=== PATIENT | female | born 1935 | race Caucasian/White ===

== ENCOUNTER → 2017-07-22 | Outpatient (CLI) | payer MEDICARE, OTHER ==
[~2017-07-22] MED LIST: AMLO5TAB96 PO; DIOV160T60 PO; LAMO25 PO; SIMV5TAB32 PO; TOPR100T15 PO
[2017-07-22 09:39] LABS: ALBUMIN 3.2 GM/DL (3.4-5.0); ALT (GPT) 15 U/L (10-53); AST (GOT) 16 U/L (15-37); BICARBONATE 23.6 MEQ/L (21.0-32.0); BLOOD UREA NITROGEN 25 MG/DL (7-18); CALCIUM 8.8 MG/DL (8.5-10.1); CHLORIDE 108 MEQ/L (98-107); CHOLESTEROL 126 MG/DL (120-200); CREATININE 1.09 MG/DL (0.50-1.00); GLOMERULAR FILTRATION RATE 48 ML/MIN (>89); SODIUM (NA) 140 MEQ/L (136-145); TRIGLYCERIDES 109 MG/DL (42-150)
[2017-07-22 09:41] LABS: GLUCOSE,FASTING 92 MG/DL (74-99); TOTAL BILIRUBIN ADULT 0.3 MG/DL (0.2-1.0); TOTAL PROTEIN 6.6 GM/DL (6.4-8.2)
[2017-07-22 09:48] LABS: ALKALINE PHOSPHATASE 112 U/L (45-117); CHOLESTEROL/ HDL RATIO 2.51 RATIO; HDL CHOLESTEROL 50.1 MG/DL (40.0-60.0); LDL CHOLESTEROL 54 MG/DL (0-99)
== END ==
LOC: PLAB 07:44
PROVIDERS: ATTEND Nurse Practitioner Family
DX: E78.2 Mixed hyperlipidemia (principal); I10 Essential (primary) hypertension; E03.9 Hypothyroidism, unspecified
CPT/HCPCS: 36415; 80053; 80061; 84443

== ENCOUNTER → 2017-09-20 | Outpatient (CLI) | payer MEDICARE, OTHER ==
[~2017-09-20] MED LIST changes: +AMLO5TAB2 PO; -AMLO5TAB96 PO; +ASPI81TA23 PO; -DIOV160T60 PO; -LAMO25 PO; +LAMO25TA PO; +LEVO.05 PO; +QUET300XR PO; -SIMV5TAB32 PO; +TOPR100T PO; -TOPR100T15 PO; +VALS1TAB65 PO; +ZOCO5TAB PO
== END ==
LOC: PLAB 07:39
PROVIDERS: ATTEND Family Medicine
DX: E03.9 Hypothyroidism, unspecified (principal)
CPT/HCPCS: 36415; 84443

== ENCOUNTER → 2017-11-09 | Outpatient (CLI) | payer MEDICARE, OTHER ==
[2017-11-09 13:25] LABS: AUTOMATED NEUTROPHIL # 5.5 TH/MM3 (1.8-7.7); BASOPHIL # 0.1 TH/MM3 (0-0.2); BASOPHIL % 0.9 % (0.0-2.0); EOSINOPHIL # 0.2 TH/MM3 (0-0.4); HEMATOCRIT 33.3 % (35.0-46.0); HEMOGLOBIN 11.3 GM/DL (11.6-15.3); LYMPH % 21.4 % (9.0-44.0); LYMPHOCYTE # 1.8 TH/MM3 (1.0-4.8); MEAN CELL VOLUME 84.7 FL (80.0-100.0); MEAN CORPUSCULAR HEMOGLOBIN 28.6 PG (27.0-34.0); MEAN CORPUSCULAR HGB CONC 33.8 % (32.0-36.0); MEAN PLATELET VOLUME 8.7 FL (7.0-11.0); MONO % 8.1 % (0.0-8.0); MONOCYTE # 0.7 TH/MM3 (0-0.9); NEUT % 66.6 % (16.0-70.0); PLATELET COUNT 230 TH/MM3 (150-450); RED BLOOD COUNT 3.93 MIL/MM3 (4.00-5.30); RED CELL DISTRIBUTION WIDTH 15.9 % (11.6-17.2); WHITE BLOOD COUNT 8.3 TH/MM3 (4.0-11.0)
[2017-11-09 13:26] LABS: BICARBONATE 23.4 MEQ/L (21.0-32.0); CREATININE 1.14 MG/DL (0.50-1.00)
== END ==
LOC: PLAB 11:07
PROVIDERS: ATTEND Family Medicine
DX: N18.3 Chronic kidney disease, stage 3 (moderate) (principal)
CPT/HCPCS: 36415; 80048; 85025

== ENCOUNTER 2018-07-15 22:29 | Inpatient (IN) ==
[2018-07-15] MEDS ORDERED: Sod Chloride 0.9% Inj 1,000 ML IV.SIG ONE (23:27)
[2018-07-15] MEDS ORDERED: Pantoprazole Inj 40 MG Vial IV.PUSH ONE (23:27)
[2018-07-15] MEDS ORDERED: Morphine Inj 4 MG/ML Vial IV.PUSH ONE (23:27)
--- NOTE | 2018-07-15 23:45 | ED ---
HPI General Chief complaint: Nausea/Vomiting/Diarrhea Stated complaint: abd pain Xtoday n/v/d/ Time Seen by Provider: 07/15/18 23:27 Source: patient and family (daughter --[facility] RN) Mode of arrival: ambulatory Limitations: no limitations History of Present Illness HPI Narrative: 82-year-old female presents to the emergency department by private transportation the care of her daughter for evaluation of generalized weakness transient confusion. According to the daughter who presents with the patient she is otherwise in fairly good health has had previous issues with opiate dependence and more recently has been placed on Seroquel to take as needed for insomnia. Patient did take a dose of Seroquel this evening. No reported abuse of of Seroquel. According to daughter they went to dinner last night she ate out everyone ate the same food she felt well seemed her normal self and then today the daughter reports that the patient called her around 11 AM stating that she did not feel well having nausea vomiting and daughter assessed that she did not seem like her typical self and appeared ill and possibly dehydrated. Daughter again assessed the patient this evening she did not seem to be improving she seemed to be more agitated disoriented and weak. Poor urine output today. No diarrhea. No prior history of diverticulitis or diverticulitis colitis bloody stools mucoid stools no hematemesis coffee-ground emesis or bilious emesis no report of chest pain or palpitations. No recent fever. Patient was given Phenergan suppository which she states did not provide her any relief that she used earlier today. No injury or fall. MD complaint: Reports nausea, vomiting and abdominal pain Onset (ago): hour(s) (onset 11 am) Description of Vomiting: food contents Description of Diarrhea: none Associated Abdominal Pain: Yes Location of pain: Reports LLQ Radiation: does not radiate Severity: moderate Quality: Reports cramping and aching Pain Consistency: colicky Relieving factors: none Exacerbating factors: none Context: Denies foreign travel, possible food poisoning, sick contacts, recent antibiotic use, recent surgery/procedure, history of abdominal surgery, alcohol abuse, trauma, anticoagulant use, aspirin use, caffeine, self induced, smoking, CO exposure, new medication and marijuana use Associated symptoms: Reports nausea/vomiting, weakness, decreased urine output and altered mental status (per daughter); Denies myalgias, chest pain, cough, diaphoresis, fever/chills, headaches, loss of appetite, malaise, rash, dysuria, shortness of breath, syncope, fecal incontinence, tenesmus, anxiety, fatigue, bloating, numbness, tinnitus and palpitation Related Data Home Medications Medication Instructions Recorded Confirmed amlodipine 5 mg PO DAILY 07/16/18 07/16/18 aspirin [Aspir-81] 81 mg PO DAILY 07/16/18 07/16/18 atorvastatin 10 mg PO DAILY 07/16/18 07/16/18 candesartan 16 mg PO DAILY 07/16/18 07/16/18 cholecalciferol (vitamin D3) 2,000 unit PO DAILY 07/16/18 07/16/18 [Vitamin D3] cyanocobalamin (vitamin B-12) 1,000 mcg PO DAILY 07/16/18 07/16/18 [Vitamin B-12] levothyroxine [Synthroid] 50 mcg PO DAILY 07/16/18 07/16/18 metoprolol succinate [Toprol XL] 100 mg PO HS 07/16/18 07/16/18 quetiapine [Seroquel] 200 mg PO HS 07/16/18 07/16/18 Allergies Allergy/AdvReac Type Severity Reaction Status Date / Time diphenhydramine Allergy Severe THROAT Verified 07/16/18 00:47 CLOSES valproic acid Allergy Intermediate VERY Verified 07/16/18 00:47 DISORIENTED Review of Systems ROS: all other systems reviewed are negative PMFSH History History Provided By: Patient (Chronic pain syndrome) Social History Social History Substance History: Past History Second Hand Smoke Exposure: No Smoking Status: Never smoker How Often Do You Have a Drink Containing Alcohol: Monthly or less Exam Narrative Exam Narrative: GENERAL: Well-nourished, well-developed patient. GCS 15 SKIN: Focused skin assessment warm/dry. HEAD: Normocephalic. EYES: No scleral icterus. No injection or drainage. NECK: Supple, trachea midline. No JVD or lymphadenopathy. CARDIOVASCULAR: Regular rate and rhythm without murmurs, gallops, or rubs. RESPIRATORY: Breath sounds equal bilaterally. No accessory muscle use. GASTROINTESTINAL: Abdomen soft, left lower quadrant tenderness to palpation without guarding or rebound, nondistended. Rectal exam: Normal sphincter tone formed hard light brown stool that is Hemoccult negative MUSCULOSKELETAL: No cyanosis, or edema. Radial dorsalis pedis pulses 2+ to palpation bilaterally BACK: Nontender without obvious deformity. No CVA tenderness. Course Initial Documented Vital Signs Temperature 99.9 F H 07/15/18 22:47 Pulse Rate 100 H 07/15/18 22:47 Respiratory Rate 20 07/15/18 22:47 Blood Pressure 148/71 H 07/15/18 22:47 Pulse Oximetry 96 07/15/18 22:47 Last Documented Vital Signs Temperature 97.6 F 07/17/18 16:15 Pulse Rate 55 L 07/17/18 18:00 Respiratory Rate 32 H 07/17/18 18:00 Blood Pressure 133/78 07/17/18 16:46 Pulse Oximetry 94 L 07/17/18 18:00 Medical Decision Making MDM Narrative Medical decision making narrative: 82-year-old female with generalized weakness nausea vomiting abdominal pain decreased urine output possible dehydration with left lower quadrant abdominal pain. IV access obtained specimens collected and sent for resulting patient placed on residential monitor with continuous pulse oximetry given fluid bolus 500 cc x1 and then maintenance at 100 cc/h Zofran administered for complaint of nausea. EKG ordered Patient given additional IV fluids hydration resting comfortably waiting on lab results Patient with leukocytosis and decreased bicarbonate additional IV fluids added as well as IV antibiotics CT abdomen pelvis shows extrahepatic ductal dilatation and dilation of the bladder patient does have tenderness to the right upper quadrant no evidence for diverticulitis colitis or bowel obstruction; patient also out abnormal urinalysis Patient with drop in blood pressure additional fluids added patient with 3 peripheral IV access x2 18-gauge and x1 20-gauge also addition of pressors Patient's case discussed with local area network administrator who has graciously accepted patient for transfer of care for management of sepsis/severe sepsis with lactic acidosis. Decision made patient transfer patient emergently from [facility] to [facility] directly to [facility] under care of local area network administrator Dr. Farfan; blood pressure improved after I additional IV fluids and pressors of Levophed; GCS remains 15 Medical Screen Exam Complete: Yes Emergency Medical Condition: Yes Differential Diagnosis Differential Diagnosis: Abdominal pain, gastroenteritis, enteritis, colitis, ischemic colitis, UTI, dehydration, arrhythmia, electrolyte disturbance, ACS, TIA, sepsis Medical Records Medical records reviewed: Yes I reviewed the patient's medical records. Lab Data Lab results reviewed: Yes I reviewed the patient's lab results. Result diagrams: 07/17/18 05:32 07/17/18 15:15 Lab Results 07/15/18 07/15/18 07/15/18 Range/Units 23:36 23:36 23:36 CBC w Diff Auto diff final WBC 9.5 (4.0-11.0) th/mm3 RBC 4.48 (4.00-5.30) mil/mm3 Hgb 13.1 (11.6-15.3) gm/dL Hct 40.9 (35.0-46.0) % MCV 91.3 (80.0-100.0) fL MCH 29.2 (27.0-34.0) pg MCHC 31.9 L (32.0-36.0) % RDW 13.1 (11.6-17.2) % Plt Count 264 (150-450) th/mm3 MPV 9.3 (7.0-11.0) fL Neut % (Auto) 93.8 H (16.0-70.0) % Lymph % (Auto) 2.9 L (9.0-44.0) % Pope % (Auto) 3.1 (0.0-8.0) % Eos % (Auto) 0.1 (0.0-4.0) % Baso % (Auto) 0.1 (0.0-2.0) % Neut # (Auto) 8.9 H (1.8-7.7) th/mm3 Lymph # (Auto) 0.3 L (1.0-4.8) th/mm3 Pope # (Auto) 0.3 (0.0-0.9) th/mm3 Eos # (Auto) 0.0 (0.0-0.4) th/mm3 Baso # (Auto) 0.0 (0.0-0.2) th/mm3 WBC Differential . Differential Comment . PT 11.4 (9.8-11.6) sec INR 1.1 Ratio APTT 27.8 (23.4-31.7) sec Puncture Site Patient Temperature O2 Saturation (90-100) % ABG pH (7.380-7.420) ABG pCO2 (38-42) mmHg ABG pO2 (61-120) mmHg ABG HCO3 (22-26) mmol/L ABG O2 Content (12.0-20.0) Vol % ABG Base Excess (-2-2) mmol/L ABG Methemoglobin (0-2) % Miles Test Hemoglobin (12.0-16.0) G/DL Carboxyhemoglobin (0-4) % O2 Delivery Device Liter Flow L/M Inspired O2 % Critical Value Sodium 143 (136-145) meq/L Potassium 3.9 (3.5-5.1) meq/L Chloride 113 H (98-107) meq/L Carbon Dioxide 14.8 L (21.0-32.0) meq/L Anion Gap 15 (5-15) meq/L BUN 34 H (7-18) mg/dL Creatinine 1.50 H (0.50-1.00) mg/dL Estimated GFR 33 L (>89) mL/min POC Glucose (68-110) mg/dl Random Glucose 145 H (74-106) mg/dL Lactic Acid (0.4-2.0) mmol/L Calcium 7.2 L* (8.5-10.1) mg/dL Calcium Adj for Albumin 7.7 L (8.5-10.1) mg/dL Phosphorus (2.5-4.9) mg/dL Magnesium 2.1 (1.5-2.5) mg/dL Total Bilirubin 0.6 (0.2-1.0) mg/dL AST 42 H (15-37) U/L ALT 27 (10-53) U/L Alkaline Phosphatase 92 (45-117) U/L Total Creatine Kinase 112 (26-192) U/L CK-MB (CK-2) 1.6 (0.5-3.6) ng/mL CK-MB (CK-2) % (0.0-4.0) % Troponin I Less than 0.02 L (0.02-0.05) ng/mL Total Protein 6.8 (6.4-8.2) g/dL Albumin 3.4 (3.4-5.0) g/dL Lipase 105 (73-393) U/L TSH (0.358-3.740) uIU/mL Urine Color (Yellw/Straw) Urine Clarity (Clear) Urine pH (5.0-8.5) Ur Specific [place] (1.002-1.035) Urine Protein (Neg-Trace) mg/dL Urine Glucose (UA) (Negative) mg/dL Urine Ketones (Negative) mg/dL Urine Occult Blood (Negative) Urine Nitrate (Negative) Urine Bilirubin (Negative) Urine Ictotest (Negative) Urine Urobilinogen (Less than 2) mg/dL Ur Leukocyte Esterase (Negative) Urine RBC (0-3) /hpf Urine WBC (0-5) /hpf Urine WBC Clumps (None) Ur Squamous Epith Cells (0-5) /hpf Calcium Oxalate Crystal (None) /hpf Amorphous Sediment (None) /hpf Urine Bacteria (None) /hpf Urine Mucus (Occasional) /lpf Micro UA Comment Ur Microscopic Review Urine Culture Comments Nasal Screen MRSA (PCR) (Negative) Stl C.difficile DNA Amp (Negative) St C. diff Tox Epid 027 (Negative) Blood Type Antibody Screen 07/15/18 07/15/18 07/16/18 Range/Units 23:36 23:36 00:28 CBC w Diff WBC (4.0-11.0) th/mm3 RBC (4.00-5.30) mil/mm3 Hgb (11.6-15.3) gm/dL Hct (35.0-46.0) % MCV (80.0-100.0) fL MCH (27.0-34.0) pg MCHC (32.0-36.0) % RDW (11.6-17.2) % Plt Count (150-450) th/mm3 MPV (7.0-11.0) fL Neut % (Auto) (16.0-70.0) % Lymph % (Auto) (9.0-44.0) % Pope % (Auto) (0.0-8.0) % Eos % (Auto) (0.0-4.0) % Baso % (Auto) (0.0-2.0) % Neut # (Auto) (1.8-7.7) th/mm3 Lymph # (Auto) (1.0-4.8) th/mm3 Pope # (Auto) (0.0-0.9) th/mm3 Eos # (Auto) (0.0-0.4) th/mm3 Baso # (Auto) (0.0-0.2) th/mm3 WBC Differential Differential Comment PT (9.8-11.6) sec INR Ratio APTT (23.4-31.7) sec Puncture Site Patient Temperature O2 Saturation (90-100) % ABG pH (7.380-7.420) ABG pCO2 (38-42) mmHg ABG pO2 (61-120) mmHg ABG HCO3 (22-26) mmol/L ABG O2 Content (12.0-20.0) Vol % ABG Base Excess (-2-2) mmol/L ABG Methemoglobin (0-2) % Miles Test Hemoglobin (12.0-16.0) G/DL Carboxyhemoglobin (0-4) % O2 Delivery Device Liter Flow L/M Inspired O2 % Critical Value Sodium (136-145) meq/L Potassium (3.5-5.1) meq/L Chloride (98-107) meq/L Carbon Dioxide (21.0-32.0) meq/L Anion Gap (5-15) meq/L BUN (7-18) mg/dL Creatinine (0.50-1.00) mg/dL Estimated GFR (>89) mL/min POC Glucose 106 (68-110) mg/dl Random Glucose (74-106) mg/dL Lactic Acid 3.5 H (0.4-2.0) mmol/L Calcium (8.5-10.1) mg/dL Calcium Adj for Albumin (8.5-10.1) mg/dL Phosphorus (2.5-4.9) mg/dL Magnesium (1.5-2.5) mg/dL Total Bilirubin (0.2-1.0) mg/dL AST (15-37) U/L ALT (10-53) U/L Alkaline Phosphatase (45-117) U/L Total Creatine Kinase (26-192) U/L CK-MB (CK-2) (0.5-3.6) ng/mL CK-MB (CK-2) % (0.0-4.0) % Troponin I (0.02-0.05) ng/mL Total Protein (6.4-8.2) g/dL Albumin (3.4-5.0) g/dL Lipase (73-393) U/L TSH (0.358-3.740) uIU/mL Urine Color (Yellw/Straw) Urine Clarity (Clear) Urine pH (5.0-8.5) Ur Specific [place] (1.002-1.035) Urine Protein (Neg-Trace) mg/dL Urine Glucose (UA) (Negative) mg/dL Urine Ketones (Negative) mg/dL Urine Occult Blood (Negative) Urine Nitrate (Negative) Urine Bilirubin (Negative) Urine Ictotest (Negative) Urine Urobilinogen (Less than 2) mg/dL Ur Leukocyte Esterase (Negative) Urine RBC (0-3) /hpf Urine WBC (0-5) /hpf Urine WBC Clumps (None) Ur Squamous Epith Cells (0-5) /hpf Calcium Oxalate Crystal (None) /hpf Amorphous Sediment (None) /hpf Urine Bacteria (None) /hpf Urine Mucus (Occasional) /lpf Micro UA Comment Ur Microscopic Review Urine Culture Comments Nasal Screen MRSA (PCR) (Negative) Stl C.difficile DNA Amp (Negative) St C. diff Tox Epid 027 (Negative) Blood Type B Positive Antibody Screen Negative 07/16/18 07/16/18 07/16/18 Range/Units 00:50 01:00 02:55 CBC w Diff WBC (4.0-11.0) th/mm3 RBC (4.00-5.30) mil/mm3 Hgb (11.6-15.3) gm/dL Hct (35.0-46.0) % MCV (80.0-100.0) fL MCH (27.0-34.0) pg MCHC (32.0-36.0) % RDW (11.6-17.2) % Plt Count (150-450) th/mm3 MPV (7.0-11.0) fL Neut % (Auto) (16.0-70.0) % Lymph % (Auto) (9.0-44.0) % Pope % (Auto) (0.0-8.0) % Eos % (Auto) (0.0-4.0) % Baso % (Auto) (0.0-2.0) % Neut # (Auto) (1.8-7.7) th/mm3 Lymph # (Auto) (1.0-4.8) th/mm3 Pope # (Auto) (0.0-0.9) th/mm3 Eos # (Auto) (0.0-0.4) th/mm3 Baso # (Auto) (0.0-0.2) th/mm3 WBC Differential Differential Comment PT (9.8-11.6) sec INR Ratio APTT (23.4-31.7) sec Puncture Site Right radial Patient Temperature 98.6 O2 Saturation 91 (90-100) % ABG pH 7.35 L (7.380-7.420) ABG pCO2 23 L* (38-42) mmHg ABG pO2 66 (61-120) mmHg ABG HCO3 12 L* (22-26) mmol/L ABG O2 Content 13.5 (12.0-20.0) Vol % ABG Base Excess -12.4 L (-2-2) mmol/L ABG Methemoglobin 1.5 (0-2) % Miles Test Present Hemoglobin 10.6 L (12.0-16.0) G/DL Carboxyhemoglobin 1.0 (0-4) % O2 Delivery Device Room air Liter Flow L/M Inspired O2 21 % Critical Value Yes Sodium (136-145) meq/L Potassium (3.5-5.1) meq/L Chloride (98-107) meq/L Carbon Dioxide (21.0-32.0) meq/L Anion Gap (5-15) meq/L BUN (7-18) mg/dL Creatinine (0.50-1.00) mg/dL Estimated GFR (>89) mL/min POC Glucose (68-110) mg/dl Random Glucose (74-106) mg/dL Lactic Acid 2.6 H (0.4-2.0) mmol/L Calcium (8.5-10.1) mg/dL Calcium Adj for Albumin (8.5-10.1) mg/dL Phosphorus (2.5-4.9) mg/dL Magnesium (1.5-2.5) mg/dL Total Bilirubin (0.2-1.0) mg/dL AST (15-37) U/L ALT (10-53) U/L Alkaline Phosphatase (45-117) U/L Total Creatine Kinase (26-192) U/L CK-MB (CK-2) (0.5-3.6) ng/mL CK-MB (CK-2) % (0.0-4.0) % Troponin I (0.02-0.05) ng/mL Total Protein (6.4-8.2) g/dL Albumin (3.4-5.0) g/dL Lipase (73-393) U/L TSH (0.358-3.740) uIU/mL Urine Color Yellow (Yellw/Straw) Urine Clarity Clear (Clear) Urine pH 6.5 (5.0-8.5) Ur Specific [place] 1.025 (1.002-1.035) Urine Protein 100 H (Neg-Trace) mg/dL Urine Glucose (UA) 100 H (Negative) mg/dL Urine Ketones Trace H (Negative) mg/dL Urine Occult Blood Trace (Negative) Urine Nitrate Positive H (Negative) Urine Bilirubin Moderate H (Negative) Urine Ictotest Positive H (Negative) Urine Urobilinogen 4.0 H (Less than 2) mg/dL Ur Leukocyte Esterase Negative (Negative) Urine RBC 0-3 (0-3) /hpf Urine WBC 0-5 (0-5) /hpf Urine WBC Clumps Occasional H (None) Ur Squamous Epith Cells 0-5 (0-5) /hpf Calcium Oxalate Crystal Occasional H (None) /hpf Amorphous Sediment Occ H (None) /hpf Urine Bacteria Occasional H (None) /hpf Urine Mucus (Occasional) /lpf Micro UA Comment Culture indicated Ur Microscopic Review Microscopic reviewed Urine Culture Comments Culture indicated Nasal Screen MRSA (PCR) (Negative) Stl C.difficile DNA Amp (Negative) St C. diff Tox Epid 027 (Negative) Blood Type Antibody Screen 07/16/18 07/16/18 07/16/18 Range/Units 03:40 05:55 06:28 CBC w Diff WBC (4.0-11.0) th/mm3 RBC (4.00-5.30) mil/mm3 Hgb (11.6-15.3) gm/dL Hct (35.0-46.0) % MCV (80.0-100.0) fL MCH (27.0-34.0) pg MCHC (32.0-36.0) % RDW (11.6-17.2) % Plt Count (150-450) th/mm3 MPV (7.0-11.0) fL Neut % (Auto) (16.0-70.0) % Lymph % (Auto) (9.0-44.0) % Pope % (Auto) (0.0-8.0) % Eos % (Auto) (0.0-4.0) % Baso % (Auto) (0.0-2.0) % Neut # (Auto) (1.8-7.7) th/mm3 Lymph # (Auto) (1.0-4.8) th/mm3 Pope # (Auto) (0.0-0.9) th/mm3 Eos # (Auto) (0.0-0.4) th/mm3 Baso # (Auto) (0.0-0.2) th/mm3 WBC Differential Differential Comment PT (9.8-11.6) sec INR Ratio APTT (23.4-31.7) sec Puncture Site Right radial Patient Temperature 98.6 O2 Saturation 94 (90-100) % ABG pH 7.37 L (7.380-7.420) ABG pCO2 24 L* (38-42) mmHg ABG pO2 88 (61-120) mmHg ABG HCO3 14 L* (22-26) mmol/L ABG O2 Content 13.3 (12.0-20.0) Vol % ABG Base Excess -10.7 L (-2-2) mmol/L ABG Methemoglobin 1.8 (0-2) % Miles Test Present Hemoglobin 10.0 L (12.0-16.0) G/DL Carboxyhemoglobin 0.5 (0-4) % O2 Delivery Device Nasal cannula Liter Flow 2.00 L/M Inspired O2 % Critical Value Yes Sodium (136-145) meq/L Potassium (3.5-5.1) meq/L Chloride (98-107) meq/L Carbon Dioxide (21.0-32.0) meq/L Anion Gap (5-15) meq/L BUN (7-18) mg/dL Creatinine (0.50-1.00) mg/dL Estimated GFR (>89) mL/min POC Glucose 129 H (68-110) mg/dl Random Glucose (74-106) mg/dL Lactic Acid (0.4-2.0) mmol/L Calcium (8.5-10.1) mg/dL Calcium Adj for Albumin (8.5-10.1) mg/dL Phosphorus (2.5-4.9) mg/dL Magnesium (1.5-2.5) mg/dL Total Bilirubin (0.2-1.0) mg/dL AST (15-37) U/L ALT (10-53) U/L Alkaline Phosphatase (45-117) U/L Total Creatine Kinase 112 (26-192) U/L CK-MB (CK-2) 1.7 (0.5-3.6) ng/mL CK-MB (CK-2) % (0.0-4.0) % Troponin I (0.02-0.05) ng/mL Total Protein (6.4-8.2) g/dL Albumin (3.4-5.0) g/dL Lipase (73-393) U/L TSH (0.358-3.740) uIU/mL Urine Color (Yellw/Straw) Urine Clarity (Clear) Urine pH (5.0-8.5) Ur Specific [place] (1.002-1.035) Urine Protein (Neg-Trace) mg/dL Urine Glucose (UA) (Negative) mg/dL Urine Ketones (Negative) mg/dL Urine Occult Blood (Negative) Urine Nitrate (Negative) Urine Bilirubin (Negative) Urine Ictotest (Negative) Urine Urobilinogen (Less than 2) mg/dL Ur Leukocyte Esterase (Negative) Urine RBC (0-3) /hpf Urine WBC (0-5) /hpf Urine WBC Clumps (None) Ur Squamous Epith Cells (0-5) /hpf Calcium Oxalate Crystal (None) /hpf Amorphous Sediment (None) /hpf Urine Bacteria (None) /hpf Urine Mucus (Occasional) /lpf Micro UA Comment Ur Microscopic Review Urine Culture Comments Nasal Screen MRSA (PCR) (Negative) Stl C.difficile DNA Amp (Negative) St C. diff Tox Epid 027 (Negative) Blood Type Antibody Screen 07/16/18 07/16/18 07/16/18 Range/Units 06:35 07:45 08:26 CBC w Diff WBC (4.0-11.0) th/mm3 RBC (4.00-5.30) mil/mm3 Hgb (11.6-15.3) gm/dL Hct (35.0-46.0) % MCV (80.0-100.0) fL MCH (27.0-34.0) pg MCHC (32.0-36.0) % RDW (11.6-17.2) % Plt Count (150-450) th/mm3 MPV (7.0-11.0) fL Neut % (Auto) (16.0-70.0) % Lymph % (Auto) (9.0-44.0) % Pope % (Auto) (0.0-8.0) % Eos % (Auto) (0.0-4.0) % Baso % (Auto) (0.0-2.0) % Neut # (Auto) (1.8-7.7) th/mm3 Lymph # (Auto) (1.0-4.8) th/mm3 Pope # (Auto) (0.0-0.9) th/mm3 Eos # (Auto) (0.0-0.4) th/mm3 Baso # (Auto) (0.0-0.2) th/mm3 WBC Differential Differential Comment PT (9.8-11.6) sec INR Ratio APTT (23.4-31.7) sec Puncture Site Patient Temperature O2 Saturation (90-100) % ABG pH (7.380-7.420) ABG pCO2 (38-42) mmHg ABG pO2 (61-120) mmHg ABG HCO3 (22-26) mmol/L ABG O2 Content (12.0-20.0) Vol % ABG Base Excess (-2-2) mmol/L ABG Methemoglobin (0-2) % Miles Test Hemoglobin (12.0-16.0) G/DL Carboxyhemoglobin (0-4) % O2 Delivery Device Liter Flow L/M Inspired O2 % Critical Value Sodium (136-145) meq/L Potassium (3.5-5.1) meq/L Chloride (98-107) meq/L Carbon Dioxide (21.0-32.0) meq/L Anion Gap (5-15) meq/L BUN (7-18) mg/dL Creatinine (0.50-1.00) mg/dL Estimated GFR (>89) mL/min POC Glucose (68-110) mg/dl Random Glucose (74-106) mg/dL Lactic Acid 1.9 (0.4-2.0) mmol/L Calcium (8.5-10.1) mg/dL Calcium Adj for Albumin (8.5-10.1) mg/dL Phosphorus (2.5-4.9) mg/dL Magnesium (1.5-2.5) mg/dL Total Bilirubin (0.2-1.0) mg/dL AST (15-37) U/L ALT (10-53) U/L Alkaline Phosphatase (45-117) U/L Total Creatine Kinase (26-192) U/L CK-MB (CK-2) (0.5-3.6) ng/mL CK-MB (CK-2) % (0.0-4.0) % Troponin I (0.02-0.05) ng/mL Total Protein (6.4-8.2) g/dL Albumin (3.4-5.0) g/dL Lipase (73-393) U/L TSH (0.358-3.740) uIU/mL Urine Color Claudia (Yellw/Straw) Urine Clarity Clear (Clear) Urine pH 5.0 (5.0-8.5) Ur Specific [place] 1.028 (1.002-1.035) Urine Protein 30 H (Neg-Trace) mg/dL Urine Glucose (UA) Negative (Negative) mg/dL Urine Ketones Negative (Negative) mg/dL Urine Occult Blood Moderate H (Negative) Urine Nitrate Negative (Negative) Urine Bilirubin Negative (Negative) Urine Ictotest (Negative) Urine Urobilinogen 0.2 (Less than 2) mg/dL Ur Leukocyte Esterase Negative (Negative) Urine RBC 22 H (0-3) /hpf Urine WBC 6 H (0-5) /hpf Urine WBC Clumps (None) Ur Squamous Epith Cells <1 (0-5) /hpf Calcium Oxalate Crystal (None) /hpf Amorphous Sediment (None) /hpf Urine Bacteria Occasional H (None) /hpf Urine Mucus Few H (Occasional) /lpf Micro UA Comment Ur Microscopic Review Not Reportable Urine Culture Comments Nasal Screen MRSA (PCR) Not detected (Negative) Stl C.difficile DNA Amp (Negative) St C. diff Tox Epid 027 (Negative) Blood Type Antibody Screen 07/16/18 07/16/18 07/16/18 Range/Units 12:45 13:05 18:22 CBC w Diff WBC (4.0-11.0) th/mm3 RBC (4.00-5.30) mil/mm3 Hgb (11.6-15.3) gm/dL Hct (35.0-46.0) % MCV (80.0-100.0) fL MCH (27.0-34.0) pg MCHC (32.0-36.0) % RDW (11.6-17.2) % Plt Count (150-450) th/mm3 MPV (7.0-11.0) fL Neut % (Auto) (16.0-70.0) % Lymph % (Auto) (9.0-44.0) % Pope % (Auto) (0.0-8.0) % Eos % (Auto) (0.0-4.0) % Baso % (Auto) (0.0-2.0) % Neut # (Auto) (1.8-7.7) th/mm3 Lymph # (Auto) (1.0-4.8) th/mm3 Pope # (Auto) (0.0-0.9) th/mm3 Eos # (Auto) (0.0-0.4) th/mm3 Baso # (Auto) (0.0-0.2) th/mm3 WBC Differential Differential Comment PT (9.8-11.6) sec INR Ratio APTT (23.4-31.7) sec Puncture Site Patient Temperature O2 Saturation (90-100) % ABG pH (7.380-7.420) ABG pCO2 (38-42) mmHg ABG pO2 (61-120) mmHg ABG HCO3 (22-26) mmol/L ABG O2 Content (12.0-20.0) Vol % ABG Base Excess (-2-2) mmol/L ABG Methemoglobin (0-2) % Miles Test Hemoglobin (12.0-16.0) G/DL Carboxyhemoglobin (0-4) % O2 Delivery Device Liter Flow L/M Inspired O2 % Critical Value Sodium (136-145) meq/L Potassium (3.5-5.1) meq/L Chloride (98-107) meq/L Carbon Dioxide (21.0-32.0) meq/L Anion Gap (5-15) meq/L BUN (7-18) mg/dL Creatinine (0.50-1.00) mg/dL Estimated GFR (>89) mL/min POC Glucose 117 H 107 (68-110) mg/dl Random Glucose (74-106) mg/dL Lactic Acid (0.4-2.0) mmol/L Calcium (8.5-10.1) mg/dL Calcium Adj for Albumin (8.5-10.1) mg/dL Phosphorus (2.5-4.9) mg/dL Magnesium (1.5-2.5) mg/dL Total Bilirubin (0.2-1.0) mg/dL AST (15-37) U/L ALT (10-53) U/L Alkaline Phosphatase (45-117) U/L Total Creatine Kinase (26-192) U/L CK-MB (CK-2) (0.5-3.6) ng/mL CK-MB (CK-2) % (0.0-4.0) % Troponin I (0.02-0.05) ng/mL Total Protein (6.4-8.2) g/dL Albumin (3.4-5.0) g/dL Lipase (73-393) U/L TSH (0.358-3.740) uIU/mL Urine Color (Yellw/Straw) Urine Clarity (Clear) Urine pH (5.0-8.5) Ur Specific [place] (1.002-1.035) Urine Protein (Neg-Trace) mg/dL Urine Glucose (UA) (Negative) mg/dL Urine Ketones (Negative) mg/dL Urine Occult Blood (Negative) Urine Nitrate (Negative) Urine Bilirubin (Negative) Urine Ictotest (Negative) Urine Urobilinogen (Less than 2) mg/dL Ur Leukocyte Esterase (Negative) Urine RBC (0-3) /hpf Urine WBC (0-5) /hpf Urine WBC Clumps (None) Ur Squamous Epith Cells (0-5) /hpf Calcium Oxalate Crystal (None) /hpf Amorphous Sediment (None) /hpf Urine Bacteria (None) /hpf Urine Mucus (Occasional) /lpf Micro UA Comment Ur Microscopic Review Urine Culture Comments Nasal Screen MRSA (PCR) (Negative) Stl C.difficile DNA Amp Negative (Negative) St C. diff Tox Epid 027 Negative (Negative) Blood Type Antibody Screen 07/16/18 07/17/18 07/17/18 Range/Units 23:33 05:32 05:32 CBC w Diff WBC 7.5 (4.0-11.0) th/mm3 RBC 3.19 L (4.00-5.30) mil/mm3 Hgb 9.9 L D (11.6-15.3) gm/dL Hct 29.0 L (35.0-46.0) % MCV 90.7 (80.0-100.0) fL MCH 30.9 (27.0-34.0) pg MCHC 34.1 (32.0-36.0) % RDW 13.4 (11.6-17.2) % Plt Count 155 D (150-450) th/mm3 MPV 9.0 (7.0-11.0) fL Neut % (Auto) 74.5 H (16.0-70.0) % Lymph % (Auto) 19.2 (9.0-44.0) % Pope % (Auto) 5.9 (0.0-8.0) % Eos % (Auto) 0.1 (0.0-4.0) % Baso % (Auto) 0.3 (0.0-2.0) % Neut # (Auto) 5.6 (1.8-7.7) th/mm3 Lymph # (Auto) 1.4 (1.0-4.8) th/mm3 Pope # (Auto) 0.4 (0.0-0.9) th/mm3 Eos # (Auto) 0.0 (0.0-0.4) th/mm3 Baso # (Auto) 0.0 (0.0-0.2) th/mm3 WBC Differential . Differential Comment Auto diff final PT (9.8-11.6) sec INR Ratio APTT (23.4-31.7) sec Puncture Site Patient Temperature O2 Saturation (90-100) % ABG pH (7.380-7.420) ABG pCO2 (38-42) mmHg ABG pO2 (61-120) mmHg ABG HCO3 (22-26) mmol/L ABG O2 Content (12.0-20.0) Vol % ABG Base Excess (-2-2) mmol/L ABG Methemoglobin (0-2) % Miles Test Hemoglobin (12.0-16.0) G/DL Carboxyhemoglobin (0-4) % O2 Delivery Device Liter Flow L/M Inspired O2 % Critical Value Sodium 147 H (136-145) meq/L Potassium 3.3 L (3.5-5.1) meq/L Chloride 120 H (98-107) meq/L Carbon Dioxide 16.1 L (21.0-32.0) meq/L Anion Gap 11 (5-15) meq/L BUN 26 H (7-18) mg/dL Creatinine 1.11 H (0.50-1.00) mg/dL Estimated GFR 47 L (>89) mL/min POC Glucose 127 H (68-110) mg/dl Random Glucose 107 H (74-106) mg/dL Lactic Acid (0.4-2.0) mmol/L Calcium 6.8 L* (8.5-10.1) mg/dL Calcium Adj for Albumin 8.1 L (8.5-10.1) mg/dL Phosphorus 2.1 L (2.5-4.9) mg/dL Magnesium 1.8 (1.5-2.5) mg/dL Total Bilirubin 0.3 (0.2-1.0) mg/dL AST 43 H (15-37) U/L ALT 21 (10-53) U/L Alkaline Phosphatase 68 (45-117) U/L Total Creatine Kinase (26-192) U/L CK-MB (CK-2) (0.5-3.6) ng/mL CK-MB (CK-2) % (0.0-4.0) % Troponin I (0.02-0.05) ng/mL Total Protein 4.6 L D (6.4-8.2) g/dL Albumin 2.4 L D (3.4-5.0) g/dL Lipase (73-393) U/L TSH (0.358-3.740) uIU/mL Urine Color (Yellw/Straw) Urine Clarity (Clear) Urine pH (5.0-8.5) Ur Specific [place] (1.002-1.035) Urine Protein (Neg-Trace) mg/dL Urine Glucose (UA) (Negative) mg/dL Urine Ketones (Negative) mg/dL Urine Occult Blood (Negative) Urine Nitrate (Negative) Urine Bilirubin (Negative) Urine Ictotest (Negative) Urine Urobilinogen (Less than 2) mg/dL Ur Leukocyte Esterase (Negative) Urine RBC (0-3) /hpf Urine WBC (0-5) /hpf Urine WBC Clumps (None) Ur Squamous Epith Cells (0-5) /hpf Calcium Oxalate Crystal (None) /hpf Amorphous Sediment (None) /hpf Urine Bacteria (None) /hpf Urine Mucus (Occasional) /lpf Micro UA Comment Ur Microscopic Review Urine Culture Comments Nasal Screen MRSA (PCR) (Negative) Stl C.difficile DNA Amp (Negative) St C. diff Tox Epid 027 (Negative) Blood Type Antibody Screen 07/17/18 07/17/18 07/17/18 Range/Units 05:32 11:34 15:15 CBC w Diff WBC (4.0-11.0) th/mm3 RBC (4.00-5.30) mil/mm3 Hgb (11.6-15.3) gm/dL Hct (35.0-46.0) % MCV (80.0-100.0) fL MCH (27.0-34.0) pg MCHC (32.0-36.0) % RDW (11.6-17.2) % Plt Count (150-450) th/mm3 MPV (7.0-11.0) fL Neut % (Auto) (16.0-70.0) % Lymph % (Auto) (9.0-44.0) % Pope % (Auto) (0.0-8.0) % Eos % (Auto) (0.0-4.0) % Baso % (Auto) (0.0-2.0) % Neut # (Auto) (1.8-7.7) th/mm3 Lymph # (Auto) (1.0-4.8) th/mm3 Pope # (Auto) (0.0-0.9) th/mm3 Eos # (Auto) (0.0-0.4) th/mm3 Baso # (Auto) (0.0-0.2) th/mm3 WBC Differential Differential Comment PT (9.8-11.6) sec INR Ratio APTT (23.4-31.7) sec Puncture Site Patient Temperature O2 Saturation (90-100) % ABG pH (7.380-7.420) ABG pCO2 (38-42) mmHg ABG pO2 (61-120) mmHg ABG HCO3 (22-26) mmol/L ABG O2 Content (12.0-20.0) Vol % ABG Base Excess (-2-2) mmol/L ABG Methemoglobin (0-2) % Miles Test Hemoglobin (12.0-16.0) G/DL Carboxyhemoglobin (0-4) % O2 Delivery Device Liter Flow L/M Inspired O2 % Critical Value Sodium (136-145) meq/L Potassium 3.7 (3.5-5.1) meq/L Chloride (98-107) meq/L Carbon Dioxide (21.0-32.0) meq/L Anion Gap (5-15) meq/L BUN (7-18) mg/dL Creatinine (0.50-1.00) mg/dL Estimated GFR (>89) mL/min POC Glucose 131 H (68-110) mg/dl Random Glucose (74-106) mg/dL Lactic Acid (0.4-2.0) mmol/L Calcium (8.5-10.1) mg/dL Calcium Adj for Albumin (8.5-10.1) mg/dL Phosphorus (2.5-4.9) mg/dL Magnesium 1.6 (1.5-2.5) mg/dL Total Bilirubin (0.2-1.0) mg/dL AST (15-37) U/L ALT (10-53) U/L Alkaline Phosphatase (45-117) U/L Total Creatine Kinase 353 H (26-192) U/L CK-MB (CK-2) 5.6 H (0.5-3.6) ng/mL CK-MB (CK-2) % 1.6 (0.0-4.0) % Troponin I (0.02-0.05) ng/mL Total Protein (6.4-8.2) g/dL Albumin (3.4-5.0) g/dL Lipase (73-393) U/L TSH (0.358-3.740) uIU/mL Urine Color (Yellw/Straw) Urine Clarity (Clear) Urine pH (5.0-8.5) Ur Specific [place] (1.002-1.035) Urine Protein (Neg-Trace) mg/dL Urine Glucose (UA) (Negative) mg/dL Urine Ketones (Negative) mg/dL Urine Occult Blood (Negative) Urine Nitrate (Negative) Urine Bilirubin (Negative) Urine Ictotest (Negative) Urine Urobilinogen (Less than 2) mg/dL Ur Leukocyte Esterase (Negative) Urine RBC (0-3) /hpf Urine WBC (0-5) /hpf Urine WBC Clumps (None) Ur Squamous Epith Cells (0-5) /hpf Calcium Oxalate Crystal (None) /hpf Amorphous Sediment (None) /hpf Urine Bacteria (None) /hpf Urine Mucus (Occasional) /lpf Micro UA Comment Ur Microscopic Review Urine Culture Comments Nasal Screen MRSA (PCR) (Negative) Stl C.difficile DNA Amp (Negative) St C. diff Tox Epid 027 (Negative) Blood Type Antibody Screen 07/17/18 07/17/18 Range/Units 15:15 17:12 CBC w Diff WBC (4.0-11.0) th/mm3 RBC (4.00-5.30) mil/mm3 Hgb (11.6-15.3) gm/dL Hct (35.0-46.0) % MCV (80.0-100.0) fL MCH (27.0-34.0) pg MCHC (32.0-36.0) % RDW (11.6-17.2) % Plt Count (150-450) th/mm3 MPV (7.0-11.0) fL Neut % (Auto) (16.0-70.0) % Lymph % (Auto) (9.0-44.0) % Pope % (Auto) (0.0-8.0) % Eos % (Auto) (0.0-4.0) % Baso % (Auto) (0.0-2.0) % Neut # (Auto) (1.8-7.7) th/mm3 Lymph # (Auto) (1.0-4.8) th/mm3 Pope # (Auto) (0.0-0.9) th/mm3 Eos # (Auto) (0.0-0.4) th/mm3 Baso # (Auto) (0.0-0.2) th/mm3 WBC Differential Differential Comment PT (9.8-11.6) sec INR Ratio APTT (23.4-31.7) sec Puncture Site Patient Temperature O2 Saturation (90-100) % ABG pH (7.380-7.420) ABG pCO2 (38-42) mmHg ABG pO2 (61-120) mmHg ABG HCO3 (22-26) mmol/L ABG O2 Content (12.0-20.0) Vol % ABG Base Excess (-2-2) mmol/L ABG Methemoglobin (0-2) % Miles Test Hemoglobin (12.0-16.0) G/DL Carboxyhemoglobin (0-4) % O2 Delivery Device Liter Flow L/M Inspired O2 % Critical Value Sodium (136-145) meq/L Potassium (3.5-5.1) meq/L Chloride (98-107) meq/L Carbon Dioxide (21.0-32.0) meq/L Anion Gap (5-15) meq/L BUN (7-18) mg/dL Creatinine (0.50-1.00) mg/dL Estimated GFR (>89) mL/min POC Glucose 122 H (68-110) mg/dl Random Glucose (74-106) mg/dL Lactic Acid (0.4-2.0) mmol/L Calcium (8.5-10.1) mg/dL Calcium Adj for Albumin (8.5-10.1) mg/dL Phosphorus (2.5-4.9) mg/dL Magnesium (1.5-2.5) mg/dL Total Bilirubin (0.2-1.0) mg/dL AST (15-37) U/L ALT (10-53) U/L Alkaline Phosphatase (45-117) U/L Total Creatine Kinase (26-192) U/L CK-MB (CK-2) (0.5-3.6) ng/mL CK-MB (CK-2) % (0.0-4.0) % Troponin I (0.02-0.05) ng/mL Total Protein (6.4-8.2) g/dL Albumin (3.4-5.0) g/dL Lipase (73-393) U/L TSH 1.150 (0.358-3.740) uIU/mL Urine Color (Yellw/Straw) Urine Clarity (Clear) Urine pH (5.0-8.5) Ur Specific [place] (1.002-1.035) Urine Protein (Neg-Trace) mg/dL Urine Glucose (UA) (Negative) mg/dL Urine Ketones (Negative) mg/dL Urine Occult Blood (Negative) Urine Nitrate (Negative) Urine Bilirubin (Negative) Urine Ictotest (Negative) Urine Urobilinogen (Less than 2) mg/dL Ur Leukocyte Esterase (Negative) Urine RBC (0-3) /hpf Urine WBC (0-5) /hpf Urine WBC Clumps (None) Ur Squamous Epith Cells (0-5) /hpf Calcium Oxalate Crystal (None) /hpf Amorphous Sediment (None) /hpf Urine Bacteria (None) /hpf Urine Mucus (Occasional) /lpf Micro UA Comment Ur Microscopic Review Urine Culture Comments Nasal Screen MRSA (PCR) (Negative) Stl C.difficile DNA Amp (Negative) St C. diff Tox Epid 027 (Negative) Blood Type Antibody Screen Imaging Data Radiologist's impression: Abdomen/Bladder Ultrasound 07/16/18 00:00 CONCLUSION: 1. Increased echogenicity to the kidneys bilaterally consistent with medical renal disease. No hydronephrosis is seen. 2. 1.3 cm cyst at the mid left kidney. Chest X-Ray 07/16/18 00:00 CONCLUSION: Elevated right hemidiaphragm. Lungs are clear. Cholangiopancreatography MRI 07/16/18 00:00 CONCLUSION: 1. Moderately distended gallbladder with diffusely distended extrahepatic bile ducts and pancreatic duct extending to the ampulla. No definitive focal intraductal abnormality is demonstrated. Differential considerations include an occult pancreatic head lesion versus ampullary dysfunction/mass. Consider ERCP with endoscopic ultrasound for further evaluation as clinically warranted. Abdomen/Pelvis CT 07/16/18 00:18 CONCLUSION: 1. Biliary tree dilatation otherwise unremarkable CT scan of the abdomen and pelvis. Right hemidiaphragm is markedly elevated. Moderately distended colon without evidence of wall thickening or obstruction. 2. Some increased density to the left renal collecting system and right posterior bladder that could be evidence of transitional cell carcinoma. Correlate for hematuria. And outpt. Urology workup recommended Head CT 07/16/18 00:18 CONCLUSION: 1. Unremarkable study. No evidence of hemorrhage or edema. Some motion in the central portion of the exam without obvious mass or mass effect . Chest X-Ray 07/17/18 00:00 CONCLUSION: Elevation of the right hemidiaphragm with some accompanying atelectasis or consolidation at the right base. There also is some prominence of the right hilar region. ECG Data EKG Prior to Arrival: No Attestation: I personally reviewed and interpreted this ECG as follows: (EKG: Normal sinus rhythm rate [address] elevation or injury pattern nonspecific ST segment flattening anterolaterally) Discharge Plan Discharge Disposition Patient Disposition: ED Admit(ED Internal Use Only) Discharge Order Discharge Orders: ED Use Only Admit Order (Routine); Ordered 07/16/18 Ordered By: Cristal Barlow Physicians Team ED Provider: Cristal Barlow Primary Care Provider: Teresa Álvarez Attending Provider: Mikel Perez Other Providers: Akbar Tamayo Samuel M Status ED Status: Left Department Discharge Information Discharge Date/Time: 07/16/18 05:00
[2018-07-16 00:31] LABS: Chloride 113 meq/L (98-107); Potassium 3.9 meq/L (3.5-5.1); Sodium 143 meq/L (136-145)
[2018-07-16 00:35] LABS: Activated Partial Thrombo Time 27.8 sec (23.4-31.7); INR 1.1 Ratio; Prothrombin Time 11.4 sec (9.8-11.6)
[2018-07-16 00:37] LABS: Baso % (Auto) 0.1 % (0.0-2.0); Eos % (Auto) 0.1 % (0.0-4.0); Hematocrit 40.9 % (35.0-46.0); Hemoglobin 13.1 gm/dL (11.6-15.3); Lymph # (Auto) 0.3 th/mm3 (1.0-4.8); Lymph % (Auto) 2.9 % (9.0-44.0); Mean Corpuscular HGB Conc 31.9 % (32.0-36.0); Mean Corpuscular Hemoglobin 29.2 pg (27.0-34.0); Mean Corpuscular Volume 91.3 fL (80.0-100.0); Mean Platelet Volume 9.3 fL (7.0-11.0); Mono # (Auto) 0.3 th/mm3 (0.0-0.9); Mono % (Auto) 3.1 % (0.0-8.0); Neut # (Auto) 8.9 th/mm3 (1.8-7.7); Neut % (Auto) 93.8 % (16.0-70.0); Platelet Count 264 th/mm3 (150-450); Red Blood Count 4.48 mil/mm3 (4.00-5.30); Red Cell Distribution Width 13.1 % (11.6-17.2); White Blood Count 9.5 th/mm3 (4.0-11.0)
[2018-07-16] MEDS ORDERED: Piperacil/Tazo 4.5 GM Premix 4.5 GM/100 ML BAG IV.SIG SCH ×2 (01:00→09:00)
[2018-07-16] MEDS ORDERED: Sod Chloride 0.9% Inj 1,000 ML IV.SIG SCH ×3 (01:00→07:15)
[2018-07-16 01:05] LABS: Bilirubin,Urine Moderate (Negative); Clarity,Urine Clear (Clear); Color,Urine Yellow (Yellw/Straw); Glucose,Urine (UA) 100 mg/dL (Negative); Leukocyte Esterase,Urine Negative (Negative); Nitrite,Urine Positive (Negative); PH,Urine 6.5 (5.0-8.5); Specific Gravity,Urine 1.025 (1.002-1.035)
--- NOTE | 2018-07-16 01:08 | XR ---
EXAM DATE: 07/16/2018 1:02 AM EST AGE/SEX: 82 years / Female INDICATIONS: Lower chest pain. CLINICAL DATA: This is the patient's initial encounter. Patient reports that signs and symptoms have been present for 2 days and indicates a pain score of 5/10. MEDICAL/SURGICAL HISTORY: None. None. COMPARISON: No prior exams available for comparison. FINDINGS: A single AP view of the chest demonstrates the lungs to be symmetrically aerated without evidence of mass, infiltrate or effusion. The cardiomediastinal contours are unremarkable. Osseous structures a re intact. The right hemidiaphragm is markedly elevated CONCLUSION: Elevated right hemidiaphragm. Lungs are clear. Electronically signed by: Varun Prescott MD Board Certified Radiologist 07/16/2018 1:06 AM EST
[2018-07-16 01:10] LABS: Ictotest,Urine Positive (Negative)
[2018-07-16 01:17] LABS: Amorphous Sediment,Urine Occ /hpf; Bacteria,Urine Occasional /hpf; Calcium Oxalate Crystals,Urine Occasional /hpf; RBC,Urine 0-3 /hpf (0-3); Squamous Epithelial Cell,Urine 0-5 /hpf (0-5); WBC,Urine 0-5 /hpf (0-5)
[2018-07-16 01:47] LABS: Alanine Aminotransferase 27 U/L (10-53); Albumin 3.4 g/dL (3.4-5.0); Alkaline Phosphatase 92 U/L (45-117); Anion Gap 15 meq/L (5-15); Aspartate Aminotransferase 42 U/L (15-37); Blood Urea Nitrogen 34 mg/dL (7-18); Calcium 7.2 mg/dL (8.5-10.1); Carbon Dioxide 14.8 meq/L (21.0-32.0); Creatine Kinase 112 U/L (26-192); Glomerular Filtration Rate 33 mL/min (>89); Glucose,Random 145 mg/dL (74-106); Lipase 105 U/L (73-393); Magnesium 2.1 mg/dL (1.5-2.5); Total Protein 6.8 g/dL (6.4-8.2)
[2018-07-16 02:25] LABS: Creatine Kinase MB 1.6 ng/mL (0.5-3.6)
--- NOTE | 2018-07-16 02:49 | CT ---
EXAM DATE: 07/16/2018 2:33 AM EST AGE/SEX: 82 years / Female INDICATIONS: Abdominal pain. Nausea, vomiting, diarrhea. CLINICAL DATA: This is the patient's initial encounter. Patient reports that signs and symptoms have been present for 1 day and indicates a pain score of 7/10. MEDICAL/SURGICAL HISTORY: . High cholesterol. Hypertension. Hypothyroidism. Renal impairment. Hysterectomy. Tonsillectomy. Appendectomy. ORAL CONTRAST: No oral contrast ingested. RADIATION DOSE: 16.23 CTDI (mGy) COMPARISON: No prior exams available for comparison. TECHNIQUE: Multiple contiguous axial images were obtained through the abdomen and pelvis following b olus infusion of 47 ml Visipaque 320 (iodixanol) nonionic water-soluble contrast as a single exam d ose. No oral contrast ingested. Using automated exposure control and adjustment of the mA and/or kV according to patient size, radiation dose was kept as low as reasonably achievable to obtain optimal diagnostic quality images. DICOM format image data is available electronically for review and compar alison. FINDINGS: Lower Lungs: The visualized lower lungs are clear. Liver: There are some intrahepatic and extra hepatic biliary tree dilatation. The gallbladder is well -distended. There is no definite gallstones or gallbladder wall thickening. No etiology for the bilia ry tree dilatation is identified Spleen: Homogeneous density without enlargement. Pancreas: Unremarkable without mass or calcification. Kidneys: Normal in size and shape. No evidence of mass or hydronephrosis. There is some higher densi ty on the left kidney superiorly within the collecting system. Correlate for hematuria. There is also some questionable increased density to the right side of the bladder posteriorly Adrenal Glands: Unremarkable. Aorta: The aorta and proximal iliac vessels are grossly unremarkable without aneurysmal dilation. Bowel/Mesentery: The bowel loops are grossly unremarkable. The cecum and sigmoid colon have a normal configuration. Abdominal Wall: Intact. Retroperitoneum: No evidence of adenopathy in the retrocrural, para-aortic, or deep pelvic regions. Bladder: Contours are smooth. Reproductive Organs: No abnormal masses or calcifications seen. Inguinal: The inguinal region is unremarkable without evidence of adenopathy. Bony Structures: Unremarkable. CONCLUSION: 1. Biliary tree dilatation otherwise unremarkable CT scan of the abdomen and pelvis. Right hemidiaph ragm is markedly elevated. Moderately distended colon without evidence of wall thickening or obstruct ion. 2. Some increased density to the left renal collecting system and right posterior bladder that could be evidence of transitional cell carcinoma. Correlate for hematuria. And outpt. Urology workup recom mended Electronically signed by: Varun Prescott MD Board Certified Radiologist 07/16/2018 2:48 AM EST
--- NOTE | 2018-07-16 02:50 | CT ---
EXAM DATE: 07/16/2018 2:33 AM EST AGE/SEX: 82 years / Female INDICATIONS: Abdominal pain. Nausea, vomiting, diarrhea. CLINICAL DATA: This is the patient's initial encounter. Patient reports that signs and symptoms have been present for 1 day and indicates a pain score of 7/10. MEDICAL/SURGICAL HISTORY: . High cholesterol. Hypertension. Hypothyroidism. Renal impairment. Hyst erectomy. Appendectomy. Tonsillectomy. RADIATION DOSE: 59.49 CTDI (mGy) COMPARISON: No prior exams available for comparison. TECHNIQUE: CT of the head without contrast. Using automated exposure control and adjustment of the mA and/or kV according to patient size, radiation dose was kept as low as reasonably achievable to ob tain optimal diagnostic quality images. DICOM format image data is available electronically for revi ew and comparison. FINDINGS: There is some motion the mid part of the exam. Cerebrum: The ventricles are normal for age. No evidence of midline shift, mass lesion, hemorrhage or acute infarction. No extraaxial fluid collections are seen. Posterior Fossa: The cerebellum and brainstem are intact. The 4th ventricle is midline. The cerebe llopontine angle is unremarkable. Extracranial: The visualized portion of the orbits is intact. Skull: The calvaria is intact. No evidence of skull fracture. CONCLUSION: 1. Unremarkable study. No evidence of hemorrhage or edema. Some motion in the central portion of the exam without obvious mass or mass effect . Electronically signed by: Varun Prescott MD Board Certified Radiologist 07/16/2018 2:48 AM EST
[2018-07-16 03:07] LABS: ABG Base Excess -12.4 mmol/L (-2-2); ABG PCO2 23 mmHg (38-42); ABG PO2 66 mmHg (61-120)
[2018-07-16] MEDS ORDERED: Vancomycin Inj 1,000 MG in Sodium Chlor 0.9% Inj 250 ML IV.SIG ONE (03:11)
[2018-07-16] MEDS ORDERED: Sodium Bicarbonate 8.4% Inj 50 MEQ/50 ML Syringe IV.PUSH ONE (03:13)
[2018-07-16] MEDS: Sod Chloride 0.9% Inj 1,000 ML IV.CONT SCH ×4 (03:16→23:36)
[2018-07-16] MEDS ORDERED: Vancomycin Consult Pharmacy OTHER PRN (03:27)
[2018-07-16] MEDS ORDERED: Potassium Phosphate 500 MG Soluble Tablet PO PRN ×2 (03:28)
[2018-07-16] MEDS ORDERED: Dextrose 50% in Water 50 ML Vial IV.PUSH PRN (03:28)
[2018-07-16] MEDS ORDERED: Magnesium Sulfate Inj 2 GM in Sodium Chlor 0.9% Inj 96 ML IV.SIG PRN (03:28)
[2018-07-16] MEDS ORDERED: Magnesium Sulfate Inj 4 GM in Sodium Chlor 0.9% Inj 92 ML IV.SIG PRN (03:28)
[2018-07-16] MEDS ORDERED: Potassium Chlor 40 mEq Premix 40 MEQ/100 ML PIGGYBACK IV.SIG PRN ×2 (03:28)
[2018-07-16] MEDS ORDERED: Sodium Phosphate Inj 30 MMOL in Sodium Chlor 0.9% Inj 250 ML IV.SIG PRN (03:28)
[2018-07-16] MEDS ORDERED: Magnesium Oxide 400 MG Tablet PO PRN (03:28)
[2018-07-16] MEDS ORDERED: Bisacodyl 10 MG Supp RECTAL PRN (03:28)
[2018-07-16] MEDS ORDERED: Potassium Chloride 25 MEQ Effervescent Tablet PO PRN (03:28)
[2018-07-16] MEDS ORDERED: Potassium Phosphate Inj 30 MMOL in Sodium Chlor 0.9% Inj 250 ML IV.SIG PRN (03:28)
[2018-07-16] MEDS ORDERED: Morphine Inj 4 MG/ML Vial IV.PUSH ONE (03:30)
[2018-07-16] MEDS ORDERED: Calcium Gluconate Inj 3 GM in Sodium Chlor 0.9% Inj 100 ML IV.SIG STA (03:34)
[2018-07-16] MEDS ORDERED: Chlorhexidine Gluconate 2% 1 Pack (2 Cloths) TOPICAL PRN (04:00)
[2018-07-16 04:30] LABS: Creatine Kinase 112 U/L (26-192)
[2018-07-16 05:02] LABS: Creatine Kinase MB 1.7 ng/mL (0.5-3.6)
[2018-07-16 06:08] LABS: ABG Base Excess -10.7 mmol/L (-2-2); ABG PCO2 24 mmHg (38-42); ABG PO2 88 mmHG (61-120)
--- NOTE | 2018-07-16 06:15 | P.HPCC ---
History of Present Illness Service: Critical care medicine Primary Care Physician: Teresa Álvarez MD Chief Complaint: abd pain History of Present Illness: 82yF with 1 day history of new-onset abdominal pain and altered mentation. also found to be febrile in the ER. elevated wbc. + u/a. CT abd/pelvis with dilated biliary tree, but no overt evidence of obstruction, no gallbladder thickening. no pericolecystic fluid. elevated Cr. developed hypotension and tachycardia in the [place] emergency department requiring 3L ivf and then norepinephrine to keep map > 65 mmHg. transferred emergently to [facility] from for further management. I evaluated her immediately upon arrival to the ICU. she complains of suprapubic pain which is "crampy" in nature. denies n/v/c/d. abdominal pain is mostly suprapubic, nonradiating. denies flank pain. denies fevers and chills. denies cp, sob. never had anything similar to this. remainder ROS negative. FHx: noncontributory to her acute illness. Inpatient Certification: I certify that the inpatient services were ordered in accordance with Medicare regulations governing the order. This includes certification that hospital inpatient services are reasonable and necessary and in the case of services not specified as inpatient-only under 42 CFR 419.22(n), that they are appropriately provided as inpatient services in accordance to with the 2-midnight benchmark under 43 CFR 412.3(e) Estimated Total Length of Stay (Days): 5 Plans for Post Hospital Care: Not yet determined Review of Systems All other systems reviewed negative except as stated in HPI [facility] - History History Provided By: Patient, Family Member - Medical History Medical History: Medical History (Last Reviewed 07/16/18 @ 06:09 by Mikel Perez MD) High cholesterol History of hysterectomy Hypertension Hypothyroidism Renal impairment - Surgical History Surgical History: Surgical History (Last Reviewed 07/16/18 @ 06:09 by Mikel Perez MD) History of appendectomy History of tonsillectomy - Social History I have reviewed the patient's Social History: Yes - Tobacco History Second Hand Smoke Exposure: No Smoking Status: Never smoker - Alcohol History How Often Do You Have a Drink Containing Alcohol: Monthly or less - Substance Use History 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 - Immunization History Tetanus Immunization: <5 Years Hx Influenza Vaccine This Season: Yes Medications and Allergies Active Medications: Active Medications Acetaminophen (Tylenol) 650 mg PO Q6H PRN PRN Reason: TEMPERATURE > 101 F Albuterol (Duoneb Neb (Prn)) 1 ampul NEB Q2HR NEB PRN PRN Reason: WHEEZING Bisacodyl (Dulcolax Supp) 10 mg RECTAL DAILY PRN PRN Reason: if no BM in last 24h Chlorhexidine Gluconate (Chlorhexidine 2% Cloth) 3 pack TOPICAL DAILY@0400 NANCY Stop: 07/21/18 03:59 Chlorhexidine Gluconate (Chlorhexidine 2% Cloth) 3 pack TOPICAL DAILY@0400 PRN PRN Reason: Extra cloth needed Stop: 07/21/18 03:59 Dextrose (D50w Vial) 50 ml IV.PUSH UNSCH PRN PRN Reason: PER HYPOGLYCEMIA PROTOCOL Famotidine (Pepcid) 20 mg PO BID NANCY Glucagon (Glucagon Inj) 1 mg OTHER PRN PRN PRN Reason: for Hypoglycemia Protocol Heparin Sodium (Porcine) (Heparin Inj) 5,000 units SQ Q8HR NANCY Piperacillin/Tazobactam/Dextrose (Zosyn 4.5 Gm Premix) 4.5 gm in 100 mls @ 200 mls/hr IV.SIG ONCE NANCY Last Infusion: 07/16/18 03:13 Dose: Infused Sodium Chloride (Ns Inj) 1,000 mls @ 150 mls/hr IV.CONT .Q6H40M NANCY Last Admin: 07/16/18 03:16 Dose: 125 mls/hr Piperacillin/Tazobactam/Dextrose (Zosyn 4.5 Gm Premix) 4.5 gm in 100 mls @ 200 mls/hr IV.SIG Q6H NANCY Magnesium Sulfate 4 gm/ Sodium (Chloride) 100 mls @ 50 mls/hr IV.SIG UNSCH PRN PRN Reason: For Magnesium 0.9 - 1.1 mg/dL Magnesium Sulfate 2 gm/ Sodium (Chloride) 100 mls @ 50 mls/hr IV.SIG UNSCH PRN PRN Reason: For Magnesium 1.2 - 1.6 mg/dL Potassium Chloride (Kcl 40 Meq Premix Inj) 40 meq in 100 mls @ 25 mls/hr IV.SIG Q2H PRN PRN Reason: For Potassium 2.8 - 3.2 mEq/L Potassium Chloride (Kcl 20 Meq Premix Inj) 20 meq in 100 mls @ 50 mls/hr IV.SIG Q2H PRN PRN Reason: For Potassium 3.3 - 3.5 mEq/L Potassium Chloride (Kcl 40 Meq Premix Inj) 40 meq in 100 mls @ 25 mls/hr IV.SIG UNSCH PRN PRN Reason: For Potassium 3.3 - 3.5 mEq/L Potassium Phosphate 30 mmol/ (Sodium Chloride) 260 mls @ 42 mls/hr IV.SIG UNSCH PRN PRN Reason: SEE LABEL COMMENTS Sodium Phosphate 30 mmol/ (Sodium Chloride) 260 mls @ 42 mls/hr IV.SIG UNSCH PRN PRN Reason: For Phosphorus < 2.5 mg/dL Potassium Chloride (Kcl 20 Meq Premix Inj) 20 meq in 100 mls @ 50 mls/hr IV.SIG Q2H PRN PRN Reason: For Potassium 2.8 - 3.2 mEq/L Norepinephrine Bitartrate (Levophed-Dextrose 4 Mg/250 Ml Drip) 4 mg in 250 mls @ 7.5 mls/hr IV.SIG TITRATE PRN; Protocol PRN Reason: Per Protocol Insulin Human Regular (Novolin R Correctional Sugar Inj) 0 units SQ Q6HR NANCY; Protocol Lactulose (Lactulose Liq) 30 ml PO BID NANCY Magnesium Oxide (Mag-Ox) 800 mg PO UNSCH PRN PRN Reason: For Magnesium 1.2 - 1.6 mg/dL Ondansetron HCl (Zofran Inj) 4 mg IV.PUSH Q6H PRN PRN Reason: NAUSEA OR VOMITING Pharmacy Profile Note (Vancomycin Consult Pharmacy) 1 each OTHER UNSCH PRN PRN Reason: Pharmacy to dose Polyethylene Glycol (Miralax) 17 gm PO BID NANCY Potassium Bicarb/Potassium Chloride (K-Lyte Cl Eff) 50 meq PO UNSCH PRN PRN Reason: For Potassium 3.3 - 3.5 mEq/L Potassium Phosphate (K-Phos Original) 2,000 mg PO Q4H PRN PRN Reason: Phosphorus Less Than 2.5 mg/dL Potassium Phosphate (K-Phos Original) 2,000 mg PO UNSCH PRN PRN Reason: SEE LABEL COMMENTS Senna/Docusate Sodium (Linda-Colace) 1 tab PO BID NANCY Sodium Chloride (Ns Flush) 2 ml IV.FLUSH PRN PRN PRN Reason: FLUSH AFTER USING IV ACCESS Sodium Chloride (Ns Flush) 2 ml IV.FLUSH UNSCH PRN PRN Reason: FLUSH AFTER USING IV ACCESS Terbutaline Sulfate (Brethine Inj) 1 mg SQ UNSCH PRN PRN Reason: For Extravasation Allergies Allergy/AdvReac Type Severity Reaction Status Date / Time diphenhydramine Allergy Severe THROAT Verified 07/16/18 00:47 CLOSES valproic acid Allergy Intermediate VERY Verified 07/16/18 00:47 DISORIENTED Home Medications Medication Instructions Recorded Confirmed Type amlodipine 5 mg PO DAILY 07/16/18 07/16/18 History aspirin [Aspir-81] 81 mg PO DAILY 07/16/18 07/16/18 History atorvastatin 10 mg PO DAILY 07/16/18 07/16/18 History candesartan 16 mg PO DAILY 07/16/18 07/16/18 History cholecalciferol (vitamin D3) 2,000 unit PO DAILY 07/16/18 07/16/18 History [Vitamin D3] cyanocobalamin (vitamin B-12) 1,000 mcg PO DAILY 07/16/18 07/16/18 History [Vitamin B-12] levothyroxine [Synthroid] 50 mcg PO DAILY 07/16/18 07/16/18 History metoprolol succinate [Toprol XL] 100 mg PO HS 07/16/18 07/16/18 History quetiapine [Seroquel] 200 mg PO HS 07/16/18 07/16/18 History Results - Labs CBC & Chem 7: 07/15/18 23:36 07/15/18 23:36 Labs: Short CBC 07/15/18 Range/Units 23:36 WBC 9.5 (4.0-11.0) th/mm3 Hgb 13.1 (11.6-15.3) gm/dL Hct 40.9 (35.0-46.0) % Plt Count 264 (150-450) th/mm3 BMP 07/15/18 23:36 Sodium 143 Potassium 3.9 Chloride 113 H Carbon Dioxide 14.8 L BUN 34 H Creatinine 1.50 H Calcium 7.2 L* Cardiac Enzymes 07/15/18 07/16/18 Range/Units 23:36 03:40 Total Creatine Kinase 112 112 (26-192) U/L CK-MB (CK-2) 1.6 1.7 (0.5-3.6) ng/mL Troponin I Less than 0.02 L (0.02-0.05) ng/mL Liver Function 07/15/18 Range/Units 23:36 Total Bilirubin 0.6 (0.2-1.0) mg/dL AST 42 H (15-37) U/L ALT 27 (10-53) U/L Alkaline Phosphatase 92 (45-117) U/L Albumin 3.4 (3.4-5.0) g/dL Urine 07/16/18 Range/Units 00:50 Urine Color Yellow (Yellw/Straw) Urine Clarity Clear (Clear) Urine pH 6.5 (5.0-8.5) Ur Specific [place] 1.025 (1.002-1.035) Urine Protein 100 H (Neg-Trace) mg/dL Urine Glucose (UA) 100 H (Negative) mg/dL - Imaging Impressions Chest X-Ray 07/16/18 00:00 CONCLUSION: Elevated right hemidiaphragm. Lungs are clear. Abdomen/Pelvis CT 07/16/18 00:18 CONCLUSION: 1. Biliary tree dilatation otherwise unremarkable CT scan of the abdomen and pelvis. Right hemidiaphragm is markedly elevated. Moderately distended colon without evidence of wall thickening or obstruction. 2. Some increased density to the left renal collecting system and right posterior bladder that could be evidence of transitional cell carcinoma. Correlate for hematuria. And outpt. Urology workup recommended Head CT 07/16/18 00:18 CONCLUSION: 1. Unremarkable study. No evidence of hemorrhage or edema. Some motion in the central portion of the exam without obvious mass or mass effect . Exam Vital signs: Vital Signs 07/15/18 22:47 07/15/18 23:00 07/16/18 03:10 Temperature 37.7 C H Pulse Rate 100 H 78 Respiratory Rate 20 Blood Pressure 148/71 H Pulse Oximetry 96 95 92 L 07/16/18 04:00 07/16/18 04:30 07/16/18 04:54 Temperature 37.1 C Pulse Rate 75 78 76 Respiratory Rate 18 18 18 Blood Pressure 86/45 L 95/48 L 90/45 L Pulse Oximetry 96 96 Intake & Output 07/15/18 07/15/18 07/16/18 06:59 18:59 06:59 Intake Total 2099 Balance 2099 Weight 76.8 kg Intake: IV 2099 Zosyn 4.5 GM Premix 4.5 gm In 100 / 100 100 ml @ 200 mls/hr IV.SIG ONCE NANCY Rx#:[id number] NS Inj 1,000 ML @ 1000 mls/hr 1999 IV.SIG BOLUS NANCY Rx#:[id number] Other: Date of Last Bowel Movement 07/15/18 Weight On Admission 76.8 kg Narrative: GENERAL: Elderly female, lying in bed, in distress due to her abdominal pain HEENT: Normocephalic. Atraumatic. Pupils equal, round, reactive, conjugate. Mucous membranes are moist NECK: Trachea is midline. There is no JVD. CHEST: Equal chest rise. Nasal cannula. CARDIOVASCULAR: Tachycardic rate, regular rhythm. Sinus. Norepinephrine 2 mcg/ min ABDOMEN: Soft, mildly tender of the suprapubic area. nondistended. No guarding. No rebound. MUSCULOSKELETAL: Pulses 2+. No peripheral edema. NEUROLOGICAL: RASS 0. CAM -. Follows commands in all 4 extremities. Alert and oriented x3. No focal deficits. Septic Shock Reassessment Septic shock perfusion: reassessment completed Caprini VTE Risk Assessment Caprini VTE Risk Assessment: Moderate/High Risk (score >= 2) Caprini Risk Assessment Model: Point Value = 1 Point Value = 2 Point Value = 3 Point Value = 5 Age 41-60 Minor surgery BMI > 25 kg/m2 Swollen legs Varicose veins or History of unexplained or recurrent spontaneous Oral contraceptives or hormone replacement Sepsis (< 1 month) Serious lung disease, including pneumonia (< 1 month) Abnormal pulmonary function Acute myocardial infarction Congestive heart failure (< 1 month) History of inflammatory bowel disease Medical patient at bed rest Age 61-74 Arthroscopic surgery Major open surgery (> 45 min) Laparoscopic surgery (> 45 min) Malignancy Confined to bed (> 72 hours) Immobilizing plaster cast Central venous access Age >= 75 History of VTE Family history of VTE Factor V Leiden Prothrombin [id number] Lupus anticoagulant Anticardiolipin antibodies Elevated serum homocysteine Heparin-induced thrombocytopenia Other congenital or acquired thrombophilia Stroke (< 1 month) Elective arthroplasty Hip, pelvis, or leg fracture Acute spinal cord injury (< 1 month) Prophylaxis Regimen: Total Risk Factor Score Risk Level Prophylaxis Regimen 0-1 Low Early ambulation 2 Moderate Order ONE of the following: *Sequential Compression Device (SCD) *Heparin 5000 units SQ BID 3-4 Higher Order ONE of the following medications: *Heparin 5000 units SQ TID *Enoxaparin/Lovenox 40 mg SQ daily (WT < 150 kg, CrCl > 30 mL/min) *Enoxaparin/Lovenox 30 mg SQ daily (WT < 150 kg, CrCl > 10-29 mL/min) *Enoxaparin/Lovenox 30 mg SQ BID (WT < 150 kg, CrCl > 30 mL/min) AND/OR *Sequential Compression Device (SCD) 5 or more Highest Order ONE of the following medications: *Heparin 5000 units SQ TID (Preferred with Epidurals) *Enoxaparin/Lovenox 40 mg SQ daily (WT < 150 kg, CrCl > 30 mL/min) *Enoxaparin/Lovenox 30 mg SQ daily (WT < 150 kg, CrCl > 10-29 mL/min) *Enoxaparin/Lovenox 30 mg SQ BID (WT < 150 kg, CrCl > 30 mL/min) AND *Sequential Compression Device (SCD) Assessment and Plan - Assessment and Plan Plan: Assessment: 82-year-old female with septic shock likely secondary to urinary origin. Cannot rule out biliary origin at this time, however there is no serum evidence of elevated bilirubin or elevated alk phos. CT evidence suggests there is no active acute cholecystitis. In contrast, urine from urinalysis suggests active cystitis. Will treat with broad-spectrum antibiotics, IV fluids , vasopressors. I discussed this extensively with the patient and her daughter at bedside. Will hold off on central venous access for a few more hours as her vasopressor requirements are decreasing. Patient her daughter understand the risks associated with central line placement as well as risk of peripheral infiltration of vasopressors. Current risk/benefit ratio is in favor of holding off on central venous access for a few more hours to observe clinical course. Patient remains critically ill with septic shock which is life- threatening. Active problems: Septic shock Urinary tract infection Lactic acidosis Acute kidney injury Questionable transitional cell appearing mass near the renal pelvis Plan: Continue IV fluids Continue Zosyn Follow blood cultures Follow-up urine culture Would hold off on additional imaging of the biliary tree at this time Wean norepinephrine for goal map greater than 65 Frequent urine outputs Daily CMP Daily CBC Trend lactates Admit to ICU SCDs Subcu heparin Pepcid Per radiologist recommendation, I agree with the fact that the questionable appearance of the renal pelvis needs to be worked up on an outpatient basis by urologist consultation once her acute issues have been resolved. I do not think her shock is secondary to this. This patient remains critically ill with one or more organ systems which are or may become a threat to life. I have spent in excess of 39 minutes discontinuously in the care and management of this patient. This time is exclusive of procedures, and includes, but is not limited to, evaluation of the patient, review of the medical record, discussions with family, consultants, nursing staff, or respiratory therapy, and documentation in the medical record. H&P: Quality - VTE Deep Vein Thrombosis/Pulmonary Embolism Present on Admission: No
[2018-07-16] MEDS: Chlorhexidine Gluconate 2% 1 Pack (2 Cloths) TOPICAL SCH (06:20)
[2018-07-16] MEDS: Heparin - SQ 10,000 UNITS/ML Vial SQ SCH ×3 (06:21→21:05)
[2018-07-16] MEDS: Insulin NovoLIN Regular Correctional Sugar Inj SQ SCH ×3 (06:31→18:22)
[2018-07-16 08:53] LABS: Bacteria,Urine Occasional /hpf; Bilirubin,Urine Negative (Negative); Clarity,Urine Clear (Clear); Color,Urine Amber (Yellw/Straw); Glucose,Urine (UA) Negative (Negative); Leukocyte Esterase,Urine Negative (Negative); Mucus,Urine Few /lpf (Occasional); Nitrite,Urine Negative (Negative); Specific Gravity,Urine 1.028 (1.002-1.035); Squamous Epithelial Cell,Urine <1 /hpf (0-5)
[2018-07-16 08:55] LABS: Urobilinogen,Urine 0.2 mg/dL (Less than 2)
--- NOTE | 2018-07-16 08:55 | US ---
EXAM DATE: 07/16/2018 8:25 AM EST AGE/SEX: 82 years / Female INDICATIONS: Increased BUN/Creatnine. CLINICAL DATA: This is the patient's initial encounter. Patient reports that signs and symptoms have been present for 1 day and indicates a pain score of 5/10. MEDICAL/SURGICAL HISTORY: Hypercholesterolemia. Hypertension. Hypothyroidism. Renal impairme nt. Hysterectomy. Appendectomy. Tonsillectomy. COMPARISON: [facility], CT ABDOMEN & PELVIS W CONTRAST, 07/16/2018. . MEASUREMENTS: Right Kidney:__9.5 x 3.9 x 5.1 cm Left Kidney:__10.0 x 4.2 x 5.0 cm FINDINGS: Right Kidney: Increased echogenicity. No mass or hydronephrosis. Left Kidney: Increased echogenicity. There is a 1.3 cm cyst seen at the mid left kidney. No hydroneph rosis is seen. Bladder: Patterson catheter is present. Bladder decompressed. Other: None. CONCLUSION: 1. Increased echogenicity to the kidneys bilaterally consistent with medical renal disease. No hydro nephrosis is seen. 2. 1.3 cm cyst at the mid left kidney. Electronically signed by: Marco A Abdi MD Board Certified Radiologist 07/16/2018 8:53 AM EST
[2018-07-16] MEDS: Senna/Docusate Sodium 8.6/50 MG Tablet PO SCH ×2 (08:58→20:54)
[2018-07-16] MEDS: Piperacil/Tazo 3.375 GM Premix 3.375 GM/50 ML PIGGYBACK IV.SIG SCH ×3 (08:58→20:53)
[2018-07-16] MEDS: Polyethylene Glycol 3350 17 GM Packet PO SCH ×2 (08:58→20:54)
[2018-07-16] MEDS ORDERED: Famotidine 20 MG Tablet PO SCH (09:00)
[2018-07-16] MEDS: Morphine Inj 4 MG/ML Vial IV.PUSH PRN ×6 (09:47→23:37)
--- NOTE | 2018-07-16 13:06 | P.CONGI ---
History of Present Illness Chief complaint: severe sepsis, lactic acidosis, abdominal pain r/o History of Present Illness: This is 82y/o female who was in her usual state of health until yesterday when she woke up not feeling right, sudden onset of abdominal pain, nausea, vomiting , shivering and altered mentation. Work up revealed fever, elevated Neut. . + u /a. CT abd/pelvis with dilated biliary tree, Right hemidiaphragm is markedly elevated. Moderately distended colon without evidence of wall thickening or obstruction but no gallbladder thickening. no pericholecystic fluid. Abdomen/ Bladder Ultrasound 07/16/18 Increased echogenicity to the kidneys bilaterally consistent with medical renal disease. No hydronephrosis is seen. 1.3 cm cyst at the mid left kidney. LFTs aside from slight elevation in AST wnl, lipase wnl. Pt initially presented to [place] [facility] department but developed hypotension and tachycardia and was transferred emergently to [facility] from for further management. Pt currently is feeling much better , but boom tender to touch with diffused abd pain. Was found impacted and has received multiple laxatives and has been having loose stools. She normally has constipation at home for which she takes Senokot as needed. Denies hematemesis, melena or hematochezia. Reports hx of CBD "sand" that was cleared endoscopically few yrs back. Last colonoscopy was 10 yrs ago. <Carlin Castillo - Last Filed: 07/16/18 14:39> Review of Systems All other systems reviewed negative except as stated in HPI <Carlin Castillo - Last Filed: 07/16/18 14:39> [facility] - History History Provided By: Patient, Family Member - Medical History Medical History: Medical History (Last Reviewed 07/16/18 @ 06:09 by Mikel Perez MD) High cholesterol History of hysterectomy Hypertension Hypothyroidism Renal impairment - Surgical History Surgical History: Surgical History (Last Reviewed 07/16/18 @ 06:09 by Mikel Perez MD) History of appendectomy History of tonsillectomy - Family History Family History: Family History (Last Updated 07/16/18 @ 14:40 by AAMIR Brown) Father Colon cancer - Tobacco History Second Hand Smoke Exposure: No Smoking Status: Never smoker - Alcohol History How Often Do You Have a Drink Containing Alcohol: Monthly or less - Substance Use History 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 - Immunization History Tetanus Immunization: <5 Years Hx Influenza Vaccine This Season: Yes <Carlin Castillo - Last Filed: 07/16/18 14:39> - Medical History Medical History: Medical History (Last Reviewed 07/16/18 @ 06:09 by Mikel Perez MD) High cholesterol History of hysterectomy Hypertension Hypothyroidism Renal impairment - Surgical History Surgical History: Surgical History (Last Reviewed 07/16/18 @ 06:09 by Mikel Perez MD) History of appendectomy History of tonsillectomy - Family History Family History: Family History (Last Updated 07/16/18 @ 14:40 by AAMIR Brown) Father Colon cancer <Akbar Tamayo - Last Filed: 07/16/18 19:01> Medications and Allergies Active Medications: Active Medications Acetaminophen (Tylenol) 650 mg PO Q6H PRN PRN Reason: TEMPERATURE > 101 F Albuterol (Duoneb Neb (Prn)) 1 ampul NEB Q2HR NEB PRN PRN Reason: WHEEZING Bisacodyl (Dulcolax Supp) 10 mg RECTAL DAILY PRN PRN Reason: if no BM in last 24h Chlorhexidine Gluconate (Chlorhexidine 2% Cloth) 3 pack TOPICAL DAILY@0400 [facility] Stop: 07/21/18 03:59 Last Admin: 07/16/18 06:20 Dose: 3 pack Chlorhexidine Gluconate (Chlorhexidine 2% Cloth) 3 pack TOPICAL DAILY@0400 PRN PRN Reason: Extra cloth needed Stop: 07/21/18 03:59 Dextrose (D50w Vial) 50 ml IV.PUSH UNSCH PRN PRN Reason: PER HYPOGLYCEMIA PROTOCOL Famotidine (Pepcid) 20 mg PO BID [facility] Last Admin: 07/16/18 08:58 Dose: 20 mg Glucagon (Glucagon Inj) 1 mg OTHER PRN PRN PRN Reason: for Hypoglycemia Protocol Heparin Sodium (Porcine) (Heparin Inj) 5,000 units SQ Q8HR [facility] Last Admin: 07/16/18 06:21 Dose: 5,000 units Sodium Chloride (Ns Inj) 1,000 mls @ 150 mls/hr IV.CONT .Q6H40M [facility] Last Admin: 07/16/18 11:30 Dose: 150 mls/hr Magnesium Sulfate 4 gm/ Sodium (Chloride) 100 mls @ 50 mls/hr IV.SIG UNSCH PRN PRN Reason: For Magnesium 0.9 - 1.1 mg/dL Magnesium Sulfate 2 gm/ Sodium (Chloride) 100 mls @ 50 mls/hr IV.SIG UNSCH PRN PRN Reason: For Magnesium 1.2 - 1.6 mg/dL Potassium Chloride (Kcl 40 Meq Premix Inj) 40 meq in 100 mls @ 25 mls/hr IV.SIG Q2H PRN PRN Reason: For Potassium 2.8 - 3.2 mEq/L Potassium Chloride (Kcl 20 Meq Premix Inj) 20 meq in 100 mls @ 50 mls/hr IV.SIG Q2H PRN PRN Reason: For Potassium 3.3 - 3.5 mEq/L Potassium Chloride (Kcl 40 Meq Premix Inj) 40 meq in 100 mls @ 25 mls/hr IV.SIG UNSCH PRN PRN Reason: For Potassium 3.3 - 3.5 mEq/L Potassium Phosphate 30 mmol/ (Sodium Chloride) 260 mls @ 42 mls/hr IV.SIG UNSCH PRN PRN Reason: SEE LABEL COMMENTS Sodium Phosphate 30 mmol/ (Sodium Chloride) 260 mls @ 42 mls/hr IV.SIG UNSCH PRN PRN Reason: For Phosphorus < 2.5 mg/dL Potassium Chloride (Kcl 20 Meq Premix Inj) 20 meq in 100 mls @ 50 mls/hr IV.SIG Q2H PRN PRN Reason: For Potassium 2.8 - 3.2 mEq/L Norepinephrine Bitartrate (Levophed-Dextrose 4 Mg/250 Ml Drip) 4 mg in 250 mls @ 7.5 mls/hr IV.SIG TITRATE PRN; Protocol PRN Reason: Per Protocol Piperacillin/Tazobactam/Dextrose (Zosyn 3.375 Gm Premix) 3.375 gm in 50 mls @ 100 mls/hr IV.SIG Q6H NANCY Last Infusion: 07/16/18 11:09 Dose: Infused Insulin Human Regular (Novolin R Correctional Sugar Inj) 0 units SQ Q6HR NANCY; Protocol Last Admin: 07/16/18 06:31 Dose: Not Given Lactulose (Lactulose Liq) 30 ml PO BID [facility] Last Admin: 07/16/18 08:58 Dose: 30 ml Magnesium Oxide (Mag-Ox) 800 mg PO UNSCH PRN PRN Reason: For Magnesium 1.2 - 1.6 mg/dL Morphine Sulfate (Morphine Inj) 1 mg IV.PUSH Q2H PRN PRN Reason: PAIN 1-5 Last Admin: 07/16/18 09:47 Dose: 1 mg Ondansetron HCl (Zofran Inj) 4 mg IV.PUSH Q6H PRN PRN Reason: NAUSEA OR VOMITING Last Admin: 07/16/18 06:19 Dose: 4 mg Pharmacy Profile Note (Vancomycin Consult Pharmacy) 1 each OTHER UNSCH PRN PRN Reason: Pharmacy to dose Phenazopyridine HCl (Pyridium) 200 mg PO DAILY [facility] Last Admin: 07/16/18 11:30 Dose: 200 mg Polyethylene Glycol (Miralax) 17 gm PO BID [facility] Last Admin: 07/16/18 08:58 Dose: 17 gm Potassium Bicarb/Potassium Chloride (K-Lyte Cl Eff) 50 meq PO UNSCH PRN PRN Reason: For Potassium 3.3 - 3.5 mEq/L Potassium Phosphate (K-Phos Original) 2,000 mg PO Q4H PRN PRN Reason: Phosphorus Less Than 2.5 mg/dL Potassium Phosphate (K-Phos Original) 2,000 mg PO UNSCH PRN PRN Reason: SEE LABEL COMMENTS Senna/Docusate Sodium (Linda-Colace) 1 tab PO BID [facility] Last Admin: 07/16/18 08:58 Dose: 1 tab Sodium Chloride (Ns Flush) 2 ml IV.FLUSH PRN PRN PRN Reason: FLUSH AFTER USING IV ACCESS Sodium Chloride (Ns Flush) 2 ml IV.FLUSH UNSCH PRN PRN Reason: FLUSH AFTER USING IV ACCESS Terbutaline Sulfate (Brethine Inj) 1 mg SQ UNSCH PRN PRN Reason: For Extravasation <Carlin Castillo - Last Filed: 07/16/18 14:39> Active Medications: Active Medications Acetaminophen (Tylenol) 650 mg PO Q6H PRN PRN Reason: TEMPERATURE > 101 F Albuterol (Duoneb Neb (Prn)) 1 ampul NEB Q2HR NEB PRN PRN Reason: WHEEZING Bisacodyl (Dulcolax Supp) 10 mg RECTAL DAILY PRN PRN Reason: if no BM in last 24h Chlorhexidine Gluconate (Chlorhexidine 2% Cloth) 3 pack TOPICAL DAILY@0400 [facility] Stop: 07/21/18 03:59 Last Admin: 07/16/18 06:20 Dose: 3 pack Chlorhexidine Gluconate (Chlorhexidine 2% Cloth) 3 pack TOPICAL DAILY@0400 PRN PRN Reason: Extra cloth needed Stop: 07/21/18 03:59 Dextrose (D50w Vial) 50 ml IV.PUSH UNSCH PRN PRN Reason: PER HYPOGLYCEMIA PROTOCOL Famotidine (Pepcid) 10 mg PO BID [facility] Glucagon (Glucagon Inj) 1 mg OTHER PRN PRN PRN Reason: for Hypoglycemia Protocol Heparin Sodium (Porcine) (Heparin Inj) 5,000 units SQ Q8HR [facility] Last Admin: 07/16/18 13:00 Dose: 5,000 units Sodium Chloride (Ns Inj) 1,000 mls @ 150 mls/hr IV.CONT .Q6H40M [facility] Last Admin: 07/16/18 18:17 Dose: 150 mls/hr Magnesium Sulfate 4 gm/ Sodium (Chloride) 100 mls @ 50 mls/hr IV.SIG UNSCH PRN PRN Reason: For Magnesium 0.9 - 1.1 mg/dL Magnesium Sulfate 2 gm/ Sodium (Chloride) 100 mls @ 50 mls/hr IV.SIG UNSCH PRN PRN Reason: For Magnesium 1.2 - 1.6 mg/dL Potassium Chloride (Kcl 40 Meq Premix Inj) 40 meq in 100 mls @ 25 mls/hr IV.SIG Q2H PRN PRN Reason: For Potassium 2.8 - 3.2 mEq/L Potassium Chloride (Kcl 20 Meq Premix Inj) 20 meq in 100 mls @ 50 mls/hr IV.SIG Q2H PRN PRN Reason: For Potassium 3.3 - 3.5 mEq/L Potassium Chloride (Kcl 40 Meq Premix Inj) 40 meq in 100 mls @ 25 mls/hr IV.SIG UNSCH PRN PRN Reason: For Potassium 3.3 - 3.5 mEq/L Potassium Phosphate 30 mmol/ (Sodium Chloride) 260 mls @ 42 mls/hr IV.SIG UNSCH PRN PRN Reason: SEE LABEL COMMENTS Sodium Phosphate 30 mmol/ (Sodium Chloride) 260 mls @ 42 mls/hr IV.SIG UNSCH PRN PRN Reason: For Phosphorus < 2.5 mg/dL Potassium Chloride (Kcl 20 Meq Premix Inj) 20 meq in 100 mls @ 50 mls/hr IV.SIG Q2H PRN PRN Reason: For Potassium 2.8 - 3.2 mEq/L Norepinephrine Bitartrate (Levophed-Dextrose 4 Mg/250 Ml Drip) 4 mg in 250 mls @ 7.5 mls/hr IV.SIG TITRATE PRN; Protocol PRN Reason: Per Protocol Piperacillin/Tazobactam/Dextrose (Zosyn 3.375 Gm Premix) 3.375 gm in 50 mls @ 100 mls/hr IV.SIG Q6H [facility]ANCY Last Infusion: 07/16/18 18:48 Dose: Infused Vancomycin HCl 750 mg/ Sodium (Chloride) 257.5 mls @ 250 mls/hr IV.SIG Q24H NANCY Insulin Human Regular (Novolin R Correctional Sugar Inj) 0 units SQ Q6HR [facility]ANC[facility]; Protocol Last Admin: 07/16/18 18:22 Dose: Not Given Lactulose (Lactulose Liq) 30 ml PO BID [facility] Last Admin: 07/16/18 08:58 Dose: 30 ml Magnesium Oxide (Mag-Ox) 800 mg PO UNSCH PRN PRN Reason: For Magnesium 1.2 - 1.6 mg/dL Miscellaneous (Pill Splitter) 1 each OTHER UNSCH PRN PRN Reason: SEE LABEL COMMENTS Miscellaneous Information ([facility] Ordered Lab Info) 1 each OTHER ONCE ONE Stop: 07/18/18 22:46 Morphine Sulfate (Morphine Inj) 1 mg IV.PUSH Q2H PRN PRN Reason: PAIN 1-5 Last Admin: 07/16/18 18:16 Dose: 1 mg Ondansetron HCl (Zofran Inj) 4 mg IV.PUSH Q6H PRN PRN Reason: NAUSEA OR VOMITING Last Admin: 07/16/18 06:19 Dose: 4 mg Pharmacy Profile Note (Vancomycin Consult Pharmacy) 1 each OTHER UNSCH PRN PRN Reason: Pharmacy to dose Phenazopyridine HCl (Pyridium) 200 mg PO DAILY [facility] Last Admin: 07/16/18 11:30 Dose: 200 mg Polyethylene Glycol (Miralax) 17 gm PO BID [facility] Last Admin: 07/16/18 08:58 Dose: 17 gm Potassium Bicarb/Potassium Chloride (K-Lyte Cl Eff) 50 meq PO UNSCH PRN PRN Reason: For Potassium 3.3 - 3.5 mEq/L Potassium Phosphate (K-Phos Original) 2,000 mg PO Q4H PRN PRN Reason: Phosphorus Less Than 2.5 mg/dL Potassium Phosphate (K-Phos Original) 2,000 mg PO UNSCH PRN PRN Reason: SEE LABEL COMMENTS Senna/Docusate Sodium (Linda-Colace) 1 tab PO BID [facility] Last Admin: 07/16/18 08:58 Dose: 1 tab Sodium Chloride (Ns Flush) 2 ml IV.FLUSH PRN PRN PRN Reason: FLUSH AFTER USING IV ACCESS Sodium Chloride (Ns Flush) 2 ml IV.FLUSH UNSCH PRN PRN Reason: FLUSH AFTER USING IV ACCESS Terbutaline Sulfate (Brethine Inj) 1 mg SQ UNSCH PRN PRN Reason: For Extravasation <Akbar Tamayo - Last Filed: 07/16/18 19:01> Allergies Allergy/AdvReac Type Severity Reaction Status Date / Time diphenhydramine Allergy Severe THROAT Verified 07/16/18 00:47 CLOSES valproic acid Allergy Intermediate VERY Verified 07/16/18 00:47 DISORIENTED Home Medications Medication Instructions Recorded Confirmed Type amlodipine 5 mg PO DAILY 07/16/18 07/16/18 History aspirin [Aspir-81] 81 mg PO DAILY 07/16/18 07/16/18 History atorvastatin 10 mg PO DAILY 07/16/18 07/16/18 History candesartan 16 mg PO DAILY 07/16/18 07/16/18 History cholecalciferol (vitamin D3) 2,000 unit PO DAILY 07/16/18 07/16/18 History [Vitamin D3] cyanocobalamin (vitamin B-12) 1,000 mcg PO DAILY 07/16/18 07/16/18 History [Vitamin B-12] levothyroxine [Synthroid] 50 mcg PO DAILY 07/16/18 07/16/18 History metoprolol succinate [Toprol XL] 100 mg PO HS 07/16/18 07/16/18 History quetiapine [Seroquel] 200 mg PO HS 07/16/18 07/16/18 History Exam Vital signs: Vital Signs 07/15/18 22:47 07/15/18 23:00 07/16/18 03:10 Temperature 99.9 F H Pulse Rate 100 H 78 Respiratory Rate 20 Blood Pressure 148/71 H Pulse Oximetry 96 95 92 L 07/16/18 03:50 07/16/18 03:55 07/16/18 04:00 Temperature Pulse Rate 80 79 75 Respiratory Rate 18 18 18 Blood Pressure 87/43 L 92/40 L 86/45 L Pulse Oximetry 96 07/16/18 04:30 07/16/18 04:54 07/16/18 05:00 Temperature 98.7 F Pulse Rate 74 76 74 Respiratory Rate 18 18 18 Blood Pressure 95/48 L 90/45 L 89/44 L Pulse Oximetry 96 07/16/18 05:49 07/16/18 05:57 07/16/18 06:00 Temperature 99.5 F Pulse Rate 75 71 Respiratory Rate 27 H 32 H Blood Pressure 102/58 L 121/59 L Pulse Oximetry 94 L 94 L 96 07/16/18 06:01 07/16/18 06:15 07/16/18 06:30 Temperature Pulse Rate 72 70 70 Respiratory Rate 41 H 23 27 H Blood Pressure 121/59 L 107/54 L 93/47 L Pulse Oximetry 96 94 L 94 L 07/16/18 06:45 07/16/18 07:00 07/16/18 07:15 Temperature 99.5 F Pulse Rate 71 72 71 Respiratory Rate 31 H 29 H 30 H Blood Pressure 94/53 L 94/51 L 97/57 L Pulse Oximetry 94 L 94 L 94 L 07/16/18 07:30 07/16/18 07:45 07/16/18 08:00 Temperature 98.9 F Pulse Rate 74 72 73 Respiratory Rate 29 H 33 H 30 H Blood Pressure 98/56 L 99/52 L 105/52 L Pulse Oximetry 93 L 94 L 94 L 07/16/18 08:15 07/16/18 08:30 07/16/18 08:45 Temperature Pulse Rate 74 77 78 Respiratory Rate 42 H 28 H 34 H Blood Pressure 125/58 L 117/60 120/56 L Pulse Oximetry 98 94 L 93 L 07/16/18 09:00 07/16/18 09:15 07/16/18 09:30 Temperature Pulse Rate 77 77 80 Respiratory Rate 33 H 32 H 38 H Blood Pressure 111/57 L 105/55 L 95/60 L Pulse Oximetry 90 L 93 L 92 L 07/16/18 09:46 12/22/18 10:00 07/16/18 10:30 Temperature Pulse Rate 78 76 78 Respiratory Rate 32 H 29 H 30 H Blood Pressure 113/58 L 111/53 L 120/58 L Pulse Oximetry 92 L 90 L 94 L 07/16/18 11:00 07/16/18 11:30 Temperature Pulse Rate 80 79 Respiratory Rate 31 H 31 H Blood Pressure 141/66 H 132/63 Pulse Oximetry 95 94 L Intake & Output 07/15/18 07/16/18 07/16/18 18:59 06:59 18:59 Intake Total 2100 / 2099 2180 / 2180 Output Total 300 / 300 Balance 1800 / 1800 2180 / 2180 Weight 78.9 kg Intake: IV 2099 / 2099 2180 / 2180 NS Inj 1,000 ML @ 150 mls/hr IV 1000 / 1000 .CONT .Q6H40M [facility] Rx#: [id number] Calcium Gluconate Inj 3 GM In 130 / 130 NS Inj 100 ML @ 120 mls/hr IV. SIG STAT STA Rx#:[id number] Zosyn 3.375 GM Premix 3.375 gm 50 / 50 In 50 ml @ 100 mls/hr IV.SIG Q6H NANCY Rx#:[id number] Zosyn 4.5 GM Premix 4.5 gm In 100 / 100 100 ml @ 200 mls/hr IV.SIG ONCE [facility]Y Rx#:[id number] NS Inj 1,000 ML @ 1000 mls/hr 2000 / 2000 1000 / 1000 IV.SIG BOLUS NANCY Rx#:[id number] Oral 0 / 0 Output: Urine Amount (Catheter) 300 / 300 Indwelling Urethral Catheter 300 / 300 Other: Date of Last Bowel Movement 07/15/18 07/15/18 Weight On Admission 76.8 kg - Constitutional no acute distress - Routine HEENT Exam Head: Present: normocephalic - Routine Respiratory Exam Present: CTA bilaterally - Routine Cardiovascular Exam Present: RRR - Routine Abdominal Exam Present: normoactive bowel sounds, tenderness, distended - Routine Skin Exam Present: intact, dry. Absent: jaundice - Routine Neurological Exam Present: alert, oriented X3 <Amawi,Eduardoawla - Last Filed: 07/16/18 14:39> Vital signs: Vital Signs 07/15/18 22:47 07/15/18 23:00 07/16/18 03:10 Temperature 99.9 F H Pulse Rate 100 H 78 Respiratory Rate 20 Blood Pressure 148/71 H Pulse Oximetry 96 95 92 L 07/16/18 03:50 07/16/18 03:55 07/16/18 04:00 Temperature Pulse Rate 80 79 75 Respiratory Rate 18 18 18 Blood Pressure 87/43 L 92/40 L 86/45 L Pulse Oximetry 96 07/16/18 04:30 07/16/18 04:54 07/16/18 05:00 Temperature 98.7 F Pulse Rate 74 76 74 Respiratory Rate 18 18 18 Blood Pressure 95/48 L 90/45 L 89/44 L Pulse Oximetry 96 07/16/18 05:49 07/16/18 05:57 07/16/18 06:00 Temperature 99.5 F Pulse Rate 75 71 Respiratory Rate 27 H 32 H Blood Pressure 102/58 L 121/59 L Pulse Oximetry 94 L 94 L 96 07/16/18 06:01 07/16/18 06:15 07/16/18 06:30 Temperature Pulse Rate 72 70 70 Respiratory Rate 41 H 23 27 H Blood Pressure 121/59 L 107/54 L 93/47 L Pulse Oximetry 96 94 L 94 L 07/16/18 06:45 07/16/18 07:00 07/16/18 07:15 Temperature 99.5 F Pulse Rate 71 72 71 Respiratory Rate 31 H 29 H 30 H Blood Pressure 94/53 L 94/51 L 97/57 L Pulse Oximetry 94 L 94 L 94 L 07/16/18 07:30 07/16/18 07:45 07/16/18 08:00 Temperature 98.9 F Pulse Rate 74 72 73 Respiratory Rate 29 H 33 H 30 H Blood Pressure 98/56 L 99/52 L 105/52 L Pulse Oximetry 93 L 94 L 94 L 07/16/18 08:15 07/16/18 08:30 07/16/18 08:45 Temperature Pulse Rate 74 77 78 Respiratory Rate 42 H 28 H 34 H Blood Pressure 125/58 L 117/60 120/56 L Pulse Oximetry 98 94 L 93 L 07/16/18 09:00 07/16/18 09:15 07/16/18 09:30 Temperature Pulse Rate 77 77 80 Respiratory Rate 33 H 32 H 38 H Blood Pressure 111/57 L 105/55 L 95/60 L Pulse Oximetry 90 L 93 L 92 L 07/16/18 09:46 07/16/18 10:00 07/16/18 10:30 Temperature Pulse Rate 78 76 78 Respiratory Rate 32 H 29 H 30 H Blood Pressure 113/58 L 111/53 L 120/58 L Pulse Oximetry 92 L 90 L 94 L 07/16/18 11:00 07/16/18 11:30 07/16/18 12:00 Temperature Pulse Rate 80 79 80 Respiratory Rate 31 H 31 H 40 H Blood Pressure 141/66 H 132/63 130/59 L Pulse Oximetry 95 94 L 07/16/18 12:30 07/16/18 13:00 07/16/18 13:30 Temperature Pulse Rate 77 77 77 Respiratory Rate 30 H 33 H 32 H Blood Pressure 116/59 L 126/61 123/58 L Pulse Oximetry 96 95 94 L 07/16/18 14:00 07/16/18 14:30 07/16/18 15:00 Temperature Pulse Rate 77 77 78 Respiratory Rate 31 H 36 H 30 H Blood Pressure 119/60 134/59 L 129/60 Pulse Oximetry 96 95 93 L 07/16/18 15:31 07/16/18 16:00 07/16/18 17:02 Temperature Pulse Rate 75 76 74 Respiratory Rate 44 H 24 Blood Pressure 116/56 L 128/60 Pulse Oximetry 94 L 95 88 L 07/16/18 17:13 07/16/18 17:30 07/16/18 18:00 Temperature 98.7 F Pulse Rate 76 78 Respiratory Rate 30 H 32 H Blood Pressure 131/60 135/62 144/65 H Pulse Oximetry 95 96 95 07/16/18 18:30 07/16/18 18:37 Temperature Pulse Rate 78 78 Respiratory Rate 27 H Blood Pressure 138/64 Pulse Oximetry 95 Intake & Output 07/16/18 07/16/18 07/17/18 06:59 18:59 06:59 Intake Total 2099 3720 / 3720 Output Total 300 / 300 1100 / 1100 Balance 1800 / 1800 2620 / 2620 Weight 78.9 [place]: [place] 2099 3480 / 3480 NS Inj 1,000 ML @ 150 mls/hr IV 1999 .CONT .Q6H40M [facility] Rx#: [id number] Calcium Gluconate Inj 3 GM In 130 / 130 NS Inj 100 ML @ 120 mls/hr IV. SIG STAT STA Rx#:[id number] Zosyn 3.375 GM Premix 3.375 gm 100 / 100 In 50 ml @ 100 mls/hr IV.SIG Q6H [facility] Rx#:[id number] Zosyn 4.5 GM Premix 4.5 gm In 100 / 100 100 ml @ 200 mls/hr IV.SIG ONCE [facility] Rx#:[id number] NS Inj 1,000 ML @ 1000 mls/hr 2000 / 2000 1000 / 1000 IV.SIG BOLUS NANCY Rx#:[id number] Oral 0 / 0 240 / 240 Output: Urine Amount (Catheter) 300 / 300 1100 / 1100 Indwelling Urethral Catheter 300 / 300 1100 / 1100 Other: Date of Last Bowel Movement 07/15/18 07/16/18 # Incontinent Bowel Movements 11 Weight On Admission 76.8 kg <Akbar Tamayo - Last Filed: 07/16/18 19:01> Results - Labs CBC & Chem 7: 07/15/18 23:36 07/15/18 23:36 Labs: Laboratory Results - last 24 hr 07/15/18 07/15/18 07/15/18 23:36 23:36 23:36 CBC w Diff Auto diff final WBC 9.5 RBC 4.48 Hgb 13.1 Hct 40.9 MCV 91.3 MCH 29.2 MCHC 31.9 L RDW 13.1 Plt Count 264 MPV 9.3 Neut % (Auto) 93.8 H Lymph % (Auto) 2.9 L [place] % (Auto) 3.1 Eos % (Auto) 0.1 Baso % (Auto) 0.1 Neut # (Auto) 8.9 H Lymph # (Auto) 0.3 L [place] # (Auto) 0.3 Eos # (Auto) 0.0 Baso # (Auto) 0.0 WBC Differential . Differential Comment . PT 11.4 INR 1.1 APTT 27.8 Puncture Site Patient Temperature O2 Saturation ABG pH ABG pCO2 ABG pO2 ABG HCO3 ABG O2 Content ABG Base Excess ABG Methemoglobin Miles Test Hemoglobin Carboxyhemoglobin O2 Delivery Device Liter Flow Inspired O2 Critical Value Sodium 143 Potassium 3.9 Chloride 113 H Carbon Dioxide 14.8 L Anion Gap 15 BUN 34 H Creatinine 1.50 H Estimated GFR 33 L POC Glucose Random Glucose 145 H Lactic Acid Calcium 7.2 L* Calcium Adj for Albumin 7.7 L Magnesium 2.1 Total Bilirubin 0.6 AST 42 H ALT 27 Alkaline Phosphatase 92 Total Creatine Kinase 112 CK-MB (CK-2) 1.6 Troponin I Less than 0.02 L Total Protein 6.8 Albumin 3.4 Lipase 105 Urine Color Urine Clarity Urine pH Ur Specific [place] Urine Protein Urine Glucose (UA) Urine Ketones Urine Occult Blood Urine Nitrate Urine Bilirubin Urine Ictotest Urine Urobilinogen Ur Leukocyte Esterase Urine RBC Urine WBC Urine WBC Clumps Ur Squamous Epith Cells Calcium Oxalate Crystal Amorphous Sediment Urine Bacteria Urine Mucus Micro UA Comment Ur Microscopic Review Urine Culture Comments Nasal Screen MRSA (PCR) Blood Type Antibody Screen 07/15/18 07/15/18 07/16/18 23:36 23:36 00:28 CBC w Diff WBC RBC Hgb Hct MCV MCH MCHC RDW Plt Count MPV Neut % (Auto) Lymph % (Auto) [place] % (Auto) Eos % (Auto) Baso % (Auto) Neut # (Auto) Lymph # (Auto) [place] # (Auto) Eos # (Auto) Baso # (Auto) WBC Differential Differential Comment PT INR APTT Puncture Site Patient Temperature O2 Saturation ABG pH ABG pCO2 ABG pO2 ABG HCO3 ABG O2 Content ABG Base Excess ABG Methemoglobin Miles Test Hemoglobin Carboxyhemoglobin O2 Delivery Device Liter Flow Inspired O2 Critical Value Sodium Potassium Chloride Carbon Dioxide Anion Gap BUN Creatinine Estimated GFR POC Glucose 106 Random Glucose Lactic Acid 3.5 H Calcium Calcium Adj for Albumin Magnesium Total Bilirubin AST ALT Alkaline Phosphatase Total Creatine Kinase CK-MB (CK-2) Troponin I Total Protein Albumin Lipase Urine Color Urine Clarity Urine pH Ur Specific [place] Urine Protein Urine Glucose (UA) Urine Ketones Urine Occult Blood Urine Nitrate Urine Bilirubin Urine Ictotest Urine Urobilinogen Ur Leukocyte Esterase Urine RBC Urine WBC Urine WBC Clumps Ur Squamous Epith Cells Calcium Oxalate Crystal Amorphous Sediment Urine Bacteria Urine Mucus Micro UA Comment Ur Microscopic Review Urine Culture Comments Nasal Screen MRSA (PCR) Blood Type B Positive Antibody Screen Negative 07/16/18 07/16/18 07/16/18 00:50 01:00 02:55 CBC w Diff WBC RBC Hgb Hct MCV MCH MCHC RDW Plt Count MPV Neut % (Auto) Lymph % (Auto) [place] % (Auto) Eos % (Auto) Baso % (Auto) Neut # (Auto) Lymph # (Auto) [place] # (Auto) Eos # (Auto) Baso # (Auto) WBC Differential Differential Comment PT INR APTT Puncture Site Right radial Patient Temperature 98.6 O2 Saturation 91 ABG pH 7.35 L ABG pCO2 23 L* ABG pO2 66 ABG HCO3 12 L* ABG O2 Content 13.5 ABG Base Excess -12.4 L ABG Methemoglobin 1.5 Miles Test Present Hemoglobin 10.6 L Carboxyhemoglobin 1.0 O2 Delivery Device Room air Liter Flow Inspired O2 21 Critical Value Yes Sodium Potassium Chloride Carbon Dioxide Anion Gap BUN Creatinine Estimated GFR POC Glucose Random Glucose Lactic Acid 2.6 H Calcium Calcium Adj for Albumin Magnesium Total Bilirubin AST ALT Alkaline Phosphatase Total Creatine Kinase CK-MB (CK-2) Troponin I Total Protein Albumin Lipase Urine Color Yellow Urine Clarity Clear Urine pH 6.5 Ur Specific [place] 1.025 Urine Protein 100 H Urine Glucose (UA) 100 H Urine Ketones Trace H Urine Occult Blood Trace Urine Nitrate Positive H Urine Bilirubin Moderate H Urine Ictotest Positive H Urine Urobilinogen 4.0 H Ur Leukocyte Esterase Negative Urine RBC 0-3 Urine WBC 0-5 Urine WBC Clumps Occasional H Ur Squamous Epith Cells 0-5 Calcium Oxalate Crystal Occasional H Amorphous Sediment Occ H Urine Bacteria Occasional H Urine Mucus Micro UA Comment Culture indicated Ur Microscopic Review Microscopic reviewed Urine Culture Comments Culture indicated Nasal Screen MRSA (PCR) Blood Type Antibody Screen 07/16/18 07/16/18 07/16/18 03:40 05:55 06:28 CBC w Diff WBC RBC Hgb Hct MCV MCH MCHC RDW Plt Count MPV Neut % (Auto) Lymph % (Auto) [place] % (Auto) Eos % (Auto) Baso % (Auto) Neut # (Auto) Lymph # (Auto) [place] # (Auto) Eos # (Auto) Baso # (Auto) WBC Differential Differential Comment PT INR APTT Puncture Site Right radial Patient Temperature 98.6 O2 Saturation 94 ABG pH 7.37 L ABG pCO2 24 L* ABG pO2 88 ABG HCO3 14 L* ABG O2 Content 13.3 ABG Base Excess -10.7 L ABG Methemoglobin 1.8 Miles Test Present Hemoglobin 10.0 L Carboxyhemoglobin 0.5 O2 Delivery Device Nasal cannula Liter Flow 2.00 Inspired O2 Critical Value Yes Sodium Potassium Chloride Carbon Dioxide Anion Gap BUN Creatinine Estimated GFR POC Glucose 129 H Random Glucose Lactic Acid Calcium Calcium Adj for Albumin Magnesium Total Bilirubin AST ALT Alkaline Phosphatase Total Creatine Kinase 112 CK-MB (CK-2) 1.7 Troponin I Total Protein Albumin Lipase Urine Color Urine Clarity Urine pH Ur Specific [place] Urine Protein Urine Glucose (UA) Urine Ketones Urine Occult Blood Urine Nitrate Urine Bilirubin Urine Ictotest Urine Urobilinogen Ur Leukocyte Esterase Urine RBC Urine WBC Urine WBC Clumps Ur Squamous Epith Cells Calcium Oxalate Crystal Amorphous Sediment Urine Bacteria Urine Mucus Micro UA Comment Ur Microscopic Review Urine Culture Comments Nasal Screen MRSA (PCR) Blood Type Antibody Screen 07/16/18 07/16/18 07/16/18 06:35 07:45 08:26 CBC w Diff WBC RBC Hgb Hct MCV MCH MCHC RDW Plt Count MPV Neut % (Auto) Lymph % (Auto) [place] % (Auto) Eos % (Auto) Baso % (Auto) Neut # (Auto) Lymph # (Auto) [place] # (Auto) Eos # (Auto) Baso # (Auto) WBC Differential Differential Comment PT INR APTT Puncture Site Patient Temperature O2 Saturation ABG pH ABG pCO2 ABG pO2 ABG HCO3 ABG O2 Content ABG Base Excess ABG Methemoglobin Miles Test Hemoglobin Carboxyhemoglobin O2 Delivery Device Liter Flow Inspired O2 Critical Value Sodium Potassium Chloride Carbon Dioxide Anion Gap BUN Creatinine Estimated GFR POC Glucose Random Glucose Lactic Acid 1.9 Calcium Calcium Adj for Albumin Magnesium Total Bilirubin AST ALT Alkaline Phosphatase Total Creatine Kinase CK-MB (CK-2) Troponin I Total Protein Albumin Lipase Urine Color Claudia Urine Clarity Clear Urine pH 5.0 Ur Specific [place] 1.028 Urine Protein 30 H Urine Glucose (UA) Negative Urine Ketones Negative Urine Occult Blood Moderate H Urine Nitrate Negative Urine Bilirubin Negative Urine Ictotest Urine Urobilinogen 0.2 Ur Leukocyte Esterase Negative Urine RBC 22 H Urine WBC 6 H Urine WBC Clumps Ur Squamous Epith Cells <1 Calcium Oxalate Crystal Amorphous Sediment Urine Bacteria Occasional H Urine Mucus Few H Micro UA Comment Ur Microscopic Review Not Reportable Urine Culture Comments Nasal Screen MRSA (PCR) Not detected Blood Type Antibody Screen - Imaging Impressions Abdomen/Bladder Ultrasound 07/16/18 00:00 CONCLUSION: 1. Increased echogenicity to the kidneys bilaterally consistent with medical renal disease. No hydronephrosis is seen. 2. 1.3 cm cyst at the mid left kidney. Chest X-Ray 07/16/18 00:00 CONCLUSION: Elevated right hemidiaphragm. Lungs are clear. Abdomen/Pelvis CT 07/16/18 00:18 CONCLUSION: 1. Biliary tree dilatation otherwise unremarkable CT scan of the abdomen and pelvis. Right hemidiaphragm is markedly elevated. Moderately distended colon without evidence of wall thickening or obstruction. 2. Some increased density to the left renal collecting system and right posterior bladder that could be evidence of transitional cell carcinoma. Correlate for hematuria. And outpt. Urology workup recommended Head CT 07/16/18 00:18 CONCLUSION: 1. Unremarkable study. No evidence of hemorrhage or edema. Some motion in the central portion of the exam without obvious mass or mass effect . <Carlin Castillo - Last Filed: 07/16/18 14:39> - Labs CBC & Chem 7: 07/15/18 23:36 07/15/18 23:36 Labs: Laboratory Results - last 24 hr 07/15/18 07/15/18 07/15/18 23:36 23:36 23:36 CBC w Diff Auto diff final WBC 9.5 RBC 4.48 Hgb 13.1 Hct 40.9 MCV 91.3 MCH 29.2 MCHC 31.9 L RDW 13.1 Plt Count 264 MPV 9.3 Neut % (Auto) 93.8 H Lymph % (Auto) 2.9 L [place] % (Auto) 3.1 Eos % (Auto) 0.1 Baso % (Auto) 0.1 Neut # (Auto) 8.9 H Lymph # (Auto) 0.3 L [place] # (Auto) 0.3 Eos # (Auto) 0.0 Baso # (Auto) 0.0 WBC Differential . Differential Comment . PT 11.4 INR 1.1 APTT 27.8 Puncture Site Patient Temperature O2 Saturation ABG pH ABG pCO2 ABG pO2 ABG HCO3 ABG O2 Content ABG Base Excess ABG Methemoglobin Miles Test Hemoglobin Carboxyhemoglobin O2 Delivery Device Liter Flow Inspired O2 Critical Value Sodium 143 Potassium 3.9 Chloride 113 H Carbon Dioxide 14.8 L Anion Gap 15 BUN 34 H Creatinine 1.50 H Estimated GFR 33 L POC Glucose Random Glucose 145 H Lactic Acid Calcium 7.2 L* Calcium Adj for Albumin 7.7 L Magnesium 2.1 Total Bilirubin 0.6 AST 42 H ALT 27 Alkaline Phosphatase 92 Total Creatine Kinase 112 CK-MB (CK-2) 1.6 Troponin I Less than 0.02 L Total Protein 6.8 Albumin 3.4 Lipase 105 Urine Color Urine Clarity Urine pH Ur Specific [place] Urine Protein Urine Glucose (UA) Urine Ketones Urine Occult Blood Urine Nitrate Urine Bilirubin Urine Ictotest Urine Urobilinogen Ur Leukocyte Esterase Urine RBC Urine WBC Urine WBC Clumps Ur Squamous Epith Cells Calcium Oxalate Crystal Amorphous Sediment Urine Bacteria Urine Mucus Micro UA Comment Ur Microscopic Review Urine Culture Comments Nasal Screen MRSA (PCR) Stl C.difficile DNA Amp St C. diff Tox Epid 027 Blood Type Antibody Screen 07/15/18 07/15/18 07/16/18 23:36 23:36 00:28 CBC w Diff WBC RBC Hgb Hct MCV MCH MCHC RDW Plt Count MPV Neut % (Auto) Lymph % (Auto) [place] % (Auto) Eos % (Auto) Baso % (Auto) Neut # (Auto) Lymph # (Auto) [place] # (Auto) Eos # (Auto) Baso # (Auto) WBC Differential Differential Comment PT INR APTT Puncture Site Patient Temperature O2 Saturation ABG pH ABG pCO2 ABG pO2 ABG HCO3 ABG O2 Content ABG Base Excess ABG Methemoglobin Miles Test Hemoglobin Carboxyhemoglobin O2 Delivery Device Liter Flow Inspired O2 Critical Value Sodium Potassium Chloride Carbon Dioxide Anion Gap BUN Creatinine Estimated GFR POC Glucose 106 Random Glucose Lactic Acid 3.5 H Calcium Calcium Adj for Albumin Magnesium Total Bilirubin AST ALT Alkaline Phosphatase Total Creatine Kinase CK-MB (CK-2) Troponin I Total Protein Albumin Lipase Urine Color Urine Clarity Urine pH Ur Specific [place] Urine Protein Urine Glucose (UA) Urine Ketones Urine Occult Blood Urine Nitrate Urine Bilirubin Urine Ictotest Urine Urobilinogen Ur Leukocyte Esterase Urine RBC Urine WBC Urine WBC Clumps Ur Squamous Epith Cells Calcium Oxalate Crystal Amorphous Sediment Urine Bacteria Urine Mucus Micro UA Comment Ur Microscopic Review Urine Culture Comments Nasal Screen MRSA (PCR) Stl C.difficile DNA Amp St C. diff Tox Epid 027 Blood Type B Positive Antibody Screen Negative 07/16/18 07/16/18 07/16/18 00:50 01:00 02:55 CBC w Diff WBC RBC Hgb Hct MCV MCH MCHC RDW Plt Count MPV Neut % (Auto) Lymph % (Auto) [place] % (Auto) Eos % (Auto) Baso % (Auto) Neut # (Auto) Lymph # (Auto) [place] # (Auto) Eos # (Auto) Baso # (Auto) WBC Differential Differential Comment PT INR APTT Puncture Site Right radial Patient Temperature 98.6 O2 Saturation 91 ABG pH 7.35 L ABG pCO2 23 L* ABG pO2 66 ABG HCO3 12 L* ABG O2 Content 13.5 ABG Base Excess -12.4 L ABG Methemoglobin 1.5 Miles Test Present Hemoglobin 10.6 L Carboxyhemoglobin 1.0 O2 Delivery Device Room air Liter Flow Inspired O2 21 Critical Value Yes Sodium Potassium Chloride Carbon Dioxide Anion Gap BUN Creatinine Estimated GFR POC Glucose Random Glucose Lactic Acid 2.6 H Calcium Calcium Adj for Albumin Magnesium Total Bilirubin AST ALT Alkaline Phosphatase Total Creatine Kinase CK-MB (CK-2) Troponin I Total Protein Albumin Lipase Urine Color Yellow Urine Clarity Clear Urine pH 6.5 Ur Specific [place] 1.025 Urine Protein 100 H Urine Glucose (UA) 100 H Urine Ketones Trace H Urine Occult Blood Trace Urine Nitrate Positive H Urine Bilirubin Moderate H Urine Ictotest Positive H Urine Urobilinogen 4.0 H Ur Leukocyte Esterase Negative Urine RBC 0-3 Urine WBC 0-5 Urine WBC Clumps Occasional H Ur Squamous Epith Cells 0-5 Calcium Oxalate Crystal Occasional H Amorphous Sediment Occ H Urine Bacteria Occasional H Urine Mucus Micro UA Comment Culture indicated Ur Microscopic Review Microscopic reviewed Urine Culture Comments Culture indicated Nasal Screen MRSA (PCR) Stl C.difficile DNA Amp St C. diff Tox Epid 027 Blood Type Antibody Screen 07/16/18 07/16/18 07/16/18 03:40 05:55 06:28 CBC w Diff WBC RBC Hgb Hct MCV MCH MCHC RDW Plt Count MPV Neut % (Auto) Lymph % (Auto) [place] % (Auto) Eos % (Auto) Baso % (Auto) Neut # (Auto) Lymph # (Auto) [place] # (Auto) Eos # (Auto) Baso # (Auto) WBC Differential Differential Comment PT INR APTT Puncture Site Right radial Patient Temperature 98.6 O2 Saturation 94 ABG pH 7.37 L ABG pCO2 24 L* ABG pO2 88 ABG HCO3 14 L* ABG O2 Content 13.3 ABG Base Excess -10.7 L ABG Methemoglobin 1.8 Miles Test Present Hemoglobin 10.0 L Carboxyhemoglobin 0.5 O2 Delivery Device Nasal cannula Liter Flow 2.00 Inspired O2 Critical Value Yes Sodium Potassium Chloride Carbon Dioxide Anion Gap BUN Creatinine Estimated GFR POC Glucose 129 H Random Glucose Lactic Acid Calcium Calcium Adj for Albumin Magnesium Total Bilirubin AST ALT Alkaline Phosphatase Total Creatine Kinase 112 CK-MB (CK-2) 1.7 Troponin I Total Protein Albumin Lipase Urine Color Urine Clarity Urine pH Ur Specific [place] Urine Protein Urine Glucose (UA) Urine Ketones Urine Occult Blood Urine Nitrate Urine Bilirubin Urine Ictotest Urine Urobilinogen Ur Leukocyte Esterase Urine RBC Urine WBC Urine WBC Clumps Ur Squamous Epith Cells Calcium Oxalate Crystal Amorphous Sediment Urine Bacteria Urine Mucus Micro UA Comment Ur Microscopic Review Urine Culture Comments Nasal Screen MRSA (PCR) Stl C.difficile DNA Amp St C. diff Tox Epid 027 Blood Type Antibody Screen 07/16/18 07/16/18 07/16/18 06:35 07:45 08:26 CBC w Diff WBC RBC Hgb Hct MCV MCH MCHC RDW Plt Count MPV Neut % (Auto) Lymph % (Auto) [place] % (Auto) Eos % (Auto) Baso % (Auto) Neut # (Auto) Lymph # (Auto) [place] # (Auto) Eos # (Auto) Baso # (Auto) WBC Differential Differential Comment PT INR APTT Puncture Site Patient Temperature O2 Saturation ABG pH ABG pCO2 ABG pO2 ABG HCO3 ABG O2 Content ABG Base Excess ABG Methemoglobin Miles Test Hemoglobin Carboxyhemoglobin O2 Delivery Device Liter Flow Inspired O2 Critical Value Sodium Potassium Chloride Carbon Dioxide Anion Gap BUN Creatinine Estimated GFR POC Glucose Random Glucose Lactic Acid 1.9 Calcium Calcium Adj for Albumin Magnesium Total Bilirubin AST ALT Alkaline Phosphatase Total Creatine Kinase CK-MB (CK-2) Troponin I Total Protein Albumin Lipase Urine Color Claudia Urine Clarity Clear Urine pH 5.0 Ur Specific [place] 1.028 Urine Protein 30 H Urine Glucose (UA) Negative Urine Ketones Negative Urine Occult Blood Moderate H Urine Nitrate Negative Urine Bilirubin Negative Urine Ictotest Urine Urobilinogen 0.2 Ur Leukocyte Esterase Negative Urine RBC 22 H Urine WBC 6 H Urine WBC Clumps Ur Squamous Epith Cells <1 Calcium Oxalate Crystal Amorphous Sediment Urine Bacteria Occasional H Urine Mucus Few H Micro UA Comment Ur Microscopic Review Not Reportable Urine Culture Comments Nasal Screen MRSA (PCR) Not detected Stl C.difficile DNA Amp St C. diff Tox Epid 027 Blood Type Antibody Screen 07/16/18 07/16/18 07/16/18 12:45 13:05 18:22 CBC w Diff WBC RBC Hgb Hct MCV MCH MCHC RDW Plt Count MPV Neut % (Auto) Lymph % (Auto) [place] % (Auto) Eos % (Auto) Baso % (Auto) Neut # (Auto) Lymph # (Auto) [place] # (Auto) Eos # (Auto) Baso # (Auto) WBC Differential Differential Comment PT INR APTT Puncture Site Patient Temperature O2 Saturation ABG pH ABG pCO2 ABG pO2 ABG HCO3 ABG O2 Content ABG Base Excess ABG Methemoglobin Miles Test Hemoglobin Carboxyhemoglobin O2 Delivery Device Liter Flow Inspired O2 Critical Value Sodium Potassium Chloride Carbon Dioxide Anion Gap BUN Creatinine Estimated GFR POC Glucose 117 H 107 Random Glucose Lactic Acid Calcium Calcium Adj for Albumin Magnesium Total Bilirubin AST ALT Alkaline Phosphatase Total Creatine Kinase CK-MB (CK-2) Troponin I Total Protein Albumin Lipase Urine Color Urine Clarity Urine pH Ur Specific [place] Urine Protein Urine Glucose (UA) Urine Ketones Urine Occult Blood Urine Nitrate Urine Bilirubin Urine Ictotest Urine Urobilinogen Ur Leukocyte Esterase Urine RBC Urine WBC Urine WBC Clumps Ur Squamous Epith Cells Calcium Oxalate Crystal Amorphous Sediment Urine Bacteria Urine Mucus Micro UA Comment Ur Microscopic Review Urine Culture Comments Nasal Screen MRSA (PCR) Stl C.difficile DNA Amp Negative St C. diff Tox Epid 027 Negative Blood Type Antibody Screen - Imaging Impressions Abdomen/Bladder Ultrasound 07/16/18 00:00 CONCLUSION: 1. Increased echogenicity to the kidneys bilaterally consistent with medical renal disease. No hydronephrosis is seen. 2. 1.3 cm cyst at the mid left kidney. Chest X-Ray 07/16/18 00:00 CONCLUSION: Elevated right hemidiaphragm. Lungs are clear. Cholangiopancreatography MRI 07/16/18 00:00 CONCLUSION: 1. Moderately distended gallbladder with diffusely distended extrahepatic bile ducts and pancreatic duct extending to the ampulla. No definitive focal intraductal abnormality is demonstrated. Differential considerations include an occult pancreatic head lesion versus ampullary dysfunction/mass. Consider ERCP with endoscopic ultrasound for further evaluation as clinically warranted. Abdomen/Pelvis CT 07/16/18 00:18 CONCLUSION: 1. Biliary tree dilatation otherwise unremarkable CT scan of the abdomen and pelvis. Right hemidiaphragm is markedly elevated. Moderately distended colon without evidence of wall thickening or obstruction. 2. Some increased density to the left renal collecting system and right posterior bladder that could be evidence of transitional cell carcinoma. Correlate for hematuria. And outpt. Urology workup recommended Head CT 07/16/18 00:18 CONCLUSION: 1. Unremarkable study. No evidence of hemorrhage or edema. Some motion in the central portion of the exam without obvious mass or mass effect . <Akbar Tamayo - Last Filed: 07/16/18 19:01> Assessment and Plan - Plan - Abdominal pain, N/V- CT abd/pelvis with dilated biliary tree, Right hemidiaphragm is markedly elevated. Moderately distended colon without evidence of wall thickening or obstruction but no gallbladder thickening. no pericholecystic fluid. Abdomen/Bladder Ultrasound 07/16/18 Increased echogenicity to the kidneys bilaterally consistent with medical renal disease. No hydronephrosis is seen. 1.3 cm cyst at the mid left kidney. LFTs aside from slight elevation in AST wnl, lipase wnl. Pt feels much better at this time - AMS- Resolved, Possibly multifactorial, sepsis, uti, will need to r/o cholangitis or colon related issues, on abx Blood cx , urine cx pending, CT of head negative - Sepsis/ uti- on abx - Fecal impaction- s/p multiple laxatives, having several loose BMs Plan: - Keep NPO pending results of MRCP - cont. bowel regimen - stool studies - Iv fluids - Supportive care - Further recommendations to follow - Pt seen and examined by Dr. Tamayo and myself and this note is written on his behalf. <Carlin Castillo - Last Filed: 07/16/18 14:39> - Attending Attestation I seen and examined the patient. I agree with the assessment and recommendations. I await the results of the MRCP to make further recommendations <Akbar Tamayo - Last Filed: 07/16/18 19:01>
--- NOTE | 2018-07-16 17:34 | MR ---
EXAM DATE: 07/16/2018 5:09 PM EST AGE/SEX: 82 years / Female INDICATIONS: Obstruction. CLINICAL DATA: This is the patient's initial encounter. Patient reports that signs and symptoms have been present for 1 day and indicates a pain score of 5/10. MEDICAL/SURGICAL HISTORY: Hypertension. Hypercholesterolemia. Renal insufficiency, chronic. H ysterectomy. Appendectomy. Tonsillectomy. COMPARISON: [facility], CT ABDOMEN & PELVIS W CONTRAST, 07/16/2018. . TECHNIQUE: Multiplanar, multisequence images of the abdomen were obtained without contrast including dedicated cholangiographic images. FINDINGS: LIVER: The liver is homogeneous and normal in signal intensity with no focal defects. INTRAHEPATIC BILE DUCTS: There is no intrahepatic biliary ductal dilatation. COMMON BILE DUCT: The common bile duct is mildly dilated measuring up to 9 mm. There is no intralumin al filling defect or focal lesion. This extends to the ampulla. GALLBLADDER: Gallbladder is moderately distended. No significant gallbladder wall thickening or peric holecystic fluid. Cystic duct also appears mildly distended. PANCREAS: Pancreas is largely fatty replaced without focal signal abnormality. The pancreatic duct is however enlarged measuring up to 3 mm with no filling defects, or obstructing lesions identified. CONCLUSION: 1. Moderately distended gallbladder with diffusely distended extrahepatic bile ducts and pancreatic duct extending to the ampulla. No definitive focal intraductal abnormality is demonstrated. Different ial considerations include an occult pancreatic head lesion versus ampullary dysfunction/mass. Consid er ERCP with endoscopic ultrasound for further evaluation as clinically warranted. Electronically signed by: Jacob Ontiveros MD Board Certified Radiologist 07/16/2018 5:32 PM KARTHIK Carson
[2018-07-16] MEDS: Famotidine 20 MG Tablet PO SCH (20:53)
[2018-07-16] MEDS ORDERED: Vancomycin Inj 750 MG in Sodium Chlor 0.9% Inj 250 ML IV.SIG SCH (23:00)
[2018-07-17] MEDS: Insulin NovoLIN Regular Correctional Sugar Inj SQ SCH ×4 (00:30→17:57)
[2018-07-17] MEDS: Piperacil/Tazo 3.375 GM Premix 3.375 GM/50 ML PIGGYBACK IV.SIG SCH ×4 (02:02→20:37)
[2018-07-17] MEDS: Morphine Inj 4 MG/ML Vial IV.PUSH PRN ×5 (02:03→14:06)
[2018-07-17 06:05] LABS: Baso % (Auto) 0.3 % (0.0-2.0); Eos % (Auto) 0.1 % (0.0-4.0); Hemoglobin 9.9 gm/dL (11.6-15.3); Lymph # (Auto) 1.4 th/mm3 (1.0-4.8); Lymph % (Auto) 19.2 % (9.0-44.0); Mean Corpuscular HGB Conc 34.1 % (32.0-36.0); Mean Corpuscular Hemoglobin 30.9 pg (27.0-34.0); Mean Corpuscular Volume 90.7 fL (80.0-100.0); Mono # (Auto) 0.4 th/mm3 (0.0-0.9); Mono % (Auto) 5.9 % (0.0-8.0); Neut # (Auto) 5.6 th/mm3 (1.8-7.7); Neut % (Auto) 74.5 % (16.0-70.0); Platelet Count 155 th/mm3 (150-450); Red Blood Count 3.19 mil/mm3 (4.00-5.30); Red Cell Distribution Width 13.4 % (11.6-17.2); White Blood Count 7.5 th/mm3 (4.0-11.0)
[2018-07-17 06:31] LABS: Albumin 2.4 g/dL (3.4-5.0); Calcium 6.8 mg/dL (8.5-10.1); Carbon Dioxide 16.1 meq/L (21.0-32.0); Magnesium 1.8 mg/dL (1.5-2.5); Phosphorus 2.1 mg/dL (2.5-4.9); Potassium 3.3 meq/L (3.5-5.1); Total Protein 4.6 g/dL (6.4-8.2)
[2018-07-17] MEDS: Heparin - SQ 10,000 UNITS/ML Vial SQ SCH ×3 (06:34→21:36)
[2018-07-17] MEDS: Sod Chloride 0.9% Inj 1,000 ML IV.CONT SCH (06:34)
[2018-07-17] MEDS: Chlorhexidine Gluconate 2% 1 Pack (2 Cloths) TOPICAL SCH (06:35)
[2018-07-17] MEDS: Polyethylene Glycol 3350 17 GM Packet PO SCH ×2 (08:24→20:38)
[2018-07-17] MEDS: Senna/Docusate Sodium 8.6/50 MG Tablet PO SCH ×2 (08:24→21:36)
[2018-07-17] MEDS: Famotidine 20 MG Tablet PO SCH (08:24)
--- NOTE | 2018-07-17 09:25 | XR ---
EXAM DATE: 07/17/2018 9:21 AM EST AGE/SEX: 82 years / Female INDICATIONS: Cough with deep breathing. CLINICAL DATA: This is the patient's initial encounter. Patient reports that signs and symptoms have been present for 1 day and indicates a pain score of Nonresponsive. MEDICAL/SURGICAL HISTORY: . Hypercholesterolemia. Hypertension. Hypothyroidism. Renal impairmen t. Hysterectomy. Appendectomy. Tonsillectomy. . COMPARISON: [facility], CHEST 1V SINGLE AP, 07/16/2018. . FINDINGS: The heart size is normal. There is elevation of the right hemidiaphragm is increased density at the r ight base. The left lung is grossly clear. There is some prominence of the right hilar region. CONCLUSION: Elevation of the right hemidiaphragm with some accompanying atelectasis or consolidation at the right base. There also is some prominence of the right hilar region. Electronically signed by: Marco A Abdi MD Board Certified Radiologist 07/17/2018 9:23 AM EST
[2018-07-17] MEDS: Potassium Chlor 20 mEq Premix 20 MEQ/100 ML PIGGYBACK IV.SIG PRN ×2 (09:26→11:23)
[2018-07-17] MEDS: Levothyroxine 50 MCG Tablet PO SCH (10:03)
--- NOTE | 2018-07-17 10:09 | P.PNCC ---
Subjective Subjective Remarks/Hospital Course: 82yF with 1 day history of new-onset abdominal pain and altered mentation. also found to be febrile in the ER. elevated wbc. + u/a. CT abd/pelvis with dilated biliary tree, but no overt evidence of obstruction, no gallbladder thickening. no pericolecystic fluid. elevated Cr. developed hypotension and tachycardia in the [place] emergency department requiring 3L ivf and then norepinephrine to keep map > 65 mmHg. transferred emergently to [facility] from for further management. I evaluated her immediately upon arrival to the ICU. she complains of suprapubic pain which is "crampy" in nature. denies n/v/c/d. abdominal pain is mostly suprapubic, nonradiating. denies flank pain. denies fevers and chills. denies cp, sob. never had anything similar to this. remainder ROS negative. 07/17: Lying in bed no acute distress. Intermittent suprapubic pain described as a cramp. GI recommending endoscopy. Urine culture is pending at this time. Continue broad-spectrum antibiotics. Due to persistent suprapubic pain hematuria and question of bladder mass I will get a urology consult Objective Vital Signs / I&O: Vital Signs 07/16/18 10:30 07/16/18 11:00 07/16/18 11:30 Temperature Pulse Rate 78 80 79 Respiratory Rate 30 H 31 H 31 H Blood Pressure 120/58 L 141/66 H 132/63 Pulse Oximetry 94 L 95 94 L 07/16/18 12:00 07/16/18 12:30 07/16/18 13:00 Temperature Pulse Rate 80 77 77 Respiratory Rate 40 H 30 H 33 H Blood Pressure 130/59 L 116/59 L 126/61 Pulse Oximetry 96 95 07/16/18 13:30 07/16/18 14:00 07/16/18 14:30 Temperature Pulse Rate 77 77 77 Respiratory Rate 32 H 31 H 36 H Blood Pressure 123/58 L 119/60 134/59 L Pulse Oximetry 94 L 96 95 07/16/18 15:00 07/16/18 15:31 07/16/18 16:00 Temperature Pulse Rate 78 75 76 Respiratory Rate 30 H 44 H 24 Blood Pressure 129/60 116/56 L 128/60 Pulse Oximetry 93 L 94 L 95 07/16/18 17:02 07/16/18 17:13 07/16/18 17:30 Temperature Pulse Rate 74 76 Respiratory Rate 30 H Blood Pressure 131/60 135/62 Pulse Oximetry 88 L 95 96 07/16/18 18:00 07/16/18 18:30 07/16/18 18:37 Temperature 98.7 F Pulse Rate 78 78 78 Respiratory Rate 32 H 27 H Blood Pressure 144/65 H 138/64 Pulse Oximetry 95 95 07/16/18 19:00 07/16/18 19:04 07/16/18 19:30 Temperature Pulse Rate 77 79 78 Respiratory Rate 25 H 31 H 26 H Blood Pressure 143/63 H 137/61 Pulse Oximetry 93 L 93 L 94 L 07/16/18 20:00 07/16/18 20:30 07/16/18 20:37 Temperature 99.2 F Pulse Rate 78 79 78 Respiratory Rate 22 22 24 Blood Pressure 142/64 H 128/100 H 119/90 Pulse Oximetry 92 L 93 L 93 L 07/16/18 21:00 07/16/18 21:30 07/16/18 22:00 Temperature Pulse Rate 77 75 75 Respiratory Rate 26 H 32 H 30 H Blood Pressure 137/65 134/73 142/61 H Pulse Oximetry 94 L 92 L 91 L 07/16/18 22:31 07/16/18 23:00 07/16/18 23:31 Temperature Pulse Rate 76 73 75 Respiratory Rate 31 H 20 22 Blood Pressure 121/91 H 133/64 126/58 L Pulse Oximetry 92 L 91 L 91 L 07/17/18 00:00 07/17/18 00:31 07/17/18 01:00 Temperature Pulse Rate 73 72 74 Respiratory Rate 24 22 21 Blood Pressure 148/67 H 136/63 138/66 Pulse Oximetry 94 L 95 92 L 07/17/18 01:30 07/17/18 02:00 07/17/18 02:01 Temperature Pulse Rate 73 76 75 Respiratory Rate 23 20 22 Blood Pressure 143/64 H 116/95 H Pulse Oximetry 92 L 84 L 88 L 07/17/18 02:30 07/17/18 03:00 07/17/18 03:01 Temperature Pulse Rate 71 69 69 Respiratory Rate 24 24 24 Blood Pressure 129/59 L 116/53 L Pulse Oximetry 85 L 92 L 95 07/17/18 03:31 07/17/18 04:00 07/17/18 04:01 Temperature Pulse Rate 71 69 69 Respiratory Rate 20 25 H 28 H Blood Pressure 122/56 L 146/60 H Pulse Oximetry 93 L 93 L 94 L 07/17/18 04:53 07/17/18 05:00 07/17/18 05:01 Temperature Pulse Rate 71 69 69 Respiratory Rate 25 H 25 H 25 H Blood Pressure 119/56 L 148/63 H Pulse Oximetry 92 L 94 L 95 07/17/18 05:31 07/17/18 06:00 07/17/18 06:01 Temperature Pulse Rate 71 71 71 Respiratory Rate 27 H 27 H 22 Blood Pressure 132/63 125/98 H Pulse Oximetry 95 95 95 07/17/18 06:31 07/17/18 07:00 07/17/18 07:01 Temperature Pulse Rate 72 73 75 Respiratory Rate 24 38 H 31 H Blood Pressure 132/60 129/61 Pulse Oximetry 95 92 L 93 L 07/17/18 09:00 Temperature Pulse Rate Respiratory Rate Blood Pressure Pulse Oximetry 93 L Intake & Output 07/16/18 07/17/18 07/17/18 18:59 06:59 18:59 Intake Total 3720 / 3720 2340 / 2340 Output Total 1100 / 1100 1300 / 1300 Balance 2620 / 2620 1040 / 1040 Weight 80.6 kg Intake: IV 3480 / 3480 2100 / 2100 NS Inj 1,000 ML @ 150 mls/hr IV 1999 / 1999 .CONT .Q6H40M NANCY Rx#: [id number] Calcium Gluconate Inj 3 GM In 130 / 130 NS Inj 100 ML @ 120 mls/hr IV. SIG STAT STA Rx#:[id number] Zosyn 3.375 GM Premix 3.375 gm 100 / 100 100 / 100 In 50 ml @ 100 mls/hr IV.SIG Q6H NANCY Rx#:[id number] NS Inj 1,000 ML @ 1000 mls/hr 1000 / 1000 IV.SIG BOLUS NANCY Rx#:[id number] Oral 240 / 240 240 / 240 Output: Urine Amount (Catheter) 1100 / 1100 1300 / 1300 Indwelling Urethral Catheter 1100 / 1100 1300 / 1300 Other: Date of Last Bowel Movement 07/16/18 07/16/18 # Incontinent Bowel Movements 11 Result Diagrams: 07/17/18 05:32 07/17/18 05:32 Objective Remarks: GENERAL: Elderly female, lying in bed, in mild distress due to her abdominal pain HEENT: Normocephalic. Atraumatic. Pupils equal, round, reactive, conjugate. Mucous membranes are moist NECK: Trachea is midline. There is no JVD. CHEST: Equal chest rise. Nasal cannula. Bilateral wheezing mild CARDIOVASCULAR: S1-S2 normal no murmurs. Normotensive now ABDOMEN: Soft, mildly tender of the suprapubic area. nondistended. No guarding. No rebound. MUSCULOSKELETAL: Pulses 2+. No peripheral edema. NEUROLOGICAL: RASS 0. CAM -. Follows commands in all 4 extremities. Alert and oriented x3. No focal deficits. Assessment and Plan - Assessment and Plan Plan: Assessment: 82-year-old female with sepsis and early shock likely secondary to urinary origin. Cannot rule out biliary origin at this time, however there is no serum evidence of elevated bilirubin or elevated alk phos. CT evidence suggests there is no active acute cholecystitis. In contrast, urine from urinalysis suggests active cystitis. Will treat with broad-spectrum antibiotics , IV fluids, vasopressors. Active problems: Abdominal pain Urinary tract infection Septic shock- resolved Lactic acidosis-resolved Acute kidney injury Questionable transitional cell appearing mass near the renal pelvis, with hematuria Plan: Discontinue IV fluids. 1 dose of Lasix 20 mg x1 Continue Zosyn. DC vancomycin Follow blood cultures Follow-up urine culture Follow-up on stool studies per GI, C. difficile negative MRCP shows moderately distended gallbladder with diffusely distended extrahepatic bile ducts and pancreatic duct extending to the ampulla. Differential considerations include an occult pancreatic head lesion versus ampullary dysfunction/mass. Consider ERCP with endoscopic ultrasound recommended Currently weaned off norepinephrine. Patient is hypotensive restart beta- blockers hold all other antihypertensives at this time Frequent urine outputs Daily CMP Daily CBC SCDs Subcu heparin Protonix Due to persistent suprapubic pain hematuria and questionable bladder mass I will get urology consult Level 2 Hospitalist consulted to assume care in a.m. 07/18/2018 Code Status: Full
--- NOTE | 2018-07-17 10:59 | P.PNGI ---
Subjective Interval history: The patient is seen and examined. The patient is describing lower abdominal cramping pain. She is scheduled to be seen by urology consultation for possible bladder mass. She reports having had approximately 23 large bowel movements yesterday. The cramping pain may be associated with the bowel movements that she has been having. She is on the schedule for EUS and ERCP tomorrow. I will consider colonoscopy after EUS and ERCP is completed. Physical Exam Vital signs: Vital Signs 07/16/18 11:00 07/16/18 11:30 07/16/18 12:00 Temperature Pulse Rate 80 79 80 Respiratory Rate 31 H 31 H 40 H Blood Pressure 141/66 H 132/63 130/59 L Pulse Oximetry 95 94 L 07/16/18 12:30 07/16/18 13:00 07/16/18 13:30 Temperature Pulse Rate 77 77 77 Respiratory Rate 30 H 33 H 32 H Blood Pressure 116/59 L 126/61 123/58 L Pulse Oximetry 96 95 94 L 07/16/18 14:00 07/16/18 14:30 07/16/18 15:00 Temperature Pulse Rate 77 77 78 Respiratory Rate 31 H 36 H 30 H Blood Pressure 119/60 134/59 L 129/60 Pulse Oximetry 96 95 93 L 07/16/18 15:31 07/16/18 16:00 07/16/18 17:02 Temperature Pulse Rate 75 76 74 Respiratory Rate 44 H 24 Blood Pressure 116/56 L 128/60 Pulse Oximetry 94 L 95 88 L 07/16/18 17:13 07/16/18 17:30 07/16/18 18:00 Temperature 98.7 F Pulse Rate 76 78 Respiratory Rate 30 H 32 H Blood Pressure 131/60 135/62 144/65 H Pulse Oximetry 95 96 95 07/16/18 18:30 07/16/18 18:37 07/16/18 19:00 Temperature Pulse Rate 78 78 77 Respiratory Rate 27 H 25 H Blood Pressure 138/64 Pulse Oximetry 95 93 L 07/16/18 19:04 07/16/18 19:30 07/16/18 20:00 Temperature 99.2 F Pulse Rate 79 78 78 Respiratory Rate 31 H 26 H 22 Blood Pressure 143/63 H 137/61 142/64 H Pulse Oximetry 93 L 94 L 92 L 07/16/18 20:30 07/16/18 20:37 07/16/18 21:00 Temperature Pulse Rate 79 78 77 Respiratory Rate 22 24 26 H Blood Pressure 128/100 H 119/90 137/65 Pulse Oximetry 93 L 93 L 94 L 07/16/18 21:30 07/16/18 22:00 07/16/18 22:31 Temperature Pulse Rate 75 75 76 Respiratory Rate 32 H 30 H 31 H Blood Pressure 134/73 142/61 H 121/91 H Pulse Oximetry 92 L 91 L 92 L 07/16/18 23:00 07/16/18 23:31 07/17/18 00:00 Temperature Pulse Rate 73 75 73 Respiratory Rate 20 22 24 Blood Pressure 133/64 126/58 L 148/67 H Pulse Oximetry 91 L 91 L 94 L 07/17/18 00:31 07/17/18 01:00 07/17/18 01:30 Temperature Pulse Rate 72 74 73 Respiratory Rate 22 21 23 Blood Pressure 136/63 138/66 143/64 H Pulse Oximetry 95 92 L 92 L 07/17/18 02:00 07/17/18 02:01 07/17/18 02:30 Temperature Pulse Rate 76 75 71 Respiratory Rate 20 22 24 Blood Pressure 116/95 H 129/59 L Pulse Oximetry 84 L 88 L 85 L 07/17/18 03:00 07/17/18 03:01 07/17/18 03:31 Temperature Pulse Rate 69 69 71 Respiratory Rate 24 24 20 Blood Pressure 116/53 L 122/56 L Pulse Oximetry 92 L 95 93 L 07/17/18 04:00 07/17/18 04:01 07/17/18 04:53 Temperature Pulse Rate 69 69 71 Respiratory Rate 25 H 28 H 25 H Blood Pressure 146/60 H 119/56 L Pulse Oximetry 93 L 94 L 92 L 07/17/18 05:00 07/17/18 05:01 07/17/18 05:31 Temperature Pulse Rate 69 69 71 Respiratory Rate 25 H 25 H 27 H Blood Pressure 148/63 H 132/63 Pulse Oximetry 94 L 95 95 07/17/18 06:00 07/17/18 06:01 07/17/18 06:31 Temperature Pulse Rate 71 71 72 Respiratory Rate 27 H 22 24 Blood Pressure 125/98 H 132/60 Pulse Oximetry 95 95 95 07/17/18 07:00 07/17/18 07:01 07/17/18 07:30 Temperature Pulse Rate 73 75 72 Respiratory Rate 38 H 31 H 30 H Blood Pressure 129/61 136/63 Pulse Oximetry 92 L 93 L 94 L 07/17/18 08:00 07/17/18 08:31 07/17/18 09:00 Temperature 98.6 F Pulse Rate 73 75 71 Respiratory Rate 22 36 H 29 H Blood Pressure 123/60 145/66 H 126/82 Pulse Oximetry 94 L 92 L 91 L 07/17/18 09:30 07/17/18 10:00 07/17/18 10:01 Temperature Pulse Rate 76 78 79 Respiratory Rate 28 H 46 H 41 H Blood Pressure 122/74 130/98 H Pulse Oximetry 91 L 91 L 91 L Intake & Output 07/16/18 07/17/18 07/17/18 18:59 06:59 18:59 Intake Total 3720 / 3720 2340 / 2340 Output Total 1100 / 1100 1300 / 1300 Balance 2620 / 2620 1040 / 1040 Weight 80.6 kg Intake: IV 3480 / 3480 2100 / 2100 NS Inj 1,000 ML @ 150 mls/hr IV 1999 .CONT .Q6H40M NANCY Rx#: [id number] Calcium Gluconate Inj 3 GM In 130 / 130 NS Inj 100 ML @ 120 mls/hr IV. SIG STAT STA Rx#:[id number] Zosyn 3.375 GM Premix 3.375 gm 100 / 100 100 / 100 In 50 ml @ 100 mls/hr IV.SIG Q6H NANCY Rx#:[id number] NS Inj 1,000 ML @ 1000 mls/hr 1000 / 1000 IV.SIG BOLUS NANCY Rx#:[id number] Oral 240 / 240 240 / 240 Output: Urine Amount (Catheter) 1100 / 1100 1300 / 1300 Indwelling Urethral Catheter 1100 / 1100 1300 / 1300 Other: Date of Last Bowel Movement 07/16/18 07/16/18 07/16/18 # Incontinent Bowel Movements 11 Narrative: GENERAL: Elderly female, lying in bed, in distress due to her abdominal pain HEENT: Normocephalic. Atraumatic. Pupils equal, round, reactive, conjugate. Mucous membranes are moist NECK: Trachea is midline. There is no JVD. CHEST: Equal chest rise. Nasal cannula. CARDIOVASCULAR: Tachycardic rate, regular rhythm. Sinus. Norepinephrine 2 mcg/ min ABDOMEN: Soft, mildly tender of the suprapubic area. nondistended. No guarding. No rebound. MUSCULOSKELETAL: Pulses 2+. No peripheral edema. NEUROLOGICAL: RASS 0. CAM -. Follows commands in all 4 extremities. Alert and oriented x3. No focal deficits. - Urinary Catheter Management Indwelling Urethral Catheter Cath placed during this visit: yes Reason for continuing: Acute urinary retention Insertion date: 07/16/18 Insertion time: 04:00 Results - Labs CBC & Chem 7: 07/17/18 05:32 07/17/18 05:32 Laboratory Results - last 24 hr 07/16/18 07/16/18 07/16/18 12:45 13:05 18:22 WBC RBC Hgb Hct MCV MCH MCHC RDW Plt Count MPV Neut % (Auto) Lymph % (Auto) [place] % (Auto) Eos % (Auto) Baso % (Auto) Neut # (Auto) Lymph # (Auto) [place] # (Auto) Eos # (Auto) Baso # (Auto) WBC Differential Differential Comment Sodium Potassium Chloride Carbon Dioxide Anion Gap BUN Creatinine Estimated GFR POC Glucose 117 H 107 Random Glucose Calcium Calcium Adj for Albumin Phosphorus Magnesium Total Bilirubin AST ALT Alkaline Phosphatase Total Protein Albumin Stl C.difficile DNA Amp Negative St C. diff Tox Epid 027 Negative 07/16/18 07/17/18 07/17/18 23:33 05:32 05:32 WBC 7.5 RBC 3.19 L Hgb 9.9 L D Hct 29.0 L MCV 90.7 MCH 30.9 MCHC 34.1 RDW 13.4 Plt Count 155 D MPV 9.0 Neut % (Auto) 74.5 H Lymph % (Auto) 19.2 [place] % (Auto) 5.9 Eos % (Auto) 0.1 Baso % (Auto) 0.3 Neut # (Auto) 5.6 Lymph # (Auto) 1.4 [place] # (Auto) 0.4 Eos # (Auto) 0.0 Baso # (Auto) 0.0 WBC Differential . Differential Comment Auto diff final Sodium 147 H Potassium 3.3 L Chloride 120 H Carbon Dioxide 16.1 L Anion Gap 11 BUN 26 H Creatinine 1.11 H Estimated GFR 47 L POC Glucose 127 H Random Glucose 107 H Calcium 6.8 L* Calcium Adj for Albumin 8.1 L Phosphorus 2.1 L Magnesium 1.8 Total Bilirubin 0.3 AST 43 H ALT 21 Alkaline Phosphatase 68 Total Protein 4.6 L D Albumin 2.4 L D Stl C.difficile DNA Amp St C. diff Tox Epid 027 Microbiology 07/16/18 12:45 Stool Enteric Pathogens (PCR) - Final - Imaging Impressions Cholangiopancreatography MRI 07/16/18 00:00 CONCLUSION: 1. Moderately distended gallbladder with diffusely distended extrahepatic bile ducts and pancreatic duct extending to the ampulla. No definitive focal intraductal abnormality is demonstrated. Differential considerations include an occult pancreatic head lesion versus ampullary dysfunction/mass. Consider ERCP with endoscopic ultrasound for further evaluation as clinically warranted. Chest X-Ray 07/17/18 00:00 CONCLUSION: Elevation of the right hemidiaphragm with some accompanying atelectasis or consolidation at the right base. There also is some prominence of the right hilar region. Assessment and Plan - Plan July 17, 2018: Abdominal pain may be related to the bowel movement that she has been having or the dilated biliary tree identified on CT scan abdomen pelvis. She has an elevated right hemidiaphragm. Her bowel is likely now decompressed from the multiple bowel movement that she has had. Plan: Patient to remain on a clear diet and n.p.o. after midnight I will schedule EUS and ERCP tomorrow. IV fluids Supportive care Further recommendations after EUS and ERCP are completed. Consider colonoscopy after EUS and ERCP - Abdominal pain, N/V- CT abd/pelvis with dilated biliary tree, Right hemidiaphragm is markedly elevated. Moderately distended colon without evidence of wall thickening or obstruction but no gallbladder thickening. no pericholecystic fluid. Abdomen/Bladder Ultrasound 07/16/18 Increased echogenicity to the kidneys bilaterally consistent with medical renal disease. No hydronephrosis is seen. 1.3 cm cyst at the mid left kidney. LFTs aside from slight elevation in AST wnl, lipase wnl. Pt feels much better at this time - AMS- Resolved, Possibly multifactorial, sepsis, uti, will need to r/o cholangitis or colon related issues, on abx Blood cx , urine cx pending, CT of head negative - Sepsis/ uti- on abx - Fecal impaction- s/p multiple laxatives, having several loose BMs Plan: - Keep NPO pending results of MRCP - cont. bowel regimen - stool studies - Iv fluids - Supportive care - Further recommendations to follow - Pt seen and examined by Dr. Tamayo and myself and this note is written on his behalf. - Attending Attestation Dr. Tamayo Exam - Physical Examination Vital Signs / I&O: Vital Signs 07/16/18 11:00 07/16/18 11:30 07/16/18 12:00 Temperature Pulse Rate 80 79 80 Respiratory Rate 31 H 31 H 40 H Blood Pressure 141/66 H 132/63 130/59 L Pulse Oximetry 95 94 L 07/16/18 12:30 07/16/18 13:00 07/16/18 13:30 Temperature Pulse Rate 77 77 77 Respiratory Rate 30 H 33 H 32 H Blood Pressure 116/59 L 126/61 123/58 L Pulse Oximetry 96 95 94 L 07/16/18 14:00 07/16/18 14:30 07/16/18 15:00 Temperature Pulse Rate 77 77 78 Respiratory Rate 31 H 36 H 30 H Blood Pressure 119/60 134/59 L 129/60 Pulse Oximetry 96 95 93 L 07/16/18 15:31 07/16/18 16:00 07/16/18 17:02 Temperature Pulse Rate 75 76 74 Respiratory Rate 44 H 24 Blood Pressure 116/56 L 128/60 Pulse Oximetry 94 L 95 88 L 07/16/18 17:13 07/16/18 17:30 07/16/18 18:00 Temperature 98.7 F Pulse Rate 76 78 Respiratory Rate 30 H 32 H Blood Pressure 131/60 135/62 144/65 H Pulse Oximetry 95 96 95 07/16/18 18:30 07/16/18 18:37 07/16/18 19:00 Temperature Pulse Rate 78 78 77 Respiratory Rate 27 H 25 H Blood Pressure 138/64 Pulse Oximetry 95 93 L 07/16/18 19:04 07/16/18 19:30 07/16/18 20:00 Temperature 99.2 F Pulse Rate 79 78 78 Respiratory Rate 31 H 26 H 22 Blood Pressure 143/63 H 137/61 142/64 H Pulse Oximetry 93 L 94 L 92 L 07/16/18 20:30 07/16/18 20:37 07/16/18 21:00 Temperature Pulse Rate 79 78 77 Respiratory Rate 22 24 26 H Blood Pressure 128/100 H 119/90 137/65 Pulse Oximetry 93 L 93 L 94 L 07/16/18 21:30 07/16/18 22:00 07/16/18 22:31 Temperature Pulse Rate 75 75 76 Respiratory Rate 32 H 30 H 31 H Blood Pressure 134/73 142/61 H 121/91 H Pulse Oximetry 92 L 91 L 92 L 07/16/18 23:00 07/16/18 23:31 07/17/18 00:00 Temperature Pulse Rate 73 75 73 Respiratory Rate 20 22 24 Blood Pressure 133/64 126/58 L 148/67 H Pulse Oximetry 91 L 91 L 94 L 07/17/18 00:31 07/17/18 01:00 07/17/18 01:30 Temperature Pulse Rate 72 74 73 Respiratory Rate 22 21 23 Blood Pressure 136/63 138/66 143/64 H Pulse Oximetry 95 92 L 92 L 07/17/18 02:00 07/17/18 02:01 07/17/18 02:30 Temperature Pulse Rate 76 75 71 Respiratory Rate 20 22 24 Blood Pressure 116/95 H 129/59 L Pulse Oximetry 84 L 88 L 85 L 07/17/18 03:00 07/17/18 03:01 07/17/18 03:31 Temperature Pulse Rate 69 69 71 Respiratory Rate 24 24 20 Blood Pressure 116/53 L 122/56 L Pulse Oximetry 92 L 95 93 L 07/17/18 04:00 07/17/18 04:01 07/17/18 04:53 Temperature Pulse Rate 69 69 71 Respiratory Rate 25 H 28 H 25 H Blood Pressure 146/60 H 119/56 L Pulse Oximetry 93 L 94 L 92 L 07/17/18 05:00 07/17/18 05:01 07/17/18 05:31 Temperature Pulse Rate 69 69 71 Respiratory Rate 25 H 25 H 27 H Blood Pressure 148/63 H 132/63 Pulse Oximetry 94 L 95 95 07/17/18 06:00 07/17/18 06:01 07/17/18 06:31 Temperature Pulse Rate 71 71 72 Respiratory Rate 27 H 22 24 Blood Pressure 125/98 H 132/60 Pulse Oximetry 95 95 95 07/17/18 07:00 07/17/18 07:01 07/17/18 07:30 Temperature Pulse Rate 73 75 72 Respiratory Rate 38 H 31 H 30 H Blood Pressure 129/61 136/63 Pulse Oximetry 92 L 93 L 94 L 07/17/18 08:00 07/17/18 08:31 07/17/18 09:00 Temperature 98.6 F Pulse Rate 73 75 71 Respiratory Rate 22 36 H 29 H Blood Pressure 123/60 145/66 H 126/82 Pulse Oximetry 94 L 92 L 91 L 07/17/18 09:30 07/17/18 10:00 07/17/18 10:01 Temperature Pulse Rate 76 78 79 Respiratory Rate 28 H 46 H 41 H Blood Pressure 122/74 130/98 H Pulse Oximetry 91 L 91 L 91 L Intake & Output 07/16/18 07/17/18 07/17/18 18:59 06:59 18:59 Intake Total 3720 / 3720 2340 / 2340 Output Total 1100 / 1100 1300 / 1300 Balance 2620 / 2620 1040 / 1040 Weight 80.6 kg Intake: IV 3480 / 3480 2099 / 2100 NS Inj 1,000 ML @ 150 mls/hr IV 1999 .CONT .Q6H40M NANCY Rx#: [id number] Calcium Gluconate Inj 3 GM In 130 / 130 NS Inj 100 ML @ 120 mls/hr IV. SIG STAT STA Rx#:[id number] Zosyn 3.375 GM Premix 3.375 gm 100 / 100 100 / 100 In 50 ml @ 100 mls/hr IV.SIG Q6H NANCY Rx#:[id number] NS Inj 1,000 ML @ 1000 mls/hr 1000 / 1000 IV.SIG BOLUS NANCY Rx#:[id number] Oral 240 / 240 240 / 240 Output: Urine Amount (Catheter) 1100 / 1100 1300 / 1300 Indwelling Urethral Catheter 1100 / 1100 1300 / 1300 Other: Date of Last Bowel Movement 07/16/18 07/16/18 07/16/18 # Incontinent Bowel Movements 11 Intake & Output 07/15/18 07/16/18 07/17/18 07/18/18 06:59 06:59 06:59 06:59 Intake Total 2099 / 2100 6060 / 6060 Output Total 300 / 300 2400 / 2400 Balance 1800 / 1800 3660 / 3660 Weight 78.9 kg 80.6 kg General: No acute distress Respiratory: Lungs CTA Gastrointestinal: Positive bowel sounds, Tender Cardiovascular: Normal rate Skin: No rash Musculoskeletal: ROM Psychiatric: Cooperative - Pressure Injury Staging Pressure Injury Present on Admission: No Number of Pressure Injuries: 0
--- NOTE | 2018-07-17 11:48 | P.PNGI ---
Subjective Interval history: Pt is resting in bed, still with diffused with abd cramps, described as child labor. Reports having approximately 23 BMs <Carlin Castillo - Last Filed: 07/17/18 11:39> Physical Exam Vital signs: Vital Signs 07/16/18 12:00 07/16/18 12:30 07/16/18 13:00 Temperature Pulse Rate 80 77 77 Respiratory Rate 40 H 30 H 33 H Blood Pressure 130/59 L 116/59 L 126/61 Pulse Oximetry 96 95 07/16/18 13:30 07/16/18 14:00 07/16/18 14:30 Temperature Pulse Rate 77 77 77 Respiratory Rate 32 H 31 H 36 H Blood Pressure 123/58 L 119/60 134/59 L Pulse Oximetry 94 L 96 95 07/16/18 15:00 07/16/18 15:31 07/16/18 16:00 Temperature Pulse Rate 78 75 76 Respiratory Rate 30 H 44 H 24 Blood Pressure 129/60 116/56 L 128/60 Pulse Oximetry 93 L 94 L 95 07/16/18 17:02 07/16/18 17:13 07/16/18 17:30 Temperature Pulse Rate 74 76 Respiratory Rate 30 H Blood Pressure 131/60 135/62 Pulse Oximetry 88 L 95 96 07/16/18 18:00 07/16/18 18:30 07/16/18 18:37 Temperature 98.7 F Pulse Rate 78 78 78 Respiratory Rate 32 H 27 H Blood Pressure 144/65 H 138/64 Pulse Oximetry 95 95 07/16/18 19:00 07/16/18 19:04 07/16/18 19:30 Temperature Pulse Rate 77 79 78 Respiratory Rate 25 H 31 H 26 H Blood Pressure 143/63 H 137/61 Pulse Oximetry 93 L 93 L 94 L 07/16/18 20:00 07/16/18 20:30 07/16/18 20:37 Temperature 99.2 F Pulse Rate 78 79 78 Respiratory Rate 22 22 24 Blood Pressure 142/64 H 128/100 H 119/90 Pulse Oximetry 92 L 93 L 93 L 07/16/18 21:00 07/16/18 21:30 07/16/18 22:00 Temperature Pulse Rate 77 75 75 Respiratory Rate 26 H 32 H 30 H Blood Pressure 137/65 134/73 142/61 H Pulse Oximetry 94 L 92 L 91 L 07/16/18 22:31 07/16/18 23:00 07/16/18 23:31 Temperature Pulse Rate 76 73 75 Respiratory Rate 31 H 20 22 Blood Pressure 121/91 H 133/64 126/58 L Pulse Oximetry 92 L 91 L 91 L 07/17/18 00:00 07/17/18 00:31 07/17/18 01:00 Temperature Pulse Rate 73 72 74 Respiratory Rate 24 22 21 Blood Pressure 148/67 H 136/63 138/66 Pulse Oximetry 94 L 95 92 L 07/17/18 01:30 07/17/18 02:00 07/17/18 02:01 Temperature Pulse Rate 73 76 75 Respiratory Rate 23 20 22 Blood Pressure 143/64 H 116/95 H Pulse Oximetry 92 L 84 L 88 L 07/17/18 02:30 07/17/18 03:00 07/17/18 03:01 Temperature Pulse Rate 71 69 69 Respiratory Rate 24 24 24 Blood Pressure 129/59 L 116/53 L Pulse Oximetry 85 L 92 L 95 07/17/18 03:31 07/17/18 04:00 07/17/18 04:01 Temperature Pulse Rate 71 69 69 Respiratory Rate 20 25 H 28 H Blood Pressure 122/56 L 146/60 H Pulse Oximetry 93 L 93 L 94 L 07/17/18 04:53 07/17/18 05:00 07/17/18 05:01 Temperature Pulse Rate 71 69 69 Respiratory Rate 25 H 25 H 25 H Blood Pressure 119/56 L 148/63 H Pulse Oximetry 92 L 94 L 95 07/17/18 05:31 07/17/18 06:00 07/17/18 06:01 Temperature Pulse Rate 71 71 71 Respiratory Rate 27 H 27 H 22 Blood Pressure 132/63 125/98 H Pulse Oximetry 95 95 95 07/17/18 06:31 07/17/18 07:00 07/17/18 07:01 Temperature Pulse Rate 72 73 75 Respiratory Rate 24 38 H 31 H Blood Pressure 132/60 129/61 Pulse Oximetry 95 92 L 93 L 07/17/18 07:30 07/17/18 08:00 07/17/18 08:31 Temperature 98.6 F Pulse Rate 72 73 75 Respiratory Rate 30 H 22 36 H Blood Pressure 136/63 123/60 145/66 H Pulse Oximetry 94 L 94 L 92 L 07/17/18 09:00 07/17/18 09:30 07/17/18 10:00 Temperature Pulse Rate 71 76 78 Respiratory Rate 29 H 28 H 46 H Blood Pressure 126/82 122/74 Pulse Oximetry 91 L 91 L 91 L 07/17/18 10:01 Temperature Pulse Rate 79 Respiratory Rate 41 H Blood Pressure 130/98 H Pulse Oximetry 91 L Intake & Output 07/16/18 07/17/18 07/17/18 18:59 06:59 18:59 Intake Total 3720 / 3720 2340 / 2340 100 / 100 Output Total 1100 / 1100 1300 / 1300 Balance 2620 / 2620 1040 / 1040 100 / 100 Weight 80.6 kg Intake: IV 3480 / 3480 2100 / 2100 100 / 100 NS Inj 1,000 ML @ 150 mls/hr IV 1999 / 1999 .CONT .Q6H40M NANCY Rx#: [id number] Calcium Gluconate Inj 3 GM In 130 / 130 NS Inj 100 ML @ 120 mls/hr IV. SIG STAT STA Rx#:[id number] Zosyn 3.375 GM Premix 3.375 gm 100 / 100 100 / 100 In 50 ml @ 100 mls/hr IV.SIG Q6H NANCY Rx#:[id number] KCl 20 mEq Premix Inj 20 meq In 100 / 100 100 ml @ 50 mls/hr IV.SIG Q2H PRN Rx#:[id number] NS Inj 1,000 ML @ 1000 mls/hr 1000 / 1000 IV.SIG BOLUS NANCY Rx#:[id number] Oral 240 / 240 240 / 240 Output: Urine Amount (Catheter) 1100 / 1100 1300 / 1300 Indwelling Urethral Catheter 1100 / 1100 1300 / 1300 Other: Date of Last Bowel Movement 07/16/18 07/16/18 07/16/18 # Incontinent Bowel Movements 11 - Constitutional no acute distress - Routine HEENT Exam Head: Present: normocephalic - Routine Respiratory Exam Present: CTA bilaterally - Routine Cardiovascular Exam Present: RRR - Routine Abdominal Exam Present: soft, normoactive bowel sounds, tenderness. Absent: distended, rebound - Routine Skin Exam Present: intact, dry - Routine Neurological Exam Present: alert, oriented X3 - Routine Psychiatric Exam Present: normal affect, normal thought process - Urinary Catheter Management Indwelling Urethral Catheter Cath placed during this visit: yes Reason for continuing: Acute urinary retention Insertion date: 07/16/18 Insertion time: 04:00 <Carlin Castillo - Last Filed: 07/17/18 11:39> Vital signs: Vital Signs 07/16/18 14:00 07/16/18 14:30 07/16/18 15:00 Temperature Pulse Rate 77 77 78 Respiratory Rate 31 H 36 H 30 H Blood Pressure 119/60 134/59 L 129/60 Pulse Oximetry 96 95 93 L 07/16/18 15:31 07/16/18 16:00 07/16/18 17:02 Temperature Pulse Rate 75 76 74 Respiratory Rate 44 H 24 Blood Pressure 116/56 L 128/60 Pulse Oximetry 94 L 95 88 L 07/16/18 17:13 07/16/18 17:30 07/16/18 18:00 Temperature 98.7 F Pulse Rate 76 78 Respiratory Rate 30 H 32 H Blood Pressure 131/60 135/62 144/65 H Pulse Oximetry 95 96 95 07/16/18 18:30 07/16/18 18:37 07/16/18 19:00 Temperature Pulse Rate 78 78 77 Respiratory Rate 27 H 25 H Blood Pressure 138/64 Pulse Oximetry 95 93 L 07/16/18 19:04 07/16/18 19:30 07/16/18 20:00 Temperature 99.2 F Pulse Rate 79 78 78 Respiratory Rate 31 H 26 H 22 Blood Pressure 143/63 H 137/61 142/64 H Pulse Oximetry 93 L 94 L 92 L 07/16/18 20:30 07/16/18 20:37 07/16/18 21:00 Temperature Pulse Rate 79 78 77 Respiratory Rate 22 24 26 H Blood Pressure 128/100 H 119/90 137/65 Pulse Oximetry 93 L 93 L 94 L 07/16/18 21:30 07/16/18 22:00 07/16/18 22:31 Temperature Pulse Rate 75 75 76 Respiratory Rate 32 H 30 H 31 H Blood Pressure 134/73 142/61 H 121/91 H Pulse Oximetry 92 L 91 L 92 L 07/16/18 23:00 07/16/18 23:31 07/17/18 00:00 Temperature Pulse Rate 73 75 73 Respiratory Rate 20 22 24 Blood Pressure 133/64 126/58 L 148/67 H Pulse Oximetry 91 L 91 L 94 L 07/17/18 00:31 07/17/18 01:00 07/17/18 01:30 Temperature Pulse Rate 72 74 73 Respiratory Rate 22 21 23 Blood Pressure 136/63 138/66 143/64 H Pulse Oximetry 95 92 L 92 L 07/17/18 02:00 07/17/18 02:01 07/17/18 02:30 Temperature Pulse Rate 76 75 71 Respiratory Rate 20 22 24 Blood Pressure 116/95 H 129/59 L Pulse Oximetry 84 L 88 L 85 L 07/17/18 03:00 07/17/18 03:01 07/17/18 03:31 Temperature Pulse Rate 69 69 71 Respiratory Rate 24 24 20 Blood Pressure 116/53 L 122/56 L Pulse Oximetry 92 L 95 93 L 07/17/18 04:00 07/17/18 04:01 07/17/18 04:53 Temperature Pulse Rate 69 69 71 Respiratory Rate 25 H 28 H 25 H Blood Pressure 146/60 H 119/56 L Pulse Oximetry 93 L 94 L 92 L 07/17/18 05:00 07/17/18 05:01 07/17/18 05:31 Temperature Pulse Rate 69 69 71 Respiratory Rate 25 H 25 H 27 H Blood Pressure 148/63 H 132/63 Pulse Oximetry 94 L 95 95 07/17/18 06:00 07/17/18 06:01 07/17/18 06:31 Temperature Pulse Rate 71 71 72 Respiratory Rate 27 H 22 24 Blood Pressure 125/98 H 132/60 Pulse Oximetry 95 95 95 07/17/18 07:00 07/17/18 07:01 07/17/18 07:30 Temperature Pulse Rate 73 75 72 Respiratory Rate 38 H 31 H 30 H Blood Pressure 129/61 136/63 Pulse Oximetry 92 L 93 L 94 L 07/17/18 08:00 07/17/18 08:31 07/17/18 09:00 Temperature 98.6 F Pulse Rate 73 75 71 Respiratory Rate 22 36 H 29 H Blood Pressure 123/60 145/66 H 126/82 Pulse Oximetry 94 L 92 L 91 L 07/17/18 09:30 07/17/18 10:00 07/17/18 10:01 Temperature Pulse Rate 76 78 79 Respiratory Rate 28 H 46 H 41 H Blood Pressure 122/74 130/98 H Pulse Oximetry 91 L 91 L 91 L Intake & Output 07/16/18 07/17/18 07/17/18 18:59 06:59 18:59 Intake Total 3720 / 3720 2340 / 2340 707.5 / 707.5 Output Total 1100 / 1100 1300 / 1300 Balance 2620 / 2620 1040 / 1040 707.5 / 707.5 Weight 80.6 kg Intake: IV 3480 / 3480 2100 / 2100 707.5 / 707.5 NS Inj 1,000 ML @ 150 mls/hr IV 2000 / 1999 2000 / 2000 300 / 300 .CONT .Q6H40M NANCY Rx#: [id number] Calcium Gluconate Inj 3 GM In 130 / 130 NS Inj 100 ML @ 120 mls/hr IV. SIG STAT STA Rx#:[id number] Zosyn 3.375 GM Premix 3.375 gm 100 / 100 100 / 100 50 / 50 In 50 ml @ 100 mls/hr IV.SIG Q6H NANCY Rx#:[id number] KCl 20 mEq Premix Inj 20 meq In 100 / 100 100 ml @ 50 mls/hr IV.SIG Q2H PRN Rx#:[id number] NS Inj 1,000 ML @ 1000 mls/hr 1000 / 1000 IV.SIG BOLUS NANCY Rx#:[id number] Vancomycin Inj 750 MG In NS Inj 257.5 / 257.5 250 ML @ 250 mls/hr IV.SIG Q24H NANCY Rx#:[id number] Oral 240 / 240 240 / 240 Output: Urine Amount (Catheter) 1100 / 1100 1300 / 1300 Indwelling Urethral Catheter 1100 / 1100 1300 / 1300 Other: Date of Last Bowel Movement 07/16/18 07/16/18 07/16/18 # Incontinent Bowel Movements 11 - Urinary Catheter Management Indwelling Urethral Catheter Cath placed during this visit: no <Akbar Tamayo - Last Filed: 07/17/18 13:39> Results - Labs CBC & Chem 7: 07/17/18 05:32 07/17/18 05:32 Laboratory Results - last 24 hr 07/16/18 07/16/18 07/16/18 12:45 13:05 18:22 WBC RBC Hgb Hct MCV MCH MCHC RDW Plt Count MPV Neut % (Auto) Lymph % (Auto) [place] % (Auto) Eos % (Auto) Baso % (Auto) Neut # (Auto) Lymph # (Auto) [place] # (Auto) Eos # (Auto) Baso # (Auto) WBC Differential Differential Comment Sodium Potassium Chloride Carbon Dioxide Anion Gap BUN Creatinine Estimated GFR POC Glucose 117 H 107 Random Glucose Calcium Calcium Adj for Albumin Phosphorus Magnesium Total Bilirubin AST ALT Alkaline Phosphatase Total Protein Albumin Stl C.difficile DNA Amp Negative St C. diff Tox Epid 027 Negative 07/16/18 07/17/18 07/17/18 23:33 05:32 05:32 WBC 7.5 RBC 3.19 L Hgb 9.9 L D Hct 29.0 L MCV 90.7 MCH 30.9 MCHC 34.1 RDW 13.4 Plt Count 155 D MPV 9.0 Neut % (Auto) 74.5 H Lymph % (Auto) 19.2 Waller % (Auto) 5.9 Eos % (Auto) 0.1 Baso % (Auto) 0.3 Neut # (Auto) 5.6 Lymph # (Auto) 1.4 Waller # (Auto) 0.4 Eos # (Auto) 0.0 Baso # (Auto) 0.0 WBC Differential . Differential Comment Auto diff final Sodium 147 H Potassium 3.3 L Chloride 120 H Carbon Dioxide 16.1 L Anion Gap 11 BUN 26 H Creatinine 1.11 H Estimated GFR 47 L POC Glucose 127 H Random Glucose 107 H Calcium 6.8 L* Calcium Adj for Albumin 8.1 L Phosphorus 2.1 L Magnesium 1.8 Total Bilirubin 0.3 AST 43 H ALT 21 Alkaline Phosphatase 68 Total Protein 4.6 L D Albumin 2.4 L D Stl C.difficile DNA Amp St C. diff Tox Epid 027 Microbiology 07/15/18 23:36 Blood - Peripheral Aerobic Blood Culture - Preliminary No growth in 1 day 07/15/18 23:36 Blood - Peripheral Anaerobic Blood Culture - Preliminary No growth in 1 day 07/15/18 23:30 Blood - Peripheral Aerobic Blood Culture - Preliminary No growth in 1 day 07/15/18 23:30 Blood - Peripheral Anaerobic Blood Culture - Preliminary No growth in 1 day 07/16/18 12:45 Stool Enteric Pathogens (PCR) - Final - Imaging Impressions Cholangiopancreatography MRI 07/16/18 00:00 CONCLUSION: 1. Moderately distended gallbladder with diffusely distended extrahepatic bile ducts and pancreatic duct extending to the ampulla. No definitive focal intraductal abnormality is demonstrated. Differential considerations include an occult pancreatic head lesion versus ampullary dysfunction/mass. Consider ERCP with endoscopic ultrasound for further evaluation as clinically warranted. Chest X-Ray 07/17/18 00:00 CONCLUSION: Elevation of the right hemidiaphragm with some accompanying atelectasis or consolidation at the right base. There also is some prominence of the right hilar region. <Carlin Castillo - Last Filed: 07/17/18 11:39> - Labs CBC & Chem 7: 07/17/18 05:32 07/17/18 05:32 Laboratory Results - last 24 hr 07/16/18 07/16/18 07/16/18 12:45 18:22 23:33 WBC RBC Hgb Hct MCV MCH MCHC RDW Plt Count MPV Neut % (Auto) Lymph % (Auto) Waller % (Auto) Eos % (Auto) Baso % (Auto) Neut # (Auto) Lymph # (Auto) [place]er # (Auto) Eos # (Auto) Baso # (Auto) WBC Differential Differential Comment Sodium Potassium Chloride Carbon Dioxide Anion Gap BUN Creatinine Estimated GFR POC Glucose 107 127 H Random Glucose Calcium Calcium Adj for Albumin Phosphorus Magnesium Total Bilirubin AST ALT Alkaline Phosphatase Total Protein Albumin Stl C.difficile DNA Amp Negative St C. diff Tox Epid 027 Negative 07/17/18 07/17/18 07/17/18 05:32 05:32 11:34 WBC 7.5 RBC 3.19 L Hgb 9.9 L D Hct 29.0 L MCV 90.7 MCH 30.9 MCHC 34.1 RDW 13.4 Plt Count 155 D MPV 9.0 Neut % (Auto) 74.5 H Lymph % (Auto) 19.2 Waller % (Auto) 5.9 Eos % (Auto) 0.1 Baso % (Auto) 0.3 Neut # (Auto) 5.6 Lymph # (Auto) 1.4 Waller # (Auto) 0.4 Eos # (Auto) 0.0 Baso # (Auto) 0.0 WBC Differential . Differential Comment Auto diff final Sodium 147 H Potassium 3.3 L Chloride 120 H Carbon Dioxide 16.1 L Anion Gap 11 BUN 26 H Creatinine 1.11 H Estimated GFR 47 L POC Glucose 131 H Random Glucose 107 H Calcium 6.8 L* Calcium Adj for Albumin 8.1 L Phosphorus 2.1 L Magnesium 1.8 Total Bilirubin 0.3 AST 43 H ALT 21 Alkaline Phosphatase 68 Total Protein 4.6 L D Albumin 2.4 L D Stl C.difficile DNA Amp St C. diff Tox Epid 027 Microbiology 07/15/18 23:36 Blood - Peripheral Aerobic Blood Culture - Preliminary No growth in 1 day 07/15/18 23:36 Blood - Peripheral Anaerobic Blood Culture - Preliminary No growth in 1 day 07/15/18 23:30 Blood - Peripheral Aerobic Blood Culture - Preliminary No growth in 1 day 07/15/18 23:30 Blood - Peripheral Anaerobic Blood Culture - Preliminary No growth in 1 day 07/16/18 12:45 Stool Enteric Pathogens (PCR) - Final - Imaging Impressions Cholangiopancreatography MRI 07/16/18 00:00 CONCLUSION: 1. Moderately distended gallbladder with diffusely distended extrahepatic bile ducts and pancreatic duct extending to the ampulla. No definitive focal intraductal abnormality is demonstrated. Differential considerations include an occult pancreatic head lesion versus ampullary dysfunction/mass. Consider ERCP with endoscopic ultrasound for further evaluation as clinically warranted. Chest X-Ray 07/17/18 00:00 CONCLUSION: Elevation of the right hemidiaphragm with some accompanying atelectasis or consolidation at the right base. There also is some prominence of the right hilar region. <Akbar Tamayo - Last Filed: 07/17/18 13:39> Assessment and Plan - Plan - Abdominal pain, N/V- MRCP on 07/16/18 Moderately distended gallbladder with diffusely distended extrahepatic bile ducts and pancreatic duct extending to the ampulla. No definitive focal intraductal abnormality is demonstrated. Differential considerations include an occult pancreatic head lesion versus ampullary dysfunction/mass. CT abd/pelvis with dilated biliary tree, Right hemidiaphragm is markedly elevated. Moderately distended colon without evidence of wall thickening or obstruction but no gallbladder thickening. no pericholecystic fluid. Abdomen/Bladder Ultrasound 07/16/18 Increased echogenicity to the kidneys bilaterally consistent with medical renal disease. No hydronephrosis is seen. 1.3 cm cyst at the mid left kidney. LFTs aside from slight elevation in AST wnl, lipase wnl. - AMS- Resolved, Possibly multifactorial, sepsis, uti, will need to r/o cholangitis or colon related issues, on abx Blood cx , urine cx pending, CT of head negative - Constipation- had multiple Bms, abd pain could be related to this. Stools negative for C-diff - Anemia- no bleeding reported, could be dilutional - Sepsis/ uti- on abx - Fecal impaction- s/p multiple laxatives, having several loose BMs Plan: - clears - EUS/ERCP tomorrow - NPO mn - consider colonoscopy at some point - cont. bowel regimen - Urology consulted for ? bladder mass - Iv fluids - Supportive care - Further recommendations to follow - Pt seen and examined by Dr. Tamayo and myself and this note is written on his behalf. <Carlin Castillo - Last Filed: 07/17/18 11:39> - Attending Attestation I have seen and examined the patient and reviewed the patients care with the [employer]. I agree with the above assessment and recommendations as documented above. <Akbar Tamayo - Last Filed: 07/17/18 13:39>
[2018-07-17 14:43] LABS: CKMB Percent 1.6 % (0.0-4.0); Creatine Kinase MB 5.6 ng/mL (0.5-3.6)
[2018-07-17] MEDS ORDERED: Metoprolol Inj 5 MG/5 ML Vial ONE ×2 (15:00→15:24)
[2018-07-17] MEDS: Potassium Chlor 20 mEq Premix 20 MEQ/100 ML PIGGYBACK IV.SIG SCH ×2 (15:15→17:20)
[2018-07-17] MEDS ORDERED: Metoprolol Inj 5 MG/5 ML Vial IV.PUSH ONE (15:17)
[2018-07-17] MEDS ORDERED: Metoprolol Tartrate 25 MG Tablet PO ONE (15:27)
[2018-07-17] MEDS ORDERED: Digoxin Inj 500 MCG/2 ML Ampul IV.PUSH ONE (15:30)
[2018-07-17 15:57] LABS: Magnesium 1.6 mg/dL (1.5-2.5); Potassium 3.7 meq/L (3.5-5.1)
[2018-07-17] MEDS ORDERED: Mag Sulf 1 gm/100 ml Premix 100 ML IV.SIG ONE (16:00)
[2018-07-17] MEDS: dilTIAZem Inj 125 MG in Sodium Chlor 0.9% Inj 100 ML IV.CONT PRN (16:18)
--- NOTE | 2018-07-17 19:26 | P.CONURO ---
History of Present Illness Service: URology Consult date: 07/17/18 Reason for Consult: Questionable bladder lesion Primary Care Provider: Teresa Álvarez MD Chief Complaint: abd pain History of Present Illness: 82yo female with history of abdominal pain, N/V seen ion consultation for questionable bladder mass. CT scan identified an area of mild bladder wall thickening of the left with very mild left sided hydronephrosis. No history of hematuria prior to catheterization. No urological history. Patient with recent Afib and hypotension since admit. Review of Systems All other systems reviewed negative except as stated in HPI PMFSH - History History Provided By: Patient, Family Member - Medical History Medical History: Medical History (Last Reviewed 07/16/18 @ 15:48 by Chica Jacome PT) High cholesterol History of hysterectomy Hypertension Hypothyroidism Renal impairment - Surgical History Surgical History: Surgical History (Last Reviewed 07/16/18 @ 15:48 by Chica Jacome, PT) History of appendectomy History of tonsillectomy - Family History Family History: Family History (Last Reviewed 07/16/18 @ 15:48 by Chica Jacome PT) Father Colon cancer - Tobacco History Second Hand Smoke Exposure: No Smoking Status: Never smoker - Alcohol History How Often Do You Have a Drink Containing Alcohol: Monthly or less - Substance Use History 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 - Immunization History Tetanus Immunization: <5 Years Hx Influenza Vaccine This Season: Yes Medications and Allergies Active Medications: Active Medications Acetaminophen (Tylenol) 650 mg PO Q6H PRN PRN Reason: TEMPERATURE > 101 F Albuterol (Duoneb Neb (Prn)) 1 ampul NEB Q2HR NEB PRN PRN Reason: WHEEZING Aspirin (Ecotrin) 81 mg PO DAILY [facility] Last Admin: 07/17/18 10:03 Dose: 81 mg Atorvastatin Calcium (Lipitor) 10 mg PO DAILY [facility] Last Admin: 07/17/18 10:03 Dose: 10 mg Bisacodyl (Dulcolax Supp) 10 mg RECTAL DAILY PRN PRN Reason: if no BM in last 24h Chlorhexidine Gluconate (Chlorhexidine 2% Cloth) 3 pack TOPICAL DAILY@0400 [facility] Stop: 07/21/18 03:59 Last Admin: 07/17/18 06:35 Dose: 3 pack Chlorhexidine Gluconate (Chlorhexidine 2% Cloth) 3 pack TOPICAL DAILY@0400 PRN PRN Reason: Extra cloth needed Stop: 07/21/18 03:59 Dextrose (D50w Vial) 50 ml IV.PUSH UNSCH PRN PRN Reason: PER HYPOGLYCEMIA PROTOCOL Glucagon (Glucagon Inj) 1 mg OTHER PRN PRN PRN Reason: for Hypoglycemia Protocol Heparin Sodium (Porcine) (Heparin Inj) 5,000 units SQ Q8HR [facility] Last Admin: 07/17/18 13:17 Dose: 5,000 units Magnesium Sulfate 4 gm/ Sodium (Chloride) 100 mls @ 50 mls/hr IV.SIG UNSCH PRN PRN Reason: For Magnesium 0.9 - 1.1 mg/dL Magnesium Sulfate 2 gm/ Sodium (Chloride) 100 mls @ 50 mls/hr IV.SIG UNSCH PRN PRN Reason: For Magnesium 1.2 - 1.6 mg/dL Potassium Chloride (Kcl 40 Meq Premix Inj) 40 meq in 100 mls @ 25 mls/hr IV.SIG Q2H PRN PRN Reason: For Potassium 2.8 - 3.2 mEq/L Potassium Chloride (Kcl 20 Meq Premix Inj) 20 meq in 100 mls @ 50 mls/hr IV.SIG Q2H PRN PRN Reason: For Potassium 3.3 - 3.5 mEq/L Last Infusion: 07/17/18 13:51 Dose: Infused Potassium Chloride (Kcl 40 Meq Premix Inj) 40 meq in 100 mls @ 25 mls/hr IV.SIG UNSCH PRN PRN Reason: For Potassium 3.3 - 3.5 mEq/L Potassium Phosphate 30 mmol/ (Sodium Chloride) 260 mls @ 42 mls/hr IV.SIG UNSCH PRN PRN Reason: SEE LABEL COMMENTS Sodium Phosphate 30 mmol/ (Sodium Chloride) 260 mls @ 42 mls/hr IV.SIG UNSCH PRN PRN Reason: For Phosphorus < 2.5 mg/dL Potassium Chloride (Kcl 20 Meq Premix Inj) 20 meq in 100 mls @ 50 mls/hr IV.SIG Q2H PRN PRN Reason: For Potassium 2.8 - 3.2 mEq/L Piperacillin/Tazobactam/Dextrose (Zosyn 3.375 Gm Premix) 3.375 gm in 50 mls @ 100 mls/hr IV.SIG Q6H [facility] Last Infusion: 07/17/18 17:57 Dose: Infused Potassium Chloride (Kcl 20 Meq Premix Inj) 20 meq in 100 mls @ 50 mls/hr IV.SIG Q2H [facility] Stop: 07/17/18 19:59 Last Admin: 07/17/18 17:20 Dose: 50 mls/hr Diltiazem HCl 125 mg/ Sodium (Chloride) 125 mls @ 5 mls/hr IV.CONT TITRATE PRN ; Protocol PRN Reason: Per Protocol Last Titration: 07/17/18 17:45 Dose: 5 mg/hr, 5 mls/hr Insulin Human Regular (Novolin R Correctional Sugar Inj) 0 units SQ Q6HR [facility]ANCY; Protocol Last Admin: 07/17/18 17:57 Dose: Not Given Lactulose (Lactulose Liq) 30 ml PO BID [facility] Last Admin: 07/17/18 08:24 Dose: Not Given Levothyroxine Sodium (Synthroid) 50 mcg PO DAILY@0600 [facility] Last Admin: 07/17/18 10:03 Dose: 50 mcg Lorazepam (Ativan Inj) 0.25 mg IV.PUSH Q4H PRN PRN Reason: ANXIETY Magnesium Oxide (Mag-Ox) 800 mg PO UNSCH PRN PRN Reason: For Magnesium 1.2 - 1.6 mg/dL Metoprolol Succinate (Toprol Xl) 100 mg PO HS [facility] Miscellaneous (Pill Splitter) 1 each OTHER UNSCH PRN PRN Reason: SEE LABEL COMMENTS Miscellaneous Information ([facility] Ordered Lab Info) 1 each OTHER ONCE ONE Stop: 07/18/18 22:46 Morphine Sulfate (Morphine Inj) 1 mg IV.PUSH Q2H PRN PRN Reason: PAIN 1-5 Last Admin: 07/17/18 14:06 Dose: 1 mg Ondansetron HCl (Zofran Inj) 4 mg IV.PUSH Q6H PRN PRN Reason: NAUSEA OR VOMITING Last Admin: 07/16/18 06:19 Dose: 4 mg Pantoprazole Sodium (Protonix) 40 mg PO DAILY [facility] Last Admin: 07/17/18 08:25 Dose: 40 mg Phenazopyridine HCl (Pyridium) 200 mg PO DAILY [facility] Last Admin: 07/17/18 08:25 Dose: 200 mg Polyethylene Glycol (Miralax) 17 gm PO BID [facility] Last Admin: 07/17/18 08:24 Dose: Not Given Potassium Bicarb/Potassium Chloride (K-Lyte Cl Eff) 50 meq PO UNSCH PRN PRN Reason: For Potassium 3.3 - 3.5 mEq/L Potassium Phosphate (K-Phos Original) 2,000 mg PO Q4H PRN PRN Reason: Phosphorus Less Than 2.5 mg/dL Potassium Phosphate (K-Phos Original) 2,000 mg PO UNSCH PRN PRN Reason: SEE LABEL COMMENTS Last Admin: 07/17/18 09:10 Dose: 2,000 mg Quetiapine Fumarate (Seroquel) 200 mg PO HS [facility] Senna/Docusate Sodium (Linda-Colace) 1 tab PO BID [facility] Last Admin: 07/17/18 08:24 Dose: Not Given Sodium Chloride (Ns Flush) 2 ml IV.FLUSH PRN PRN PRN Reason: FLUSH AFTER USING IV ACCESS Sodium Chloride (Ns Flush) 2 ml IV.FLUSH UNSCH PRN PRN Reason: FLUSH AFTER USING IV ACCESS Allergies Allergy/AdvReac Type Severity Reaction Status Date / Time diphenhydramine Allergy Severe THROAT Verified 07/16/18 00:47 CLOSES valproic acid Allergy Intermediate VERY Verified 07/16/18 00:47 DISORIENTED Home Medications Medication Instructions Recorded Confirmed Type amlodipine 5 mg PO DAILY 07/16/18 07/16/18 History aspirin [Aspir-81] 81 mg PO DAILY 07/16/18 07/16/18 History atorvastatin 10 mg PO DAILY 07/16/18 07/16/18 History candesartan 16 mg PO DAILY 07/16/18 07/16/18 History cholecalciferol (vitamin D3) 2,000 unit PO DAILY 07/16/18 07/16/18 History [Vitamin D3] cyanocobalamin (vitamin B-12) 1,000 mcg PO DAILY 07/16/18 07/16/18 History [Vitamin B-12] levothyroxine [Synthroid] 50 mcg PO DAILY 07/16/18 07/16/18 History metoprolol succinate [Toprol XL] 100 mg PO HS 07/16/18 07/16/18 History quetiapine [Seroquel] 200 mg PO HS 07/16/18 07/16/18 History Physical Exam Vital Signs - 24 hr 07/16/18 19:30 07/16/18 20:00 07/16/18 20:30 Temperature 99.2 F Pulse Rate 78 78 79 Respiratory Rate 26 H 22 22 Blood Pressure 137/61 142/64 H 128/100 H Pulse Oximetry 94 L 92 L 93 L 07/16/18 20:37 07/16/18 21:00 07/16/18 21:30 Temperature Pulse Rate 78 77 75 Respiratory Rate 24 26 H 32 H Blood Pressure 119/90 137/65 134/73 Pulse Oximetry 93 L 94 L 92 L 07/16/18 22:00 07/16/18 22:31 07/16/18 23:00 Temperature Pulse Rate 75 76 73 Respiratory Rate 30 H 31 H 20 Blood Pressure 142/61 H 121/91 H 133/64 Pulse Oximetry 91 L 92 L 91 L 07/16/18 23:31 07/17/18 00:00 07/17/18 00:31 Temperature Pulse Rate 75 73 72 Respiratory Rate 22 24 22 Blood Pressure 126/58 L 148/67 H 136/63 Pulse Oximetry 91 L 94 L 95 07/17/18 01:00 07/17/18 01:30 07/17/18 02:00 Temperature Pulse Rate 74 73 76 Respiratory Rate 21 23 20 Blood Pressure 138/66 143/64 H Pulse Oximetry 92 L 92 L 84 L 07/17/18 02:01 07/17/18 02:30 07/17/18 03:00 Temperature Pulse Rate 75 71 69 Respiratory Rate 22 24 24 Blood Pressure 116/95 H 129/59 L Pulse Oximetry 88 L 85 L 92 L 07/17/18 03:01 07/17/18 03:31 07/17/18 04:00 Temperature Pulse Rate 69 71 69 Respiratory Rate 24 20 25 H Blood Pressure 116/53 L 122/56 L Pulse Oximetry 95 93 L 93 L 07/17/18 04:01 07/17/18 04:53 07/17/18 05:00 Temperature Pulse Rate 69 71 69 Respiratory Rate 28 H 25 H 25 H Blood Pressure 146/60 H 119/56 L Pulse Oximetry 94 L 92 L 94 L 07/17/18 05:01 07/17/18 05:31 07/17/18 06:00 Temperature Pulse Rate 69 71 71 Respiratory Rate 25 H 27 H 27 H Blood Pressure 148/63 H 132/63 Pulse Oximetry 95 95 95 07/17/18 06:01 07/17/18 06:31 07/17/18 07:00 Temperature Pulse Rate 71 72 73 Respiratory Rate 22 24 38 H Blood Pressure 125/98 H 132/60 Pulse Oximetry 95 95 92 L 07/17/18 07:01 07/17/18 07:30 07/17/18 08:00 Temperature 98.6 F Pulse Rate 75 72 73 Respiratory Rate 31 H 30 H 22 Blood Pressure 129/61 136/63 123/60 Pulse Oximetry 93 L 94 L 94 L 07/17/18 08:31 07/17/18 09:00 07/17/18 09:30 Temperature Pulse Rate 75 71 76 Respiratory Rate 36 H 29 H 28 H Blood Pressure 145/66 H 126/82 122/74 Pulse Oximetry 92 L 91 L 91 L 07/17/18 10:00 07/17/18 10:01 07/17/18 11:00 Temperature Pulse Rate 78 79 71 Respiratory Rate 46 H 41 H 27 H Blood Pressure 130/98 H Pulse Oximetry 91 L 91 L 92 L 07/17/18 11:01 07/17/18 11:31 07/17/18 12:00 Temperature 98.3 F Pulse Rate 73 70 74 Respiratory Rate 31 H 28 H 25 H Blood Pressure 126/72 149/64 H Pulse Oximetry 92 L 91 L 92 L 07/17/18 12:01 07/17/18 12:31 07/17/18 13:00 Temperature Pulse Rate 73 79 75 Respiratory Rate 31 H 36 H 34 H Blood Pressure 124/58 L 172/70 H 138/80 Pulse Oximetry 93 L 93 L 07/17/18 13:30 07/17/18 14:00 07/17/18 14:31 Temperature Pulse Rate 75 76 75 Respiratory Rate 28 H 30 H 33 H Blood Pressure 152/63 H 146/66 H 136/82 Pulse Oximetry 07/17/18 15:00 07/17/18 15:03 07/17/18 15:07 Temperature Pulse Rate 161 H 156 H 139 H Respiratory Rate 36 H 31 H 36 H Blood Pressure 189/91 H 165/104 H Pulse Oximetry 92 L 92 L 95 07/17/18 15:10 07/17/18 15:15 07/17/18 15:20 Temperature Pulse Rate 140 H 148 H 149 H Respiratory Rate 31 H 29 H 30 H Blood Pressure 139/61 162/71 H 142/78 H Pulse Oximetry 95 97 97 07/17/18 15:25 07/17/18 15:30 07/17/18 15:35 Temperature Pulse Rate 155 H 148 H 146 H Respiratory Rate 31 H 27 H 29 H Blood Pressure 126/61 149/84 H 155/69 H Pulse Oximetry 94 L 97 96 07/17/18 15:40 07/17/18 15:45 07/17/18 15:50 Temperature Pulse Rate 147 H 151 H 153 H Respiratory Rate 33 H 37 H 34 H Blood Pressure 140/82 167/91 H 139/65 Pulse Oximetry 97 92 L 96 07/17/18 16:00 07/17/18 16:01 07/17/18 16:15 Temperature 97.6 F Pulse Rate 150 H 146 H 149 H Respiratory Rate 30 H 29 H 37 H Blood Pressure 138/77 160/81 H Pulse Oximetry 96 96 95 07/17/18 16:30 07/17/18 16:46 07/17/18 17:00 Temperature Pulse Rate 125 H 127 H 118 H Respiratory Rate 35 H 46 H 33 H Blood Pressure 123/58 L 133/78 Pulse Oximetry 94 L 93 L 93 L 07/17/18 17:05 07/17/18 17:59 07/17/18 18:00 Temperature Pulse Rate 167 H 54 L 55 L Respiratory Rate 32 H Blood Pressure Pulse Oximetry 94 L Physical Exam: GENERAL: This is a well-nourished, well-developed patient, in no apparent distress. SKIN: No rashes, ecchymoses or lesions. Cool and dry. HEAD: Atraumatic. Normocephalic. EYES: Extraocular motions intact. No scleral icterus. No injection or drainage. ENT: Nose without bleeding, purulent drainage. Airway patent. NECK: Trachea midline. No JVD or lymphadenopathy. Supple, nontender, no meningeal signs. CARDIOVASCULAR: Normal pulse RESPIRATORY: nonlabored GASTROINTESTINAL: Abdomen soft, non-tender, nondistended. MUSCULOSKELETAL: Extremities without clubbing, cyanosis, or edema. NEUROLOGICAL: Awake and alert. Motor and sensory grossly within normal limits. Normal speech. Lab results reviewed: Yes Laboratory Results - last 24 hr 07/16/18 07/16/18 07/17/18 00:50 23:33 05:32 WBC 7.5 RBC 3.19 L Hgb 9.9 L D Hct 29.0 L MCV 90.7 MCH 30.9 MCHC 34.1 RDW 13.4 Plt Count 155 D MPV 9.0 Neut % (Auto) 74.5 H Lymph % (Auto) 19.2 [place] % (Auto) 5.9 Eos % (Auto) 0.1 Baso % (Auto) 0.3 Neut # (Auto) 5.6 Lymph # (Auto) 1.4 [place] # (Auto) 0.4 Eos # (Auto) 0.0 Baso # (Auto) 0.0 WBC Differential . Differential Comment Auto diff final Sodium Potassium Chloride Carbon Dioxide Anion Gap BUN Creatinine Estimated GFR POC Glucose 127 H Random Glucose Calcium Calcium Adj for Albumin Phosphorus Magnesium Total Bilirubin AST ALT Alkaline Phosphatase Total Creatine Kinase CK-MB (CK-2) CK-MB (CK-2) % Total Protein Albumin TSH Urine Color Yellow Urine Clarity Clear Urine pH 6.5 Ur Specific [place] 1.025 Urine Protein 100 H Urine Glucose (UA) 100 H Urine Ketones Trace H Urine Occult Blood Trace Urine Nitrate Positive H Urine Bilirubin Moderate H Urine Ictotest Positive H Urine Urobilinogen 4.0 H Ur Leukocyte Esterase Negative Urine RBC 0-3 Urine WBC 0-5 Urine WBC Clumps Occasional H Ur Squamous Epith Cells 0-5 Calcium Oxalate Crystal Occasional H Amorphous Sediment Occ H Urine Bacteria Occasional H Micro UA Comment Culture indicated Ur Microscopic Review Microscopic reviewed Urine Culture Comments Culture indicated 07/17/18 07/17/18 07/17/18 05:32 05:32 11:34 WBC RBC Hgb Hct MCV MCH MCHC RDW Plt Count MPV Neut % (Auto) Lymph % (Auto) [place] % (Auto) Eos % (Auto) Baso % (Auto) Neut # (Auto) Lymph # (Auto) [place] # (Auto) Eos # (Auto) Baso # (Auto) WBC Differential Differential Comment Sodium 147 H Potassium 3.3 L Chloride 120 H Carbon Dioxide 16.1 L Anion Gap 11 BUN 26 H Creatinine 1.11 H Estimated GFR 47 L POC Glucose 131 H Random Glucose 107 H Calcium 6.8 L* Calcium Adj for Albumin 8.1 L Phosphorus 2.1 L Magnesium 1.8 Total Bilirubin 0.3 AST 43 H ALT 21 Alkaline Phosphatase 68 Total Creatine Kinase 353 H CK-MB (CK-2) 5.6 H CK-MB (CK-2) % 1.6 Total Protein 4.6 L D Albumin 2.4 L D TSH Urine Color Urine Clarity Urine pH Ur Specific [place] Urine Protein Urine Glucose (UA) Urine Ketones Urine Occult Blood Urine Nitrate Urine Bilirubin Urine Ictotest Urine Urobilinogen Ur Leukocyte Esterase Urine RBC Urine WBC Urine WBC Clumps Ur Squamous Epith Cells Calcium Oxalate Crystal Amorphous Sediment Urine Bacteria Micro UA Comment Ur Microscopic Review Urine Culture Comments 07/17/18 07/17/18 07/17/18 15:15 15:15 17:12 WBC RBC Hgb Hct MCV MCH MCHC RDW Plt Count MPV Neut % (Auto) Lymph % (Auto) [place] % (Auto) Eos % (Auto) Baso % (Auto) Neut # (Auto) Lymph # (Auto) [place] # (Auto) Eos # (Auto) Baso # (Auto) WBC Differential Differential Comment Sodium Potassium 3.7 Chloride Carbon Dioxide Anion Gap BUN Creatinine Estimated GFR POC Glucose 122 H Random Glucose Calcium Calcium Adj for Albumin Phosphorus Magnesium 1.6 Total Bilirubin AST ALT Alkaline Phosphatase Total Creatine Kinase CK-MB (CK-2) CK-MB (CK-2) % Total Protein Albumin TSH 1.150 Urine Color Urine Clarity Urine pH Ur Specific [place] Urine Protein Urine Glucose (UA) Urine Ketones Urine Occult Blood Urine Nitrate Urine Bilirubin Urine Ictotest Urine Urobilinogen Ur Leukocyte Esterase Urine RBC Urine WBC Urine WBC Clumps Ur Squamous Epith Cells Calcium Oxalate Crystal Amorphous Sediment Urine Bacteria Micro UA Comment Ur Microscopic Review Urine Culture Comments Microbiology 07/16/18 00:50 Urine Culture - Preliminary Catheterized Urine gram negative rods gamma hemolytic streptococci 07/15/18 23:36 Aerobic Blood Culture - Preliminary Blood - Peripheral No growth in 1 day Anaerobic Blood Culture - Preliminary No growth in 1 day 07/15/18 23:30 Aerobic Blood Culture - Preliminary Blood - Peripheral No growth in 1 day Anaerobic Blood Culture - Preliminary No growth in 1 day 07/16/18 12:45 Enteric Pathogens (PCR) - Final Stool Result Diagrams: 07/17/18 05:32 07/17/18 15:15 Personally reviewed images: Yes Imaging: ITS Impressions Abdomen/Bladder Ultrasound 07/16/18 00:00 CONCLUSION: 1. Increased echogenicity to the kidneys bilaterally consistent with medical renal disease. No hydronephrosis is seen. 2. 1.3 cm cyst at the mid left kidney. Cholangiopancreatography MRI 07/16/18 00:00 CONCLUSION: 1. Moderately distended gallbladder with diffusely distended extrahepatic bile ducts and pancreatic duct extending to the ampulla. No definitive focal intraductal abnormality is demonstrated. Differential considerations include an occult pancreatic head lesion versus ampullary dysfunction/mass. Consider ERCP with endoscopic ultrasound for further evaluation as clinically warranted. Abdomen/Pelvis CT 07/16/18 00:18 CONCLUSION: 1. Biliary tree dilatation otherwise unremarkable CT scan of the abdomen and pelvis. Right hemidiaphragm is markedly elevated. Moderately distended colon without evidence of wall thickening or obstruction. 2. Some increased density to the left renal collecting system and right posterior bladder that could be evidence of transitional cell carcinoma. Correlate for hematuria. And outpt. Urology workup recommended Head CT 07/16/18 00:18 CONCLUSION: 1. Unremarkable study. No evidence of hemorrhage or edema. Some motion in the central portion of the exam without obvious mass or mass effect . Chest X-Ray 07/17/18 00:00 CONCLUSION: Elevation of the right hemidiaphragm with some accompanying atelectasis or consolidation at the right base. There also is some prominence of the right hilar region. Assessment and Plan - Plan At this time, no immediate intervention indicated Review of the images does not reveal any obvious bladder mass Discussed with patient and family. Recommend outpatient Urology followup with plans for in-office cystoscopy and further evaluation after discharge and resolution of current acute issues. Please call with questions
[2018-07-17] MEDS ORDERED: Potassium Chlor 20 mEq Premix 20 MEQ/100 ML PIGGYBACK IV.SIG ONE (20:20)
[2018-07-17] MEDS ORDERED: Magnesium Sulfate Inj 2 GM in Sodium Chlor 0.9% Inj 96 ML IV.SIG ONE (20:20)
[2018-07-17] MEDS: Melatonin 5 MG Tablet PO SCH (20:37)
--- NOTE | 2018-07-18 00:55 | ECG ---
Date Performed: 07/16/2018 Time Performed: 00:26:30 PTAGE: 82 years EKG: Sinus rhythm MINIMAL ST DEPRESSION BORDERLINE ECG NO PREVIOUS TRACING DOCTOR: Yves Jade Interpretating Date/Time 07/18/2018 00:53:24
[2018-07-18] MEDS: Insulin NovoLIN Regular Correctional Sugar Inj SQ SCH ×5 (02:17→23:38)
[2018-07-18] MEDS: dilTIAZem Inj 125 MG in Sodium Chlor 0.9% Inj 100 ML IV.CONT PRN ×2 (02:29→12:14)
[2018-07-18] MEDS: Piperacil/Tazo 3.375 GM Premix 3.375 GM/50 ML PIGGYBACK IV.SIG SCH ×4 (03:05→20:54)
[2018-07-18] MEDS: Chlorhexidine Gluconate 2% 1 Pack (2 Cloths) TOPICAL SCH (04:04)
[2018-07-18 05:15] LABS: Baso % (Auto) 0.5 % (0.0-2.0); Eos # (Auto) 0.1 th/mm3 (0.0-0.4); Hematocrit 32.5 % (35.0-46.0); Hemoglobin 11.2 gm/dL (11.6-15.3); Lymph # (Auto) 1.4 th/mm3 (1.0-4.8); Lymph % (Auto) 18.9 % (9.0-44.0); Mean Corpuscular HGB Conc 34.4 % (32.0-36.0); Mean Corpuscular Hemoglobin 30.4 pg (27.0-34.0); Mean Corpuscular Volume 88.3 fL (80.0-100.0); Mono # (Auto) 0.7 th/mm3 (0.0-0.9); Mono % (Auto) 9.1 % (0.0-8.0); Neut # (Auto) 5.3 th/mm3 (1.8-7.7); Neut % (Auto) 70.5 % (16.0-70.0); Platelet Count 180 th/mm3 (150-450); Red Blood Count 3.68 mil/mm3 (4.00-5.30); Red Cell Distribution Width 13.6 % (11.6-17.2); White Blood Count 7.5 th/mm3 (4.0-11.0)
[2018-07-18 05:40] LABS: Albumin 2.6 g/dL (3.4-5.0); Calcium 7.4 mg/dL (8.5-10.1); Carbon Dioxide 17.3 meq/L (21.0-32.0); Magnesium 2.4 mg/dL (1.5-2.5); Phosphorus 1.8 mg/dL (2.5-4.9); Potassium 3.6 meq/L (3.5-5.1); Total Protein 5.4 g/dL (6.4-8.2)
[2018-07-18] MEDS: Levothyroxine 50 MCG Tablet PO SCH (05:52)
[2018-07-18] MEDS: Heparin - SQ 10,000 UNITS/ML Vial SQ SCH (05:52)
[2018-07-18 06:49] LABS: ABG Base Excess -6.5 mmol/L (-2-2); ABG PCO2 30 mmHg (38-42); ABG PO2 109 mmHG (61-120)
[2018-07-18] MEDS ORDERED: Sodium Bicarbonate 8.4% Inj 50 MEQ/50 ML Syringe IV.PUSH ONE (06:57)
--- NOTE | 2018-07-18 07:00 | P.PNCC ---
Subjective Subjective Remarks/Hospital Course: 82yF with 1 day history of new-onset abdominal pain and altered mentation. also found to be febrile in the ER. elevated wbc. + u/a. CT abd/pelvis with dilated biliary tree, but no overt evidence of obstruction, no gallbladder thickening. no pericolecystic fluid. elevated Cr. developed hypotension and tachycardia in the [facility] emergency department requiring 3L ivf and then norepinephrine to keep map > 65 mmHg. transferred emergently to [facility] from for further management. I evaluated her immediately upon arrival to the ICU. she complains of suprapubic pain which is "crampy" in nature. denies n/v/c/d. abdominal pain is mostly suprapubic, nonradiating. denies flank pain. denies fevers and chills. denies cp, sob. never had anything similar to this. remainder ROS negative. 07/17: Lying in bed no acute distress. Intermittent suprapubic pain described as a cramp. GI recommending endoscopy. Urine culture is pending at this time. Continue broad-spectrum antibiotics. Due to persistent suprapubic pain hematuria and question of bladder mass I will get a urology consult 07/18: Patient developed Afib with RVR yesterday 07/17. No response to IV metoprolol and digoxin, with Cardizem push and Cardizem infusion eventually converted to sinus rhythm however went back to A. fib with RVR at 2 PM and Cardizem was restarted. Aggressive potassium and magnesium replacement. Lasix given additional dose for diuresis. Start IV heparin. 2D echo ordered pending , TSH normal, initial troponin is normal. Cardiology consult-family request Dr. Medina Objective Vital Signs / I&O: Vital Signs 07/17/18 07:00 07/17/18 07:01 07/17/18 07:30 Temperature Pulse Rate 73 75 72 Respiratory Rate 38 H 31 H 30 H Blood Pressure 129/61 136/63 Pulse Oximetry 92 L 93 L 94 L 07/17/18 08:00 07/17/18 08:31 07/17/18 09:00 Temperature 98.6 F Pulse Rate 73 75 71 Respiratory Rate 22 36 H 29 H Blood Pressure 123/60 145/66 H 126/82 Pulse Oximetry 94 L 92 L 91 L 07/17/18 09:30 07/17/18 10:00 07/17/18 10:01 Temperature Pulse Rate 76 78 79 Respiratory Rate 28 H 46 H 41 H Blood Pressure 122/74 130/98 H Pulse Oximetry 91 L 91 L 91 L 07/17/18 11:00 07/17/18 11:01 07/17/18 11:31 Temperature Pulse Rate 71 73 70 Respiratory Rate 27 H 31 H 28 H Blood Pressure 126/72 149/64 H Pulse Oximetry 92 L 92 L 91 L 07/17/18 12:00 07/17/18 12:01 07/17/18 12:31 Temperature 98.3 F Pulse Rate 74 73 79 Respiratory Rate 25 H 31 H 36 H Blood Pressure 124/58 L 172/70 H Pulse Oximetry 92 L 93 L 93 L 07/17/18 13:00 07/17/18 13:30 07/17/18 14:00 Temperature Pulse Rate 75 75 76 Respiratory Rate 34 H 28 H 30 H Blood Pressure 138/80 152/63 H 146/66 H Pulse Oximetry 07/17/18 14:31 07/17/18 15:00 07/17/18 15:03 Temperature Pulse Rate 75 161 H 156 H Respiratory Rate 33 H 36 H 31 H Blood Pressure 136/82 189/91 H Pulse Oximetry 92 L 92 L 07/17/18 15:07 07/17/18 15:10 07/17/18 15:15 Temperature Pulse Rate 139 H 140 H 148 H Respiratory Rate 36 H 31 H 29 H Blood Pressure 165/104 H 139/61 162/71 H Pulse Oximetry 95 95 97 07/17/18 15:20 07/17/18 15:25 07/17/18 15:30 Temperature Pulse Rate 149 H 155 H 148 H Respiratory Rate 30 H 31 H 27 H Blood Pressure 142/78 H 126/61 149/84 H Pulse Oximetry 97 94 L 97 07/17/18 15:35 07/17/18 15:40 07/17/18 15:45 Temperature Pulse Rate 146 H 147 H 151 H Respiratory Rate 29 H 33 H 37 H Blood Pressure 155/69 H 140/82 167/91 H Pulse Oximetry 96 97 92 L 07/17/18 15:50 07/17/18 16:00 07/17/18 16:01 Temperature Pulse Rate 153 H 150 H 146 H Respiratory Rate 34 H 30 H 29 H Blood Pressure 139/65 138/77 Pulse Oximetry 96 96 96 07/17/18 16:15 07/17/18 16:30 07/17/18 16:46 Temperature 97.6 F Pulse Rate 149 H 125 H 127 H Respiratory Rate 37 H 35 H 46 H Blood Pressure 160/81 H 123/58 L 133/78 Pulse Oximetry 95 94 L 93 L 07/17/18 17:00 07/17/18 17:05 07/17/18 17:59 Temperature Pulse Rate 118 H 167 H 54 L Respiratory Rate 33 H Blood Pressure Pulse Oximetry 93 L 07/17/18 18:00 07/17/18 19:00 07/17/18 20:00 Temperature 99.0 F Pulse Rate 55 L 63 71 Respiratory Rate 32 H 33 H 35 H Blood Pressure Pulse Oximetry 94 L 96 100 07/17/18 20:54 07/17/18 21:00 07/17/18 22:00 Temperature Pulse Rate 75 80 70 Respiratory Rate 35 H 34 H 24 Blood Pressure 137/58 L Pulse Oximetry 97 96 98 07/17/18 22:19 07/17/18 23:00 07/18/18 00:00 Temperature 98.9 F Pulse Rate 69 69 Respiratory Rate 28 H 28 H Blood Pressure Pulse Oximetry 98 97 98 07/18/18 01:00 07/18/18 01:48 07/18/18 02:00 Temperature Pulse Rate 71 66 69 Respiratory Rate 26 H 26 H 24 Blood Pressure 106/52 L Pulse Oximetry 99 99 98 07/18/18 02:24 07/18/18 02:31 07/18/18 02:45 Temperature Pulse Rate 145 H 143 H 143 H Respiratory Rate 29 H 28 H 25 H Blood Pressure 130/65 136/56 L 136/57 L Pulse Oximetry 94 L 97 96 07/18/18 03:00 07/18/18 03:01 07/18/18 03:15 Temperature Pulse Rate 144 H 150 H 144 H Respiratory Rate 24 28 H 28 H Blood Pressure 132/68 131/74 Pulse Oximetry 95 96 96 07/18/18 03:30 07/18/18 03:45 07/18/18 04:00 Temperature 99 F Pulse Rate 138 H 140 H 140 H Respiratory Rate 27 H 27 H 28 H Blood Pressure 108/54 L 116/66 104/66 Pulse Oximetry 94 L 96 96 07/18/18 04:15 07/18/18 04:30 07/18/18 04:45 Temperature Pulse Rate 121 H 159 H 133 H Respiratory Rate 27 H 29 H 31 H Blood Pressure 117/58 L 109/65 121/70 Pulse Oximetry 96 96 93 L 07/18/18 05:00 07/18/18 05:15 07/18/18 05:30 Temperature Pulse Rate 159 H 107 H 104 H Respiratory Rate 30 H 28 H 25 H Blood Pressure 115/64 112/59 L 122/59 L Pulse Oximetry 96 97 97 07/18/18 05:45 07/18/18 06:00 Temperature Pulse Rate 104 H 102 H Respiratory Rate 27 H 29 H Blood Pressure 113/69 119/59 L Pulse Oximetry 97 86 L Intake & Output 07/17/18 07/17/18 07/18/18 06:59 18:59 06:59 Intake Total 2340 / 2340 1777.5 / 1777.5 880 / 880 Output Total 1300 / 1300 2850 / 2850 Balance 1040 / 1040 -1072.5 / -1072.5 880 / 880 Weight 80.6 kg 80.7 kg Intake: IV 2100 / 2100 1057.5 / 1057.5 400 / 400 NS Inj 1,000 ML @ 150 mls/hr IV 2000 / 1999 300 / 300 .CONT .Q6H40M [facility] Rx#: [id number] Magnesium Sulfate 1 gm/D5W 100 100 / 100 ml Premix 100 ML @ 100 mls/hr IV.SIG ONCE ONE Rx#:[id number] Magnesium Sulfate Inj 2 GM In 100 / 100 NS Inj 96 ML @ 50 mls/hr IV.SIG ONCE ONE Rx#:[id number] Zosyn 3.375 GM Premix 3.375 gm 100 / 100 100 / 100 100 / 100 In 50 ml @ 100 mls/hr IV.SIG Q6H [facility] Rx#:[id number] KCl 20 mEq Premix Inj 20 meq In 300 / 300 200 / 200 100 ml @ 50 mls/hr IV.SIG ONCE ONE Rx#:[id number] Vancomycin Inj 750 MG In NS Inj 257.5 / 257.5 250 ML @ 250 mls/hr IV.SIG Q24H [facility] Rx#:[id number] Oral 240 / 240 720 / 720 480 / 480 Output: Urine Amount (Catheter) 1300 / 1300 2850 / 2850 Indwelling Urethral Catheter 1300 / 1300 2850 / 2850 Other: # Incontinent Voids 6 Date of Last Bowel Movement 07/16/18 07/16/18 07/16/18 # Bowel Movements 0 Result Diagrams: 07/18/18 04:45 07/18/18 04:45 Objective Remarks: GENERAL: Elderly female, lying in bed, in mild distress due to her abdominal pain, breathing comfortably HEENT: Normocephalic. Atraumatic. Pupils equal, round, reactive, conjugate. NECK: Trachea is midline. There is no JVD. CHEST: Equal chest rise. Nasal cannula. Mild wheezing improved CARDIOVASCULAR: Atrial fibrillation with RVR. Heart rate varying from 105 215. Remains on Cardizem drip. No murmurs ABDOMEN: Soft, mildly tender of the suprapubic area. nondistended. No guarding. No rebound. MUSCULOSKELETAL: Pulses 2+. No peripheral edema. NEUROLOGICAL: RASS 0. CAM -. Follows commands in all 4 extremities. Alert and oriented x3. No focal deficits. Assessment and Plan - Assessment and Plan Plan: Assessment: 82-year-old female with sepsis and early shock likely secondary to UTI. Cannot rule out biliary origin at this time, however there is no serum evidence of elevated bilirubin or elevated alk phos. CT evidence suggests there is no active acute cholecystitis. In contrast, urine from urinalysis suggests active cystitis. Continue broad-spectrum antibiotics as below. No complicated with new onset atrial fibrillation with RVR Active problems: Urinary tract infection Severe sepsis Atrial fibrillation with RVR Abdominal pain Septic shock- resolved Lactic acidosis-resolved Acute kidney injury Questionable transitional cell appearing mass near the renal pelvis, with hematuria Long-standing history of opioid abuse Plan: Patient restarted on Cardizem infusion at about 2 AM or A. fib with RVR Check EKG, 2D echo pending, TSH normal Continue metoprolol XL 100 mg daily Cardiology consult with Dr. Medina per Start IV heparin All IV fluids discontinued. IV Lasix repeat dose given in a.m. Aggressive potassium and magnesium replacement Continue Zosyn. DCd vancomycin Follow blood cultures-negative today Follow-up urine culture-GNR and gamma hemolytic streptococci Follow-up on stool studies per GI, C. difficile negative MRCP shows moderately distended gallbladder with diffusely distended extrahepatic bile ducts and pancreatic duct extending to the ampulla. Differential considerations include an occult pancreatic head lesion versus ampullary dysfunction/mass. ERCP and EUS planned for today however family wants to hold off due to A. fib with RVR Frequent urine outputs, Daily CMP, Daily CBC SCDs IV heparin Protonix Due to persistent suprapubic pain hematuria and questionable bladder mass I have requested urology consult CCT 35 MIN Patient is again critically ill today. Her oxygen requirement has increased currently on partial nonrebreather. Remains in difficult to control A. fib with RVR. She has received IV metoprolol multiple doses IV digoxin and then was started on Cardizem push and infusion. Initially converted to sinus but A. fib with RVR again at 2 AM today. Cardiology consulted continue Cardizem, give additional dose of digoxin which level in a.m. 2D echo pending. Start IV heparin Code Status: Full Discussed Condition With: Daughter at bedside
[2018-07-18] MEDS ORDERED: Digoxin Inj 500 MCG/2 ML Ampul IV.PUSH ONE (07:30)
[2018-07-18] MEDS: Morphine Inj 4 MG/ML Vial IV.PUSH PRN ×5 (08:19→23:39)
[2018-07-18] MEDS: Senna/Docusate Sodium 8.6/50 MG Tablet PO SCH ×2 (08:22→20:54)
[2018-07-18] MEDS: Polyethylene Glycol 3350 17 GM Packet PO SCH ×2 (08:22→20:54)
[2018-07-18] MEDS: Heparin Drip 25,000 UNIT/250 ML BAG IV.CONT PRN (08:25)
[2018-07-18 08:42] LABS: Activated Partial Thrombo Time 43.4 sec (23.4-31.7); Prothrombin Time 10.6 sec (9.8-11.6)
--- NOTE | 2018-07-18 09:21 | P.PNGI ---
Subjective Interval history: Pt is resting in bed, has mild nausea but no vomiting, moving her bowels. Still with mild LLQ pain. States she never had any issues with her heart before. <Carlin Castillo - Last Filed: 07/18/18 09:11> Physical Exam Vital signs: Vital Signs 07/17/18 09:30 07/17/18 10:00 07/17/18 10:01 Temperature Pulse Rate 76 78 79 Respiratory Rate 28 H 46 H 41 H Blood Pressure 122/74 130/98 H Pulse Oximetry 91 L 91 L 91 L 07/17/18 11:00 07/17/18 11:01 07/17/18 11:31 Temperature Pulse Rate 71 73 70 Respiratory Rate 27 H 31 H 28 H Blood Pressure 126/72 149/64 H Pulse Oximetry 92 L 92 L 91 L 07/17/18 12:00 07/17/18 12:01 07/17/18 12:31 Temperature 98.3 F Pulse Rate 74 73 79 Respiratory Rate 25 H 31 H 36 H Blood Pressure 124/58 L 172/70 H Pulse Oximetry 92 L 93 L 93 L 07/17/18 13:00 07/17/18 13:30 07/17/18 14:00 Temperature Pulse Rate 75 75 76 Respiratory Rate 34 H 28 H 30 H Blood Pressure 138/80 152/63 H 146/66 H Pulse Oximetry 07/17/18 14:31 07/17/18 15:00 07/17/18 15:03 Temperature Pulse Rate 75 161 H 156 H Respiratory Rate 33 H 36 H 31 H Blood Pressure 136/82 189/91 H Pulse Oximetry 92 L 92 L 07/17/18 15:07 07/17/18 15:10 07/17/18 15:15 Temperature Pulse Rate 139 H 140 H 148 H Respiratory Rate 36 H 31 H 29 H Blood Pressure 165/104 H 139/61 162/71 H Pulse Oximetry 95 95 97 07/17/18 15:20 07/17/18 15:25 07/17/18 15:30 Temperature Pulse Rate 149 H 155 H 148 H Respiratory Rate 30 H 31 H 27 H Blood Pressure 142/78 H 126/61 149/84 H Pulse Oximetry 97 94 L 97 07/17/18 15:35 07/17/18 15:40 07/17/18 15:45 Temperature Pulse Rate 146 H 147 H 151 H Respiratory Rate 29 H 33 H 37 H Blood Pressure 155/69 H 140/82 167/91 H Pulse Oximetry 96 97 92 L 07/17/18 15:50 07/17/18 16:00 07/17/18 16:01 Temperature Pulse Rate 153 H 150 H 146 H Respiratory Rate 34 H 30 H 29 H Blood Pressure 139/65 138/77 Pulse Oximetry 96 96 96 07/17/18 16:15 07/17/18 16:30 07/17/18 16:46 Temperature 97.6 F Pulse Rate 149 H 125 H 127 H Respiratory Rate 37 H 35 H 46 H Blood Pressure 160/81 H 123/58 L 133/78 Pulse Oximetry 95 94 L 93 L 07/17/18 17:00 07/17/18 17:05 07/17/18 17:59 Temperature Pulse Rate 118 H 167 H 54 L Respiratory Rate 33 H Blood Pressure Pulse Oximetry 93 L 07/17/18 18:00 07/17/18 19:00 07/17/18 20:00 Temperature 99.0 F Pulse Rate 55 L 63 71 Respiratory Rate 32 H 33 H 35 H Blood Pressure Pulse Oximetry 94 L 96 100 07/17/18 20:54 07/17/18 21:00 07/17/18 22:00 Temperature Pulse Rate 75 80 70 Respiratory Rate 35 H 34 H 24 Blood Pressure 137/58 L Pulse Oximetry 97 96 98 07/17/18 22:19 07/17/18 23:00 07/18/18 00:00 Temperature 98.9 F Pulse Rate 69 69 Respiratory Rate 28 H 28 H Blood Pressure Pulse Oximetry 98 97 98 07/18/18 01:00 07/18/18 01:48 07/18/18 02:00 Temperature Pulse Rate 71 66 69 Respiratory Rate 26 H 26 H 24 Blood Pressure 106/52 L Pulse Oximetry 99 99 98 07/18/18 02:24 07/18/18 02:31 07/18/18 02:45 Temperature Pulse Rate 145 H 143 H 143 H Respiratory Rate 29 H 28 H 25 H Blood Pressure 130/65 136/56 L 136/57 L Pulse Oximetry 94 L 97 96 07/18/18 03:00 07/18/18 03:01 07/18/18 03:15 Temperature Pulse Rate 144 H 150 H 144 H Respiratory Rate 24 28 H 28 H Blood Pressure 132/68 131/74 Pulse Oximetry 95 96 96 07/18/18 03:30 07/18/18 03:45 07/18/18 04:00 Temperature 99 F Pulse Rate 138 H 140 H 140 H Respiratory Rate 27 H 27 H 28 H Blood Pressure 108/54 L 116/66 104/66 Pulse Oximetry 94 L 96 96 07/18/18 04:15 07/18/18 04:30 07/18/18 04:45 Temperature Pulse Rate 121 H 159 H 133 H Respiratory Rate 27 H 29 H 31 H Blood Pressure 117/58 L 109/65 121/70 Pulse Oximetry 96 96 93 L 07/18/18 05:00 07/18/18 05:15 07/18/18 05:30 Temperature Pulse Rate 159 H 107 H 104 H Respiratory Rate 30 H 28 H 25 H Blood Pressure 115/64 112/59 L 122/59 L Pulse Oximetry 96 97 97 07/18/18 05:45 07/18/18 06:00 Temperature Pulse Rate 104 H 102 H Respiratory Rate 27 H 29 H Blood Pressure 113/69 119/59 L Pulse Oximetry 97 86 L Intake & Output 07/17/18 07/18/18 07/18/18 18:59 06:59 18:59 Intake Total 1777.5 / 1777.5 880 / 880 Output Total 2850 / 2850 Balance -1072.5 / -1072.5 880 / 880 Weight 80.7 kg Intake: IV 1057.5 / 1057.5 400 / 400 NS Inj 1,000 ML @ 150 mls/hr IV 300 / 300 .CONT .[facility]6H40M [facility] Rx#: [id number] Magnesium Sulfate 1 gm/D5W 100 100 / 100 ml Premix 100 ML @ 100 mls/hr IV.SIG ONCE ONE Rx#:[id number] Magnesium Sulfate Inj 2 GM In 100 / 100 NS Inj 96 ML @ 50 mls/hr IV.SIG ONCE ONE Rx#:[id number] Zosyn 3.375 GM Premix 3.375 gm 100 / 100 100 / 100 In 50 ml @ 100 mls/hr IV.SIG Q6H [facility] Rx#:[id number] KCl 20 mEq Premix Inj 20 meq In 300 / 300 200 / 200 100 ml @ 50 mls/hr IV.SIG ONCE ONE Rx#:[id number] Vancomycin Inj 750 MG In NS Inj 257.5 / 257.5 250 ML @ 250 mls/hr IV.SIG Q24H [facility] Rx#:[id number] Oral 720 / 720 480 / 480 Output: Urine Amount (Catheter) 2850 / 2850 Indwelling Urethral Catheter 2850 / 2850 Other: # Incontinent Voids 6 Date of Last Bowel Movement 07/16/18 07/16/18 # Bowel Movements 0 - Constitutional no acute distress - Routine HEENT Exam Head: Present: normocephalic - Routine Respiratory Exam Present: CTA bilaterally - Routine Cardiovascular Exam Present: tachycardia - Routine Abdominal Exam Present: soft, normoactive bowel sounds, tenderness - Routine Skin Exam Present: intact, dry. Absent: jaundice - Routine Neurological Exam Present: alert, oriented X3 - Urinary Catheter Management Indwelling Urethral Catheter Cath placed during this visit: yes, but has since been removed by the nurse Reason for continuing: Decision to DC catheter Insertion date: 07/16/18 Insertion time: 04:00 Removal date: 07/17/18 Removal time: 12:00 <Carlin Castillo - Last Filed: 07/18/18 09:11> Vital signs: Vital Signs 07/17/18 12:31 07/17/18 13:00 07/17/18 13:30 Temperature Pulse Rate 79 75 75 Respiratory Rate 36 H 34 H 28 H Blood Pressure 172/70 H 138/80 152/63 H Pulse Oximetry 93 L 07/17/18 14:00 07/17/18 14:31 07/17/18 15:00 Temperature Pulse Rate 76 75 161 H Respiratory Rate 30 H 33 H 36 H Blood Pressure 146/66 H 136/82 Pulse Oximetry 92 L 07/17/18 15:03 07/17/18 15:07 07/17/18 15:10 Temperature Pulse Rate 156 H 139 H 140 H Respiratory Rate 31 H 36 H 31 H Blood Pressure 189/91 H 165/104 H 139/61 Pulse Oximetry 92 L 95 95 07/17/18 15:15 07/17/18 15:20 07/17/18 15:25 Temperature Pulse Rate 148 H 149 H 155 H Respiratory Rate 29 H 30 H 31 H Blood Pressure 162/71 H 142/78 H 126/61 Pulse Oximetry 97 97 94 L 07/17/18 15:30 07/17/18 15:35 07/17/18 15:40 Temperature Pulse Rate 148 H 146 H 147 H Respiratory Rate 27 H 29 H 33 H Blood Pressure 149/84 H 155/69 H 140/82 Pulse Oximetry 97 96 97 07/17/18 15:45 07/17/18 15:50 07/17/18 16:00 Temperature Pulse Rate 151 H 153 H 150 H Respiratory Rate 37 H 34 H 30 H Blood Pressure 167/91 H 139/65 Pulse Oximetry 92 L 96 96 07/17/18 16:01 07/17/18 16:15 07/17/18 16:30 Temperature 97.6 F Pulse Rate 146 H 149 H 125 H Respiratory Rate 29 H 37 H 35 H Blood Pressure 138/77 160/81 H 123/58 L Pulse Oximetry 96 95 94 L 07/17/18 16:46 07/17/18 17:00 07/17/18 17:05 Temperature Pulse Rate 127 H 118 H 167 H Respiratory Rate 46 H 33 H Blood Pressure 133/78 Pulse Oximetry 93 L 93 L 07/17/18 17:59 07/17/18 18:00 07/17/18 19:00 Temperature Pulse Rate 54 L 55 L 63 Respiratory Rate 32 H 33 H Blood Pressure Pulse Oximetry 94 L 96 07/17/18 20:00 07/17/18 20:54 07/17/18 21:00 Temperature 99.0 F Pulse Rate 71 75 80 Respiratory Rate 35 H 35 H 34 H Blood Pressure 137/58 L Pulse Oximetry 100 97 96 07/17/18 22:00 07/17/18 22:19 07/17/18 23:00 Temperature Pulse Rate 70 69 Respiratory Rate 24 28 H Blood Pressure Pulse Oximetry 98 98 97 07/18/18 00:00 07/18/18 01:00 07/18/18 01:48 Temperature 98.9 F Pulse Rate 69 71 66 Respiratory Rate 28 H 26 H 26 H Blood Pressure 106/52 L Pulse Oximetry 98 99 99 07/18/18 02:00 07/18/18 02:24 07/18/18 02:31 Temperature Pulse Rate 69 145 H 143 H Respiratory Rate 24 29 H 28 H Blood Pressure 130/65 136/56 L Pulse Oximetry 98 94 L 97 07/18/18 02:45 07/18/18 03:00 07/18/18 03:01 Temperature Pulse Rate 143 H 144 H 150 H Respiratory Rate 25 H 24 28 H Blood Pressure 136/57 L 132/68 Pulse Oximetry 96 95 96 07/18/18 03:15 07/18/18 03:30 07/18/18 03:45 Temperature Pulse Rate 144 H 138 H 140 H Respiratory Rate 28 H 27 H 27 H Blood Pressure 131/74 108/54 L 116/66 Pulse Oximetry 96 94 L 96 07/18/18 04:00 07/18/18 04:15 07/18/18 04:30 Temperature 99 F Pulse Rate 140 H 121 H 159 H Respiratory Rate 28 H 27 H 29 H Blood Pressure 104/66 117/58 L 109/65 Pulse Oximetry 96 96 96 07/18/18 04:45 07/18/18 05:00 07/18/18 05:15 Temperature Pulse Rate 133 H 159 H 107 H Respiratory Rate 31 H 30 H 28 H Blood Pressure 121/70 115/64 112/59 L Pulse Oximetry 93 L 96 97 07/18/18 05:30 07/18/18 05:45 07/18/18 06:00 Temperature Pulse Rate 104 H 104 H 102 H Respiratory Rate 25 H 27 H 29 H Blood Pressure 122/59 L 113/69 119/59 L Pulse Oximetry 97 97 86 L 07/18/18 06:15 07/18/18 06:30 07/18/18 06:45 Temperature Pulse Rate 102 H 95 H 100 H Respiratory Rate 26 H 25 H 26 H Blood Pressure 117/53 L 108/53 L 107/66 Pulse Oximetry 97 97 94 L 07/18/18 07:00 07/18/18 07:15 07/18/18 07:30 Temperature Pulse Rate 101 H 90 98 H Respiratory Rate 26 H 28 H 28 H Blood Pressure 113/58 L 116/58 L 116/56 L Pulse Oximetry 97 93 L 93 L 07/18/18 08:00 07/18/18 09:00 07/18/18 09:14 Temperature 98 F Pulse Rate 99 H 100 H 94 H Respiratory Rate 31 H 25 H 30 H Blood Pressure 115/55 L Pulse Oximetry 92 L 94 L 92 L 07/18/18 10:00 Temperature Pulse Rate 56 L Respiratory Rate 28 H Blood Pressure 111/58 L Pulse Oximetry 93 L Intake & Output 07/17/18 07/18/18 07/18/18 18:59 06:59 18:59 Intake Total 1777.5 / 1777.5 880 / 880 175 / 175 Output Total 2850 / 2850 Balance -1072.5 / -1072.5 880 / 880 175 / 175 Weight 80.7 kg Intake: IV 1057.5 / 1057.5 400 / 400 175 / 175 NS Inj 1,000 ML @ 150 mls/hr IV 300 / 300 .CONT .Q6H40M [facility] Rx#: [id number] Cardizem Inj 125 MG In NS Inj 125 / 125 100 ML @ 5 MG/HR 5 mls/hr IV. CONT TITRATE PRN Rx#:[id number] Magnesium Sulfate 1 gm/D5W 100 100 / 100 ml Premix 100 ML @ 100 mls/hr IV.SIG ONCE ONE Rx#:[id number] Magnesium Sulfate Inj 2 GM In 100 / 100 NS Inj 96 ML @ 50 mls/hr IV.SIG ONCE ONE Rx#:[id number] Zosyn 3.375 GM Premix 3.375 gm 100 / 100 100 / 100 50 / 50 In 50 ml @ 100 mls/hr IV.SIG Q6H [facility] Rx#:[id number] KCl 20 mEq Premix Inj 20 meq In 300 / 300 200 / 200 100 ml @ 50 mls/hr IV.SIG ONCE ONE Rx#:[id number] Vancomycin Inj 750 MG In NS Inj 257.5 / 257.5 250 ML @ 250 mls/hr IV.SIG Q24H [facility] Rx#:[id number] Oral 720 / 720 480 / 480 Output: Urine Amount (Catheter) 2850 / 2850 Indwelling Urethral Catheter 2850 / 2850 Other: # Incontinent Voids 6 Date of Last Bowel Movement 07/16/18 07/16/18 07/16/18 # Bowel Movements 0 - Urinary Catheter Management Indwelling Urethral Catheter Cath placed during this visit: no <Akbar Tamayo - Last Filed: 07/18/18 12:28> Results - Labs CBC & Chem 7: 07/18/18 04:45 07/18/18 04:45 Laboratory Results - last 24 hr 07/16/18 07/17/18 07/17/18 00:50 05:32 11:34 WBC RBC Hgb Hct MCV MCH MCHC RDW Plt Count MPV Neut % (Auto) Lymph % (Auto) [place] % (Auto) Eos % (Auto) Baso % (Auto) Neut # (Auto) Lymph # (Auto) [place] # (Auto) Eos # (Auto) Baso # (Auto) WBC Differential Differential Comment PT INR APTT Puncture Site Patient Temperature O2 Saturation ABG pH ABG pCO2 ABG pO2 ABG HCO3 ABG O2 Content ABG Base Excess ABG Methemoglobin Miles Test Hemoglobin Carboxyhemoglobin O2 Delivery Device Liter Flow Critical Value Sodium Potassium Chloride Carbon Dioxide Anion Gap BUN Creatinine Estimated GFR POC Glucose 131 H Random Glucose Calcium Calcium Adj for Albumin Phosphorus Magnesium Total Bilirubin AST ALT Alkaline Phosphatase Total Creatine Kinase 353 H CK-MB (CK-2) 5.6 H CK-MB (CK-2) % 1.6 Total Protein Albumin TSH Urine Color Yellow Urine Clarity Clear Urine pH 6.5 Ur Specific [place] 1.025 Urine Protein 100 H Urine Glucose (UA) 100 H Urine Ketones Trace H Urine Occult Blood Trace Urine Nitrate Positive H Urine Bilirubin Moderate H Urine Ictotest Positive H Urine Urobilinogen 4.0 H Ur Leukocyte Esterase Negative Urine RBC 0-3 Urine WBC 0-5 Urine WBC Clumps Occasional H Ur Squamous Epith Cells 0-5 Calcium Oxalate Crystal Occasional H Amorphous Sediment Occ H Urine Bacteria Occasional H Micro UA Comment Culture indicated Ur Microscopic Review Microscopic reviewed Urine Culture Comments Culture indicated 07/17/18 07/17/18 07/17/18 15:15 15:15 17:12 WBC RBC Hgb Hct MCV MCH MCHC RDW Plt Count MPV Neut % (Auto) Lymph % (Auto) [place] % (Auto) Eos % (Auto) Baso % (Auto) Neut # (Auto) Lymph # (Auto) [place] # (Auto) Eos # (Auto) Baso # (Auto) WBC Differential Differential Comment PT INR APTT Puncture Site Patient Temperature O2 Saturation ABG pH ABG pCO2 ABG pO2 ABG HCO3 ABG O2 Content ABG Base Excess ABG Methemoglobin Miles Test Hemoglobin Carboxyhemoglobin O2 Delivery Device Liter Flow Critical Value Sodium Potassium 3.7 Chloride Carbon Dioxide Anion Gap BUN Creatinine Estimated GFR POC Glucose 122 H Random Glucose Calcium Calcium Adj for Albumin Phosphorus Magnesium 1.6 Total Bilirubin AST ALT Alkaline Phosphatase Total Creatine Kinase CK-MB (CK-2) CK-MB (CK-2) % Total Protein Albumin TSH 1.150 Urine Color Urine Clarity Urine pH Ur Specific [place] Urine Protein Urine Glucose (UA) Urine Ketones Urine Occult Blood Urine Nitrate Urine Bilirubin Urine Ictotest Urine Urobilinogen Ur Leukocyte Esterase Urine RBC Urine WBC Urine WBC Clumps Ur Squamous Epith Cells Calcium Oxalate Crystal Amorphous Sediment Urine Bacteria Micro UA Comment Ur Microscopic Review Urine Culture Comments 07/18/18 07/18/18 07/18/18 01:50 04:45 04:45 WBC 7.5 RBC 3.68 L Hgb 11.2 L Hct 32.5 L MCV 88.3 MCH 30.4 MCHC 34.4 RDW 13.6 Plt Count 180 MPV 9.0 Neut % (Auto) 70.5 H Lymph % (Auto) 18.9 [place] % (Auto) 9.1 H Eos % (Auto) 1.0 Baso % (Auto) 0.5 Neut # (Auto) 5.3 Lymph # (Auto) 1.4 [place] # (Auto) 0.7 Eos # (Auto) 0.1 Baso # (Auto) 0.0 WBC Differential . Differential Comment Auto diff final PT INR APTT Puncture Site Patient Temperature O2 Saturation ABG pH ABG pCO2 ABG pO2 ABG HCO3 ABG O2 Content ABG Base Excess ABG Methemoglobin Miles Test Hemoglobin Carboxyhemoglobin O2 Delivery Device Liter Flow Critical Value Sodium 143 Potassium 3.6 Chloride 115 H Carbon Dioxide 17.3 L Anion Gap 11 BUN 16 Creatinine 1.04 H Estimated GFR 51 L POC Glucose 126 H Random Glucose 123 H Calcium 7.4 L* Calcium Adj for Albumin 8.5 Phosphorus 1.8 L Magnesium 2.4 D Total Bilirubin 0.5 AST 44 H ALT 23 Alkaline Phosphatase 86 Total Creatine Kinase CK-MB (CK-2) CK-MB (CK-2) % Total Protein 5.4 L D Albumin 2.6 L TSH Urine Color Urine Clarity Urine pH Ur Specific [place] Urine Protein Urine Glucose (UA) Urine Ketones Urine Occult Blood Urine Nitrate Urine Bilirubin Urine Ictotest Urine Urobilinogen Ur Leukocyte Esterase Urine RBC Urine WBC Urine WBC Clumps Ur Squamous Epith Cells Calcium Oxalate Crystal Amorphous Sediment Urine Bacteria Micro UA Comment Ur Microscopic Review Urine Culture Comments 07/18/18 07/18/18 06:34 07:51 WBC RBC Hgb Hct MCV MCH MCHC RDW Plt Count MPV Neut % (Auto) Lymph % (Auto) [place] % (Auto) Eos % (Auto) Baso % (Auto) Neut # (Auto) Lymph # (Auto) [place] # (Auto) Eos # (Auto) Baso # (Auto) WBC Differential Differential Comment PT 10.6 INR 1.0 APTT 43.4 H Puncture Site Right radial Patient Temperature 98.6 O2 Saturation 96 ABG pH 7.39 ABG pCO2 30 L ABG pO2 109 ABG HCO3 18 L ABG O2 Content 15.0 ABG Base Excess -6.5 L ABG Methemoglobin 2.0 Miles Test Present Hemoglobin 11.0 L Carboxyhemoglobin 0.3 O2 Delivery Device Prb Liter Flow 11.00 Critical Value No Sodium Potassium Chloride Carbon Dioxide Anion Gap BUN Creatinine Estimated GFR POC Glucose Random Glucose Calcium Calcium Adj for Albumin Phosphorus Magnesium Total Bilirubin AST ALT Alkaline Phosphatase Total Creatine Kinase CK-MB (CK-2) CK-MB (CK-2) % Total Protein Albumin TSH Urine Color Urine Clarity Urine pH Ur Specific [place] Urine Protein Urine Glucose (UA) Urine Ketones Urine Occult Blood Urine Nitrate Urine Bilirubin Urine Ictotest Urine Urobilinogen Ur Leukocyte Esterase Urine RBC Urine WBC Urine WBC Clumps Ur Squamous Epith Cells Calcium Oxalate Crystal Amorphous Sediment Urine Bacteria Micro UA Comment Ur Microscopic Review Urine Culture Comments Microbiology 07/16/18 00:50 Catheterized Urine Urine Culture - Preliminary gram negative rods gamma hemolytic streptococci 07/15/18 23:36 Blood - Peripheral Aerobic Blood Culture - Preliminary No growth in 1 day 07/15/18 23:36 Blood - Peripheral Anaerobic Blood Culture - Preliminary No growth in 1 day 07/15/18 23:30 Blood - Peripheral Aerobic Blood Culture - Preliminary No growth in 1 day 07/15/18 23:30 Blood - Peripheral Anaerobic Blood Culture - Preliminary No growth in 1 day 07/16/18 12:45 Stool Enteric Pathogens (PCR) - Final - Imaging Impressions Chest X-Ray 07/17/18 00:00 CONCLUSION: Elevation of the right hemidiaphragm with some accompanying atelectasis or consolidation at the right base. There also is some prominence of the right hilar region. <Carlin Castillo - Last Filed: 07/18/18 09:11> - Labs CBC & Chem 7: 07/18/18 04:45 07/18/18 04:45 Laboratory Results - last 24 hr 07/16/18 07/17/18 07/17/18 00:50 05:32 15:15 WBC RBC Hgb Hct MCV MCH MCHC RDW Plt Count MPV Neut % (Auto) Lymph % (Auto) [place] % (Auto) Eos % (Auto) Baso % (Auto) Neut # (Auto) Lymph # (Auto) [place] # (Auto) Eos # (Auto) Baso # (Auto) WBC Differential Differential Comment PT INR APTT Puncture Site Patient Temperature O2 Saturation ABG pH ABG pCO2 ABG pO2 ABG HCO3 ABG O2 Content ABG Base Excess ABG Methemoglobin Miles Test Hemoglobin Carboxyhemoglobin O2 Delivery Device Liter Flow Critical Value Sodium Potassium 3.7 Chloride Carbon Dioxide Anion Gap BUN Creatinine Estimated GFR POC Glucose Random Glucose Calcium Calcium Adj for Albumin Phosphorus Magnesium 1.6 Total Bilirubin AST ALT Alkaline Phosphatase Total Creatine Kinase 353 H CK-MB (CK-2) 5.6 H CK-MB (CK-2) % 1.6 Troponin I Total Protein Albumin TSH Urine Color Yellow Urine Clarity Clear Urine pH 6.5 Ur Specific [place] 1.025 Urine Protein 100 H Urine Glucose (UA) 100 H Urine Ketones Trace H Urine Occult Blood Trace Urine Nitrate Positive H Urine Bilirubin Moderate H Urine Ictotest Positive H Urine Urobilinogen 4.0 H Ur Leukocyte Esterase Negative Urine RBC 0-3 Urine WBC 0-5 Urine WBC Clumps Occasional H Ur Squamous Epith Cells 0-5 Calcium Oxalate Crystal Occasional H Amorphous Sediment Occ H Urine Bacteria Occasional H Micro UA Comment Culture indicated Ur Microscopic Review Microscopic reviewed Urine Culture Comments Culture indicated 07/17/18 07/17/18 07/18/18 15:15 17:12 01:50 WBC RBC Hgb Hct MCV MCH MCHC RDW Plt Count MPV Neut % (Auto) Lymph % (Auto) [place] % (Auto) Eos % (Auto) Baso % (Auto) Neut # (Auto) Lymph # (Auto) [place] # (Auto) Eos # (Auto) Baso # (Auto) WBC Differential Differential Comment PT INR APTT Puncture Site Patient Temperature O2 Saturation ABG pH ABG pCO2 ABG pO2 ABG HCO3 ABG O2 Content ABG Base Excess ABG Methemoglobin Miles Test Hemoglobin Carboxyhemoglobin O2 Delivery Device Liter Flow Critical Value Sodium Potassium Chloride Carbon Dioxide Anion Gap BUN Creatinine Estimated GFR POC Glucose 122 H 126 H Random Glucose Calcium Calcium Adj for Albumin Phosphorus Magnesium Total Bilirubin AST ALT Alkaline Phosphatase Total Creatine Kinase CK-MB (CK-2) CK-MB (CK-2) % Troponin I Total Protein Albumin TSH 1.150 Urine Color Urine Clarity Urine pH Ur Specific [place] Urine Protein Urine Glucose (UA) Urine Ketones Urine Occult Blood Urine Nitrate Urine Bilirubin Urine Ictotest Urine Urobilinogen Ur Leukocyte Esterase Urine RBC Urine WBC Urine WBC Clumps Ur Squamous Epith Cells Calcium Oxalate Crystal Amorphous Sediment Urine Bacteria Micro UA Comment Ur Microscopic Review Urine Culture Comments 07/18/18 07/18/18 07/18/18 04:45 04:45 06:34 WBC 7.5 RBC 3.68 L Hgb 11.2 L Hct 32.5 L MCV 88.3 MCH 30.4 MCHC 34.4 RDW 13.6 Plt Count 180 MPV 9.0 Neut % (Auto) 70.5 H Lymph % (Auto) 18.9 [place] % (Auto) 9.1 H Eos % (Auto) 1.0 Baso % (Auto) 0.5 Neut # (Auto) 5.3 Lymph # (Auto) 1.4 [place] # (Auto) 0.7 Eos # (Auto) 0.1 Baso # (Auto) 0.0 WBC Differential . Differential Comment Auto diff final PT INR APTT Puncture Site Right radial Patient Temperature 98.6 O2 Saturation 96 ABG pH 7.39 ABG pCO2 30 L ABG pO2 109 ABG HCO3 18 L ABG O2 Content 15.0 ABG Base Excess -6.5 L ABG Methemoglobin 2.0 Miles Test Present Hemoglobin 11.0 L Carboxyhemoglobin 0.3 O2 Delivery Device Prb Liter Flow 11.00 Critical Value No Sodium 143 Potassium 3.6 Chloride 115 H Carbon Dioxide 17.3 L Anion Gap 11 BUN 16 Creatinine 1.04 H Estimated GFR 51 L POC Glucose Random Glucose 123 H Calcium 7.4 L* Calcium Adj for Albumin 8.5 Phosphorus 1.8 L Magnesium 2.4 D Total Bilirubin 0.5 AST 44 H ALT 23 Alkaline Phosphatase 86 Total Creatine Kinase CK-MB (CK-2) CK-MB (CK-2) % Troponin I Total Protein 5.4 L D Albumin 2.6 L TSH Urine Color Urine Clarity Urine pH Ur Specific [place] Urine Protein Urine Glucose (UA) Urine Ketones Urine Occult Blood Urine Nitrate Urine Bilirubin Urine Ictotest Urine Urobilinogen Ur Leukocyte Esterase Urine RBC Urine WBC Urine WBC Clumps Ur Squamous Epith Cells Calcium Oxalate Crystal Amorphous Sediment Urine Bacteria Micro UA Comment Ur Microscopic Review Urine Culture Comments 07/18/18 07/18/18 07/18/18 07:51 07:51 12:12 WBC RBC Hgb Hct MCV MCH MCHC RDW Plt Count MPV Neut % (Auto) Lymph % (Auto) [place] % (Auto) Eos % (Auto) Baso % (Auto) Neut # (Auto) Lymph # (Auto) [place] # (Auto) Eos # (Auto) Baso # (Auto) WBC Differential Differential Comment PT 10.6 INR 1.0 APTT 43.4 H Puncture Site Patient Temperature O2 Saturation ABG pH ABG pCO2 ABG pO2 ABG HCO3 ABG O2 Content ABG Base Excess ABG Methemoglobin Miles Test Hemoglobin Carboxyhemoglobin O2 Delivery Device Liter Flow Critical Value Sodium Potassium Chloride Carbon Dioxide Anion Gap BUN Creatinine Estimated GFR POC Glucose 109 Random Glucose Calcium Calcium Adj for Albumin Phosphorus Magnesium Total Bilirubin AST ALT Alkaline Phosphatase Total Creatine Kinase CK-MB (CK-2) CK-MB (CK-2) % Troponin I 0.03 Total Protein Albumin TSH Urine Color Urine Clarity Urine pH Ur Specific [place] Urine Protein Urine Glucose (UA) Urine Ketones Urine Occult Blood Urine Nitrate Urine Bilirubin Urine Ictotest Urine Urobilinogen Ur Leukocyte Esterase Urine RBC Urine WBC Urine WBC Clumps Ur Squamous Epith Cells Calcium Oxalate Crystal Amorphous Sediment Urine Bacteria Micro UA Comment Ur Microscopic Review Urine Culture Comments Microbiology 07/16/18 12:45 Stool Cryptosporidium Antigen - Final Negative - No Cryptosporicium antigen detected In selected cases of patients with a history of immunosuppression or foreign travel, a full ova and parasites examination may be desired. Contact the microbiology lab if full workup is indicated and subit another specimen for testing. 07/16/18 12:45 Stool Giardia Antigen ([facility]) - Final Negative - No Giardia Antigen detected In selected cases of patients with a history of immunosuppression or foreign travel, a full ova and parasites examination may be desired. Contact the microbiology lab if full workup is indicated and subit another specimen for testing. 07/15/18 23:36 Blood - Peripheral Aerobic Blood Culture - Preliminary No growth in 2 days 07/15/18 23:36 Blood - Peripheral Anaerobic Blood Culture - Preliminary No growth in 2 days 07/15/18 23:30 Blood - Peripheral Aerobic Blood Culture - Preliminary No growth in 2 days 07/15/18 23:30 Blood - Peripheral Anaerobic Blood Culture - Preliminary No growth in 2 days 07/16/18 00:50 Catheterized Urine Urine Culture - Preliminary Escherichia coli gamma hemolytic streptococci 07/16/18 12:45 Stool Enteric Pathogens (PCR) - Final <Akbar Tamayo - Last Filed: 07/18/18 12:28> Assessment and Plan - Plan - Abdominal pain, N/V/distended extrahepatic bile ducts and pancreatic duct- MRCP on 07/16/18 Moderately distended gallbladder with diffusely distended extrahepatic bile ducts and pancreatic duct extending to the ampulla. No definitive focal intraductal abnormality is demonstrated. Differential considerations include an occult pancreatic head lesion versus ampullary dysfunction/mass. CT abd/pelvis with dilated biliary tree, Right hemidiaphragm is markedly elevated. Moderately distended colon without evidence of wall thickening or obstruction but no gallbladder thickening. no pericholecystic fluid. Abdomen/Bladder Ultrasound 07/16/18 Increased echogenicity to the kidneys bilaterally consistent with medical renal disease. No hydronephrosis is seen. 1.3 cm cyst at the mid left kidney. LFTs aside from slight elevation in AST wnl, lipase wnl. - AMS- Resolved, Possibly multifactorial, sepsis, uti, will need to r/o cholangitis or colon related issues, on abx Blood cx negative so far , urine cx GNR and gamma hemolytic streptococci. CT of head negative - Constipation- had multiple Bms, abd pain could be related to this. Stools negative for C-diff - Anemia- Better. hgb today is 11.2, no bleeding reported, could be dilutional - Sepsis/ uti- on abx - Abnormal imaging of bladder- S/p urology consult, plans for in-office cystoscopy, no indication of immediate intervention - Fecal impaction- s/p multiple laxatives, having several loose BMs - New onset of A-fib with RVR- ERCP and EUS was planned for today, but on hold for now in view of new onset of A-fib Plan: - clears - EUS/ERCP was planned for today, on hold for now in view of new onset of A- fib with RVR - Consider colonoscopy at some point when medically stable - Cont. bowel regimen - Iv fluids - Supportive care - Further recommendations to follow - Pt seen and examined by Dr. Tamayo and myself and this note is written on his behalf. <Carlin Castillo - Last Filed: 07/18/18 09:11> - Attending Attestation The patient is seen and examined. She developed atrial fibrillation with rapid ventricular response last night. Today on examination her heart rate is 58. She appears to be doing well. She wishes to postpone the EUS and ERCP. We will continue to follow with her and reschedule EUS and ERCP when she is recovered from recent events. I agree with the above assessment and recommendations. <Akbar Tamayo - Last Filed: 07/18/18 12:28>
--- NOTE | 2018-07-18 11:30 | ECG ---
Date Performed: 07/18/2018 Time Performed: 09:20:25 PTAGE: 82 years EKG: SINUS BRADYCARDIA POSSIBLE RIGHT VENTRICULAR CONDUCTION DELAY NONSPECIFIC T-WAVE ABNORMALIT Y BORDERLINE ECG PREVIOUS TRACING : 07/16/2018 00.26 Compared to previous tracing, Sinus bradycardia replaced NS R DOCTOR: Rogelio Velasquez Interpretating Date/Time 07/18/2018 11:28:45
[2018-07-18 15:29] LABS: Alanine Aminotransferase 24 U/L (10-53); Albumin 2.6 g/dL (3.4-5.0); Anion Gap 9 meq/L (5-15); Aspartate Aminotransferase 42 U/L (15-37); Blood Urea Nitrogen 14 mg/dL (7-18); Calcium 7.8 mg/dL (8.5-10.1); Carbon Dioxide 22.2 meq/L (21.0-32.0); Chloride 114 meq/L (98-107); Glomerular Filtration Rate 52 mL/min (>89); Glucose,Random 127 mg/dL (74-106); Magnesium 2.1 mg/dL (1.5-2.5); Potassium 3.3 meq/L (3.5-5.1); Sodium 145 meq/L (136-145)
[2018-07-18 15:31] LABS: Alkaline Phosphatase 92 U/L (45-117); Total Protein 5.4 g/dL (6.4-8.2)
--- NOTE | 2018-07-18 15:36 | ECHRPT ---
Indication: afib and flutter CONCLUSIONS Normal left ventricular size. Wall thickness is normal. The left ventricular systolic function is hyperdynamic with an estimated ejection fraction in the ra nge of 65- 70%. [id number] mitral valve regurgitation Diffuse calcification of the aortic valve. There is mild tricuspid valve regurgitation. BP: / HR: Rhythm: MEASUREMENTS (Male / Female) Normal Values Technical Quality: 2D ECHO LV Diastolic Diameter PLAX 4.5 cm 4.2 - 5.9 / 3.9 - 5.3 cm LV Systolic Diameter PLAX 2.4 cm IVS Diastolic Thickness 0.8 cm 0.6 - 1.0 / 0.6 - 0.9 cm LVPW Diastolic Thickness 1.0 cm 0.6 - 1.0 / 0.6 - 0.9 cm LV Relative Wall Thickness 0.4 RV Internal Dim ED PLAX 3.2 cm LVOT Diameter 1.7 cm Aortic Root Diameter 1.8 cm LA Systolic Diameter LX 4.1 cm 3.0 - 4.0 / 2.7 - 3.8 cm LV Ejection Fraction MOD 4C 56.3 % LV Ejection Fraction 4C AL 57.4 % M-MODE Aortic Root Diameter MM 2.8 cm LA Systolic Diameter MM 3.5 cm LA Ao Ratio MM 1.3 AV Cusp Separation MM 1.6 cm DOPPLER AV Peak Velocity 209.3 cm/s AV Peak Gradient 17.5 mmHg AV Mean Gradient 8.0 mmHg AV Velocity Time Integral 42.1 cm LVOT Peak Velocity 172.0 cm/s LVOT Peak Gradient 11.8 mmHg LVOT Velocity Time Integral 28.9 cm AV Area Cont Eq vti 1.6 cm AV Area Cont Eq pk 1.9 cm Mitral E Point Velocity 66.1 cm/s Mitral A Point Velocity 79.5 cm/s Mitral E to A Ratio 0.8 LV E' Lateral Velocity 8.0 cm/s Mitral E to LV E' Lateral Ratio 8.3 LV E' Septal Velocity 4.8 cm/s Mitral E to LV E' Septal Ratio 13.8 TR Peak Velocity 318.0 cm/s TR Peak Gradient 40.4 mmHg Right Atrial Pressure 10.0 mmHg Pulmonary Artery Systolic Pressu 50.4 mmHg Right Ventricular Systolic Press 50.4 mmHg PV Peak Velocity 79.5 cm/s PV Peak Gradient 2.5 mmHg FINDINGS LEFT VENTRICLE Normal left ventricular size. Wall thickness is normal. The left ventricular systolic function is hyperdynamic with an estimated ejection fraction in the ra nge of 65- 70%. RIGHT VENTRICLE Normal right ventricular size and systolic function. LEFT ATRIUM The left atrial size is normal. RIGHT ATRIUM The right atrial size is normal. ATRIAL SEPTUM Normal atrial septal thickness without atrial level shunting by limited color doppler interrogation. AORTA The aortic root and proximal ascending aorta are normal in size on limited imaging. MITRAL VALVE [id number] mitral valve regurgitation AORTIC VALVE Diffuse calcification of the aortic valve. TRICUSPID VALVE There is mild tricuspid valve regurgitation. PULMONARY VALVE No pulmonary valve regurgitation or stenosis. VESSELS The inferior vena cava is normal in size. PERICARDIUM No pericardial effusion. Eder Cook MD, FACC, FSCAI (Electronically Signed) Final Date:18 July 2018 15:35
--- NOTE | 2018-07-18 18:09 | MB ---
cc: Eder Cook MD DATE: 07/18/2018 HISTORY OF PRESENT ILLNESS: Ines is a very pleasant 82-year-old lady with history of hypertension and hypothyroidism, admitted with a UTI. Blood cultures were reportedly negative by Nael, the ICU nurse. The patient is in atrial fibrillation with rapid ventricular response and hypotension. Otherwise, denies fevers, otherwise denies GI or bleeding, PND, orthopnea, syncope, dizziness or chest pain or shortness of breath. PAST MEDICAL HISTORY: As per history of present illness. Also includes hyperlipidemia, hysterectomy, hypothyroidism, renal impairment, appendectomy, tonsillectomy. ALLERGIES: DIPHENHYDRAMINE AND VALPROIC ACID. SOCIAL HISTORY: Never smoked, rarely drinks alcohol. MEDICATIONS IN THE HOSPITAL: 1. Lipitor 10 mg daily. 2. Aspirin 81 mg daily. 3. Cardizem drip. 4. Heparin drip. 5. Novolin. 6. Synthroid 50 mcg daily. 7. Magnesium oxide 800 mg p.r.n. 8. Magnesium supplementation. 9. Toprol-XL 100 mg at bedtime. 10. Protonix 40 mg daily. 11. Zosyn. 12. MiraLax. 13. Potassium supplementation. PHYSICAL EXAMINATION: VITAL SIGNS: Temperature 98.3, pulse is 88 at 1300, respiratory rate 34, blood pressure 125/68, sats 91%. GENERAL: She is alert and oriented x3, in no acute distress. NECK: Supple. No JVD. No bruit. CARDIOVASCULAR: S1, S2. No murmurs, rubs or gallops. LUNGS: Clear to auscultation bilaterally. ABDOMEN: Soft, nontender, nondistended with positive bowel sounds. EXTREMITIES: Lower extremity edema. LABORATORY DATA: Chest x-ray: Elevated right hemidiaphragm. Lungs are clear. Abdominal and bladder ultrasound: Increased echogenicity to the kidneys bilaterally consistent with medical renal disease, no hydronephrosis is seen, 1.3 cm cyst at the mid left kidney. Cholangiopancreatography MRI: Moderately distended gallbladder with diffusely distended extrahepatic bile ducts and pancreatic duct extending to the ampulla. No definitive focal intraductal abnormalities demonstrated. Differential considerations include an occult pancreatic head lesion versus ampullary dysfunction/mass. Consider ERCP with endoscopic ultrasound for further evaluation as clinically warranted. Abdominal pelvic CT: Biliary tree dilatation, otherwise unremarkable CT scan of the abdomen and pelvis. Right hemidiaphragm is markedly elevated, moderately distended colon without evidence of wall thickening or obstruction. Some increased density to the left renal collecting system and right posterior bladder that could be evidence of transitional cell carcinoma. Correlate for hematuria. Outpatient urology workup recommended. Head CT: Unremarkable study, no evidence of hemorrhage or edema. Some motion of the central portion of the exam without obvious mass or mass effect. Chest x-ray: Elevation of the right hemidiaphragm with some accompanying atelectasis or consolidation at the right base. There is also some prominence of the right hilar region. EKG shows normal sinus rhythm at 57 beats per minute. It is otherwise normal. LABORATORY DATA: White count 7.5, hemoglobin low at 9.9 currently, on 07/17/2018, currently 11.2, hematocrit 32.5, platelet count is 180. INR is 1.0, PTT is 177.4 today at 1440. Blood gas today: pH 7.39, pCO2 of 30, pO2 109 on room air. Sodium 145, potassium 3.3, chloride 114, BUN 14, creatinine 1.02, AST 42. Troponin 0.03. Urine cultures growing Escherichia coli. Blood cultures are negative. DIAGNOSES: 1. Atrial fibrillation with rapid ventricular response. 2. Urinary tract infection. 3. Systemic inflammatory reaction. 4. Hypotension. 5. Moderately distended gallbladder. 6. Diffusely distended extrahepatic bile ducts and pancreatic duct stenting to the ampulla. 7. Biliary tree dilatation, increased density to the left renal collecting system and right posterior bladder. DISCUSSION: At this point in time. I reviewed the patient's echo with EF of 65%. RV systolic pressure 70 mmHg. The patient's physiology is consistent with intravascular volume depletion. I do think she could tolerate a fluid challenge. I will discuss this with Dr. Nava who is currently covering for critical care. Waiting in the short-term for a heart rate less than 130. The patient's CHADS-VASc score is at least 2; therefore, I have recommended to her long-term anticoagulation with Coumadin or novel oral anticoagulant agent; however, in the short-term agree with IV heparin as she may require some additional workup for her distended biliary tree and abnormal MRI cholangiopancreatography as detailed above. Eder Cook MD AWC/ct , 04:23 PM , 04:34 PM
[2018-07-18] MEDS: Melatonin 5 MG Tablet PO SCH (20:54)
[2018-07-18] MEDS ORDERED: Pharmacy Ordered Lab Info OTHER ONE (22:45)
[2018-07-19] MEDS: dilTIAZem Inj 125 MG in Sodium Chlor 0.9% Inj 100 ML IV.CONT PRN ×2 (00:50→20:30)
[2018-07-19] MEDS: Piperacil/Tazo 3.375 GM Premix 3.375 GM/50 ML PIGGYBACK IV.SIG SCH ×4 (02:49→20:31)
[2018-07-19] MEDS: Chlorhexidine Gluconate 2% 1 Pack (2 Cloths) TOPICAL SCH (04:43)
[2018-07-19] MEDS: Insulin NovoLIN Regular Correctional Sugar Inj SQ SCH ×3 (06:16→17:16)
[2018-07-19] MEDS: Levothyroxine 50 MCG Tablet PO SCH (06:17)
[2018-07-19 07:50] LABS: Baso % (Auto) 0.4 % (0.0-2.0); Eos # (Auto) 0.5 th/mm3 (0.0-0.4); Eos % (Auto) 6.3 % (0.0-4.0); Hemoglobin 10.8 gm/dL (11.6-15.3); Lymph # (Auto) 1.7 th/mm3 (1.0-4.8); Lymph % (Auto) 23.1 % (9.0-44.0); Mean Corpuscular HGB Conc 34.9 % (32.0-36.0); Mean Corpuscular Hemoglobin 30.5 pg (27.0-34.0); Mean Corpuscular Volume 87.6 fL (80.0-100.0); Mean Platelet Volume 8.7 fL (7.0-11.0); Mono # (Auto) 0.9 th/mm3 (0.0-0.9); Mono % (Auto) 11.8 % (0.0-8.0); Neut # (Auto) 4.2 th/mm3 (1.8-7.7); Neut % (Auto) 58.4 % (16.0-70.0); Platelet Count 208 th/mm3 (150-450); Red Blood Count 3.54 mil/mm3 (4.00-5.30); Red Cell Distribution Width 13.4 % (11.6-17.2); White Blood Count 7.2 th/mm3 (4.0-11.0)
[2018-07-19 08:25] LABS: Albumin 2.3 g/dL (3.4-5.0); Calcium 7.3 mg/dL (8.5-10.1); Digoxin 0.6 ng/mL (0.8-2.0); Magnesium 1.8 mg/dL (1.5-2.5); Phosphorus 1.8 mg/dL (2.5-4.9); Potassium 3.1 meq/L (3.5-5.1); Total Protein 5.1 g/dL (6.4-8.2)
[2018-07-19] MEDS: Polyethylene Glycol 3350 17 GM Packet PO SCH ×2 (09:07→22:28)
[2018-07-19] MEDS: Senna/Docusate Sodium 8.6/50 MG Tablet PO SCH ×2 (09:13→22:28)
[2018-07-19] MEDS: Morphine Inj 4 MG/ML Vial IV.PUSH PRN ×6 (09:16→22:50)
--- NOTE | 2018-07-19 10:31 | P.PNGI ---
Subjective Interval history: Pt is resting in bed, accompanied by daughter, doing good today, not voicing any GI concerns Physical Exam Vital signs: Vital Signs 07/18/18 11:00 07/18/18 12:00 07/18/18 12:02 Temperature 98.3 F Pulse Rate 57 L 58 L 58 L Respiratory Rate 28 H 32 H 29 H Blood Pressure 109/57 L 123/59 L Pulse Oximetry 92 L 90 L 93 L 07/18/18 13:00 07/18/18 14:00 07/18/18 15:00 Temperature Pulse Rate 88 103 H 107 H Respiratory Rate 34 H 32 H 27 H Blood Pressure 125/68 128/79 115/63 Pulse Oximetry 91 L 90 L 92 L 07/18/18 16:00 07/18/18 17:00 07/18/18 18:00 Temperature 99.5 F Pulse Rate 95 H 91 H 90 Respiratory Rate 27 H 24 23 Blood Pressure 127/57 L 143/66 H 135/64 Pulse Oximetry 91 L 93 L 93 L 07/18/18 19:00 07/18/18 20:00 07/18/18 20:25 Temperature 99.2 F Pulse Rate 99 H 105 H Respiratory Rate 36 H 23 Blood Pressure 136/87 125/66 Pulse Oximetry 92 L 92 L 97 07/18/18 21:00 07/18/18 22:00 07/18/18 22:08 Temperature Pulse Rate 104 H 97 H 95 H Respiratory Rate 29 H 31 H 32 H Blood Pressure 132/71 124/74 Pulse Oximetry 91 L 93 L 91 L 07/18/18 23:00 07/19/18 00:00 07/19/18 00:07 Temperature 98.6 F Pulse Rate 90 85 Respiratory Rate 22 9 L 14 Blood Pressure 102/50 L 101/57 L Pulse Oximetry 92 L 95 07/19/18 01:00 07/19/18 02:00 07/19/18 03:00 Temperature Pulse Rate 85 88 86 Respiratory Rate 0 L 21 19 Blood Pressure 96/50 L 110/58 L 100/52 L Pulse Oximetry 95 91 L 91 L 07/19/18 04:00 07/19/18 04:01 07/19/18 05:00 Temperature 98.8 F Pulse Rate 88 93 H 85 Respiratory Rate 17 20 19 Blood Pressure 115/52 L 92/51 L Pulse Oximetry 89 L 92 L 94 L 07/19/18 06:00 07/19/18 07:00 07/19/18 08:00 Temperature 98.5 F Pulse Rate 97 H 84 84 Respiratory Rate 23 20 22 Blood Pressure 103/61 109/57 L 100/57 L Pulse Oximetry 92 L 93 L 95 07/19/18 09:00 Temperature Pulse Rate 92 H Respiratory Rate 27 H Blood Pressure 118/56 L Pulse Oximetry 93 L Intake & Output 07/18/18 07/19/18 07/19/18 18:59 06:59 18:59 Intake Total 945 / 945 945 / 945 50 / 50 Balance 945 / 945 945 / 945 50 / 50 Weight 80.7 kg Intake: IV 225 / 225 225 / 225 50 / 50 Cardizem Inj 125 MG In NS Inj 125 / 125 125 / 125 100 ML @ 5 MG/HR 5 mls/hr IV. CONT TITRATE PRN Rx#:[id number] Zosyn 3.375 GM Premix 3.375 gm 100 / 100 100 / 100 50 / 50 In 50 ml @ 100 mls/hr IV.SIG Q6H NANCY Rx#:[id number] Oral 720 / 720 720 / 720 Other: # Voids 4 6 Date of Last Bowel Movement 07/16/18 07/16/18 07/16/18 - Constitutional no acute distress - Routine HEENT Exam Head: Present: normocephalic - Routine Neck Exam Present: supple - Routine Respiratory Exam Present: CTA bilaterally - Routine Cardiovascular Exam Present: RRR - Routine Abdominal Exam Present: soft, normoactive bowel sounds. Absent: tenderness, distended - Routine Extremities Exam Absent: cyanosis, edema - Routine Skin Exam Present: intact, dry. Absent: jaundice - Routine Neurological Exam Present: alert, oriented X3 - Routine Psychiatric Exam Present: normal affect, normal thought process - Urinary Catheter Management Indwelling Urethral Catheter Cath placed during this visit: yes, but has since been removed by the nurse Reason for continuing: Decision to DC catheter Insertion date: 07/16/18 Insertion time: 04:00 Removal date: 07/17/18 Removal time: 12:00 Results - Labs CBC & Chem 7: 07/19/18 06:41 07/19/18 06:41 Laboratory Results - last 24 hr 07/18/18 07/18/18 07/18/18 12:12 14:40 14:40 WBC RBC Hgb Hct MCV MCH MCHC RDW Plt Count MPV Neut % (Auto) Lymph % (Auto) [place] % (Auto) Eos % (Auto) Baso % (Auto) Neut # (Auto) Lymph # (Auto) [place] # (Auto) Eos # (Auto) Baso # (Auto) WBC Differential Differential Comment APTT 177.4 H* D Sodium 145 Potassium 3.3 L Chloride 114 H Carbon Dioxide 22.2 Anion Gap 9 BUN 14 Creatinine 1.02 H Estimated GFR 52 L POC Glucose 109 Random Glucose 127 H Calcium 7.8 L Calcium Adj for Albumin Phosphorus Magnesium 2.1 Total Bilirubin 0.5 AST 42 H ALT 24 Alkaline Phosphatase 92 Total Protein 5.4 L Albumin 2.6 L Digoxin 07/18/18 07/18/18 07/18/18 17:29 17:40 23:28 WBC RBC Hgb Hct MCV MCH MCHC RDW Plt Count MPV Neut % (Auto) Lymph % (Auto) [place] % (Auto) Eos % (Auto) Baso % (Auto) Neut # (Auto) Lymph # (Auto) [place] # (Auto) Eos # (Auto) Baso # (Auto) WBC Differential Differential Comment APTT 76.6 H D 77.4 H Sodium Potassium Chloride Carbon Dioxide Anion Gap BUN Creatinine Estimated GFR POC Glucose 133 H Random Glucose Calcium Calcium Adj for Albumin Phosphorus Magnesium Total Bilirubin AST ALT Alkaline Phosphatase Total Protein Albumin Digoxin 07/18/18 07/19/18 07/19/18 23:32 05:52 06:41 WBC RBC Hgb Hct MCV MCH MCHC RDW Plt Count MPV Neut % (Auto) Lymph % (Auto) [place] % (Auto) Eos % (Auto) Baso % (Auto) Neut # (Auto) Lymph # (Auto) [place] # (Auto) Eos # (Auto) Baso # (Auto) WBC Differential Differential Comment APTT Sodium 144 Potassium 3.1 L Chloride 113 H Carbon Dioxide 22.0 Anion Gap 9 BUN 11 Creatinine 0.84 Estimated GFR 65 L POC Glucose 158 H 111 H Random Glucose 106 Calcium 7.3 L* Calcium Adj for Albumin 8.7 Phosphorus 1.8 L Magnesium 1.8 Total Bilirubin 0.6 AST 45 H ALT 26 Alkaline Phosphatase 92 Total Protein 5.1 L Albumin 2.3 L Digoxin 0.6 L 07/19/18 07/19/18 06:41 06:41 WBC 7.2 RBC 3.54 L Hgb 10.8 L Hct 31.0 L MCV 87.6 MCH 30.5 MCHC 34.9 RDW 13.4 Plt Count 208 MPV 8.7 Neut % (Auto) 58.4 Lymph % (Auto) 23.1 [place] % (Auto) 11.8 H Eos % (Auto) 6.3 H Baso % (Auto) 0.4 Neut # (Auto) 4.2 Lymph # (Auto) 1.7 [place] # (Auto) 0.9 Eos # (Auto) 0.5 H Baso # (Auto) 0.0 WBC Differential . Differential Comment Auto diff final APTT 68.9 H Sodium Potassium Chloride Carbon Dioxide Anion Gap BUN Creatinine Estimated GFR POC Glucose Random Glucose Calcium Calcium Adj for Albumin Phosphorus Magnesium Total Bilirubin AST ALT Alkaline Phosphatase Total Protein Albumin Digoxin Microbiology 07/16/18 12:45 Stool Cryptosporidium Antigen - Final Negative - No Cryptosporicium antigen detected In selected cases of patients with a history of immunosuppression or foreign travel, a full ova and parasites examination may be desired. Contact the microbiology lab if full workup is indicated and subit another specimen for testing. 07/16/18 12:45 Stool Giardia Antigen (LYNDON) - Final Negative - No Giardia Antigen detected In selected cases of patients with a history of immunosuppression or foreign travel, a full ova and parasites examination may be desired. Contact the microbiology lab if full workup is indicated and subit another specimen for testing. 07/15/18 23:36 Blood - Peripheral Aerobic Blood Culture - Preliminary No growth in 2 days 07/15/18 23:36 Blood - Peripheral Anaerobic Blood Culture - Preliminary No growth in 2 days 07/15/18 23:30 Blood - Peripheral Aerobic Blood Culture - Preliminary No growth in 2 days 07/15/18 23:30 Blood - Peripheral Anaerobic Blood Culture - Preliminary No growth in 2 days 07/16/18 00:50 Catheterized Urine Urine Culture - Preliminary Escherichia coli gamma hemolytic streptococci Assessment and Plan - Plan - Abdominal pain, N/V/distended extrahepatic bile ducts and pancreatic duct- MRCP on 07/16/18 Moderately distended gallbladder with diffusely distended extrahepatic bile ducts and pancreatic duct extending to the ampulla. No definitive focal intraductal abnormality is demonstrated. Differential considerations include an occult pancreatic head lesion versus ampullary dysfunction/mass. CT abd/pelvis with dilated biliary tree, Right hemidiaphragm is markedly elevated. Moderately distended colon without evidence of wall thickening or obstruction but no gallbladder thickening. no pericholecystic fluid. Abdomen/Bladder Ultrasound 07/16/18 Increased echogenicity to the kidneys bilaterally consistent with medical renal disease. No hydronephrosis is seen. 1.3 cm cyst at the mid left kidney. LFTs aside from slight elevation in AST wnl, lipase wnl. - AMS- Resolved, Possibly multifactorial, sepsis, uti, will need to r/o cholangitis or colon related issues, on abx Blood cx negative so far , urine cx GNR and gamma hemolytic streptococci. CT of head negative - Constipation- had multiple Bms, abd pain could be related to this. Stools negative for C-diff - Anemia- stable hgb today is 10.8, stable no bleeding reported, could be dilutional - Sepsis/ uti- WBC normal on abx - Abnormal imaging of bladder- S/p urology consult, plans for in-office cystoscopy, no indication of immediate intervention - Fecal impaction- s/p multiple laxatives, having several loose BMs - New onset of A-fib with RVR- ERCP and EUS was planned for today, but on hold for now in view of new onset of A-fib Plan: - Diet per CCM - Patient will require EUS/ERCP, this was placed on hold view of new onset of A- fib with RVR Pt and family wish to hold off for now until pt is more stable - Consider colonoscopy at some point when medically stable - Cont. bowel regimen - Iv fluids - Supportive care - Further recommendations to follow - Pt seen and examined by Dr. Tamayo and myself and this note is written on his behalf.
--- NOTE | 2018-07-19 10:32 | P.PNCC ---
Subjective Subjective Remarks/Hospital Course: 82yF with 1 day history of new-onset abdominal pain and altered mentation. also found to be febrile in the ER. elevated wbc. + u/a. CT abd/pelvis with dilated biliary tree, but no overt evidence of obstruction, no gallbladder thickening. no pericolecystic fluid. elevated Cr. developed hypotension and tachycardia in the [facility] emergency department requiring 3L ivf and then norepinephrine to keep map > 65 mmHg. transferred emergently to [facility] from for further management. I evaluated her immediately upon arrival to the ICU. she complains of suprapubic pain which is "crampy" in nature. denies n/v/c/d. abdominal pain is mostly suprapubic, nonradiating. denies flank pain. denies fevers and chills. denies cp, sob. never had anything similar to this. remainder ROS negative. 07/17: Lying in bed no acute distress. Intermittent suprapubic pain described as a cramp. GI recommending endoscopy. Urine culture is pending at this time. Continue broad-spectrum antibiotics. Due to persistent suprapubic pain hematuria and question of bladder mass I will get a urology consult 07/18: Patient developed Afib with RVR yesterday 07/17. No response to IV metoprolol and digoxin, with Cardizem push and Cardizem infusion eventually converted to sinus rhythm however went back to A. fib with RVR at 2 PM and Cardizem was restarted. Aggressive potassium and magnesium replacement. Lasix given additional dose for diuresis. Start IV heparin. 2D echo ordered pending , TSH normal, initial troponin is normal. Cardiology consult-family request Dr. Medina 07/19: Resting comfortably. On Cardizem drip, A. fib well controlled currently. Objective Vital Signs / I&O: Vital Signs 07/18/18 11:00 07/18/18 12:00 07/18/18 12:02 Temperature 98.3 F Pulse Rate 57 L 58 L 58 L Respiratory Rate 28 H 32 H 29 H Blood Pressure 109/57 L 123/59 L Pulse Oximetry 92 L 90 L 93 L 07/18/18 13:00 07/18/18 14:00 07/18/18 15:00 Temperature Pulse Rate 88 103 H 107 H Respiratory Rate 34 H 32 H 27 H Blood Pressure 125/68 128/79 115/63 Pulse Oximetry 91 L 90 L 92 L 07/18/18 16:00 07/18/18 17:00 07/18/18 18:00 Temperature 99.5 F Pulse Rate 95 H 91 H 90 Respiratory Rate 27 H 24 23 Blood Pressure 127/57 L 143/66 H 135/64 Pulse Oximetry 91 L 93 L 93 L 07/18/18 19:00 07/18/18 20:00 07/18/18 20:25 Temperature 99.2 F Pulse Rate 99 H 105 H Respiratory Rate 36 H 23 Blood Pressure 136/87 125/66 Pulse Oximetry 92 L 92 L 97 07/18/18 21:00 07/18/18 22:00 07/18/18 22:08 Temperature Pulse Rate 104 H 97 H 95 H Respiratory Rate 29 H 31 H 32 H Blood Pressure 132/71 124/74 Pulse Oximetry 91 L 93 L 91 L 07/18/18 23:00 07/19/18 00:00 07/19/18 00:07 Temperature 98.6 F Pulse Rate 90 85 Respiratory Rate 22 9 L 14 Blood Pressure 102/50 L 101/57 L Pulse Oximetry 92 L 95 07/19/18 01:00 07/19/18 02:00 07/19/18 03:00 Temperature Pulse Rate 85 88 86 Respiratory Rate 0 L 21 19 Blood Pressure 96/50 L 110/58 L 100/52 L Pulse Oximetry 95 91 L 91 L 07/19/18 04:00 07/19/18 04:01 07/19/18 05:00 Temperature 98.8 F Pulse Rate 88 93 H 85 Respiratory Rate 17 20 19 Blood Pressure 115/52 L 92/51 L Pulse Oximetry 89 L 92 L 94 L 07/19/18 06:00 07/19/18 07:00 07/19/18 08:00 Temperature 98.5 F Pulse Rate 97 H 84 84 Respiratory Rate 23 20 22 Blood Pressure 103/61 109/57 L 100/57 L Pulse Oximetry 92 L 93 L 95 07/19/18 09:00 Temperature Pulse Rate 92 H Respiratory Rate 27 H Blood Pressure 118/56 L Pulse Oximetry 93 L Intake & Output 07/18/18 07/19/18 07/19/18 18:59 06:59 18:59 Intake Total 945 / 945 945 / 945 50 / 50 Balance 945 / 945 945 / 945 50 / 50 Weight 80.7 kg Intake: IV 225 / 225 225 / 225 50 / 50 Cardizem Inj 125 MG In NS Inj 125 / 125 125 / 125 100 ML @ 5 MG/HR 5 mls/hr IV. CONT TITRATE PRN Rx#:[id number] Zosyn 3.375 GM Premix 3.375 gm 100 / 100 100 / 100 50 / 50 In 50 ml @ 100 mls/hr IV.SIG Q6H NANCY Rx#:[id number] Oral 720 / 720 720 / 720 Other: # Voids 4 6 Date of Last Bowel Movement 07/16/18 07/16/18 07/16/18 Result Diagrams: 07/19/18 06:41 07/19/18 06:41 Objective Remarks: GENERAL: Elderly female, lying in bed, breathing comfortably HEENT: Normocephalic. Atraumatic. Pupils equal, round, reactive, conjugate. NECK: Trachea is midline. There is no JVD. CHEST: Equal chest rise. Nasal cannula. Mild wheezing improved CARDIOVASCULAR: Atrial fibrillation. Remains on Cardizem drip. No murmurs ABDOMEN: Soft, mildly tender of the suprapubic area. nondistended. No guarding. No rebound. MUSCULOSKELETAL: Pulses 2+. No peripheral edema. NEUROLOGICAL: RASS 0. CAM -. Follows commands in all 4 extremities. Alert and oriented x3. No focal deficits. Assessment and Plan - Assessment and Plan Plan: Assessment: 82-year-old female with sepsis and early shock likely secondary to UTI. Cannot rule out biliary origin at this time, however there is no serum evidence of elevated bilirubin or elevated alk phos. CT evidence suggests there is no active acute cholecystitis. In contrast, urine from urinalysis suggests active cystitis. Continue broad-spectrum antibiotics as below. No complicated with new onset atrial fibrillation with RVR Active problems: Urinary tract infection Severe sepsis Atrial fibrillation with RVR Abdominal pain Septic shock- resolved Lactic acidosis-resolved Acute kidney injury Questionable transitional cell appearing mass near the renal pelvis, with hematuria Long-standing history of opioid abuse Plan: On Cardizem gtt, On toprol XL 100mg daily for A. fib with RVR 2D echo, TSH normal Cardiology consulted, Dr. Cook following. IV heparin All IV fluids discontinued as significant positive fluid balance. Discussed possibility of giving additional fluids with Dr. Cook following review of 2D echo however patient is on significant O2 via nasal cannula and concern regarding worsening respiratory status hence held off on fluid bolus. Aggressive potassium and magnesium replacement Continue Zosyn. DCd vancomycin Follow blood cultures-negative today Follow-up urine culture-pansensitive E coli and gamma hemolytic streptococci. Consult ID for sepsis/antibiotic management. Follow-up on stool studies per GI, C. difficile negative MRCP shows moderately distended gallbladder with diffusely distended extrahepatic bile ducts and pancreatic duct extending to the ampulla. Differential considerations include an occult pancreatic head lesion versus ampullary dysfunction/mass. ERCP and EUS planned for today however family wants to hold off due to A. fib with RVR Frequent urine outputs, Daily CMP, Daily CBC SCDs IV heparin Protonix Due to persistent suprapubic pain hematuria and questionable bladder mass I have requested urology consult
[2018-07-19] MEDS: Potassium Chlor 20 mEq Premix 20 MEQ/100 ML PIGGYBACK IV.SIG PRN ×3 (11:07→21:06)
--- NOTE | 2018-07-19 11:53 | P.PNCA ---
Subjective Interval history: alert in nad Medications and Allergies Active Medications: Active Medications Acetaminophen (Tylenol) 650 mg PO Q6H PRN PRN Reason: TEMPERATURE > 101 F Albuterol (Duoneb Neb (Prn)) 1 ampul NEB Q2HR NEB PRN PRN Reason: WHEEZING Aspirin (Ecotrin) 81 mg PO DAILY [facility] Last Admin: 07/19/18 09:13 Dose: 81 mg Atorvastatin Calcium (Lipitor) 10 mg PO DAILY [facility] Last Admin: 07/19/18 09:13 Dose: 10 mg Bisacodyl (Dulcolax Supp) 10 mg RECTAL DAILY PRN PRN Reason: if no BM in last 24h Chlorhexidine Gluconate (Chlorhexidine 2% Cloth) 3 pack TOPICAL DAILY@0400 [facility] Stop: 07/21/18 03:59 Last Admin: 07/19/18 04:43 Dose: 3 pack Chlorhexidine Gluconate (Chlorhexidine 2% Cloth) 3 pack TOPICAL DAILY@0400 PRN PRN Reason: Extra cloth needed Stop: 07/21/18 03:59 Dextrose (D50w Vial) 50 ml IV.PUSH UNSCH PRN PRN Reason: PER HYPOGLYCEMIA PROTOCOL Glucagon (Glucagon Inj) 1 mg OTHER PRN PRN PRN Reason: for Hypoglycemia Protocol Magnesium Sulfate 4 gm/ Sodium (Chloride) 100 mls @ 50 mls/hr IV.SIG UNSCH PRN PRN Reason: For Magnesium 0.9 - 1.1 mg/dL Magnesium Sulfate 2 gm/ Sodium (Chloride) 100 mls @ 50 mls/hr IV.SIG UNSCH PRN PRN Reason: For Magnesium 1.2 - 1.6 mg/dL Potassium Chloride (Kcl 40 Meq Premix Inj) 40 meq in 100 mls @ 25 mls/hr IV.SIG Q2H PRN PRN Reason: For Potassium 2.8 - 3.2 mEq/L Potassium Chloride (Kcl 20 Meq Premix Inj) 20 meq in 100 mls @ 50 mls/hr IV.SIG Q2H PRN PRN Reason: For Potassium 3.3 - 3.5 mEq/L Last Infusion: 07/17/18 13:51 Dose: Infused Potassium Chloride (Kcl 40 Meq Premix Inj) 40 meq in 100 mls @ 25 mls/hr IV.SIG UNSCH PRN PRN Reason: For Potassium 3.3 - 3.5 mEq/L Potassium Phosphate 30 mmol/ (Sodium Chloride) 260 mls @ 42 mls/hr IV.SIG UNSCH PRN PRN Reason: SEE LABEL COMMENTS Sodium Phosphate 30 mmol/ (Sodium Chloride) 260 mls @ 42 mls/hr IV.SIG UNSCH PRN PRN Reason: For Phosphorus < 2.5 mg/dL Potassium Chloride (Kcl 20 Meq Premix Inj) 20 meq in 100 mls @ 50 mls/hr IV.SIG Q2H PRN PRN Reason: For Potassium 2.8 - 3.2 mEq/L Last Admin: 07/19/18 11:07 Dose: 50 mls/hr Piperacillin/Tazobactam/Dextrose (Zosyn 3.375 Gm Premix) 3.375 gm in 50 mls @ 100 mls/hr IV.SIG Q6H [facility] Last Infusion: 07/19/18 09:46 Dose: Infused Diltiazem HCl 125 mg/ Sodium (Chloride) 125 mls @ 5 mls/hr IV.CONT TITRATE PRN ; Protocol PRN Reason: Per Protocol Last Titration: 07/19/18 11:00 Dose: 0 mg/hr, 0 mls/hr Heparin Sodium/Dextrose (Heparin/D5w 25,000 U/250 Ml) 25,000 unit in 250 mls @ 0 mls/hr IV.CONT TITRATE PRN; Protocol PRN Reason: Per Protocol Last Titration: 07/19/18 00:04 Dose: 400 units/hr, 4 mls/hr Insulin Human Regular (Novolin R Correctional Sugar Inj) 0 units SQ Q6HR NANCY; Protocol Last Admin: 07/19/18 06:16 Dose: Not Given Lactulose (Lactulose Liq) 30 ml PO BID [facility] Last Admin: 07/19/18 09:07 Dose: Not Given Levothyroxine Sodium (Synthroid) 50 mcg PO DAILY@0600 [facility] Last Admin: 07/19/18 06:17 Dose: 50 mcg Magnesium Oxide (Mag-Ox) 800 mg PO UNSCH PRN PRN Reason: For Magnesium 1.2 - 1.6 mg/dL Melatonin (Melatonin) 5 mg PO HS [facility] Last Admin: 07/18/18 20:54 Dose: 5 mg Metoprolol Succinate (Toprol Xl) 100 mg PO HS [facility] Last Admin: 07/18/18 20:54 Dose: 100 mg Miscellaneous (Pill Splitter) 1 each OTHER UNSCH PRN PRN Reason: SEE LABEL COMMENTS Morphine Sulfate (Morphine Inj) 1 mg IV.PUSH Q2H PRN PRN Reason: PAIN 1-5 Last Admin: 07/19/18 11:17 Dose: 1 mg Ondansetron HCl (Zofran Inj) 4 mg IV.PUSH Q6H PRN PRN Reason: NAUSEA OR VOMITING Last Admin: 07/16/18 06:19 Dose: 4 mg Pantoprazole Sodium (Protonix) 40 mg PO DAILY [facility] Last Admin: 07/19/18 09:13 Dose: 40 mg Phenazopyridine HCl (Pyridium) 200 mg PO DAILY [facility] Last Admin: 07/19/18 09:13 Dose: 200 mg Polyethylene Glycol (Miralax) 17 gm PO BID [facility] Last Admin: 07/19/18 09:07 Dose: Not Given Potassium Bicarb/Potassium Chloride (K-Lyte Cl Eff) 50 meq PO UNSCH PRN PRN Reason: For Potassium 3.3 - 3.5 mEq/L Potassium Phosphate (K-Phos Original) 2,000 mg PO Q4H PRN PRN Reason: Phosphorus Less Than 2.5 mg/dL Potassium Phosphate (K-Phos Original) 2,000 mg PO UNSCH PRN PRN Reason: SEE LABEL COMMENTS Last Admin: 07/17/18 09:10 Dose: 2,000 mg Quetiapine Fumarate (Seroquel) 200 mg PO [facility] Last Admin: 07/18/18 20:54 Dose: 200 mg Senna/Docusate Sodium (Linda-Colace) 1 tab PO BID [facility] Last Admin: 07/19/18 09:13 Dose: 1 tab Sodium Chloride (Ns Flush) 2 ml IV.FLUSH PRN PRN PRN Reason: FLUSH AFTER USING IV ACCESS Sodium Chloride (Ns Flush) 2 ml IV.FLUSH UNSCH PRN PRN Reason: FLUSH AFTER USING IV ACCESS Allergies Allergy/AdvReac Type Severity Reaction Status Date / Time diphenhydramine Allergy Severe THROAT Verified 07/16/18 00:47 CLOSES valproic acid Allergy Intermediate VERY Verified 07/16/18 00:47 DISORIENTED Home Medications Medication Instructions Recorded Confirmed Type amlodipine 5 mg PO DAILY 07/16/18 07/16/18 History aspirin [Aspir-81] 81 mg PO DAILY 07/16/18 07/16/18 History atorvastatin 10 mg PO DAILY 07/16/18 07/16/18 History candesartan 16 mg PO DAILY 07/16/18 07/16/18 History cholecalciferol (vitamin D3) 2,000 unit PO DAILY 07/16/18 07/16/18 History [Vitamin D3] cyanocobalamin (vitamin B-12) 1,000 mcg PO DAILY 07/16/18 07/16/18 History [Vitamin B-12] levothyroxine [Synthroid] 50 mcg PO DAILY 07/16/18 07/16/18 History metoprolol succinate [Toprol XL] 100 mg PO HS 07/16/18 07/16/18 History quetiapine [Seroquel] 200 mg PO HS 07/16/18 07/16/18 History Physical Exam Vital signs: Vital Signs 07/18/18 12:00 07/18/18 12:02 07/18/18 13:00 Temperature 98.3 F Pulse Rate 58 L 58 L 88 Respiratory Rate 32 H 29 H 34 H Blood Pressure 123/59 L 125/68 Pulse Oximetry 90 L 93 L 91 L 07/18/18 14:00 07/18/18 15:00 07/18/18 16:00 Temperature 99.5 F Pulse Rate 103 H 107 H 95 H Respiratory Rate 32 H 27 H 27 H Blood Pressure 128/79 115/63 127/57 L Pulse Oximetry 90 L 92 L 91 L 07/18/18 17:00 07/18/18 18:00 07/18/18 19:00 Temperature Pulse Rate 91 H 90 99 H Respiratory Rate 24 23 36 H Blood Pressure 143/66 H 135/64 136/87 Pulse Oximetry 93 L 93 L 92 L 07/18/18 20:00 07/18/18 20:25 07/18/18 21:00 Temperature 99.2 F Pulse Rate 105 H 104 H Respiratory Rate 23 29 H Blood Pressure 125/66 132/71 Pulse Oximetry 92 L 97 91 L 07/18/18 22:00 07/18/18 22:08 07/18/18 23:00 Temperature Pulse Rate 97 H 95 H 90 Respiratory Rate 31 H 32 H 22 Blood Pressure 124/74 102/50 L Pulse Oximetry 93 L 91 L 92 L 07/19/18 00:00 07/19/18 00:07 07/19/18 01:00 Temperature 98.6 F Pulse Rate 85 85 Respiratory Rate 9 L 14 0 L Blood Pressure 101/57 L 96/50 L Pulse Oximetry 95 95 07/19/18 02:00 07/19/18 03:00 07/19/18 04:00 Temperature Pulse Rate 88 86 88 Respiratory Rate 21 19 17 Blood Pressure 110/58 L 100/52 L Pulse Oximetry 91 L 91 L 89 L 07/19/18 04:01 07/19/18 05:00 07/19/18 06:00 Temperature 98.8 F Pulse Rate 93 H 85 97 H Respiratory Rate 20 19 23 Blood Pressure 115/52 L 92/51 L 103/61 Pulse Oximetry 92 L 94 L 92 L 07/19/18 07:00 07/19/18 08:00 07/19/18 09:00 Temperature 98.5 F Pulse Rate 84 84 92 H Respiratory Rate 20 22 27 H Blood Pressure 109/57 L 100/57 L 118/56 L Pulse Oximetry 93 L 95 93 L 07/19/18 10:00 07/19/18 11:00 Temperature Pulse Rate 93 H 94 H Respiratory Rate 22 23 Blood Pressure 114/56 L 104/59 L Pulse Oximetry 93 L 93 L Intake & Output 07/18/18 07/19/18 07/19/18 18:59 06:59 18:59 Intake Total 945 / 945 945 / 945 50 / 50 Balance 945 / 945 945 / 945 50 / 50 Weight 80.7 kg Intake: IV 225 / 225 225 / 225 50 / 50 Cardizem Inj 125 MG In NS Inj 125 / 125 125 / 125 100 ML @ 5 MG/HR 5 mls/hr IV. CONT TITRATE PRN Rx#:[id number] Zosyn 3.375 GM Premix 3.375 gm 100 / 100 100 / 100 50 / 50 In 50 ml @ 100 mls/hr IV.SIG Q6H NANCY Rx#:[id number] Oral 720 / 720 720 / 720 Other: # Voids 4 6 Date of Last Bowel Movement 07/16/18 07/16/18 07/16/18 - Constitutional no acute distress - Routine HEENT Exam Head: Present: normocephalic - Routine Neck Exam Present: supple - Routine Respiratory Exam Present: CTA bilaterally - Routine Cardiovascular Exam Present: S1, S2 - Routine Abdominal Exam Present: soft - Routine Extremities Exam Comments: no alejandra - Urinary Catheter Management Indwelling Urethral Catheter Cath placed during this visit: yes, but has since been removed by the nurse Reason for continuing: Decision to DC catheter Insertion date: 07/16/18 Insertion time: 04:00 Removal date: 07/17/18 Removal time: 12:00 Results 07/19/18 06:41 07/19/18 06:41 Cardiac Enzymes 07/17/18 07/18/18 07/18/18 Range/Units 05:32 04:45 07:51 AST 44 H (15-37) U/L CK-MB (CK-2) 5.6 H (0.5-3.6) ng/mL Troponin I 0.03 (0.02-0.05) ng/mL 07/18/18 07/19/18 Range/Units 14:40 06:41 AST 42 H 45 H (15-37) U/L CK-MB (CK-2) (0.5-3.6) ng/mL Troponin I (0.02-0.05) ng/mL Coagulation 07/18/18 07/18/18 07/18/18 Range/Units 07:51 14:40 17:40 PT 10.6 (9.8-11.6) sec APTT 43.4 H 177.4 H* D 76.6 H D (23.4-31.7) sec 07/18/18 07/19/18 Range/Units 23:28 06:41 PT (9.8-11.6) sec APTT 77.4 H 68.9 H (23.4-31.7) sec CBC 07/18/18 07/19/18 Range/Units 04:45 06:41 WBC 7.5 7.2 (4.0-11.0) th/mm3 RBC 3.68 L 3.54 L (4.00-5.30) mil/mm3 Hgb 11.2 L 10.8 L (11.6-15.3) gm/dL Hct 32.5 L 31.0 L (35.0-46.0) % Plt Count 180 208 (150-450) th/mm3 Neut # (Auto) 5.3 4.2 (1.8-7.7) th/mm3 Lymph # (Auto) 1.4 1.7 (1.0-4.8) th/mm3 Snyder # (Auto) 0.7 0.9 (0.0-0.9) th/mm3 Eos # (Auto) 0.1 0.5 H (0.0-0.4) th/mm3 Baso # (Auto) 0.0 0.0 (0.0-0.2) th/mm3 Comprehensive Metabolic Panel 07/17/18 07/18/18 07/18/18 Range/Units 15:15 04:45 14:40 Sodium 143 145 (136-145) meq/L Potassium 3.7 3.6 3.3 L (3.5-5.1) meq/L Chloride 115 H 114 H (98-107) meq/L Carbon Dioxide 17.3 L 22.2 (21.0-32.0) meq/L BUN 16 14 (7-18) mg/dL Creatinine 1.04 H 1.02 H (0.50-1.00) mg/dL Calcium 7.4 L* 7.8 L (8.5-10.1) mg/dL AST 44 H 42 H (15-37) U/L ALT 23 24 (10-53) U/L Alkaline Phosphatase 86 92 (45-117) U/L Total Protein 5.4 L D 5.4 L (6.4-8.2) g/dL Albumin 2.6 L 2.6 L (3.4-5.0) g/dL 07/19/18 Range/Units 06:41 Sodium 144 (136-145) meq/L Potassium 3.1 L (3.5-5.1) meq/L Chloride 113 H (98-107) meq/L Carbon Dioxide 22.0 (21.0-32.0) meq/L BUN 11 (7-18) mg/dL Creatinine 0.84 (0.50-1.00) mg/dL Calcium 7.3 L* (8.5-10.1) mg/dL AST 45 H (15-37) U/L ALT 26 (10-53) U/L Alkaline Phosphatase 92 (45-117) U/L Total Protein 5.1 L (6.4-8.2) g/dL Albumin 2.3 L (3.4-5.0) g/dL Intake and Output 07/18/18 07/19/1818 22:59 06:59 14:59 Intake Total 820 / 820 895 / 895 50 / 50 Balance 820 / 820 895 / 895 50 / 50 Intake: IV 100 / 100 175 / 175 50 / 50 Cardizem Inj 125 MG In NS Inj 125 / 125 100 ML @ 5 MG/HR 5 mls/hr IV. CONT TITRATE PRN Rx#:[id number] Zosyn 3.375 GM Premix 3.375 gm 100 / 100 50 / 50 50 / 50 In 50 ml @ 100 mls/hr IV.SIG Q6H NANCY Rx#:[id number] Oral 720 / 720 720 / 720 Other: # Voids 4 6 Date of Last Bowel Movement 07/16/18 07/16/18 07/16/18 Weight 80.7 kg Assessment and Plan - Assessment (1) Atrial fibrillation Code(s): I48.91 - Unspecified atrial fibrillation Status: Acute (2) Sepsis Code(s): A41.9 - Sepsis, unspecified organism Status: Acute - Plan 1.) Afib - rate improved, ef=65% on echo, rvsp=17; ok to fluid challenge if necessary to keep sbp > 20, d/w Dr Nava 07/18/18; continue iv heparin, will need coumadin or [facility] due to chadsvasc score =2
--- NOTE | 2018-07-19 12:52 | P.CONID ---
History of Present Illness Service: Infectious disease Consult date: 07/19/18 Requesting Physician: Guy Nava Reason for Consult: Evaluation and management of gram-negative UTI, acute cholecystitis Primary Care Provider: Teresa Álvarez MD Chief Complaint: abd pain History of Present Illness: Ms. 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 Patient reports that she was doing extremely well and on prior to admission she went to her local restaurant and had a 3 course meal with her daughter. She reports she did okay after getting back home but on the subsequent morning she woke up feeling extremely sick with nausea followed by multiple bouts of vomiting and subsequently diarrhea. Patient denies any urinary complaints prior to this acute onset illness. Patient denies any prior history of UTIs, renal stones or any bladder issues. Patient reports having had a EGD in the past approximately 10 years back and possibly an ERCP and being told that she had gallbladder sludge in addition to GERD. She reports a colonoscopy was attempted but due to anesthesia issues it had to be aborted. In the ER patient was found to be febrile with elevated WBC and altered mental status and patient was admitted for sepsis. Of sepsis workup was initiated in the ER including blood cultures UA with urine cultures as well as a CT abdomen pelvis done. The CT of the abdomen pelvis showed dilated biliary tree but no overt obstruction no gallbladder wall thickening no pericholecystic fluid. Patient had elevated creatinine as well and subsequently developed hypotension and tachycardia in the [place] emergency department she received 3 L of IV fluids and was placed on pressors to keep her map 65 and above. She was emergently transferred to [facility] from [place] for further management. She has been under the service of critical care team and has also been evaluated by gastroenterology. Gastroenterology planned on ERCP as well as possibly a colonoscopy. But before this could be attempted patient became extremely tachycardic and was diagnosed with new onset atrial fibrillation. Patient was evaluated by cardiology in was on Cardene drip until this morning. At the time of my evaluation patient is in the ICU currently reports crampy abdominal pain mostly in the suprapubic as well as right lower quadrant. She reports she had bouts of diarrhea earlier on in the admission and she feels like she is having a baby. She denies any nausea vomiting chest pain or diarrhea. Patient has good urine output. She is currently not on any vasopressors and is on room air. Infectious diseases consulted for evaluation and management of possible UTI, acute cholecystitis. Review of Systems All other systems reviewed negative except as stated in HPI [facility] - History History Provided By: Patient, Family Member - Medical History Medical History: Medical History (Last Reviewed 07/16/18 @ 15:48 by Chica Jacome PT) High cholesterol History of hysterectomy Hypertension Hypothyroidism Renal impairment - Surgical History Surgical History: Surgical History (Last Reviewed 07/16/18 @ 15:48 by Chica Jacome PT) History of appendectomy History of tonsillectomy - Family History Family History: Family History (Last Reviewed 07/16/18 @ 15:48 by Chica Jacome PT) Father Colon cancer - Tobacco History Second Hand Smoke Exposure: No Smoking Status: Never smoker - Alcohol History How Often Do You Have a Drink Containing Alcohol: Monthly or less - Substance Use History 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 - Immunization History Tetanus Immunization: <5 Years Hx Influenza Vaccine This Season: Yes Medications and Allergies Active Medications: Active Medications Acetaminophen (Tylenol) 650 mg PO Q6H PRN PRN Reason: TEMPERATURE > 101 F Albuterol (Duoneb Neb (Prn)) 1 ampul NEB Q2HR NEB PRN PRN Reason: WHEEZING Aspirin (Ecotrin) 81 mg PO DAILY [facility] Last Admin: 07/19/18 09:13 Dose: 81 mg Atorvastatin Calcium (Lipitor) 10 mg PO DAILY [facility] Last Admin: 07/19/18 09:13 Dose: 10 mg Bisacodyl (Dulcolax Supp) 10 mg RECTAL DAILY PRN PRN Reason: if no BM in last 24h Chlorhexidine Gluconate (Chlorhexidine 2% Cloth) 3 pack TOPICAL DAILY@0400 [facility] Stop: 07/21/18 03:59 Last Admin: 07/19/18 04:43 Dose: 3 pack Chlorhexidine Gluconate (Chlorhexidine 2% Cloth) 3 pack TOPICAL DAILY@0400 PRN PRN Reason: Extra cloth needed Stop: 07/21/18 03:59 Dextrose (D50w Vial) 50 ml IV.PUSH UNSCH PRN PRN Reason: PER HYPOGLYCEMIA PROTOCOL Glucagon (Glucagon Inj) 1 mg OTHER PRN PRN PRN Reason: for Hypoglycemia Protocol Magnesium Sulfate 4 gm/ Sodium (Chloride) 100 mls @ 50 mls/hr IV.SIG UNSCH PRN PRN Reason: For Magnesium 0.9 - 1.1 mg/dL Magnesium Sulfate 2 gm/ Sodium (Chloride) 100 mls @ 50 mls/hr IV.SIG UNSCH PRN PRN Reason: For Magnesium 1.2 - 1.6 mg/dL Potassium Chloride (Kcl 40 Meq Premix Inj) 40 meq in 100 mls @ 25 mls/hr IV.SIG Q2H PRN PRN Reason: For Potassium 2.8 - 3.2 mEq/L Potassium Chloride (Kcl 20 Meq Premix Inj) 20 meq in 100 mls @ 50 mls/hr IV.SIG Q2H PRN PRN Reason: For Potassium 3.3 - 3.5 mEq/L Last Infusion: 07/17/18 13:51 Dose: Infused Potassium Chloride (Kcl 40 Meq Premix Inj) 40 meq in 100 mls @ 25 mls/hr IV.SIG UNSCH PRN PRN Reason: For Potassium 3.3 - 3.5 mEq/L Potassium Phosphate 30 mmol/ (Sodium Chloride) 260 mls @ 42 mls/hr IV.SIG UNSCH PRN PRN Reason: SEE LABEL COMMENTS Sodium Phosphate 30 mmol/ (Sodium Chloride) 260 mls @ 42 mls/hr IV.SIG UNSCH PRN PRN Reason: For Phosphorus < 2.5 mg/dL Potassium Chloride (Kcl 20 Meq Premix Inj) 20 meq in 100 mls @ 50 mls/hr IV.SIG Q2H PRN PRN Reason: For Potassium 2.8 - 3.2 mEq/L Last Admin: 07/19/18 11:07 Dose: 50 mls/hr Piperacillin/Tazobactam/Dextrose (Zosyn 3.375 Gm Premix) 3.375 gm in 50 mls @ 100 mls/hr IV.SIG Q6H NANCY Last Infusion: 07/19/18 09:46 Dose: Infused Diltiazem HCl 125 mg/ Sodium (Chloride) 125 mls @ 5 mls/hr IV.CONT TITRATE PRN ; Protocol PRN Reason: Per Protocol Last Titration: 07/19/18 11:00 Dose: 0 mg/hr, 0 mls/hr Heparin Sodium/Dextrose (Heparin/D5w 25,000 U/250 Ml) 25,000 unit in 250 mls @ 0 mls/hr IV.CONT TITRATE PRN; Protocol PRN Reason: Per Protocol Last Titration: 07/19/18 00:04 Dose: 400 units/hr, 4 mls/hr Insulin Human Regular (Novolin R Correctional Sugar Inj) 0 units SQ Q6HR [facility]; Protocol Last Admin: 07/19/18 12:40 Dose: Not Given Lactulose (Lactulose Liq) 30 ml PO BID [facility] Last Admin: 07/19/18 09:07 Dose: Not Given Levothyroxine Sodium (Synthroid) 50 mcg PO DAILY@0600 [facility] Last Admin: 07/19/18 06:17 Dose: 50 mcg Magnesium Oxide (Mag-Ox) 800 mg PO UNSCH PRN PRN Reason: For Magnesium 1.2 - 1.6 mg/dL Melatonin (Melatonin) 5 mg PO HS [facility] Last Admin: 07/18/18 20:54 Dose: 5 mg Metoprolol Succinate (Toprol Xl) 100 mg PO [facility] Last Admin: 07/18/18 20:54 Dose: 100 mg Miscellaneous (Pill Splitter) 1 each OTHER UNSCH PRN PRN Reason: SEE LABEL COMMENTS Morphine Sulfate (Morphine Inj) 1 mg IV.PUSH Q2H PRN PRN Reason: PAIN 1-5 Last Admin: 07/19/18 11:17 Dose: 1 mg Ondansetron HCl (Zofran Inj) 4 mg IV.PUSH Q6H PRN PRN Reason: NAUSEA OR VOMITING Last Admin: 07/16/18 06:19 Dose: 4 mg Pantoprazole Sodium (Protonix) 40 mg PO DAILY [facility] Last Admin: 07/19/18 09:13 Dose: 40 mg Phenazopyridine HCl (Pyridium) 200 mg PO DAILY [facility] Last Admin: 07/19/18 09:13 Dose: 200 mg Polyethylene Glycol (Miralax) 17 gm PO BID [facility] Last Admin: 07/19/18 09:07 Dose: Not Given Potassium Bicarb/Potassium Chloride (K-Lyte Cl Eff) 50 meq PO UNSCH PRN PRN Reason: For Potassium 3.3 - 3.5 mEq/L Potassium Phosphate (K-Phos Original) 2,000 mg PO Q4H PRN PRN Reason: Phosphorus Less Than 2.5 mg/dL Potassium Phosphate (K-Phos Original) 2,000 mg PO UNSCH PRN PRN Reason: SEE LABEL COMMENTS Last Admin: 07/17/18 09:10 Dose: 2,000 mg Quetiapine Fumarate (Seroquel) 200 mg PO HS [facility] Last Admin: 07/18/18 20:54 Dose: 200 mg Senna/Docusate Sodium (Linda-Colace) 1 tab PO BID [facility] Last Admin: 07/19/18 09:13 Dose: 1 tab Sodium Chloride (Ns Flush) 2 ml IV.FLUSH PRN PRN PRN Reason: FLUSH AFTER USING IV ACCESS Sodium Chloride (Ns Flush) 2 ml IV.FLUSH UNSCH PRN PRN Reason: FLUSH AFTER USING IV ACCESS Allergies Allergy/AdvReac Type Severity Reaction Status Date / Time diphenhydramine Allergy Severe THROAT Verified 07/16/18 00:47 CLOSES valproic acid Allergy Intermediate VERY Verified 07/16/18 00:47 DISORIENTED Home Medications Medication Instructions Recorded Confirmed Type amlodipine 5 mg PO DAILY 07/16/18 07/16/18 History aspirin [Aspir-81] 81 mg PO DAILY 07/16/18 07/16/18 History atorvastatin 10 mg PO DAILY 07/16/18 07/16/18 History candesartan 16 mg PO DAILY 07/16/18 07/16/18 History cholecalciferol (vitamin D3) 2,000 unit PO DAILY 07/16/18 07/16/18 History [Vitamin D3] cyanocobalamin (vitamin B-12) 1,000 mcg PO DAILY 07/16/18 07/16/18 History [Vitamin B-12] levothyroxine [Synthroid] 50 mcg PO DAILY 07/16/18 07/16/18 History metoprolol succinate [Toprol XL] 100 mg PO HS 07/16/18 07/16/18 History quetiapine [Seroquel] 200 mg PO HS 07/16/18 07/16/18 History Exam Vital signs: Vital Signs 07/18/18 13:00 07/18/18 14:00 07/18/18 15:00 Temperature Pulse Rate 88 103 H 107 H Respiratory Rate 34 H 32 H 27 H Blood Pressure 125/68 128/79 115/63 Pulse Oximetry 91 L 90 L 92 L 07/18/18 16:00 07/18/18 17:00 07/18/18 18:00 Temperature 99.5 F Pulse Rate 95 H 91 H 90 Respiratory Rate 27 H 24 23 Blood Pressure 127/57 L 143/66 H 135/64 Pulse Oximetry 91 L 93 L 93 L 07/18/18 19:00 07/18/18 20:00 07/18/18 20:25 Temperature 99.2 F Pulse Rate 99 H 105 H Respiratory Rate 36 H 23 Blood Pressure 136/87 125/66 Pulse Oximetry 92 L 92 L 97 07/18/18 21:00 07/18/18 22:00 07/18/18 22:08 Temperature Pulse Rate 104 H 97 H 95 H Respiratory Rate 29 H 31 H 32 H Blood Pressure 132/71 124/74 Pulse Oximetry 91 L 93 L 91 L 07/18/18 23:00 07/19/18 00:00 07/19/18 00:07 Temperature 98.6 F Pulse Rate 90 85 Respiratory Rate 22 9 L 14 Blood Pressure 102/50 L 101/57 L Pulse Oximetry 92 L 95 07/19/18 01:00 07/19/18 02:00 07/19/18 03:00 Temperature Pulse Rate 85 88 86 Respiratory Rate 0 L 21 19 Blood Pressure 96/50 L 110/58 L 100/52 L Pulse Oximetry 95 91 L 91 L 07/19/18 04:00 07/19/18 04:01 07/19/18 05:00 Temperature 98.8 F Pulse Rate 88 93 H 85 Respiratory Rate 17 20 19 Blood Pressure 115/52 L 92/51 L Pulse Oximetry 89 L 92 L 94 L 07/19/18 06:00 07/19/18 07:00 07/19/18 08:00 Temperature 98.5 F Pulse Rate 97 H 84 84 Respiratory Rate 23 20 22 Blood Pressure 103/61 109/57 L 100/57 L Pulse Oximetry 92 L 93 L 95 07/19/18 09:00 07/19/18 10:00 07/19/18 11:00 Temperature Pulse Rate 92 H 93 H 94 H Respiratory Rate 27 H 22 23 Blood Pressure 118/56 L 114/56 L 104/59 L Pulse Oximetry 93 L 93 L 93 L 07/19/18 12:00 Temperature Pulse Rate 98 H Respiratory Rate 25 H Blood Pressure 127/64 Pulse Oximetry 92 L Intake & Output 07/18/18 07/19/18 07/19/18 18:59 06:59 18:59 Intake Total 945 / 945 945 / 945 50 / 50 Balance 945 / 945 945 / 945 50 / 50 Weight 80.7 kg Intake: IV 225 / 225 225 / 225 50 / 50 Cardizem Inj 125 MG In NS Inj 125 / 125 125 / 125 100 ML @ 5 MG/HR 5 mls/hr IV. CONT TITRATE PRN Rx#:[id number] Zosyn 3.375 GM Premix 3.375 gm 100 / 100 100 / 100 50 / 50 In 50 ml @ 100 mls/hr IV.SIG Q6H NANCY Rx#:[id number] Oral 720 / 720 720 / 720 Other: # Voids 4 6 Date of Last Bowel Movement 07/16/18 07/16/18 07/16/18 Narrative: GENERAL: Well-nourished well-developed, not in acute distress SKIN: Cool and dry, no generalized rash HEAD: Atraumatic. Normocephalic. No temporal or scalp tenderness. EYES: Pupils equal round and reactive. Scleral icterus. No injection or drainage. No petechia ENT: Nothing abnormal detected NECK: Trachea midline. Supple, nontender, no meningeal signs. CARDIOVASCULAR: HS audible. RESPIRATORY: Clear to auscultation bilaterally. GASTROINTESTINAL: Abdomen soft tenderness in the right lower quadrant as well as in the suprapubic region. MUSCULOSKELETAL: Extremities without clubbing, cyanosis. NEUROLOGICAL: Alert oriented 3. Nonfocal. Psych cooperative IV line sites ok. Results - Labs CBC & Chem 7: 07/19/18 06:41 07/19/18 06:41 Labs: Laboratory Results - last 24 hr 07/18/18 07/18/18 07/18/18 14:40 14:40 17:29 WBC RBC Hgb Hct MCV MCH MCHC RDW Plt Count MPV Neut % (Auto) Lymph % (Auto) Ida % (Auto) Eos % (Auto) Baso % (Auto) Neut # (Auto) Lymph # (Auto) Ida # (Auto) Eos # (Auto) Baso # (Auto) WBC Differential Differential Comment APTT 177.4 H* D Sodium 145 Potassium 3.3 L Chloride 114 H Carbon Dioxide 22.2 Anion Gap 9 BUN 14 Creatinine 1.02 H Estimated GFR 52 L POC Glucose 133 H Random Glucose 127 H Calcium 7.8 L Calcium Adj for Albumin Phosphorus Magnesium 2.1 Total Bilirubin 0.5 AST 42 H ALT 24 Alkaline Phosphatase 92 Total Protein 5.4 L Albumin 2.6 L Digoxin 07/18/18 07/18/18 07/18/18 17:40 23:28 23:32 WBC RBC Hgb Hct MCV MCH MCHC RDW Plt Count MPV Neut % (Auto) Lymph % (Auto) Ida % (Auto) Eos % (Auto) Baso % (Auto) Neut # (Auto) Lymph # (Auto) Ida # (Auto) Eos # (Auto) Baso # (Auto) WBC Differential Differential Comment APTT 76.6 H D 77.4 H Sodium Potassium Chloride Carbon Dioxide Anion Gap BUN Creatinine Estimated GFR POC Glucose 158 H Random Glucose Calcium Calcium Adj for Albumin Phosphorus Magnesium Total Bilirubin AST ALT Alkaline Phosphatase Total Protein Albumin Digoxin 07/19/18 07/19/18 07/19/18 05:52 06:41 06:41 WBC 7.2 RBC 3.54 L Hgb 10.8 L Hct 31.0 L MCV 87.6 MCH 30.5 MCHC 34.9 RDW 13.4 Plt Count 208 MPV 8.7 Neut % (Auto) 58.4 Lymph % (Auto) 23.1 Ida % (Auto) 11.8 H Eos % (Auto) 6.3 H Baso % (Auto) 0.4 Neut # (Auto) 4.2 Lymph # (Auto) 1.7 Ida # (Auto) 0.9 Eos # (Auto) 0.5 H Baso # (Auto) 0.0 WBC Differential . Differential Comment Auto diff final APTT Sodium 144 Potassium 3.1 L Chloride 113 H Carbon Dioxide 22.0 Anion Gap 9 BUN 11 Creatinine 0.84 Estimated GFR 65 L POC Glucose 111 H Random Glucose 106 Calcium 7.3 L* Calcium Adj for Albumin 8.7 Phosphorus 1.8 L Magnesium 1.8 Total Bilirubin 0.6 AST 45 H ALT 26 Alkaline Phosphatase 92 Total Protein 5.1 L Albumin 2.3 L Digoxin 0.6 L 07/19/18 07/19/18 06:41 12:37 WBC RBC Hgb Hct MCV MCH MCHC RDW Plt Count MPV Neut % (Auto) Lymph % (Auto) Ida % (Auto) Eos % (Auto) Baso % (Auto) Neut # (Auto) Lymph # (Auto) Ida # (Auto) Eos # (Auto) Baso # (Auto) WBC Differential Differential Comment APTT 68.9 H Sodium Potassium Chloride Carbon Dioxide Anion Gap BUN Creatinine Estimated GFR POC Glucose 116 H Random Glucose Calcium Calcium Adj for Albumin Phosphorus Magnesium Total Bilirubin AST ALT Alkaline Phosphatase Total Protein Albumin Digoxin - Imaging Abdomen/Bladder Ultrasound 07/16/18 00:00 CONCLUSION: 1. Increased echogenicity to the kidneys bilaterally consistent with medical renal disease. No hydronephrosis is seen. 2. 1.3 cm cyst at the mid left kidney. Chest X-Ray 07/16/18 00:00 CONCLUSION: Elevated right hemidiaphragm. Lungs are clear. Cholangiopancreatography MRI 07/16/18 00:00 CONCLUSION: 1. Moderately distended gallbladder with diffusely distended extrahepatic bile ducts and pancreatic duct extending to the ampulla. No definitive focal intraductal abnormality is demonstrated. Differential considerations include an occult pancreatic head lesion versus ampullary dysfunction/mass. Consider ERCP with endoscopic ultrasound for further evaluation as clinically warranted. Abdomen/Pelvis CT 07/16/18 00:18 CONCLUSION: 1. Biliary tree dilatation otherwise unremarkable CT scan of the abdomen and pelvis. Right hemidiaphragm is markedly elevated. Moderately distended colon without evidence of wall thickening or obstruction. 2. Some increased density to the left renal collecting system and right posterior bladder that could be evidence of transitional cell carcinoma. Correlate for hematuria. And outpt. Urology workup recommended Head CT 07/16/18 00:18 CONCLUSION: 1. Unremarkable study. No evidence of hemorrhage or edema. Some motion in the central portion of the exam without obvious mass or mass effect . Chest X-Ray 07/17/18 00:00 CONCLUSION: Elevation of the right hemidiaphragm with some accompanying atelectasis or consolidation at the right base. There also is some prominence of the right hilar region. Assessment and Plan - Plan Severe sepsis present on admission. Possible staphylococcal food poisoning on admission, which are concerning for toxic shock syndrome versus prerenal status from large volume vomiting and diarrhea. E. coli and strep ? UTI especially in the presence of abnormal color show findings concerning for transitional cell carcinoma. Possible acute cholecystitis Acute metabolic encephalopathy on admission likely secondary to sepsis now resolved Acute renal failure on admission now appears to be improving Recommendations Continue Zosyn IV for now Follow cultures Follow clinical course Await urology input Await further GI input Discussed with critical care medicine.
[2018-07-19] MEDS: Melatonin 5 MG Tablet PO SCH (20:29)
[2018-07-20] MEDS: Heparin Drip 25,000 UNIT/250 ML BAG IV.CONT PRN ×2 (00:14→07:44)
[2018-07-20] MEDS: Potassium Chlor 20 mEq Premix 20 MEQ/100 ML PIGGYBACK IV.SIG PRN (00:17)
[2018-07-20] MEDS: Insulin NovoLIN Regular Correctional Sugar Inj SQ SCH ×4 (00:18→17:22)
[2018-07-20] MEDS: Piperacil/Tazo 3.375 GM Premix 3.375 GM/50 ML PIGGYBACK IV.SIG SCH ×4 (03:23→22:17)
[2018-07-20] MEDS: Chlorhexidine Gluconate 2% 1 Pack (2 Cloths) TOPICAL SCH (03:24)
[2018-07-20 05:22] LABS: Baso # (Auto) 0.1 th/mm3 (0.0-0.2); Baso % (Auto) 0.8 % (0.0-2.0); Eos # (Auto) 0.4 th/mm3 (0.0-0.4); Eos % (Auto) 5.9 % (0.0-4.0); Hematocrit 29.5 % (35.0-46.0); Lymph # (Auto) 1.6 th/mm3 (1.0-4.8); Mean Corpuscular HGB Conc 34.1 % (32.0-36.0); Mean Corpuscular Hemoglobin 30.4 pg (27.0-34.0); Mean Corpuscular Volume 89.3 fL (80.0-100.0); Mean Platelet Volume 9.5 fL (7.0-11.0); Mono # (Auto) 1.1 th/mm3 (0.0-0.9); Mono % (Auto) 14.2 % (0.0-8.0); Neut # (Auto) 4.3 th/mm3 (1.8-7.7); Neut % (Auto) 57.1 % (16.0-70.0); Platelet Count 149 th/mm3 (150-450); Red Cell Distribution Width 13.5 % (11.6-17.2); White Blood Count 7.5 th/mm3 (4.0-11.0)
[2018-07-20 05:51] LABS: Alanine Aminotransferase 45 U/L (10-53); Albumin 2.1 g/dL (3.4-5.0); Alkaline Phosphatase 116 U/L (45-117); Anion Gap 7 meq/L (5-15); Aspartate Aminotransferase 70 U/L (15-37); Blood Urea Nitrogen 10 mg/dL (7-18); Calcium 7.5 mg/dL (8.5-10.1); Carbon Dioxide 23.9 meq/L (21.0-32.0); Chloride 114 meq/L (98-107); Glomerular Filtration Rate 63 mL/min (>89); Glucose,Random 107 mg/dL (74-106); Magnesium 1.8 mg/dL (1.5-2.5); Phosphorus 2.1 mg/dL (2.5-4.9); Sodium 145 meq/L (136-145); Total Protein 4.9 g/dL (6.4-8.2)
[2018-07-20 05:52] LABS: Potassium 4.5 meq/L (3.5-5.1)
[2018-07-20] MEDS: Levothyroxine 50 MCG Tablet PO SCH (06:26)
[2018-07-20] MEDS: Morphine Inj 4 MG/ML Vial IV.PUSH PRN ×4 (06:36→20:39)
[2018-07-20] MEDS: Senna/Docusate Sodium 8.6/50 MG Tablet PO SCH ×2 (09:07→20:40)
[2018-07-20] MEDS: Polyethylene Glycol 3350 17 GM Packet PO SCH ×2 (09:07→20:40)
--- NOTE | 2018-07-20 10:04 | P.PNCA ---
Subjective Interval history: alert in nad Medications and Allergies Active Medications: Active Medications Acetaminophen (Tylenol) 650 mg PO Q6H PRN PRN Reason: TEMPERATURE > 101 F Albuterol (Duoneb Neb (Prn)) 1 ampul NEB Q2HR NEB PRN PRN Reason: WHEEZING Aspirin (Ecotrin) 81 mg PO DAILY [facility] Last Admin: 07/20/18 09:07 Dose: 81 mg Atorvastatin Calcium (Lipitor) 10 mg PO DAILY [facility] Last Admin: 07/20/18 09:07 Dose: 10 mg Bisacodyl (Dulcolax Supp) 10 mg RECTAL DAILY PRN PRN Reason: if no BM in last 24h Chlorhexidine Gluconate (Chlorhexidine 2% Cloth) 3 pack TOPICAL DAILY@0400 [facility] Stop: 07/21/18 03:59 Last Admin: 07/20/18 03:24 Dose: 3 pack Chlorhexidine Gluconate (Chlorhexidine 2% Cloth) 3 pack TOPICAL DAILY@0400 PRN PRN Reason: Extra cloth needed Stop: 07/21/18 03:59 Dextrose (D50w Vial) 50 ml IV.PUSH UNSCH PRN PRN Reason: PER HYPOGLYCEMIA PROTOCOL Glucagon (Glucagon Inj) 1 mg OTHER PRN PRN PRN Reason: for Hypoglycemia Protocol Magnesium Sulfate 4 gm/ Sodium (Chloride) 100 mls @ 50 mls/hr IV.SIG UNSCH PRN PRN Reason: For Magnesium 0.9 - 1.1 mg/dL Magnesium Sulfate 2 gm/ Sodium (Chloride) 100 mls @ 50 mls/hr IV.SIG UNSCH PRN PRN Reason: For Magnesium 1.2 - 1.6 mg/dL Potassium Chloride (Kcl 40 Meq Premix Inj) 40 meq in 100 mls @ 25 mls/hr IV.SIG Q2H PRN PRN Reason: For Potassium 2.8 - 3.2 mEq/L Potassium Chloride (Kcl 20 Meq Premix Inj) 20 meq in 100 mls @ 50 mls/hr IV.SIG Q2H PRN PRN Reason: For Potassium 3.3 - 3.5 mEq/L Last Infusion: 07/17/18 13:51 Dose: Infused Potassium Chloride (Kcl 40 Meq Premix Inj) 40 meq in 100 mls @ 25 mls/hr IV.SIG UNSCH PRN PRN Reason: For Potassium 3.3 - 3.5 mEq/L Potassium Phosphate 30 mmol/ (Sodium Chloride) 260 mls @ 42 mls/hr IV.SIG UNSCH PRN PRN Reason: SEE LABEL COMMENTS Sodium Phosphate 30 mmol/ (Sodium Chloride) 260 mls @ 42 mls/hr IV.SIG UNSCH PRN PRN Reason: For Phosphorus < 2.5 mg/dL Potassium Chloride (Kcl 20 Meq Premix Inj) 20 meq in 100 mls @ 50 mls/hr IV.SIG Q2H PRN PRN Reason: For Potassium 2.8 - 3.2 mEq/L Last Infusion: 07/20/18 04:27 Dose: Infused Piperacillin/Tazobactam/Dextrose (Zosyn 3.375 Gm Premix) 3.375 gm in 50 mls @ 100 mls/hr IV.SIG Q6H [facility] Last Infusion: 07/20/18 09:37 Dose: Infused Diltiazem HCl 125 mg/ Sodium (Chloride) 125 mls @ 5 mls/hr IV.CONT TITRATE PRN ; Protocol PRN Reason: Per Protocol Last Titration: 07/20/18 04:24 Dose: 0 mg/hr, 0 mls/hr Heparin Sodium/Dextrose (Heparin/D5w 25,000 U/250 Ml) 25,000 unit in 250 mls @ 0 mls/hr IV.CONT TITRATE PRN; Protocol PRN Reason: Per Protocol Last Titration: 07/20/18 08:26 Dose: 500 units/hr, 5 mls/hr Insulin Human Regular (Novolin R Correctional Sugar Inj) 0 units SQ Q6HR NANCY; Protocol Last Admin: 07/20/18 06:52 Dose: Not Given Lactulose (Lactulose Liq) 30 ml PO BID [facility] Last Admin: 07/20/18 09:07 Dose: 30 ml Levothyroxine Sodium (Synthroid) 50 mcg PO DAILY@0600 [facility] Last Admin: 07/20/18 06:26 Dose: 50 mcg Magnesium Oxide (Mag-Ox) 800 mg PO UNSCH PRN PRN Reason: For Magnesium 1.2 - 1.6 mg/dL Melatonin (Melatonin) 5 mg PO HS [facility] Last Admin: 07/19/18 20:29 Dose: 5 mg Metoprolol Succinate (Toprol Xl) 100 mg PO [facility] Last Admin: 07/19/18 20:30 Dose: 100 mg Miscellaneous (Pill Splitter) 1 each OTHER UNSCH PRN PRN Reason: SEE LABEL COMMENTS Morphine Sulfate (Morphine Inj) 1 mg IV.PUSH Q2H PRN PRN Reason: PAIN 1-5 Last Admin: 07/20/18 09:34 Dose: 1 mg Ondansetron HCl (Zofran Inj) 4 mg IV.PUSH Q6H PRN PRN Reason: NAUSEA OR VOMITING Last Admin: 07/19/18 18:28 Dose: 4 mg Pantoprazole Sodium (Protonix) 40 mg PO DAILY [facility] Last Admin: 07/20/18 09:07 Dose: 40 mg Phenazopyridine HCl (Pyridium) 200 mg PO DAILY [facility] Last Admin: 07/20/18 09:07 Dose: 200 mg Polyethylene Glycol (Miralax) 17 gm PO BID [facility] Last Admin: 07/20/18 09:07 Dose: 17 gm Potassium Bicarb/Potassium Chloride (K-Lyte Cl Eff) 50 meq PO UNSCH PRN PRN Reason: For Potassium 3.3 - 3.5 mEq/L Potassium Phosphate (K-Phos Original) 2,000 mg PO Q4H PRN PRN Reason: Phosphorus Less Than 2.5 mg/dL Potassium Phosphate (K-Phos Original) 2,000 mg PO UNSCH PRN PRN Reason: SEE LABEL COMMENTS Last Admin: 07/17/18 09:10 Dose: 2,000 mg Quetiapine Fumarate (Seroquel) 200 mg PO [facility] Last Admin: 07/19/18 20:30 Dose: 200 mg Senna/Docusate Sodium (Linda-Colace) 1 tab PO BID [facility] Last Admin: 07/20/18 09:07 Dose: 1 tab Sodium Chloride (Ns Flush) 2 ml IV.FLUSH PRN PRN PRN Reason: FLUSH AFTER USING IV ACCESS Sodium Chloride (Ns Flush) 2 ml IV.FLUSH UNSCH PRN PRN Reason: FLUSH AFTER USING IV ACCESS Allergies Allergy/AdvReac Type Severity Reaction Status Date / Time diphenhydramine Allergy Severe THROAT Verified 07/16/18 00:47 CLOSES valproic acid Allergy Intermediate VERY Verified 07/16/18 00:47 DISORIENTED Home Medications Medication Instructions Recorded Confirmed Type amlodipine 5 mg PO DAILY 07/16/18 07/16/18 History aspirin [Aspir-81] 81 mg PO DAILY 07/16/18 07/16/18 History atorvastatin 10 mg PO DAILY 07/16/18 07/16/18 History candesartan 16 mg PO DAILY 07/16/18 07/16/18 History cholecalciferol (vitamin D3) 2,000 unit PO DAILY 07/16/18 07/16/18 History [Vitamin D3] cyanocobalamin (vitamin B-12) 1,000 mcg PO DAILY 07/16/18 07/16/18 History [Vitamin B-12] levothyroxine [Synthroid] 50 mcg PO DAILY 07/16/18 07/16/18 History metoprolol succinate [Toprol XL] 100 mg PO HS 07/16/18 07/16/18 History quetiapine [Seroquel] 200 mg PO HS 07/16/18 07/16/18 History Physical Exam Vital signs: Vital Signs 07/19/18 11:00 07/19/18 12:00 07/19/18 13:00 Temperature Pulse Rate 94 H 98 H 118 H Respiratory Rate 23 25 H 23 Blood Pressure 104/59 L 127/64 139/67 Pulse Oximetry 93 L 92 L 95 07/19/18 13:27 07/19/18 13:30 07/19/18 13:45 Temperature Pulse Rate 147 H 136 H 137 H Respiratory Rate 26 H 24 23 Blood Pressure 126/82 146/82 H 105/64 Pulse Oximetry 94 L 95 90 L 07/19/18 14:00 07/19/18 14:15 07/19/18 14:30 Temperature Pulse Rate 114 H 122 H 116 H Respiratory Rate 19 22 20 Blood Pressure 116/77 124/79 133/99 H Pulse Oximetry 93 L 87 L 91 L 07/19/18 14:50 07/19/18 15:00 07/19/18 15:15 Temperature Pulse Rate 111 H 114 H 112 H Respiratory Rate 23 22 24 Blood Pressure 140/69 134/63 128/73 Pulse Oximetry 87 L 88 L 90 L 07/19/18 15:30 07/19/18 15:45 07/19/18 16:00 Temperature Pulse Rate 113 H 117 H 119 H Respiratory Rate 24 30 H 26 H Blood Pressure 132/73 130/61 135/78 Pulse Oximetry 91 L 90 L 89 L 07/19/18 16:15 07/19/18 16:31 07/19/18 16:45 Temperature Pulse Rate 114 H 103 H 114 H Respiratory Rate 20 20 25 H Blood Pressure 129/61 138/64 116/78 Pulse Oximetry 89 L 94 L 95 07/19/18 17:00 07/19/18 17:15 07/19/18 17:31 Temperature Pulse Rate 104 H 104 H 121 H Respiratory Rate 23 18 31 H Blood Pressure 127/93 H 116/88 120/81 Pulse Oximetry 94 L 93 L 90 L 07/19/18 17:38 07/19/18 17:45 07/19/18 18:00 Temperature Pulse Rate 104 H 110 H 111 H Respiratory Rate 23 24 21 Blood Pressure 127/93 H 124/83 130/85 Pulse Oximetry 94 L 94 L 95 07/19/18 18:15 07/19/18 18:24 07/19/18 18:30 Temperature Pulse Rate 132 H 128 H 125 H Respiratory Rate 25 H 26 H 31 H Blood Pressure 145/112 H 148/80 H 133/65 Pulse Oximetry 94 L 96 94 L 07/19/18 18:45 07/19/18 19:00 07/19/18 19:15 Temperature Pulse Rate 123 H 125 H 123 H Respiratory Rate 25 H 22 22 Blood Pressure 143/64 H 145/68 H 124/60 Pulse Oximetry 94 L 93 L 93 L 07/19/18 19:30 07/19/18 19:45 07/19/18 20:00 Temperature 98.6 F Pulse Rate 107 H 114 H 124 H Respiratory Rate 20 24 23 Blood Pressure 138/66 121/64 147/68 H Pulse Oximetry 92 L 94 L 93 L 07/19/18 20:15 07/19/18 20:30 07/19/18 20:45 Temperature Pulse Rate 116 H 111 H 105 H Respiratory Rate 20 23 27 H Blood Pressure 121/70 135/62 145/75 H Pulse Oximetry 93 L 94 L 91 L 07/19/18 21:00 07/19/18 21:15 07/19/18 21:30 Temperature Pulse Rate 104 H 102 H 103 H Respiratory Rate 25 H 24 26 H Blood Pressure 136/63 144/70 H 123/67 Pulse Oximetry 88 L 93 L 92 L 07/19/18 21:45 07/19/18 22:00 07/19/18 22:15 Temperature Pulse Rate 102 H 110 H 108 H Respiratory Rate 25 H 22 22 Blood Pressure 132/64 142/72 H 150/67 H Pulse Oximetry 93 L 91 L 92 L 07/19/18 22:30 07/19/18 22:45 07/19/18 23:00 Temperature Pulse Rate 121 H 133 H 103 H Respiratory Rate 22 26 H 24 Blood Pressure 134/69 148/73 H 98/50 L Pulse Oximetry 93 L 91 L 91 L 07/19/18 23:12 07/19/18 23:15 07/19/18 23:30 Temperature Pulse Rate 90 93 H Respiratory Rate 14 21 19 Blood Pressure 100/55 L 91/54 L Pulse Oximetry 91 L 91 L 07/19/18 23:45 07/20/18 00:00 07/20/18 00:15 Temperature Pulse Rate 86 88 84 Respiratory Rate 9 L 14 20 Blood Pressure 94/51 L 100/53 L 92/54 L Pulse Oximetry 92 L 93 L 93 L 07/20/18 00:30 07/20/18 00:45 07/20/18 01:00 Temperature Pulse Rate 81 83 83 Respiratory Rate 21 20 20 Blood Pressure 105/50 L 96/50 L 109/57 L Pulse Oximetry 93 L 92 L 91 L 07/20/18 01:15 07/20/18 01:30 07/20/18 01:45 Temperature Pulse Rate 84 82 86 Respiratory Rate 19 18 18 Blood Pressure 112/54 L 130/57 L 119/59 L Pulse Oximetry 91 L 93 L 93 L 07/20/18 02:00 07/20/18 02:16 07/20/18 02:30 Temperature Pulse Rate 83 65 62 Respiratory Rate 18 23 18 Blood Pressure 104/69 105/77 115/54 L Pulse Oximetry 93 L 93 L 94 L 07/20/18 02:46 07/20/18 03:00 07/20/18 03:15 Temperature Pulse Rate 64 64 66 Respiratory Rate 19 19 17 Blood Pressure 127/74 117/59 L 128/61 Pulse Oximetry 95 94 L 96 07/20/18 03:30 07/20/18 03:46 07/20/18 04:00 Temperature Pulse Rate 66 70 67 Respiratory Rate 18 22 35 H Blood Pressure 115/55 L 120/84 Pulse Oximetry 94 L 95 94 L 07/20/18 04:01 07/20/18 04:16 07/20/18 04:38 Temperature Pulse Rate 67 67 69 Respiratory Rate 35 H 18 21 Blood Pressure 143/60 H 125/57 L 122/59 L Pulse Oximetry 94 L 94 L 94 L 07/20/18 05:00 07/20/18 05:30 07/20/18 06:00 Temperature Pulse Rate 67 68 66 Respiratory Rate 18 17 19 Blood Pressure 121/57 L 127/59 L 108/55 L Pulse Oximetry 96 94 L 94 L 07/20/18 06:31 07/20/18 06:52 07/20/18 07:00 Temperature Pulse Rate 73 67 Respiratory Rate 21 14 19 Blood Pressure 144/63 H Pulse Oximetry 94 L 95 07/20/18 07:01 07/20/18 07:31 07/20/18 07:40 Temperature Pulse Rate 67 73 Respiratory Rate 18 20 Blood Pressure 121/57 L 151/67 H Pulse Oximetry 95 95 95 07/20/18 08:00 07/20/18 08:01 07/20/18 08:31 Temperature 98.6 F Pulse Rate 72 70 71 Respiratory Rate 26 H 20 21 Blood Pressure 138/63 111/55 L Pulse Oximetry 96 95 98 07/20/18 09:00 07/20/18 09:01 07/20/18 09:32 Temperature Pulse Rate 76 74 75 Respiratory Rate 27 H 26 H 23 Blood Pressure 112/53 L 122/54 L Pulse Oximetry 96 97 97 07/20/18 09:44 Temperature Pulse Rate Respiratory Rate 16 Blood Pressure Pulse Oximetry Intake & Output 07/19/18 07/20/18 07/20/18 18:59 06:59 18:59 Intake Total 1000 / 1000 875 / 875 300 / 300 Output Total 550 / 550 Balance 1000 / 1000 325 / 325 300 / 300 Weight 76.8 kg Intake: IV 200 / 200 775 / 775 300 / 300 Heparin/D5W 25,000 U/250 mL 25, 250 / 250 250 / 250 000 unit In 250 ml @ Per Protocol IV.CONT TITRATE PRN Rx #:[id number] Cardizem Inj 125 MG In NS Inj 125 / 125 100 ML @ 5 MG/HR 5 mls/hr IV. CONT TITRATE PRN Rx#:[id number] Zosyn 3.375 GM Premix 3.375 gm 100 / 100 100 / 100 50 / 50 In 50 ml @ 100 mls/hr IV.SIG Q6H NANCY Rx#:[id number] KCl 20 mEq Premix Inj 20 meq In 100 / 100 300 / 300 100 ml @ 50 mls/hr IV.SIG Q2H PRN Rx#:[id number] Oral 800 / 800 100 / 100 Output: Urine 550 / 550 Other: # Voids 3 Date of Last Bowel Movement 07/16/18 07/16/18 07/16/18 # Bowel Movements 0 - Constitutional no acute distress - Routine HEENT Exam Head: Present: normocephalic - Routine Neck Exam Present: supple - Routine Respiratory Exam Present: CTA bilaterally - Routine Cardiovascular Exam Present: S1, S2 - Routine Abdominal Exam Present: soft - Routine Extremities Exam Comments: no alejandra - Urinary Catheter Management Indwelling Urethral Catheter Cath placed during this visit: yes, but has since been removed by the nurse Reason for continuing: Decision to DC catheter Insertion date: 07/16/18 Insertion time: 04:00 Removal date: 07/17/18 Removal time: 12:00 Results 07/20/18 04:36 07/20/18 04:36 Cardiac Enzymes 07/18/18 07/19/18 07/20/18 Range/Units 14:40 06:41 04:36 AST 42 H 45 H 70 H (15-37) U/L Coagulation 07/18/18 07/18/18 07/18/18 Range/Units 14:40 17:40 23:28 APTT 177.4 H* D 76.6 H D 77.4 H (23.4-31.7) sec 07/19/18 07/20/18 Range/Units 06:41 07:23 APTT 68.9 H 39.4 H D (23.4-31.7) sec CBC 07/19/18 07/20/18 Range/Units 06:41 04:36 WBC 7.2 7.5 (4.0-11.0) th/mm3 RBC 3.54 L 3.30 L (4.00-5.30) mil/mm3 Hgb 10.8 L 10.0 L (11.6-15.3) gm/dL Hct 31.0 L 29.5 L (35.0-46.0) % Plt Count 208 149 L (150-450) th/mm3 Neut # (Auto) 4.2 4.3 (1.8-7.7) th/mm3 Lymph # (Auto) 1.7 1.6 (1.0-4.8) th/mm3 [place] # (Auto) 0.9 1.1 H (0.0-0.9) th/mm3 Eos # (Auto) 0.5 H 0.4 (0.0-0.4) th/mm3 Baso # (Auto) 0.0 0.1 (0.0-0.2) th/mm3 Comprehensive Metabolic Panel 07/18/18 07/19/18 07/20/18 Range/Units 14:40 06:41 04:36 Sodium 145 144 145 (136-145) meq/L Potassium 3.3 L 3.1 L 4.5 D (3.5-5.1) meq/L Chloride 114 H 113 H 114 H (98-107) meq/L Carbon Dioxide 22.2 22.0 23.9 (21.0-32.0) meq/L BUN 14 11 10 (7-18) mg/dL Creatinine 1.02 H 0.84 0.86 (0.50-1.00) mg/dL Calcium 7.8 L 7.3 L* 7.5 L (8.5-10.1) mg/dL AST 42 H 45 H 70 H (15-37) U/L ALT 24 26 45 (10-53) U/L Alkaline Phosphatase 92 92 116 (45-117) U/L Total Protein 5.4 L 5.1 L 4.9 L (6.4-8.2) g/dL Albumin 2.6 L 2.3 L 2.1 L (3.4-5.0) g/dL Intake and Output 07/19/18 07/20/18 07/20/18 22:59 06:59 14:59 Intake Total 1125 / 1125 600 / 600 300 / 300 Output Total 550 / 550 Balance 1125 / 1125 50 / 50 300 / 300 Intake: IV 325 / 325 500 / 500 300 / 300 Heparin/D5W 25,000 U/250 mL 25, 250 / 250 250 / 250 000 unit In 250 ml @ Per Protocol IV.CONT TITRATE PRN Rx #:[id number] Cardizem Inj 125 MG In NS Inj 125 / 125 100 ML @ 5 MG/HR 5 mls/hr IV. CONT TITRATE PRN Rx#:[id number] Zosyn 3.375 GM Premix 3.375 gm 100 / 100 50 / 50 50 / 50 In 50 ml @ 100 mls/hr IV.SIG Q6H NANCY Rx#:[id number] KCl 20 mEq Premix Inj 20 meq In 100 / 100 200 / 200 100 ml @ 50 mls/hr IV.SIG Q2H PRN Rx#:[id number] Oral 800 / 800 100 / 100 Output: Urine 550 / 550 Other: # Voids 3 Date of Last Bowel Movement 07/16/18 07/16/18 07/16/18 # Bowel Movements 0 Weight 76.8 kg Assessment and Plan - Assessment (1) Atrial fibrillation Code(s): I48.91 - Unspecified atrial fibrillation Status: Acute (2) Sepsis Code(s): A41.9 - Sepsis, unspecified organism Status: Acute - Plan 1.) Afib - rate improved, ef=65% on echo, rvsp=17; ok to fluid challenge if necessary to keep sbp > 20, d/w Dr Nava 07/18/18; continue iv heparin, will need coumadin or noac [employer] due to chadsvasc score =2; d/w patient 07/20/18 ; she is undecided @ coumadin or noac, nurse at the bedside
[2018-07-20] MEDS ORDERED: Warfarin Consult Pharmacy OTHER PRN (13:43)
--- NOTE | 2018-07-20 14:00 | P.PNCC ---
Subjective Subjective Remarks/Hospital Course: 82yF with 1 day history of new-onset abdominal pain and altered mentation. also found to be febrile in the ER. elevated wbc. + u/a. CT abd/pelvis with dilated biliary tree, but no overt evidence of obstruction, no gallbladder thickening. no pericolecystic fluid. elevated Cr. developed hypotension and tachycardia in the [place] emergency department requiring 3L ivf and then norepinephrine to keep map > 65 mmHg. transferred emergently to [facility] from for further management. I evaluated her immediately upon arrival to the ICU. she complains of suprapubic pain which is "crampy" in nature. denies n/v/c/d. abdominal pain is mostly suprapubic, nonradiating. denies flank pain. denies fevers and chills. denies cp, sob. never had anything similar to this. remainder ROS negative. 07/17: Lying in bed no acute distress. Intermittent suprapubic pain described as a cramp. GI recommending endoscopy. Urine culture is pending at this time. Continue broad-spectrum antibiotics. Due to persistent suprapubic pain hematuria and question of bladder mass I will get a urology consult 07/18: Patient developed Afib with RVR yesterday 07/17. No response to IV metoprolol and digoxin, with Cardizem push and Cardizem infusion eventually converted to sinus rhythm however went back to A. fib with RVR at 2 PM and Cardizem was restarted. Aggressive potassium and magnesium replacement. Lasix given additional dose for diuresis. Start IV heparin. 2D echo ordered pending , TSH normal, initial troponin is normal. Cardiology consult-family request Dr. Medina 07/19: Resting comfortably. On Cardizem drip, A. fib well controlled currently. 07/20: Resting comfortably. Off Cardizem drip. A. fib well controlled currently. Feeling much better. On nasal cannula 2 L/min Objective Vital Signs / I&O: Vital Signs 07/19/18 14:00 07/19/18 14:15 07/19/18 14:30 Temperature Pulse Rate 114 H 122 H 116 H Respiratory Rate 19 22 20 Blood Pressure 116/77 124/79 133/99 H Pulse Oximetry 93 L 87 L 91 L 07/19/18 14:50 07/19/18 15:00 07/19/18 15:15 Temperature Pulse Rate 111 H 114 H 112 H Respiratory Rate 23 22 24 Blood Pressure 140/69 134/63 128/73 Pulse Oximetry 87 L 88 L 90 L 07/19/18 15:30 07/19/18 15:45 07/19/18 16:00 Temperature Pulse Rate 113 H 117 H 119 H Respiratory Rate 24 30 H 26 H Blood Pressure 132/73 130/61 135/78 Pulse Oximetry 91 L 90 L 89 L 07/19/18 16:15 07/19/18 16:31 07/19/18 16:45 Temperature Pulse Rate 114 H 103 H 114 H Respiratory Rate 20 20 25 H Blood Pressure 129/61 138/64 116/78 Pulse Oximetry 89 L 94 L 95 07/19/18 17:00 07/19/18 17:15 07/19/18 17:31 Temperature Pulse Rate 104 H 104 H 121 H Respiratory Rate 23 18 31 H Blood Pressure 127/93 H 116/88 120/81 Pulse Oximetry 94 L 93 L 90 L 07/19/18 17:38 07/19/18 17:45 07/19/18 18:00 Temperature Pulse Rate 104 H 110 H 111 H Respiratory Rate 23 24 21 Blood Pressure 127/93 H 124/83 130/85 Pulse Oximetry 94 L 94 L 95 07/19/18 18:15 07/19/18 18:24 07/19/18 18:30 Temperature Pulse Rate 132 H 128 H 125 H Respiratory Rate 25 H 26 H 31 H Blood Pressure 145/112 H 148/80 H 133/65 Pulse Oximetry 94 L 96 94 L 07/19/18 18:45 07/19/18 19:00 07/19/18 19:15 Temperature Pulse Rate 123 H 125 H 123 H Respiratory Rate 25 H 22 22 Blood Pressure 143/64 H 145/68 H 124/60 Pulse Oximetry 94 L 93 L 93 L 07/19/18 19:30 07/19/18 19:45 07/19/18 20:00 Temperature 98.6 F Pulse Rate 107 H 114 H 124 H Respiratory Rate 20 24 23 Blood Pressure 138/66 121/64 147/68 H Pulse Oximetry 92 L 94 L 93 L 07/19/18 20:15 07/19/18 20:30 07/19/18 20:45 Temperature Pulse Rate 116 H 111 H 105 H Respiratory Rate 20 23 27 H Blood Pressure 121/70 135/62 145/75 H Pulse Oximetry 93 L 94 L 91 L 07/19/18 21:00 07/19/18 21:15 07/19/18 21:30 Temperature Pulse Rate 104 H 102 H 103 H Respiratory Rate 25 H 24 26 H Blood Pressure 136/63 144/70 H 123/67 Pulse Oximetry 88 L 93 L 92 L 07/19/18 21:45 07/19/18 22:00 07/19/18 22:15 Temperature Pulse Rate 102 H 110 H 108 H Respiratory Rate 25 H 22 22 Blood Pressure 132/64 142/72 H 150/67 H Pulse Oximetry 93 L 91 L 92 L 07/19/18 22:30 07/19/18 22:45 07/19/18 23:00 Temperature Pulse Rate 121 H 133 H 103 H Respiratory Rate 22 26 H 24 Blood Pressure 134/69 148/73 H 98/50 L Pulse Oximetry 93 L 91 L 91 L 07/19/18 23:12 07/19/18 23:15 07/19/18 23:30 Temperature Pulse Rate 90 93 H Respiratory Rate 14 21 19 Blood Pressure 100/55 L 91/54 L Pulse Oximetry 91 L 91 L 07/19/18 23:45 07/20/18 00:00 07/20/18 00:15 Temperature Pulse Rate 86 88 84 Respiratory Rate 9 L 14 20 Blood Pressure 94/51 L 100/53 L 92/54 L Pulse Oximetry 92 L 93 L 93 L 07/20/18 00:30 07/20/18 00:45 07/20/18 01:00 Temperature Pulse Rate 81 83 83 Respiratory Rate 21 20 20 Blood Pressure 105/50 L 96/50 L 109/57 L Pulse Oximetry 93 L 92 L 91 L 07/20/18 01:15 07/20/18 01:30 07/20/18 01:45 Temperature Pulse Rate 84 82 86 Respiratory Rate 19 18 18 Blood Pressure 112/54 L 130/57 L 119/59 L Pulse Oximetry 91 L 93 L 93 L 07/20/18 02:00 07/20/18 02:16 07/20/18 02:30 Temperature Pulse Rate 83 65 62 Respiratory Rate 18 23 18 Blood Pressure 104/69 105/77 115/54 L Pulse Oximetry 93 L 93 L 94 L 07/20/18 02:46 07/20/18 03:00 12/26/18 03:15 Temperature Pulse Rate 64 64 66 Respiratory Rate 19 19 17 Blood Pressure 127/74 117/59 L 128/61 Pulse Oximetry 95 94 L 96 07/20/18 03:30 07/20/18 03:46 07/20/18 04:00 Temperature Pulse Rate 66 70 67 Respiratory Rate 18 22 35 H Blood Pressure 115/55 L 120/84 Pulse Oximetry 94 L 95 94 L 07/20/18 04:01 07/20/18 04:16 07/20/18 04:38 Temperature Pulse Rate 67 67 69 Respiratory Rate 35 H 18 21 Blood Pressure 143/60 H 125/57 L 122/59 L Pulse Oximetry 94 L 94 L 94 L 07/20/18 05:00 07/20/18 05:30 07/20/18 06:00 Temperature Pulse Rate 67 68 66 Respiratory Rate 18 17 19 Blood Pressure 121/57 L 127/59 L 108/55 L Pulse Oximetry 96 94 L 94 L 07/20/18 06:31 07/20/18 06:52 07/20/18 07:00 Temperature Pulse Rate 73 67 Respiratory Rate 21 14 19 Blood Pressure 144/63 H Pulse Oximetry 94 L 95 07/20/18 07:01 07/20/18 07:31 07/20/18 07:40 Temperature Pulse Rate 67 73 Respiratory Rate 18 20 Blood Pressure 121/57 L 151/67 H Pulse Oximetry 95 95 95 07/20/18 08:00 07/20/18 08:01 07/20/18 08:31 Temperature 98.6 F Pulse Rate 72 70 71 Respiratory Rate 26 H 20 21 Blood Pressure 138/63 111/55 L Pulse Oximetry 96 95 98 07/20/18 09:00 07/20/18 09:01 07/20/18 09:32 Temperature Pulse Rate 76 74 75 Respiratory Rate 27 H 26 H 23 Blood Pressure 112/53 L 122/54 L Pulse Oximetry 96 97 97 07/20/18 09:44 07/20/18 10:00 07/20/18 10:01 Temperature Pulse Rate 72 74 Respiratory Rate 16 29 H 21 Blood Pressure 122/77 Pulse Oximetry 97 96 07/20/18 10:31 07/20/18 11:00 07/20/18 11:30 Temperature Pulse Rate 74 71 70 Respiratory Rate 30 H 21 21 Blood Pressure 137/56 L 119/56 L 110/56 L Pulse Oximetry 94 L 94 L 93 L 07/20/18 12:00 07/20/18 12:31 07/20/18 13:00 Temperature Pulse Rate 74 75 74 Respiratory Rate 24 22 20 Blood Pressure 158/70 H 146/65 H 140/63 Pulse Oximetry 94 L 95 95 Intake & Output 07/19/18 07/20/18 07/20/18 18:59 06:59 18:59 Intake Total 1000 / 1000 875 / 875 300 / 300 Output Total 550 / 550 Balance 1000 / 1000 325 / 325 300 / 300 Weight 76.8 kg Intake: IV 200 / 200 775 / 775 300 / 300 Heparin/D5W 25,000 U/250 mL 25, 250 / 250 250 / 250 000 unit In 250 ml @ Per Protocol IV.CONT TITRATE PRN Rx #:[id number] Cardizem Inj 125 MG In NS Inj 125 / 125 100 ML @ 5 MG/HR 5 mls/hr IV. CONT TITRATE PRN Rx#:[id number] Zosyn 3.375 GM Premix 3.375 gm 100 / 100 100 / 100 50 / 50 In 50 ml @ 100 mls/hr IV.SIG Q6H NANCY Rx#:[id number] KCl 20 mEq Premix Inj 20 meq In 100 / 100 300 / 300 100 ml @ 50 mls/hr IV.SIG Q2H PRN Rx#:[id number] Oral 800 / 800 100 / 100 Output: Urine 550 / 550 Other: # Voids 3 Date of Last Bowel Movement 07/16/18 07/16/18 07/16/18 # Bowel Movements 0 Result Diagrams: 07/20/18 04:36 07/20/18 04:36 Objective Remarks: GENERAL: Elderly female, lying in bed, breathing comfortably HEENT: Normocephalic. Atraumatic. Pupils equal, round, reactive, conjugate. NECK: Trachea is midline. There is no JVD. CHEST: Equal chest rise. Nasal cannula. Mild wheezing improved CARDIOVASCULAR: Atrial fibrillation. Remains on Cardizem drip. No murmurs ABDOMEN: Soft, mildly tender of the suprapubic area. nondistended. No guarding. No rebound. MUSCULOSKELETAL: Pulses 2+. No peripheral edema. NEUROLOGICAL: Following commands. Alert and oriented x3. No focal deficits. Assessment and Plan - Assessment and Plan Plan: Assessment: 82-year-old female with sepsis and early shock likely secondary to UTI. Cannot rule out biliary origin at this time, however there is no serum evidence of elevated bilirubin or elevated alk phos. CT evidence suggests there is no active acute cholecystitis. In contrast, urine from urinalysis suggests active cystitis. Continue broad-spectrum antibiotics as below. No complicated with new onset atrial fibrillation with RVR Active problems: Urinary tract infection Severe sepsis Atrial fibrillation with RVR Abdominal pain Septic shock- resolved Lactic acidosis-resolved Acute kidney injury Questionable transitional cell appearing mass near the renal pelvis, with hematuria Long-standing history of opioid abuse Plan: Off Cardizem gtt, On toprol XL 100mg daily for A. fib with RVR 2D echo, TSH normal Cardiology consulted, Dr. Cook following. IV heparin All IV fluids discontinued as significant positive fluid balance. Discussed possibility of giving additional fluids with Dr. Cook following review of 2D echo however patient is on O2 via nasal cannula and concern regarding worsening respiratory status hence held off on fluid bolus. Aggressive potassium and magnesium replacement Continue Zosyn. DCd vancomycin Follow blood cultures-negative today Follow-up urine culture-pansensitive E coli and gamma hemolytic streptococci. Consulted ID for sepsis/antibiotic management. Follow-up on stool studies per GI, C. difficile negative MRCP shows moderately distended gallbladder with diffusely distended extrahepatic bile ducts and pancreatic duct extending to the ampulla. Differential considerations include an occult pancreatic head lesion versus ampullary dysfunction/mass. ERCP and EUS planned for today however family wants to hold off due to A. fib with RVR Frequent urine outputs, Daily CMP, Daily CBC SCDs IV heparin gtt to be stopped, start lovenox full anticoagulation and coumadin Protonix D/W patient and daughter. Plan to transfer out of ICU. Tx to hospitalist service. Needs outpatient followup with GI-prefers Dr. Mccartney who is patient's daughter' s GI.
--- NOTE | 2018-07-20 17:50 | P.PNGI ---
Subjective Interval history: Patient awake and alert sitting up in chair States doing well today Reports intermittent nausea with lower abdominal discomfort Physical Exam Vital signs: Vital Signs 07/19/18 17:45 07/19/18 18:00 07/19/18 18:15 Temperature Pulse Rate 110 H 111 H 132 H Respiratory Rate 24 21 25 H Blood Pressure 124/83 130/85 145/112 H Pulse Oximetry 94 L 95 94 L 07/19/18 18:24 07/19/18 18:30 07/19/18 18:45 Temperature Pulse Rate 128 H 125 H 123 H Respiratory Rate 26 H 31 H 25 H Blood Pressure 148/80 H 133/65 143/64 H Pulse Oximetry 96 94 L 94 L 07/19/18 19:00 07/19/18 19:15 07/19/18 19:30 Temperature Pulse Rate 125 H 123 H 107 H Respiratory Rate 22 22 20 Blood Pressure 145/68 H 124/60 138/66 Pulse Oximetry 93 L 93 L 92 L 07/19/18 19:45 07/19/18 20:00 07/19/18 20:15 Temperature 98.6 F Pulse Rate 114 H 124 H 116 H Respiratory Rate 24 23 20 Blood Pressure 121/64 147/68 H 121/70 Pulse Oximetry 94 L 93 L 93 L 07/19/18 20:30 07/19/18 20:45 07/19/18 21:00 Temperature Pulse Rate 111 H 105 H 104 H Respiratory Rate 23 27 H 25 H Blood Pressure 135/62 145/75 H 136/63 Pulse Oximetry 94 L 91 L 88 L 07/19/18 21:15 07/19/18 21:30 07/19/18 21:45 Temperature Pulse Rate 102 H 103 H 102 H Respiratory Rate 24 26 H 25 H Blood Pressure 144/70 H 123/67 132/64 Pulse Oximetry 93 L 92 L 93 L 07/19/18 22:00 07/19/18 22:15 07/19/18 22:30 Temperature Pulse Rate 110 H 108 H 121 H Respiratory Rate 22 22 22 Blood Pressure 142/72 H 150/67 H 134/69 Pulse Oximetry 91 L 92 L 93 L 07/19/18 22:45 07/19/18 23:00 07/19/18 23:12 Temperature Pulse Rate 133 H 103 H Respiratory Rate 26 H 24 14 Blood Pressure 148/73 H 98/50 L Pulse Oximetry 91 L 91 L 12/25/18 23:15 07/19/18 23:30 07/19/18 23:45 Temperature Pulse Rate 90 93 H 86 Respiratory Rate 21 19 9 L Blood Pressure 100/55 L 91/54 L 94/51 L Pulse Oximetry 91 L 91 L 92 L 07/20/18 00:00 07/20/18 00:15 07/20/18 00:30 Temperature Pulse Rate 88 84 81 Respiratory Rate 14 20 21 Blood Pressure 100/53 L 92/54 L 105/50 L Pulse Oximetry 93 L 93 L 93 L 07/20/18 00:45 07/20/18 01:00 07/20/18 01:15 Temperature Pulse Rate 83 83 84 Respiratory Rate 20 20 19 Blood Pressure 96/50 L 109/57 L 112/54 L Pulse Oximetry 92 L 91 L 91 L 07/20/18 01:30 07/20/18 01:45 07/20/18 02:00 Temperature Pulse Rate 82 86 83 Respiratory Rate 18 18 18 Blood Pressure 130/57 L 119/59 L 104/69 Pulse Oximetry 93 L 93 L 93 L 07/20/18 02:16 07/20/18 02:30 07/20/18 02:46 Temperature Pulse Rate 65 62 64 Respiratory Rate 23 18 19 Blood Pressure 105/77 115/54 L 127/74 Pulse Oximetry 93 L 94 L 95 07/20/18 03:00 07/20/18 03:15 07/20/18 03:30 Temperature Pulse Rate 64 66 66 Respiratory Rate 19 17 18 Blood Pressure 117/59 L 128/61 115/55 L Pulse Oximetry 94 L 96 94 L 07/20/18 03:46 07/20/18 04:00 07/20/18 04:01 Temperature Pulse Rate 70 67 67 Respiratory Rate 22 35 H 35 H Blood Pressure 120/84 143/60 H Pulse Oximetry 95 94 L 94 L 07/20/18 04:16 07/20/18 04:38 07/20/18 05:00 Temperature Pulse Rate 67 69 67 Respiratory Rate 18 21 18 Blood Pressure 125/57 L 122/59 L 121/57 L Pulse Oximetry 94 L 94 L 96 07/20/18 05:30 07/20/18 06:00 07/20/18 06:31 Temperature Pulse Rate 68 66 73 Respiratory Rate 17 19 21 Blood Pressure 127/59 L 108/55 L 144/63 H Pulse Oximetry 94 L 94 L 94 L 07/20/18 06:52 07/20/18 07:00 07/20/18 07:01 Temperature Pulse Rate 67 67 Respiratory Rate 14 19 18 Blood Pressure 121/57 L Pulse Oximetry 95 95 07/20/18 07:31 07/20/18 07:40 07/20/18 08:00 Temperature 98.6 F Pulse Rate 73 72 Respiratory Rate 20 26 H Blood Pressure 151/67 H Pulse Oximetry 95 95 96 07/20/18 08:01 07/20/18 08:31 07/20/18 09:00 Temperature Pulse Rate 70 71 76 Respiratory Rate 20 21 27 H Blood Pressure 138/63 111/55 L Pulse Oximetry 95 98 96 07/20/18 09:01 07/20/18 09:32 07/20/18 09:44 Temperature Pulse Rate 74 75 Respiratory Rate 26 H 23 16 Blood Pressure 112/53 L 122/54 L Pulse Oximetry 97 97 07/20/18 10:00 07/20/18 10:01 07/20/18 10:31 Temperature Pulse Rate 72 74 74 Respiratory Rate 29 H 21 30 H Blood Pressure 122/77 137/56 L Pulse Oximetry 97 96 94 L 07/20/18 11:00 07/20/18 11:30 07/20/18 12:00 Temperature Pulse Rate 71 70 74 Respiratory Rate 21 21 24 Blood Pressure 119/56 L 110/56 L 158/70 H Pulse Oximetry 94 L 93 L 94 L 07/20/18 12:31 07/20/18 13:00 07/20/18 13:30 Temperature Pulse Rate 75 74 74 Respiratory Rate 22 20 21 Blood Pressure 146/65 H 140/63 145/68 H Pulse Oximetry 95 95 95 07/20/18 14:00 07/20/18 14:08 07/20/18 14:30 Temperature Pulse Rate 79 79 75 Respiratory Rate 19 31 H 26 H Blood Pressure 147/102 H 153/70 H 155/74 H Pulse Oximetry 93 L 93 L 92 L 07/20/18 15:00 07/20/18 15:30 07/20/18 16:00 Temperature 98.8 F Pulse Rate 77 76 79 Respiratory Rate 21 23 26 H Blood Pressure 146/66 H 157/68 H 155/70 H Pulse Oximetry 93 L 92 L 91 L 07/20/18 16:30 Temperature Pulse Rate 78 Respiratory Rate 23 Blood Pressure 148/67 H Pulse Oximetry 92 L Intake & Output 07/19/18 07/20/18 07/20/18 18:59 06:59 18:59 Intake Total 1000 / 1000 875 / 875 350 / 350 Output Total 550 / 550 Balance 1000 / 1000 325 / 325 350 / 350 Weight 76.8 kg Intake: IV 200 / 200 775 / 775 350 / 350 Heparin/D5W 25,000 U/250 mL 25, 250 / 250 250 / 250 000 unit In 250 ml @ Per Protocol IV.CONT TITRATE PRN Rx #:[id number] Cardizem Inj 125 MG In NS Inj 125 / 125 100 ML @ 5 MG/HR 5 mls/hr IV. CONT TITRATE PRN Rx#:[id number] Zosyn 3.375 GM Premix 3.375 gm 100 / 100 100 / 100 100 / 100 In 50 ml @ 100 mls/hr IV.SIG Q6H NANCY Rx#:[id number] KCl 20 mEq Premix Inj 20 meq In 100 / 100 300 / 300 100 ml @ 50 mls/hr IV.SIG Q2H PRN Rx#:[id number] Oral 800 / 800 100 / 100 Output: Urine 550 / 550 Other: # Voids 3 Date of Last Bowel Movement 07/16/18 07/16/18 07/16/18 # Bowel Movements 0 - Constitutional no acute distress - Routine HEENT Exam Head: Present: normocephalic - Routine Respiratory Exam Present: CTA bilaterally. Absent: accessory muscle use - Routine Cardiovascular Exam Present: RRR, S1, S2 Comments: Recently diagnosed with new onset atrial fibrillation Sinus rhythm at this time - Routine Abdominal Exam Present: soft, normoactive bowel sounds. Absent: tenderness, distended, guarding, firm - Routine Skin Exam Present: dry, warm - Routine Neurological Exam Present: alert - Urinary Catheter Management Indwelling Urethral Catheter Cath placed during this visit: yes, but has since been removed by the nurse Reason for continuing: Decision to DC catheter Insertion date: 07/16/18 Insertion time: 04:00 Removal date: 07/17/18 Removal time: 12:00 Results - Labs CBC & Chem 7: 07/20/18 04:36 07/20/18 04:36 Laboratory Results - last 24 hr 07/20/18 07/20/18 07/20/18 04:36 04:36 06:31 WBC 7.5 RBC 3.30 L Hgb 10.0 L Hct 29.5 L MCV 89.3 MCH 30.4 MCHC 34.1 RDW 13.5 Plt Count 149 L MPV 9.5 Prelim Diff (Auto) Slide review pending Neut % (Auto) 57.1 Lymph % (Auto) 22.0 [place] % (Auto) 14.2 H Eos % (Auto) 5.9 H Baso % (Auto) 0.8 Neut # (Auto) 4.3 Lymph # (Auto) 1.6 [place] # (Auto) 1.1 H Eos # (Auto) 0.4 Baso # (Auto) 0.1 WBC Differential . Diff Scan Auto diff confirmed Differential Comment . APTT Sodium 145 Potassium 4.5 D Chloride 114 H Carbon Dioxide 23.9 Anion Gap 7 BUN 10 Creatinine 0.86 Estimated GFR 63 L POC Glucose 128 H Random Glucose 107 H Calcium 7.5 L Phosphorus 2.1 L Magnesium 1.8 Total Bilirubin 0.6 AST 70 H ALT 45 Alkaline Phosphatase 116 Total Protein 4.9 L Albumin 2.1 L 07/20/18 07/20/18 07/20/18 07:23 11:58 13:43 WBC RBC Hgb Hct MCV MCH MCHC RDW Plt Count MPV Prelim Diff (Auto) Neut % (Auto) Lymph % (Auto) [place] % (Auto) Eos % (Auto) Baso % (Auto) Neut # (Auto) Lymph # (Auto) [place] # (Auto) Eos # (Auto) Baso # (Auto) WBC Differential Diff Scan Differential Comment APTT 39.4 H D 38.1 H Sodium Potassium Chloride Carbon Dioxide Anion Gap BUN Creatinine Estimated GFR POC Glucose 144 H Random Glucose Calcium Phosphorus Magnesium Total Bilirubin AST ALT Alkaline Phosphatase Total Protein Albumin 07/20/18 17:21 WBC RBC Hgb Hct MCV MCH MCHC RDW Plt Count MPV Prelim Diff (Auto) Neut % (Auto) Lymph % (Auto) [place] % (Auto) Eos % (Auto) Baso % (Auto) Neut # (Auto) Lymph # (Auto) [place] # (Auto) Eos # (Auto) Baso # (Auto) WBC Differential Diff Scan Differential Comment APTT Sodium Potassium Chloride Carbon Dioxide Anion Gap BUN Creatinine Estimated GFR POC Glucose 116 H Random Glucose Calcium Phosphorus Magnesium Total Bilirubin AST ALT Alkaline Phosphatase Total Protein Albumin Microbiology 07/15/18 23:36 Blood - Peripheral Aerobic Blood Culture - Preliminary No growth in 4 days 07/15/18 23:36 Blood - Peripheral Anaerobic Blood Culture - Preliminary No growth in 4 days 07/15/18 23:30 Blood - Peripheral Aerobic Blood Culture - Preliminary No growth in 4 days 07/15/18 23:30 Blood - Peripheral Anaerobic Blood Culture - Preliminary No growth in 4 days Assessment and Plan - Plan - Abdominal pain, N/V/distended extrahepatic bile ducts and pancreatic duct- MRCP on 07/16/18 Moderately distended gallbladder with diffusely distended extrahepatic bile ducts and pancreatic duct extending to the ampulla. No definitive focal intraductal abnormality is demonstrated. Differential considerations include an occult pancreatic head lesion versus ampullary dysfunction/mass. CT abd/pelvis with dilated biliary tree, Right hemidiaphragm is markedly elevated. Moderately distended colon without evidence of wall thickening or obstruction but no gallbladder thickening. no pericholecystic fluid. Abdomen/Bladder Ultrasound 07/16/18 Increased echogenicity to the kidneys bilaterally consistent with medical renal disease. No hydronephrosis is seen. 1.3 cm cyst at the mid left kidney. LFTs aside from slight elevation in AST wnl, lipase wnl. - AMS- Resolved, Possibly multifactorial, sepsis, uti, will need to r/o cholangitis or colon related issues, on abx Blood cx negative so far , urine cx GNR and gamma hemolytic streptococci. CT of head negative - Constipation- had multiple Bms, abd pain could be related to this. Stools negative for C-diff - Anemia- stable hgb today is 10.8, stable no bleeding reported, could be dilutional - Sepsis/ uti- WBC normal on abx - Abnormal imaging of bladder- S/p urology consult, plans for in-office cystoscopy, no indication of immediate intervention - Fecal impaction- s/p multiple laxatives, having several loose BMs - New onset of A-fib with RVR- ERCP and EUS was planned for today, but on hold for now in view of new onset of A-fib 07/20/2018 New-onset A. fib with RVR ERCP/EUS held due to new onset A. fib with RVR. Patient currently on heparin drip, will be transitioned to Coumadin and Lovenox. Sinus rhythm at this time. Fecal impaction Positive bowel sounds present abdomen soft, patient passing gas and states she feels as though she will have a BM this evening. Anemia Hemoglobin 10.0 hematocrit 29.5, no reported bleeding Abdominal pain with nausea vomiting Patient reports intermittent abdominal discomfort, states nausea present earlier but relieved at this time Total bilirubin 0.6 AST 70 ALT 45 alk phos 116 Patient's daughter request that ERCP/EUS be done as an outpatient when patient stable. Plan Regular diet EUS/ERCP on hold at this time per family wishes Continue bowel regimen IV hydration Supportive care We will continue to follow closely Further recommendations to follow Patient has been seen by myself and Dr. Genao and this note is written on his behalf - Attending Attestation Dr. Genao
[2018-07-20] MEDS: Melatonin 5 MG Tablet PO SCH (20:40)
[2018-07-20] MEDS: Enoxaparin Inj 80 MG/0.8 ML Syringe SQ SCH (20:40)
[2018-07-21] MEDS: Insulin NovoLIN Regular Correctional Sugar Inj SQ SCH ×4 (03:25→17:43)
[2018-07-21] MEDS: Piperacil/Tazo 3.375 GM Premix 3.375 GM/50 ML PIGGYBACK IV.SIG SCH ×3 (04:00→15:24)
[2018-07-21] MEDS: Levothyroxine 50 MCG Tablet PO SCH (06:30)
[2018-07-21 07:32] LABS: Baso % (Auto) 0.5 % (0.0-2.0); Eos # (Auto) 0.4 th/mm3 (0.0-0.4); Hematocrit 27.7 % (35.0-46.0); Hemoglobin 9.6 gm/dL (11.6-15.3); Lymph # (Auto) 1.8 th/mm3 (1.0-4.8); Lymph % (Auto) 21.2 % (9.0-44.0); Mean Corpuscular HGB Conc 34.6 % (32.0-36.0); Mean Corpuscular Hemoglobin 30.4 pg (27.0-34.0); Mean Corpuscular Volume 88.1 fL (80.0-100.0); Mean Platelet Volume 8.2 fL (7.0-11.0); Mono # (Auto) 1.2 th/mm3 (0.0-0.9); Mono % (Auto) 14.1 % (0.0-8.0); Neut # (Auto) 5.1 th/mm3 (1.8-7.7); Neut % (Auto) 59.2 % (16.0-70.0); Platelet Count 244 th/mm3 (150-450); Red Blood Count 3.14 mil/mm3 (4.00-5.30); Red Cell Distribution Width 13.3 % (11.6-17.2); White Blood Count 8.6 th/mm3 (4.0-11.0)
[2018-07-21 07:39] LABS: Alanine Aminotransferase 63 U/L (10-53); Albumin 2.2 g/dL (3.4-5.0); Anion Gap 7 meq/L (5-15); Aspartate Aminotransferase 84 U/L (15-37); Blood Urea Nitrogen 7 mg/dL (7-18); Calcium 7.7 mg/dL (8.5-10.1); Carbon Dioxide 26.7 meq/L (21.0-32.0); Chloride 111 meq/L (98-107); Glomerular Filtration Rate 67 mL/min (>89); Glucose,Random 97 mg/dL (74-106); Magnesium 1.7 mg/dL (1.5-2.5); Phosphorus 2.3 mg/dL (2.5-4.9); Potassium 3.5 meq/L (3.5-5.1); Sodium 145 meq/L (136-145)
[2018-07-21 07:43] LABS: Alkaline Phosphatase 138 U/L (45-117)
[2018-07-21 08:41] LABS: Eosinophils 3 % (0-4); Lymphocytes 29 % (9-44); Metamyelocytes 3 % (0-1); Monocytes 12 % (0-8); Myelocytes 1 % (0-0)
[2018-07-21 08:42] LABS: Ovalocytes 1+; Platelet Estimate Normal (Normal); Platelet Morphology Clumped (Normal)
[2018-07-21] MEDS: Enoxaparin Inj 80 MG/0.8 ML Syringe SQ SCH ×2 (08:50→20:08)
[2018-07-21] MEDS: Polyethylene Glycol 3350 17 GM Packet PO SCH ×2 (08:52→20:09)
[2018-07-21] MEDS: Senna/Docusate Sodium 8.6/50 MG Tablet PO SCH ×2 (08:52→20:09)
--- NOTE | 2018-07-21 08:52 | P.PNCA ---
Subjective Interval history: alert in nad Medications and Allergies Active Medications: Active Medications Acetaminophen (Tylenol) 650 mg PO Q6H PRN PRN Reason: TEMPERATURE > 101 F Albuterol (Duoneb Neb (Prn)) 1 ampul NEB Q2HR NEB PRN PRN Reason: WHEEZING Aspirin (Ecotrin) 81 mg PO DAILY [facility] Last Admin: 07/20/18 09:07 Dose: 81 mg Atorvastatin Calcium (Lipitor) 10 mg PO DAILY [facility] Last Admin: 07/20/18 09:07 Dose: 10 mg Bisacodyl (Dulcolax Supp) 10 mg RECTAL DAILY PRN PRN Reason: if no BM in last 24h Dextrose (D50w Vial) 50 ml IV.PUSH UNSCH PRN PRN Reason: PER HYPOGLYCEMIA PROTOCOL Enoxaparin Sodium (Lovenox Inj) 70 mg SQ Q12HR [facility] Last Admin: 07/20/18 20:40 Dose: 70 mg Glucagon (Glucagon Inj) 1 mg OTHER PRN PRN PRN Reason: for Hypoglycemia Protocol Magnesium Sulfate 4 gm/ Sodium (Chloride) 100 mls @ 50 mls/hr IV.SIG UNSCH PRN PRN Reason: For Magnesium 0.9 - 1.1 mg/dL Magnesium Sulfate 2 gm/ Sodium (Chloride) 100 mls @ 50 mls/hr IV.SIG UNSCH PRN PRN Reason: For Magnesium 1.2 - 1.6 mg/dL Potassium Chloride (Kcl 40 Meq Premix Inj) 40 meq in 100 mls @ 25 mls/hr IV.SIG Q2H PRN PRN Reason: For Potassium 2.8 - 3.2 mEq/L Potassium Chloride (Kcl 20 Meq Premix Inj) 20 meq in 100 mls @ 50 mls/hr IV.SIG Q2H PRN PRN Reason: For Potassium 3.3 - 3.5 mEq/L Last Infusion: 07/17/18 13:51 Dose: Infused Potassium Chloride (Kcl 40 Meq Premix Inj) 40 meq in 100 mls @ 25 mls/hr IV.SIG UNSCH PRN PRN Reason: For Potassium 3.3 - 3.5 mEq/L Potassium Phosphate 30 mmol/ (Sodium Chloride) 260 mls @ 42 mls/hr IV.SIG UNSCH PRN PRN Reason: SEE LABEL COMMENTS Sodium Phosphate 30 mmol/ (Sodium Chloride) 260 mls @ 42 mls/hr IV.SIG UNSCH PRN PRN Reason: For Phosphorus < 2.5 mg/dL Potassium Chloride (Kcl 20 Meq Premix Inj) 20 meq in 100 mls @ 50 mls/hr IV.SIG Q2H PRN PRN Reason: For Potassium 2.8 - 3.2 mEq/L Last Infusion: 07/20/18 04:27 Dose: Infused Piperacillin/Tazobactam/Dextrose (Zosyn 3.375 Gm Premix) 3.375 gm in 50 mls @ 100 mls/hr IV.SIG Q6H NANCY Last Infusion: 07/21/18 06:18 Dose: Infused Diltiazem HCl 125 mg/ Sodium (Chloride) 125 mls @ 5 mls/hr IV.CONT TITRATE PRN ; Protocol PRN Reason: Per Protocol Last Titration: 07/20/18 04:24 Dose: 0 mg/hr, 0 mls/hr Insulin Human Regular (Novolin R Correctional Sugar Inj) 0 units SQ Q6HR [facility]; Protocol Last Admin: 07/21/18 06:19 Dose: Not Given Lactulose (Lactulose Liq) 30 ml PO BID [facility] Last Admin: 07/20/18 20:40 Dose: Not Given Levothyroxine Sodium (Synthroid) 50 mcg PO DAILY@0600 [facility] Last Admin: 07/21/18 06:30 Dose: 50 mcg Magnesium Oxide (Mag-Ox) 800 mg PO UNSCH PRN PRN Reason: For Magnesium 1.2 - 1.6 mg/dL Melatonin (Melatonin) 5 mg PO [facility] Last Admin: 07/20/18 20:40 Dose: 5 mg Metoprolol Succinate (Toprol Xl) 100 mg PO [facility] Last Admin: 07/20/18 20:39 Dose: 100 mg Miscellaneous (Pill Splitter) 1 each OTHER UNSCH PRN PRN Reason: SEE LABEL COMMENTS Morphine Sulfate (Morphine Inj) 1 mg IV.PUSH Q2H PRN PRN Reason: PAIN 1-5 Last Admin: 07/20/18 20:39 Dose: 1 mg Ondansetron HCl (Zofran Inj) 4 mg IV.PUSH Q6H PRN PRN Reason: NAUSEA OR VOMITING Last Admin: 07/19/18 18:28 Dose: 4 mg Pantoprazole Sodium (Protonix) 40 mg PO DAILY [facility] Last Admin: 07/20/18 09:07 Dose: 40 mg Pharmacy Profile Note (Coumadin Consult Pharmacy) 1 each OTHER UNSCH PRN PRN Reason: PHARMACY DOCUMENTATION Phenazopyridine HCl (Pyridium) 200 mg PO DAILY [facility] Last Admin: 07/20/18 09:07 Dose: 200 mg Polyethylene Glycol (Miralax) 17 gm PO BID [facility] Last Admin: 07/20/18 20:40 Dose: Not Given Potassium Bicarb/Potassium Chloride (K-Lyte Cl Eff) 50 meq PO UNSCH PRN PRN Reason: For Potassium 3.3 - 3.5 mEq/L Potassium Phosphate (K-Phos Original) 2,000 mg PO Q4H PRN PRN Reason: Phosphorus Less Than 2.5 mg/dL Potassium Phosphate (K-Phos Original) 2,000 mg PO UNSCH PRN PRN Reason: SEE LABEL COMMENTS Last Admin: 07/17/18 09:10 Dose: 2,000 mg Quetiapine Fumarate (Seroquel) 200 mg PO HS [facility] Last Admin: 07/20/18 20:40 Dose: 200 mg Senna/Docusate Sodium (Linda-Colace) 1 tab PO BID [facility] Last Admin: 07/20/18 20:40 Dose: Not Given Sodium Chloride (Ns Flush) 2 ml IV.FLUSH PRN PRN PRN Reason: FLUSH AFTER USING IV ACCESS Sodium Chloride (Ns Flush) 2 ml IV.FLUSH UNSCH PRN PRN Reason: FLUSH AFTER USING IV ACCESS Warfarin Sodium (Coumadin) 2.5 mg PO DAILY@1600 [facility] Last Admin: 07/20/18 17:22 Dose: 2.5 mg Allergies Allergy/AdvReac Type Severity Reaction Status Date / Time diphenhydramine Allergy Severe THROAT Verified 07/16/18 00:47 CLOSES valproic acid Allergy Intermediate VERY Verified 07/16/18 00:47 DISORIENTED Home Medications Medication Instructions Recorded Confirmed Type amlodipine 5 mg PO DAILY 07/16/18 07/16/18 History aspirin [Aspir-81] 81 mg PO DAILY 07/16/18 07/16/18 History atorvastatin 10 mg PO DAILY 07/16/18 07/16/18 History candesartan 16 mg PO DAILY 07/16/18 07/16/18 History cholecalciferol (vitamin D3) 2,000 unit PO DAILY 07/16/18 07/16/18 History [Vitamin D3] cyanocobalamin (vitamin B-12) 1,000 mcg PO DAILY 07/16/18 07/16/18 History [Vitamin B-12] levothyroxine [Synthroid] 50 mcg PO DAILY 07/16/18 07/16/18 History metoprolol succinate [Toprol XL] 100 mg PO HS 07/16/18 07/16/18 History quetiapine [Seroquel] 200 mg PO HS 07/16/18 07/16/18 History Physical Exam Vital signs: Vital Signs 07/20/18 09:00 07/20/18 09:01 07/20/18 09:32 Temperature Pulse Rate 76 74 75 Respiratory Rate 27 H 26 H 23 Blood Pressure 112/53 L 122/54 L Pulse Oximetry 96 97 97 07/20/18 09:44 07/20/18 10:00 07/20/18 10:01 Temperature Pulse Rate 72 74 Respiratory Rate 16 29 H 21 Blood Pressure 122/77 Pulse Oximetry 97 96 07/20/18 10:31 07/20/18 11:00 07/20/18 11:30 Temperature Pulse Rate 74 71 70 Respiratory Rate 30 H 21 21 Blood Pressure 137/56 L 119/56 L 110/56 L Pulse Oximetry 94 L 94 L 93 L 07/20/18 12:00 07/20/18 12:31 07/20/18 13:00 Temperature Pulse Rate 74 75 74 Respiratory Rate 24 22 20 Blood Pressure 158/70 H 146/65 H 140/63 Pulse Oximetry 94 L 95 95 07/20/18 13:30 07/20/18 14:00 07/20/18 14:08 Temperature Pulse Rate 74 79 79 Respiratory Rate 21 19 31 H Blood Pressure 145/68 H 147/102 H 153/70 H Pulse Oximetry 95 93 L 93 L 07/20/18 14:30 07/20/18 15:00 07/20/18 15:30 Temperature Pulse Rate 75 77 76 Respiratory Rate 26 H 21 23 Blood Pressure 155/74 H 146/66 H 157/68 H Pulse Oximetry 92 L 93 L 92 L 07/20/18 16:00 07/20/18 16:30 07/20/18 17:00 Temperature 98.8 F 99.5 F Pulse Rate 79 78 86 Respiratory Rate 26 H 23 16 Blood Pressure 155/70 H 148/67 H 150/81 H Pulse Oximetry 91 L 92 L 94 L 07/20/18 17:57 07/20/18 17:58 07/20/18 19:00 Temperature 99.5 F 99.4 F Pulse Rate 77 86 95 H Respiratory Rate 18 16 Blood Pressure 150/81 H 156/75 H Pulse Oximetry 94 L 94 L 07/20/18 20:00 07/20/18 21:00 07/20/18 21:31 Temperature Pulse Rate 76 74 Respiratory Rate Blood Pressure Pulse Oximetry 93 L 07/20/18 22:00 07/20/18 23:00 07/21/18 00:00 Temperature 99.5 F Pulse Rate 68 65 68 Respiratory Rate 18 Blood Pressure 117/56 L Pulse Oximetry 94 L 07/21/18 01:00 07/21/18 02:00 07/21/18 03:00 Temperature 98.4 F Pulse Rate 68 64 63 Respiratory Rate 18 Blood Pressure 124/58 L Pulse Oximetry 94 L 07/21/18 04:00 07/21/18 05:00 07/21/18 06:00 Temperature Pulse Rate 64 74 70 Respiratory Rate Blood Pressure Pulse Oximetry 07/21/18 07:00 Temperature Pulse Rate 62 Respiratory Rate Blood Pressure Pulse Oximetry Intake & Output 07/20/18 07/21/18 07/21/18 18:59 06:59 18:59 Intake Total 590 / 590 830 / 830 Balance 590 / 590 830 / 830 Weight 76.4 kg Intake: IV 350 / 350 350 / 350 Heparin/D5W 25,000 U/250 mL 25, 250 / 250 250 / 250 000 unit In 250 ml @ Per Protocol IV.CONT TITRATE PRN Rx #:[id number] Zosyn 3.375 GM Premix 3.375 gm 100 / 100 100 / 100 In 50 ml @ 100 mls/hr IV.SIG Q6H NANCY Rx#:[id number] Oral 240 / 240 480 / 480 Other: # Voids 3 Date of Last Bowel Movement 07/16/18 - Constitutional no acute distress - Routine HEENT Exam Head: Present: normocephalic - Routine Neck Exam Present: supple - Routine Respiratory Exam Present: CTA bilaterally - Routine Cardiovascular Exam Present: S1, S2 - Routine Abdominal Exam Present: soft - Routine Extremities Exam Comments: no alejandra - Urinary Catheter Management Indwelling Urethral Catheter Cath placed during this visit: yes, but has since been removed by the nurse Reason for continuing: Decision to DC catheter Insertion date: 07/16/18 Insertion time: 04:00 Removal date: 07/17/18 Removal time: 12:00 Results 07/21/18 06:59 07/21/18 06:59 Cardiac Enzymes 07/20/18 07/21/18 Range/Units 04:36 06:59 AST 70 H 84 H (15-37) U/L Coagulation 07/20/18 07/20/18 Range/Units 07:23 13:43 APTT 39.4 H D 38.1 H (23.4-31.7) sec CBC 07/20/18 07/21/18 Range/Units 04:36 06:59 WBC 7.5 8.6 (4.0-11.0) th/mm3 RBC 3.30 L 3.14 L (4.00-5.30) mil/mm3 Hgb 10.0 L 9.6 L (11.6-15.3) gm/dL Hct 29.5 L 27.7 L (35.0-46.0) % Plt Count 149 L 244 D (150-450) th/mm3 Neut # (Auto) 4.3 5.1 (1.8-7.7) th/mm3 Lymph # (Auto) 1.6 1.8 (1.0-4.8) th/mm3 [place] # (Auto) 1.1 H 1.2 H (0.0-0.9) th/mm3 Eos # (Auto) 0.4 0.4 (0.0-0.4) th/mm3 Baso # (Auto) 0.1 0.0 (0.0-0.2) th/mm3 Comprehensive Metabolic Panel 07/20/18 07/21/18 Range/Units 04:36 06:59 Sodium 145 145 (136-145) meq/L Potassium 4.5 D 3.5 D (3.5-5.1) meq/L Chloride 114 H 111 H (98-107) meq/L Carbon Dioxide 23.9 26.7 (21.0-32.0) meq/L BUN 10 7 (7-18) mg/dL Creatinine 0.86 0.82 (0.50-1.00) mg/dL Calcium 7.5 L 7.7 L (8.5-10.1) mg/dL AST 70 H 84 H (15-37) U/L ALT 45 63 H (10-53) U/L Alkaline Phosphatase 116 138 H (45-117) U/L Total Protein 4.9 L 5.0 L (6.4-8.2) g/dL Albumin 2.1 L 2.2 L (3.4-5.0) g/dL Intake and Output 07/20/18 07/21/18 07/21/18 22:59 06:59 14:59 Intake Total 540 / 540 580 / 580 Balance 540 / 540 580 / 580 Intake: IV 300 / 300 100 / 100 Heparin/D5W 25,000 U/250 mL 25, 250 / 250 000 unit In 250 ml @ Per Protocol IV.CONT TITRATE PRN Rx #:[id number] Zosyn 3.375 GM Premix 3.375 gm 50 / 50 100 / 100 In 50 ml @ 100 mls/hr IV.SIG Q6H NANCY Rx#:[id number] Oral 240 / 240 480 / 480 Other: # Voids 3 Date of Last Bowel Movement 07/16/18 Weight 76.4 kg Assessment and Plan - Assessment (1) Atrial fibrillation Code(s): I48.91 - Unspecified atrial fibrillation Status: Acute (2) Sepsis Code(s): A41.9 - Sepsis, unspecified organism Status: Acute - Plan 1.) Afib - rate improved, ef=65% on echo, rvsp=17; ok to fluid challenge if necessary to keep sbp > 20, d/w Dr Nava 07/18/18; continue iv heparin, patient requested to be on coumadin due to chadsvasc score =2; d/w patient 07/21, advised to call my office to make appointment
[2018-07-21] MEDS: Morphine Inj 4 MG/ML Vial IV.PUSH PRN ×2 (08:56→20:09)
--- NOTE | 2018-07-21 11:44 | P.PN ---
Subjective Interval history: Follow-up sepsis/UTI/new onset A. fib with RVR July 21, 2018-patient seen and examined, denies any chest pain, shortness of breath or dizziness. Denies any abdominal pain either. Physical Exam Vital signs: Vital Signs 07/20/18 12:00 07/20/18 12:31 07/20/18 13:00 Temperature Pulse Rate 74 75 74 Respiratory Rate 24 22 20 Blood Pressure 158/70 H 146/65 H 140/63 Pulse Oximetry 94 L 95 95 07/20/18 13:30 07/20/18 14:00 07/20/18 14:08 Temperature Pulse Rate 74 79 79 Respiratory Rate 21 19 31 H Blood Pressure 145/68 H 147/102 H 153/70 H Pulse Oximetry 95 93 L 93 L 07/20/18 14:30 07/20/18 15:00 07/20/18 15:30 Temperature Pulse Rate 75 77 76 Respiratory Rate 26 H 21 23 Blood Pressure 155/74 H 146/66 H 157/68 H Pulse Oximetry 92 L 93 L 92 L 07/20/18 16:00 07/20/18 16:30 07/20/18 17:00 Temperature 98.8 F 99.5 F Pulse Rate 79 78 86 Respiratory Rate 26 H 23 16 Blood Pressure 155/70 H 148/67 H 150/81 H Pulse Oximetry 91 L 92 L 94 L 07/20/18 17:57 07/20/18 17:58 07/20/18 19:00 Temperature 99.5 F 99.4 F Pulse Rate 77 86 95 H Respiratory Rate 18 16 Blood Pressure 150/81 H 156/75 H Pulse Oximetry 94 L 94 L 07/20/18 20:00 07/20/18 21:00 07/20/18 21:31 Temperature Pulse Rate 76 74 Respiratory Rate Blood Pressure Pulse Oximetry 93 L 07/20/18 22:00 07/20/18 23:00 07/21/18 00:00 Temperature 99.5 F Pulse Rate 68 65 68 Respiratory Rate 18 Blood Pressure 117/56 L Pulse Oximetry 94 L 07/21/18 01:00 07/21/18 02:00 07/21/18 03:00 Temperature 98.4 F Pulse Rate 68 64 63 Respiratory Rate 18 Blood Pressure 124/58 L Pulse Oximetry 94 L 07/21/18 04:00 07/21/18 05:00 07/21/18 06:00 Temperature Pulse Rate 64 74 70 Respiratory Rate Blood Pressure Pulse Oximetry 07/21/18 07:00 07/21/18 08:00 Temperature 98.4 F Pulse Rate 72 Respiratory Rate 16 Blood Pressure 123/61 Pulse Oximetry 94 L 94 L Intake & Output 07/20/18 07/21/18 07/21/18 18:59 06:59 18:59 Intake Total 590 / 590 830 / 830 Balance 590 / 590 830 / 830 Weight 76.4 kg Intake: IV 350 / 350 350 / 350 Heparin/D5W 25,000 U/250 mL 25, 250 / 250 250 / 250 000 unit In 250 ml @ Per Protocol IV.CONT TITRATE PRN Rx #:[id number] Zosyn 3.375 GM Premix 3.375 gm 100 / 100 100 / 100 In 50 ml @ 100 mls/hr IV.SIG Q6H NANCY Rx#:[id number] Oral 240 / 240 480 / 480 Other: # Voids 3 Date of Last Bowel Movement 07/16/18 07/20/18 Narrative: GENERAL: NAD SKIN: Warm and dry. HEAD: Atraumatic. Normocephalic. EYES: Pupils equal and round. No scleral icterus. No injection or drainage. ENT: No nasal bleeding or discharge. Mucous membranes pink and moist. NECK: Trachea midline. No JVD. CARDIOVASCULAR: Irregular regular rate and rhythm. RESPIRATORY: No accessory muscle use. Clear to auscultation. Breath sounds equal bilaterally. GASTROINTESTINAL: Abdomen soft, non-tender, nondistended. Hepatic and splenic margins not palpable. MUSCULOSKELETAL: Extremities without clubbing, cyanosis, or edema. No obvious deformities. NEUROLOGICAL: Awake and alert. No obvious cranial nerve deficits. Motor grossly within normal limits. Five out of 5 muscle strength in the arms and legs. Normal speech. PSYCHIATRIC: Appropriate mood and affect; insight and judgment normal. - Urinary Catheter Management Indwelling Urethral Catheter Cath placed during this visit: yes, but has since been removed by the nurse Reason for continuing: Decision to DC catheter Insertion date: 07/16/18 Insertion time: 04:00 Removal date: 07/17/18 Removal time: 12:00 Results - Labs CBC & Chem 7: 07/21/18 06:59 07/21/18 06:59 Laboratory Results - last 24 hr 1207/20/18 07/20/18 11:58 13:43 17:21 WBC RBC Hgb Hct MCV MCH MCHC RDW Plt Count MPV Prelim Diff (Auto) Neut % (Auto) Lymph % (Auto) [place] % (Auto) Eos % (Auto) Baso % (Auto) Neut # (Auto) Lymph # (Auto) [place] # (Auto) Eos # (Auto) Baso # (Auto) WBC Differential Seg Neuts % (Manual) Band Neuts % (Manual) Lymphocytes % (Manual) Monocytes % (Manual) Eosinophils % (Manual) Basophils % (Manual) Metamyelocytes % (Man) Myelocytes % (Man) Abs Neuts (Manual) Differential Comment Platelet Estimate Platelet Morphology Ovalocytes APTT 38.1 H Sodium Potassium Chloride Carbon Dioxide Anion Gap BUN Creatinine Estimated GFR POC Glucose 144 H 116 H Random Glucose Calcium Phosphorus Magnesium Total Bilirubin AST ALT Alkaline Phosphatase Total Protein Albumin 07/20/18 07/21/18 07/21/18 22:51 06:15 06:59 WBC 8.6 RBC 3.14 L Hgb 9.6 L Hct 27.7 L MCV 88.1 MCH 30.4 MCHC 34.6 RDW 13.3 Plt Count 244 D MPV 8.2 Prelim Diff (Auto) Slide review pending Neut % (Auto) 59.2 Lymph % (Auto) 21.2 [place] % (Auto) 14.1 H Eos % (Auto) 5.0 H Baso % (Auto) 0.5 Neut # (Auto) 5.1 Lymph # (Auto) 1.8 [place] # (Auto) 1.2 H Eos # (Auto) 0.4 Baso # (Auto) 0.0 WBC Differential Manual diff final Seg Neuts % (Manual) 49 Band Neuts % (Manual) 2 Lymphocytes % (Manual) 29 Monocytes % (Manual) 12 H Eosinophils % (Manual) 3 Basophils % (Manual) 1 Metamyelocytes % (Man) 3 H Myelocytes % (Man) 1 H Abs Neuts (Manual) 4.7 Differential Comment . Platelet Estimate Normal Platelet Morphology Clumped H Ovalocytes 1+ H APTT Sodium Potassium Chloride Carbon Dioxide Anion Gap BUN Creatinine Estimated GFR POC Glucose 111 H 103 Random Glucose Calcium Phosphorus Magnesium Total Bilirubin AST ALT Alkaline Phosphatase Total Protein Albumin 07/21/18 06:59 WBC RBC Hgb Hct MCV MCH MCHC RDW Plt Count MPV Prelim Diff (Auto) Neut % (Auto) Lymph % (Auto) [place] % (Auto) Eos % (Auto) Baso % (Auto) Neut # (Auto) Lymph # (Auto) [place] # (Auto) Eos # (Auto) Baso # (Auto) WBC Differential Seg Neuts % (Manual) Band Neuts % (Manual) Lymphocytes % (Manual) Monocytes % (Manual) Eosinophils % (Manual) Basophils % (Manual) Metamyelocytes % (Man) Myelocytes % (Man) Abs Neuts (Manual) Differential Comment Platelet Estimate Platelet Morphology Ovalocytes APTT Sodium 145 Potassium 3.5 D Chloride 111 H Carbon Dioxide 26.7 Anion Gap 7 BUN 7 Creatinine 0.82 Estimated GFR 67 L POC Glucose Random Glucose 97 Calcium 7.7 L Phosphorus 2.3 L Magnesium 1.7 Total Bilirubin 0.5 AST 84 H ALT 63 H Alkaline Phosphatase 138 H Total Protein 5.0 L Albumin 2.2 L Microbiology 07/15/18 23:36 Blood - Peripheral Aerobic Blood Culture - Final No growth in 5 days 07/15/18 23:36 Blood - Peripheral Anaerobic Blood Culture - Final No growth in 5 days 07/15/18 23:30 Blood - Peripheral Aerobic Blood Culture - Final No growth in 5 days 07/15/18 23:30 Blood - Peripheral Anaerobic Blood Culture - Final No growth in 5 days - Procedures None Assessment and Plan - Plan 82-year-old female with Severe sepsis-resolved Septic shock-resolved UTI Currently on Zosyn, will switch to p.o. 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
[2018-07-21 12:49] LABS: INR 1.1 Ratio; Prothrombin Time 11.2 sec (9.8-11.6)
--- NOTE | 2018-07-21 15:29 | P.PNID ---
Subjective Remarks: Ms. 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 Patient reports that she was doing extremely well and on prior to admission she went to her local restaurant and had a 3 course meal with her daughter. She reports she did okay after getting back home but on the subsequent morning she woke up feeling extremely sick with nausea followed by multiple bouts of vomiting and subsequently diarrhea. Patient denies any urinary complaints prior to this acute onset illness. Patient denies any prior history of UTIs, renal stones or any bladder issues. Patient reports having had a EGD in the past approximately 10 years back and possibly an ERCP and being told that she had gallbladder sludge in addition to GERD. She reports a colonoscopy was attempted but due to anesthesia issues it had to be aborted. In the ER patient was found to be febrile with elevated WBC and altered mental status and patient was admitted for sepsis. Of sepsis workup was initiated in the ER including blood cultures UA with urine cultures as well as a CT abdomen pelvis done. The CT of the abdomen pelvis showed dilated biliary tree but no overt obstruction no gallbladder wall thickening no pericholecystic fluid. Patient had elevated creatinine as well and subsequently developed hypotension and tachycardia in the [place] emergency department she received 3 L of IV fluids and was placed on pressors to keep her map 65 and above. She was emergently transferred to [facility] from [place] for further management. She has been under the service of critical care team and has also been evaluated by gastroenterology. Gastroenterology planned on ERCP as well as possibly a colonoscopy. But before this could be attempted patient became extremely tachycardic and was diagnosed with new onset atrial fibrillation. Patient was evaluated by cardiology in was on Cardene drip until this morning. At the time of my evaluation patient is in the ICU currently reports crampy abdominal pain mostly in the suprapubic as well as right lower quadrant. She reports she had bouts of diarrhea earlier on in the admission and she feels like she is having a baby. She denies any nausea vomiting chest pain or diarrhea. Patient has good urine output. She is currently not on any vasopressors and is on room air. Infectious diseases consulted for evaluation and management of possible UTI, acute cholecystitis. Overnight events reviewed. No fevers No rash No abdominal pain No N/V Does not want ERCP or Colonoscopy. Being bridged to Coumadin from Heparin IV. Antibiotics: Zosyn IV Lines: Lines with no evidence of infection. Past Medical History: Reviewed. Allergies/Adverse Reactions: Allergies diphenhydramine Allergy (Severe, Verified 07/16/18 00:47) THROAT CLOSES valproic acid Allergy (Intermediate, Verified 07/16/18 00:47) VERY DISORIENTED Objective Vital Signs 07/20/18 15:30 07/20/18 16:00 07/20/18 16:30 Temperature 98.8 F Pulse Rate 76 79 78 Respiratory Rate 23 26 H 23 Blood Pressure 157/68 H 155/70 H 148/67 H Pulse Oximetry 92 L 91 L 92 L 07/20/18 17:00 07/20/18 17:57 07/20/18 17:58 Temperature 99.5 F 99.5 F Pulse Rate 86 77 86 Respiratory Rate 16 18 Blood Pressure 150/81 H 150/81 H Pulse Oximetry 94 L 94 L 07/20/18 19:00 07/20/18 20:00 07/20/18 21:00 Temperature 99.4 F Pulse Rate 95 H 76 74 Respiratory Rate 16 Blood Pressure 156/75 H Pulse Oximetry 94 L 07/20/18 21:31 07/20/18 22:00 07/20/18 23:00 Temperature 99.5 F Pulse Rate 68 65 Respiratory Rate 18 Blood Pressure 117/56 L Pulse Oximetry 93 L 94 L 07/21/18 00:00 07/21/18 01:00 07/21/18 02:00 Temperature Pulse Rate 68 68 64 Respiratory Rate Blood Pressure Pulse Oximetry 07/21/18 03:00 07/21/18 04:00 07/21/18 05:00 Temperature 98.4 F Pulse Rate 63 64 74 Respiratory Rate 18 Blood Pressure 124/58 L Pulse Oximetry 94 L 07/21/18 06:00 07/21/18 07:00 07/21/18 08:00 Temperature 98.4 F Pulse Rate 70 72 82 Respiratory Rate 16 Blood Pressure 123/61 Pulse Oximetry 94 L 94 L 07/21/18 09:00 07/21/18 10:00 07/21/18 11:00 Temperature 98.4 F Pulse Rate 94 H 102 H 69 Respiratory Rate 16 Blood Pressure 147/82 H Pulse Oximetry 96 12/27/18 12:00 Temperature Pulse Rate 90 Respiratory Rate Blood Pressure Pulse Oximetry Intake & Output 07/20/18 07/21/18 07/21/18 18:59 06:59 18:59 Intake Total 590 / 590 830 / 830 Balance 590 / 590 830 / 830 Weight 76.4 kg Intake: IV 350 / 350 350 / 350 Heparin/D5W 25,000 U/250 mL 25, 250 / 250 250 / 250 000 unit In 250 ml @ Per Protocol IV.CONT TITRATE PRN Rx #:[id number] Zosyn 3.375 GM Premix 3.375 gm 100 / 100 100 / 100 In 50 ml @ 100 mls/hr IV.SIG Q6H NANCY Rx#:[id number] Oral 240 / 240 480 / 480 Other: # Voids 3 Date of Last Bowel Movement 07/16/18 07/21/18 07/15/18 23:36 Blood - Peripheral Aerobic Blood Culture - Final No growth in 5 days 07/15/18 23:36 Blood - Peripheral Anaerobic Blood Culture - Final No growth in 5 days 07/15/18 23:30 Blood - Peripheral Aerobic Blood Culture - Final No growth in 5 days 07/15/18 23:30 Blood - Peripheral Anaerobic Blood Culture - Final No growth in 5 days 07/16/18 00:50 Catheterized Urine Urine Culture - Final Escherichia coli Streptococcus anginosus 07/16/18 12:45 Stool Cryptosporidium Antigen - Final Negative - No Cryptosporicium antigen detected In selected cases of patients with a history of immunosuppression or foreign travel, a full ova and parasites examination may be desired. Contact the microbiology lab if full workup is indicated and subit another specimen for testing. 07/16/18 12:45 Stool Giardia Antigen (LYNDON) - Final Negative - No Giardia Antigen detected In selected cases of patients with a history of immunosuppression or foreign travel, a full ova and parasites examination may be desired. Contact the microbiology lab if full workup is indicated and subit another specimen for testing. Lab - Hematology Results 07/20/18 07/21/18 04:36 06:59 WBC 7.5 8.6 RBC 3.30 L 3.14 L Hgb 10.0 L 9.6 L Hct 29.5 L 27.7 L MCV 89.3 88.1 MCH 30.4 30.4 MCHC 34.1 34.6 RDW 13.5 13.3 Plt Count 149 L 244 D MPV 9.5 8.2 Prelim Diff (Auto) Slide review pending Slide review pending Neut % (Auto) 57.1 59.2 Lymph % (Auto) 22.0 21.2 [place] % (Auto) 14.2 H 14.1 H Eos % (Auto) 5.9 H 5.0 H Baso % (Auto) 0.8 0.5 Neut # (Auto) 4.3 5.1 Lymph # (Auto) 1.6 1.8 [place] # (Auto) 1.1 H 1.2 H Eos # (Auto) 0.4 0.4 Baso # (Auto) 0.1 0.0 WBC Differential . Manual diff final Diff Scan Auto diff confirmed Seg Neuts % (Manual) 49 Band Neuts % (Manual) 2 Lymphocytes % (Manual) 29 Monocytes % (Manual) 12 H Eosinophils % (Manual) 3 Basophils % (Manual) 1 Metamyelocytes % (Man) 3 H Myelocytes % (Man) 1 H Abs Neuts (Manual) 4.7 Differential Comment . . Platelet Estimate Normal Platelet Morphology Clumped H Ovalocytes 1+ H Lab - Chemistry Results 07/19/18 07/20/18 07/20/18 17:15 04:36 06:31 Sodium 145 Potassium 4.5 D Chloride 114 H Carbon Dioxide 23.9 Anion Gap 7 BUN 10 Creatinine 0.86 Estimated GFR 63 L POC Glucose 133 H 128 H Random Glucose 107 H Calcium 7.5 L Phosphorus 2.1 L Magnesium 1.8 Total Bilirubin 0.6 AST 70 H ALT 45 Alkaline Phosphatase 116 Total Protein 4.9 L Albumin 2.1 L 07/20/18 07/20/18 07/20/18 11:58 17:21 22:51 Sodium Potassium Chloride Carbon Dioxide Anion Gap BUN Creatinine Estimated GFR POC Glucose 144 H 116 H 111 H Random Glucose Calcium Phosphorus Magnesium Total Bilirubin AST ALT Alkaline Phosphatase Total Protein Albumin 07/21/18 07/21/18 07/21/18 06:15 06:59 12:00 Sodium 145 Potassium 3.5 D Chloride 111 H Carbon Dioxide 26.7 Anion Gap 7 BUN 7 Creatinine 0.82 Estimated GFR 67 L POC Glucose 103 143 H Random Glucose 97 Calcium 7.7 L Phosphorus 2.3 L Magnesium 1.7 Total Bilirubin 0.5 AST 84 H ALT 63 H Alkaline Phosphatase 138 H Total Protein 5.0 L Albumin 2.2 L Imaging: ITS Impressions Abdomen/Bladder Ultrasound 07/16/18 00:00 CONCLUSION: 1. Increased echogenicity to the kidneys bilaterally consistent with medical renal disease. No hydronephrosis is seen. 2. 1.3 cm cyst at the mid left kidney. Cholangiopancreatography MRI 07/16/18 00:00 CONCLUSION: 1. Moderately distended gallbladder with diffusely distended extrahepatic bile ducts and pancreatic duct extending to the ampulla. No definitive focal intraductal abnormality is demonstrated. Differential considerations include an occult pancreatic head lesion versus ampullary dysfunction/mass. Consider ERCP with endoscopic ultrasound for further evaluation as clinically warranted. Abdomen/Pelvis CT 07/16/18 00:18 CONCLUSION: 1. Biliary tree dilatation otherwise unremarkable CT scan of the abdomen and pelvis. Right hemidiaphragm is markedly elevated. Moderately distended colon without evidence of wall thickening or obstruction. 2. Some increased density to the left renal collecting system and right posterior bladder that could be evidence of transitional cell carcinoma. Correlate for hematuria. And outpt. Urology workup recommended Head CT 07/16/18 00:18 CONCLUSION: 1. Unremarkable study. No evidence of hemorrhage or edema. Some motion in the central portion of the exam without obvious mass or mass effect . Chest X-Ray 07/17/18 00:00 CONCLUSION: Elevation of the right hemidiaphragm with some accompanying atelectasis or consolidation at the right base. There also is some prominence of the right hilar region. Physical Exam: GENERAL: Well-nourished well-developed, not in acute distress SKIN: Cool and dry, no generalized rash HEAD: Atraumatic. Normocephalic. No temporal or scalp tenderness. EYES: Pupils equal round and reactive. Scleral icterus. No injection or drainage. No petechia ENT: Nothing abnormal detected NECK: Trachea midline. Supple, nontender, no meningeal signs. CARDIOVASCULAR: HS audible. RESPIRATORY: Clear to auscultation bilaterally. GASTROINTESTINAL: Abdomen soft nontender. MUSCULOSKELETAL: Extremities without clubbing, cyanosis. NEUROLOGICAL: Alert oriented 3. Nonfocal. Psych cooperative IV line sites ok. Assessment and Plan - Plan Severe sepsis present on admission. Possible staphylococcal food poisoning on admission, which are concerning for toxic shock syndrome versus prerenal status from large volume vomiting and diarrhea. E. coli and strep ? UTI especially in the presence of abnormal color show findings concerning for transitional cell carcinoma. Possible acute cholecystitis Acute metabolic encephalopathy on admission likely secondary to sepsis now resolved Acute renal failure on admission now appears to be improving Recommendations Discontinue Zosyn IV Start oral Augmentin for 10 additional days from today. Follow cultures Follow clinical course We will sign off please call back if any change in clinical condition or questions.
--- NOTE | 2018-07-21 17:59 | P.PNGI ---
Subjective Interval history: Patient resting comfortably Denies abdominal pain Physical Exam Vital signs: Vital Signs 07/20/18 17:57 07/20/18 17:58 07/20/18 19:00 Temperature 99.5 F 99.4 F Pulse Rate 77 86 95 H Respiratory Rate 18 16 Blood Pressure 150/81 H 156/75 H Pulse Oximetry 94 L 94 L 07/20/18 20:00 07/20/18 21:00 07/20/18 21:31 Temperature Pulse Rate 76 74 Respiratory Rate Blood Pressure Pulse Oximetry 93 L 07/20/18 22:00 07/20/18 23:00 07/21/18 00:00 Temperature 99.5 F Pulse Rate 68 65 68 Respiratory Rate 18 Blood Pressure 117/56 L Pulse Oximetry 94 L 07/21/18 01:00 07/21/18 02:00 07/21/18 03:00 Temperature 98.4 F Pulse Rate 68 64 63 Respiratory Rate 18 Blood Pressure 124/58 L Pulse Oximetry 94 L 07/21/18 04:00 07/21/18 05:00 07/21/18 06:00 Temperature Pulse Rate 64 74 70 Respiratory Rate Blood Pressure Pulse Oximetry 07/21/18 07:00 07/21/18 08:00 07/21/18 09:00 Temperature 98.4 F Pulse Rate 72 58 L 70 Respiratory Rate 16 Blood Pressure 123/61 Pulse Oximetry 94 L 94 L 07/21/18 10:00 07/21/18 11:00 07/21/18 12:00 Temperature 98.4 F Pulse Rate 74 69 74 Respiratory Rate 16 Blood Pressure 147/82 H Pulse Oximetry 96 07/21/18 13:00 07/21/18 14:00 07/21/18 15:00 Temperature 98.7 F Pulse Rate 74 74 74 Respiratory Rate 16 Blood Pressure 153/80 H Pulse Oximetry 95 07/21/18 16:00 07/21/18 16:49 Temperature Pulse Rate 72 Respiratory Rate Blood Pressure Pulse Oximetry 94 L Intake & Output 07/20/18 07/21/18 07/21/18 18:59 06:59 18:59 Intake Total 590 / 590 830 / 830 100 / 100 Balance 590 / 590 830 / 830 100 / 100 Weight 76.4 kg Intake: IV 350 / 350 350 / 350 100 / 100 Heparin/D5W 25,000 U/250 mL 25, 250 / 250 250 / 250 000 unit In 250 ml @ Per Protocol IV.CONT TITRATE PRN Rx #:[id number] Zosyn 3.375 GM Premix 3.375 gm 100 / 100 100 / 100 100 / 100 In 50 ml @ 100 mls/hr IV.SIG Q6H NANCY Rx#:[id number] Oral 240 / 240 480 / 480 Other: # Voids 3 Date of Last Bowel Movement 07/16/18 07/21/18 - Constitutional no acute distress - Routine HEENT Exam Head: Present: normocephalic - Routine Respiratory Exam Present: CTA bilaterally. Absent: accessory muscle use - Routine Cardiovascular Exam Present: RRR - Routine Abdominal Exam Present: soft, normoactive bowel sounds. Absent: tenderness, distended - Routine Skin Exam Present: dry, warm - Routine Neurological Exam Present: alert - Urinary Catheter Management Indwelling Urethral Catheter Cath placed during this visit: yes, but has since been removed by the nurse Reason for continuing: Decision to DC catheter Insertion date: 07/16/18 Insertion time: 04:00 Removal date: 07/17/18 Removal time: 12:00 Results - Labs CBC & Chem 7: 07/21/18 06:59 07/21/18 06:59 Laboratory Results - last 24 hr 07/20/18 07/21/18 07/21/18 22:51 06:15 06:59 WBC 8.6 RBC 3.14 L Hgb 9.6 L Hct 27.7 L MCV 88.1 MCH 30.4 MCHC 34.6 RDW 13.3 Plt Count 244 D MPV 8.2 Prelim Diff (Auto) Slide review pending Neut % (Auto) 59.2 Lymph % (Auto) 21.2 [place] % (Auto) 14.1 H Eos % (Auto) 5.0 H Baso % (Auto) 0.5 Neut # (Auto) 5.1 Lymph # (Auto) 1.8 [place] # (Auto) 1.2 H Eos # (Auto) 0.4 Baso # (Auto) 0.0 WBC Differential Manual diff final Seg Neuts % (Manual) 49 Band Neuts % (Manual) 2 Lymphocytes % (Manual) 29 Monocytes % (Manual) 12 H Eosinophils % (Manual) 3 Basophils % (Manual) 1 Metamyelocytes % (Man) 3 H Myelocytes % (Man) 1 H Abs Neuts (Manual) 4.7 Differential Comment . Platelet Estimate Normal Platelet Morphology Clumped H Ovalocytes 1+ H PT INR Sodium Potassium Chloride Carbon Dioxide Anion Gap BUN Creatinine Estimated GFR POC Glucose 111 H 103 Random Glucose Calcium Phosphorus Magnesium Total Bilirubin AST ALT Alkaline Phosphatase Total Protein Albumin 07/21/18 07/21/18 07/21/18 06:59 12:00 12:04 WBC RBC Hgb Hct MCV MCH MCHC RDW Plt Count MPV Prelim Diff (Auto) Neut % (Auto) Lymph % (Auto) [place] % (Auto) Eos % (Auto) Baso % (Auto) Neut # (Auto) Lymph # (Auto) [place] # (Auto) Eos # (Auto) Baso # (Auto) WBC Differential Seg Neuts % (Manual) Band Neuts % (Manual) Lymphocytes % (Manual) Monocytes % (Manual) Eosinophils % (Manual) Basophils % (Manual) Metamyelocytes % (Man) Myelocytes % (Man) Abs Neuts (Manual) Differential Comment Platelet Estimate Platelet Morphology Ovalocytes PT 11.2 INR 1.1 Sodium 145 Potassium 3.5 D Chloride 111 H Carbon Dioxide 26.7 Anion Gap 7 BUN 7 Creatinine 0.82 Estimated GFR 67 L POC Glucose 143 H Random Glucose 97 Calcium 7.7 L Phosphorus 2.3 L Magnesium 1.7 Total Bilirubin 0.5 AST 84 H ALT 63 H Alkaline Phosphatase 138 H Total Protein 5.0 L Albumin 2.2 L 07/21/18 16:29 WBC RBC Hgb Hct MCV MCH MCHC RDW Plt Count MPV Prelim Diff (Auto) Neut % (Auto) Lymph % (Auto) [place] % (Auto) Eos % (Auto) Baso % (Auto) Neut # (Auto) Lymph # (Auto) [place] # (Auto) Eos # (Auto) Baso # (Auto) WBC Differential Seg Neuts % (Manual) Band Neuts % (Manual) Lymphocytes % (Manual) Monocytes % (Manual) Eosinophils % (Manual) Basophils % (Manual) Metamyelocytes % (Man) Myelocytes % (Man) Abs Neuts (Manual) Differential Comment Platelet Estimate Platelet Morphology Ovalocytes PT INR Sodium Potassium Chloride Carbon Dioxide Anion Gap BUN Creatinine Estimated GFR POC Glucose 104 Random Glucose Calcium Phosphorus Magnesium Total Bilirubin AST ALT Alkaline Phosphatase Total Protein Albumin Microbiology 07/15/18 23:36 Blood - Peripheral Aerobic Blood Culture - Final No growth in 5 days 07/15/18 23:36 Blood - Peripheral Anaerobic Blood Culture - Final No growth in 5 days 07/15/18 23:30 Blood - Peripheral Aerobic Blood Culture - Final No growth in 5 days 07/15/18 23:30 Blood - Peripheral Anaerobic Blood Culture - Final No growth in 5 days - Procedures None Assessment and Plan - Plan - Abdominal pain, N/V/distended extrahepatic bile ducts and pancreatic duct- MRCP on 07/16/18 Moderately distended gallbladder with diffusely distended extrahepatic bile ducts and pancreatic duct extending to the ampulla. No definitive focal intraductal abnormality is demonstrated. Differential considerations include an occult pancreatic head lesion versus ampullary dysfunction/mass. CT abd/pelvis with dilated biliary tree, Right hemidiaphragm is markedly elevated. Moderately distended colon without evidence of wall thickening or obstruction but no gallbladder thickening. no pericholecystic fluid. Abdomen/Bladder Ultrasound 07/16/18 Increased echogenicity to the kidneys bilaterally consistent with medical renal disease. No hydronephrosis is seen. 1.3 cm cyst at the mid left kidney. LFTs aside from slight elevation in AST wnl, lipase wnl. - AMS- Resolved, Possibly multifactorial, sepsis, uti, will need to r/o cholangitis or colon related issues, on abx Blood cx negative so far , urine cx GNR and gamma hemolytic streptococci. CT of head negative - Constipation- had multiple Bms, abd pain could be related to this. Stools negative for C-diff - Anemia- stable hgb today is 10.8, stable no bleeding reported, could be dilutional - Sepsis/ uti- WBC normal on abx - Abnormal imaging of bladder- S/p urology consult, plans for in-office cystoscopy, no indication of immediate intervention - Fecal impaction- s/p multiple laxatives, having several loose BMs - New onset of A-fib with RVR- ERCP and EUS was planned for today, but on hold for now in view of new onset of A-fib 07/20/2018 New-onset A. fib with RVR ERCP/EUS held due to new onset A. fib with RVR. Patient currently on heparin drip, will be transitioned to Coumadin and Lovenox. Sinus rhythm at this time. Fecal impaction Positive bowel sounds present abdomen soft, patient passing gas and states she feels as though she will have a BM this evening. Anemia Hemoglobin 10.0 hematocrit 29.5, no reported bleeding Abdominal pain with nausea vomiting Patient reports intermittent abdominal discomfort, states nausea present earlier but relieved at this time Total bilirubin 0.6 AST 70 ALT 45 alk phos 116 Patient's daughter request that ERCP/EUS be done as an outpatient when patient stable. 07/21/2018 Patient denies abdominal pain nausea or vomiting Per patient, further workup-EUS/ERCP evaluation to be done as an outpatient. Abdomen soft with positive bowel sounds, patient states she had a large BM today WBC 8.6 hemoglobin 9.6 hematocrit 27.7 stable Total bilirubin 0.5 AST 84 ALT 63 alk phos 138 Plan -Regular diet -EUS/ERCP on hold at this time per family wishes -bowel regimen -CA 199 -Supportive care -Patient agrees to follow-up with GI post discharge -GI will sign off at this time, please notify for any further needs Patient has been seen by myself and Dr. Neumann and this note is written on his behalf - Attending Attestation Dr. Neumnan
[2018-07-21] MEDS: Melatonin 5 MG Tablet PO SCH (20:09)
[2018-07-21] MEDS: Amoxicillin/Clavulanate 875/125 MG Tablet PO SCH (20:09)
[2018-07-22] MEDS: Insulin NovoLIN Regular Correctional Sugar Inj SQ SCH ×4 (00:31→17:14)
[2018-07-22] MEDS: Levothyroxine 50 MCG Tablet PO SCH (05:58)
[2018-07-22 06:00] LABS: Baso # (Auto) 0.1 th/mm3 (0.0-0.2); Baso % (Auto) 0.7 % (0.0-2.0); Eos # (Auto) 0.6 th/mm3 (0.0-0.4); Eos % (Auto) 5.3 % (0.0-4.0); Hematocrit 26.8 % (35.0-46.0); Lymph # (Auto) 2.7 th/mm3 (1.0-4.8); Lymph % (Auto) 24.8 % (9.0-44.0); Mean Corpuscular HGB Conc 33.8 % (32.0-36.0); Mean Corpuscular Hemoglobin 30.2 pg (27.0-34.0); Mean Corpuscular Volume 89.3 fL (80.0-100.0); Mean Platelet Volume 8.2 fL (7.0-11.0); Mono # (Auto) 1.3 th/mm3 (0.0-0.9); Mono % (Auto) 12.3 % (0.0-8.0); Neut # (Auto) 6.2 th/mm3 (1.8-7.7); Neut % (Auto) 56.9 % (16.0-70.0); Platelet Count 287 th/mm3 (150-450); Red Cell Distribution Width 13.2 % (11.6-17.2); White Blood Count 10.8 th/mm3 (4.0-11.0)
[2018-07-22 06:07] LABS: INR 1.1 Ratio; Prothrombin Time 11.6 sec (9.8-11.6)
[2018-07-22 06:28] LABS: Albumin 2.3 g/dL (3.4-5.0); Anion Gap 10 meq/L (5-15); Aspartate Aminotransferase 81 U/L (15-37); Blood Urea Nitrogen 7 mg/dL (7-18); Carbon Dioxide 27.4 meq/L (21.0-32.0); Chloride 110 meq/L (98-107); Glomerular Filtration Rate 72 mL/min (>89); Glucose,Random 90 mg/dL (74-106); Magnesium 1.7 mg/dL (1.5-2.5); Potassium 3.4 meq/L (3.5-5.1); Sodium 147 meq/L (136-145)
[2018-07-22 06:32] LABS: Alanine Aminotransferase 64 U/L (10-53); Alkaline Phosphatase 139 U/L (45-117); Phosphorus 3.4 mg/dL (2.5-4.9); Total Protein 5.2 g/dL (6.4-8.2)
[2018-07-22 07:53] LABS: Eosinophils 3 % (0-4); Lymphocytes 18 % (9-44); Metamyelocytes 6 % (0-1); Monocytes 6 % (0-8)
[2018-07-22 07:54] LABS: Ovalocytes 1+; Platelet Estimate Normal (Normal); Platelet Morphology Normal (Normal)
[2018-07-22] MEDS: Enoxaparin Inj 80 MG/0.8 ML Syringe SQ SCH ×2 (08:54→20:22)
[2018-07-22] MEDS: Amoxicillin/Clavulanate 875/125 MG Tablet PO SCH ×2 (08:54→20:23)
[2018-07-22] MEDS: Senna/Docusate Sodium 8.6/50 MG Tablet PO SCH ×2 (08:55→20:23)
[2018-07-22] MEDS: Polyethylene Glycol 3350 17 GM Packet PO SCH ×2 (08:55→20:23)
--- NOTE | 2018-07-22 11:22 | P.PN ---
Subjective Interval history: Follow-up sepsis/UTI/new onset A. fib with RVR July 21, 2018-patient seen and examined, denies any chest pain, shortness of breath or dizziness. Denies any abdominal pain either. July 22, 2018-patient seen and examined, reports black stool however denies any bleeding. She was up and ambulated with PT. Denies any shortness of breath or chest pain. Physical Exam Vital signs: Vital Signs 07/21/18 12:00 07/21/18 13:00 07/21/18 14:00 Temperature Pulse Rate 74 74 74 Respiratory Rate Blood Pressure Pulse Oximetry 07/21/18 15:00 07/21/18 16:00 07/21/18 16:49 Temperature 98.7 F Pulse Rate 74 72 Respiratory Rate 16 Blood Pressure 153/80 H Pulse Oximetry 95 94 L 07/21/18 17:00 07/21/18 18:00 07/21/18 19:00 Temperature 99.0 F Pulse Rate 82 64 70 Respiratory Rate 18 Blood Pressure 162/79 H Pulse Oximetry 94 L 07/21/18 20:00 07/21/18 21:00 07/21/18 22:00 Temperature Pulse Rate 58 L 62 60 Respiratory Rate Blood Pressure Pulse Oximetry 94 L 07/21/18 23:00 07/22/18 00:00 07/22/18 01:00 Temperature 98.0 F Pulse Rate 70 62 60 Respiratory Rate 16 Blood Pressure 133/63 Pulse Oximetry 95 07/22/18 02:00 07/22/18 03:00 07/22/18 04:00 Temperature 98.6 F Pulse Rate 60 61 54 L Respiratory Rate 20 Blood Pressure 150/75 H Pulse Oximetry 07/22/18 05:00 07/22/18 06:00 07/22/18 07:00 Temperature 98.2 F Pulse Rate 58 L 57 L 64 Respiratory Rate 16 Blood Pressure 153/82 H Pulse Oximetry 94 L 07/22/18 08:00 07/22/18 10:38 Temperature Pulse Rate Respiratory Rate Blood Pressure Pulse Oximetry 94 L 94 L Intake & Output 07/21/18 07/22/18 07/22/18 18:59 06:59 18:59 Intake Total 480 / 480 240 / 240 Balance 480 / 480 240 / 240 Weight 76.2 kg Intake: IV 100 / 100 Zosyn 3.375 GM Premix 3.375 gm 100 / 100 In 50 ml @ 100 mls/hr IV.SIG Q6H NANCY Rx#:[id number] Oral 380 / 380 240 / 240 Other: # Voids 4 3 Date of Last Bowel Movement 07/21/18 07/22/18 07/22/18 # Bowel Movements 3 1 Narrative: GENERAL: NAD SKIN: Warm and dry. HEAD: Atraumatic. Normocephalic. EYES: Pupils equal and round. No scleral icterus. No injection or drainage. ENT: No nasal bleeding or discharge. Mucous membranes pink and moist. NECK: Trachea midline. No JVD. CARDIOVASCULAR: Irregular regular rate and rhythm. RESPIRATORY: No accessory muscle use. Clear to auscultation. Breath sounds equal bilaterally. GASTROINTESTINAL: Abdomen soft, non-tender, nondistended. Hepatic and splenic margins not palpable. MUSCULOSKELETAL: Extremities without clubbing, cyanosis, or edema. No obvious deformities. NEUROLOGICAL: Awake and alert. No obvious cranial nerve deficits. Motor grossly within normal limits. Five out of 5 muscle strength in the arms and legs. Normal speech. PSYCHIATRIC: Appropriate mood and affect; insight and judgment normal. - Urinary Catheter Management Indwelling Urethral Catheter Cath placed during this visit: yes, but has since been removed by the nurse Reason for continuing: Decision to DC catheter Insertion date: 07/16/18 Insertion time: 04:00 Removal date: 07/17/18 Removal time: 12:00 Results - Labs CBC & Chem 7: 07/22/18 05:36 07/22/18 05:36 Laboratory Results - last 24 hr 07/21/18 07/21/18 07/21/18 12:00 12:04 16:29 WBC RBC Hgb Hct MCV MCH MCHC RDW Plt Count MPV Prelim Diff (Auto) Neut % (Auto) Lymph % (Auto) Real % (Auto) Eos % (Auto) Baso % (Auto) Neut # (Auto) Lymph # (Auto) Real # (Auto) Eos # (Auto) Baso # (Auto) WBC Differential Seg Neuts % (Manual) Band Neuts % (Manual) Lymphocytes % (Manual) Monocytes % (Manual) Eosinophils % (Manual) Metamyelocytes % (Man) Abs Neuts (Manual) Differential Comment Platelet Estimate Platelet Morphology Ovalocytes PT 11.2 INR 1.1 Sodium Potassium Chloride Carbon Dioxide Anion Gap BUN Creatinine Estimated GFR POC Glucose 143 H 104 Random Glucose Calcium Phosphorus Magnesium Total Bilirubin AST ALT Alkaline Phosphatase Total Protein Albumin CA 19-9 Antigen 07/21/18 07/21/18 07/22/18 19:06 23:31 05:35 WBC RBC Hgb Hct MCV MCH MCHC RDW Plt Count MPV Prelim Diff (Auto) Neut % (Auto) Lymph % (Auto) Real % (Auto) Eos % (Auto) Baso % (Auto) Neut # (Auto) Lymph # (Auto) Real # (Auto) Eos # (Auto) Baso # (Auto) WBC Differential Seg Neuts % (Manual) Band Neuts % (Manual) Lymphocytes % (Manual) Monocytes % (Manual) Eosinophils % (Manual) Metamyelocytes % (Man) Abs Neuts (Manual) Differential Comment Platelet Estimate Platelet Morphology Ovalocytes PT INR Sodium Potassium Chloride Carbon Dioxide Anion Gap BUN Creatinine Estimated GFR POC Glucose 110 98 Random Glucose Calcium Phosphorus Magnesium Total Bilirubin AST ALT Alkaline Phosphatase Total Protein Albumin CA 19-9 Antigen 35.8 H 07/22/18 07/22/18 07/22/18 05:36 05:36 05:36 WBC 10.8 RBC 3.00 L Hgb 9.0 L Hct 26.8 L MCV 89.3 MCH 30.2 MCHC 33.8 RDW 13.2 Plt Count 287 MPV 8.2 Prelim Diff (Auto) Slide review pending Neut % (Auto) 56.9 Lymph % (Auto) 24.8 Real % (Auto) 12.3 H Eos % (Auto) 5.3 H Baso % (Auto) 0.7 Neut # (Auto) 6.2 Lymph # (Auto) 2.7 Real # (Auto) 1.3 H Eos # (Auto) 0.6 H Baso # (Auto) 0.1 WBC Differential Manual diff final Seg Neuts % (Manual) 61 Band Neuts % (Manual) 6 Lymphocytes % (Manual) 18 Monocytes % (Manual) 6 Eosinophils % (Manual) 3 Metamyelocytes % (Man) 6 H Abs Neuts (Manual) 7.9 H Differential Comment . Platelet Estimate Normal Platelet Morphology Normal Ovalocytes 1+ H PT 11.6 INR 1.1 Sodium 147 H Potassium 3.4 L Chloride 110 H Carbon Dioxide 27.4 Anion Gap 10 BUN 7 Creatinine 0.77 Estimated GFR 72 L POC Glucose Random Glucose 90 Calcium 8.0 L Phosphorus 3.4 D Magnesium 1.7 Total Bilirubin 0.3 AST 81 H ALT 64 H Alkaline Phosphatase 139 H Total Protein 5.2 L Albumin 2.3 L CA 19-9 Antigen Microbiology 07/15/18 23:36 Blood - Peripheral Aerobic Blood Culture - Final No growth in 5 days 07/15/18 23:36 Blood - Peripheral Anaerobic Blood Culture - Final No growth in 5 days 07/15/18 23:30 Blood - Peripheral Aerobic Blood Culture - Final No growth in 5 days 07/15/18 23:30 Blood - Peripheral Anaerobic Blood Culture - Final No growth in 5 days - Procedures None Assessment and Plan - Plan 82-year-old female with Severe sepsis-resolved Septic shock-resolved UTI Currently on Augmentin times 10 days (end date 07/30/18) New onset atrial fibrillation with RVR Currently on Cardizem drip On Lovenox bridge and Coumadin, discontinue Lovenox when INR greater than 2.0 Appreciate input from cardiology 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
[2018-07-22] MEDS: Melatonin 5 MG Tablet PO SCH (20:23)
[2018-07-23] MEDS: Insulin NovoLIN Regular Correctional Sugar Inj SQ SCH ×4 (00:09→18:01)
[2018-07-23] MEDS: Morphine Inj 4 MG/ML Vial IV.PUSH PRN (02:11)
[2018-07-23 04:37] LABS: Baso # (Auto) 0.1 th/mm3 (0.0-0.2); Baso % (Auto) 0.7 % (0.0-2.0); Eos # (Auto) 0.4 th/mm3 (0.0-0.4); Eos % (Auto) 3.7 % (0.0-4.0); Hematocrit 26.4 % (35.0-46.0); Hemoglobin 8.7 gm/dL (11.6-15.3); Lymph % (Auto) 25.1 % (9.0-44.0); Mean Corpuscular Hemoglobin 29.6 pg (27.0-34.0); Mean Corpuscular Volume 89.7 fL (80.0-100.0); Mono # (Auto) 1.6 th/mm3 (0.0-0.9); Mono % (Auto) 13.6 % (0.0-8.0); Neut # (Auto) 6.7 th/mm3 (1.8-7.7); Neut % (Auto) 56.9 % (16.0-70.0); Platelet Count 310 th/mm3 (150-450); Red Blood Count 2.95 mil/mm3 (4.00-5.30); Red Cell Distribution Width 13.2 % (11.6-17.2); White Blood Count 11.8 th/mm3 (4.0-11.0)
[2018-07-23 04:51] LABS: INR 1.5 Ratio; Prothrombin Time 14.7 sec (9.8-11.6)
[2018-07-23 05:00] LABS: Albumin 2.4 g/dL (3.4-5.0); Anion Gap 7 meq/L (5-15); Aspartate Aminotransferase 80 U/L (15-37); Blood Urea Nitrogen 6 mg/dL (7-18); Chloride 108 meq/L (98-107); Glomerular Filtration Rate 74 mL/min (>89); Glucose,Random 91 mg/dL (74-106); Magnesium 1.6 mg/dL (1.5-2.5); Potassium 3.1 meq/L (3.5-5.1); Sodium 144 meq/L (136-145)
[2018-07-23 05:02] LABS: Alanine Aminotransferase 65 U/L (10-53); Phosphorus 3.6 mg/dL (2.5-4.9)
[2018-07-23 05:04] LABS: Alkaline Phosphatase 132 U/L (45-117); Total Protein 5.2 g/dL (6.4-8.2)
[2018-07-23] MEDS: Levothyroxine 50 MCG Tablet PO SCH (05:06)
[2018-07-23 05:37] LABS: Eosinophils 3 % (0-4); Lymphocytes 20 % (9-44); Metamyelocytes 6 % (0-1); Monocytes 11 % (0-8)
[2018-07-23 05:39] LABS: Platelet Estimate Normal (Normal); Platelet Morphology Normal (Normal)
[2018-07-23 05:41] LABS: Ovalocytes 1+
[2018-07-23] MEDS: Acetaminophen 325 MG Tablet PO PRN ×2 (09:27→19:32)
[2018-07-23] MEDS: Amoxicillin/Clavulanate 875/125 MG Tablet PO SCH ×2 (09:27→21:38)
[2018-07-23] MEDS: Enoxaparin Inj 80 MG/0.8 ML Syringe SQ SCH ×2 (09:28→21:38)
[2018-07-23] MEDS: Polyethylene Glycol 3350 17 GM Packet PO SCH ×2 (09:28→21:36)
[2018-07-23] MEDS: Senna/Docusate Sodium 8.6/50 MG Tablet PO SCH ×2 (09:28→21:37)
--- NOTE | 2018-07-23 11:27 | P.PN ---
Subjective Interval history: Follow-up sepsis/UTI/new onset A. fib with RVR July 21, 2018-patient seen and examined, denies any chest pain, shortness of breath or dizziness. Denies any abdominal pain either. July 22, 2018-patient seen and examined, reports black stool however denies any bleeding. She was up and ambulated with PT. Denies any shortness of breath or chest pain. July 23, 2018-patient seen and examined, had episode of headache overnight however resolved this morning. No report of any black stool. No chest pain. Afebrile. Physical Exam Vital signs: Vital Signs 07/22/18 12:00 07/22/18 13:00 07/22/18 14:00 Temperature Pulse Rate 60 68 68 Respiratory Rate Blood Pressure Pulse Oximetry 07/22/18 15:00 07/22/18 16:00 07/22/18 17:00 Temperature 99.1 F Pulse Rate 61 78 68 Respiratory Rate 16 Blood Pressure 154/91 H Pulse Oximetry 92 L 07/22/18 18:00 07/22/18 19:00 07/22/18 20:00 Temperature 98.9 F Pulse Rate 65 78 66 Respiratory Rate 16 Blood Pressure 162/92 H Pulse Oximetry 94 L 92 L 07/22/18 21:00 07/22/18 22:00 07/22/18 23:00 Temperature 98.9 F Pulse Rate 92 H 62 68 Respiratory Rate 16 Blood Pressure 153/68 H Pulse Oximetry 92 L 07/23/18 00:00 07/23/18 01:00 07/23/18 02:00 Temperature Pulse Rate 61 65 64 Respiratory Rate Blood Pressure Pulse Oximetry 07/23/18 03:00 07/23/18 04:00 07/23/18 05:00 Temperature 98.9 F Pulse Rate 63 58 L 60 Respiratory Rate 16 Blood Pressure 158/69 H Pulse Oximetry 94 L 07/23/18 06:00 07/23/18 09:25 Temperature Pulse Rate 58 L Respiratory Rate Blood Pressure Pulse Oximetry 92 L Intake & Output 07/22/18 07/23/18 07/23/18 18:59 06:59 18:59 Intake Total 800 / 800 480 / 480 Balance 800 / 800 480 / 480 Weight 76.1 kg Intake: Oral 800 / 800 480 / 480 Other: # Voids 4 3 Date of Last Bowel Movement 07/22/18 # Bowel Movements 3 Narrative: GENERAL: NAD SKIN: Warm and dry. HEAD: Atraumatic. Normocephalic. EYES: Pupils equal and round. No scleral icterus. No injection or drainage. ENT: No nasal bleeding or discharge. Mucous membranes pink and moist. NECK: Trachea midline. No JVD. CARDIOVASCULAR: Irregular regular rate and rhythm. RESPIRATORY: No accessory muscle use. Clear to auscultation. Breath sounds equal bilaterally. GASTROINTESTINAL: Abdomen soft, non-tender, nondistended. Hepatic and splenic margins not palpable. MUSCULOSKELETAL: Extremities without clubbing, cyanosis, or edema. No obvious deformities. NEUROLOGICAL: Awake and alert. No obvious cranial nerve deficits. Motor grossly within normal limits. Five out of 5 muscle strength in the arms and legs. Normal speech. PSYCHIATRIC: Appropriate mood and affect; insight and judgment normal. - Urinary Catheter Management Indwelling Urethral Catheter Cath placed during this visit: yes, but has since been removed by the nurse Reason for continuing: Decision to DC catheter Insertion date: 07/16/18 Insertion time: 04:00 Removal date: 07/17/18 Removal time: 12:00 Results - Labs CBC & Chem 7: 07/23/18 04:17 07/23/18 04:17 Laboratory Results - last 24 hr 07/22/18 07/22/18 07/23/18 16:21 23:40 04:17 WBC RBC Hgb Hct MCV MCH MCHC RDW Plt Count MPV Prelim Diff (Auto) Neut % (Auto) Lymph % (Auto) [place] % (Auto) Eos % (Auto) Baso % (Auto) Neut # (Auto) Lymph # (Auto) [place] # (Auto) Eos # (Auto) Baso # (Auto) WBC Differential Seg Neuts % (Manual) Lymphocytes % (Manual) Monocytes % (Manual) Eosinophils % (Manual) Metamyelocytes % (Man) Abs Neuts (Manual) Differential Comment Platelet Estimate Platelet Morphology Ovalocytes PT 14.7 H INR 1.5 Sodium Potassium Chloride Carbon Dioxide Anion Gap BUN Creatinine Estimated GFR POC Glucose 111 H 105 Random Glucose Calcium Phosphorus Magnesium Total Bilirubin AST ALT Alkaline Phosphatase Total Protein Albumin 07/23/18 07/23/18 04:17 04:17 WBC 11.8 H RBC 2.95 L Hgb 8.7 L Hct 26.4 L MCV 89.7 MCH 29.6 MCHC 33.0 RDW 13.2 Plt Count 310 MPV 8.0 Prelim Diff (Auto) Slide review pending Neut % (Auto) 56.9 Lymph % (Auto) 25.1 [place] % (Auto) 13.6 H Eos % (Auto) 3.7 Baso % (Auto) 0.7 Neut # (Auto) 6.7 Lymph # (Auto) 3.0 [place] # (Auto) 1.6 H Eos # (Auto) 0.4 Baso # (Auto) 0.1 WBC Differential Manual diff final Seg Neuts % (Manual) 60 Lymphocytes % (Manual) 20 Monocytes % (Manual) 11 H Eosinophils % (Manual) 3 Metamyelocytes % (Man) 6 H Abs Neuts (Manual) 7.8 H Differential Comment . Platelet Estimate Normal Platelet Morphology Normal Ovalocytes 1+ H PT INR Sodium 144 Potassium 3.1 L Chloride 108 H Carbon Dioxide 29.0 Anion Gap 7 BUN 6 L Creatinine 0.75 Estimated GFR 74 L POC Glucose Random Glucose 91 Calcium 8.0 L Phosphorus 3.6 Magnesium 1.6 Total Bilirubin 0.3 AST 80 H ALT 65 H Alkaline Phosphatase 132 H Total Protein 5.2 L Albumin 2.4 L Microbiology 07/22/18 11:26 Stool Stool Occult Blood ([facility]) - Final Hemoccult negative - Procedures None Assessment and Plan - Plan 82-year-old female with Severe sepsis-resolved Septic shock-resolved UTI Currently on Augmentin times 10 days (end date 07/30/18) New onset atrial fibrillation with RVR Currently on Cardizem drip, will switch to p.o. Cardizem 30 mg 4 times daily On Lovenox bridge and Coumadin, discontinue Lovenox when INR greater than 2.0. 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
[2018-07-23] MEDS: dilTIAZem 30 MG Tablet PO SCH ×3 (12:24→21:37)
[2018-07-23] MEDS ORDERED: hydrALAZINE 25 MG Tablet PO PRN (18:31)
[2018-07-23] MEDS ORDERED: Labetalol HCl Inj 100 MG/20 ML Vial IV.PUSH PRN (18:32)
[2018-07-23] MEDS: Melatonin 5 MG Tablet PO SCH (21:37)
[2018-07-24] MEDS: Insulin NovoLIN Regular Correctional Sugar Inj SQ SCH ×3 (00:25→11:27)
[2018-07-24 05:05] LABS: Baso # (Auto) 0.1 th/mm3 (0.0-0.2); Baso % (Auto) 0.6 % (0.0-2.0); Eos # (Auto) 0.4 th/mm3 (0.0-0.4); Hematocrit 26.3 % (35.0-46.0); Hemoglobin 9.2 gm/dL (11.6-15.3); Lymph % (Auto) 23.8 % (9.0-44.0); Mean Corpuscular HGB Conc 34.9 % (32.0-36.0); Mean Corpuscular Hemoglobin 30.6 pg (27.0-34.0); Mean Corpuscular Volume 87.7 fL (80.0-100.0); Mean Platelet Volume 7.9 fL (7.0-11.0); Mono # (Auto) 1.6 th/mm3 (0.0-0.9); Mono % (Auto) 13.1 % (0.0-8.0); Neut # (Auto) 7.4 th/mm3 (1.8-7.7); Neut % (Auto) 59.5 % (16.0-70.0); Platelet Count 327 th/mm3 (150-450); Red Cell Distribution Width 13.5 % (11.6-17.2); White Blood Count 12.5 th/mm3 (4.0-11.0)
[2018-07-24 05:11] LABS: INR 1.5 Ratio; Prothrombin Time 15.1 sec (9.8-11.6)
[2018-07-24 05:33] LABS: Albumin 2.5 g/dL (3.4-5.0); Anion Gap 9 meq/L (5-15); Aspartate Aminotransferase 75 U/L (15-37); Blood Urea Nitrogen 7 mg/dL (7-18); Calcium 7.9 mg/dL (8.5-10.1); Carbon Dioxide 27.2 meq/L (21.0-32.0); Chloride 111 meq/L (98-107); Glomerular Filtration Rate 70 mL/min (>89); Glucose,Random 96 mg/dL (74-106); Potassium 3.4 meq/L (3.5-5.1); Sodium 147 meq/L (136-145)
[2018-07-24 05:34] LABS: Alanine Aminotransferase 64 U/L (10-53)
[2018-07-24 05:37] LABS: Alkaline Phosphatase 135 U/L (45-117); Total Protein 5.6 g/dL (6.4-8.2)
[2018-07-24] MEDS: Levothyroxine 50 MCG Tablet PO SCH (05:39)
[2018-07-24 06:59] LABS: Eosinophils 1 % (0-4); Lymphocytes 22 % (9-44); Metamyelocytes 1 % (0-1); Monocytes 15 % (0-8); Myelocytes 1 % (0-0); Platelet Estimate Normal (Normal); Platelet Morphology Normal (Normal)
[2018-07-24] MEDS: Amoxicillin/Clavulanate 875/125 MG Tablet PO SCH ×2 (08:42→22:07)
[2018-07-24] MEDS: amLODIPine 5 MG Tablet PO SCH (08:42)
[2018-07-24] MEDS: dilTIAZem 30 MG Tablet PO SCH ×4 (08:43→22:08)
[2018-07-24] MEDS: Senna/Docusate Sodium 8.6/50 MG Tablet PO SCH ×2 (08:44→22:08)
[2018-07-24] MEDS: Polyethylene Glycol 3350 17 GM Packet PO SCH ×2 (08:44→22:08)
[2018-07-24] MEDS: Enoxaparin Inj 80 MG/0.8 ML Syringe SQ SCH ×2 (08:44→22:06)
[2018-07-24] MEDS: Acetaminophen 325 MG Tablet PO PRN ×2 (09:07→22:07)
--- NOTE | 2018-07-24 11:56 | P.PN ---
Subjective Interval history: Follow-up sepsis/UTI/new onset A. fib with RVR/PE July 21, 2018-patient seen and examined, denies any chest pain, shortness of breath or dizziness. Denies any abdominal pain either. July 22, 2018-patient seen and examined, reports black stool however denies any bleeding. She was up and ambulated with PT. Denies any shortness of breath or chest pain. July 23, 2018-patient seen and examined, had episode of headache overnight however resolved this morning. No report of any black stool. No chest pain. Afebrile. July 24, 2018-patient seen and examined, still complains of headaches, denies any chest pain or shortness of breath. Reports some stomach pain associated with antibiotics, had one episode of emesis. INR still 1.5 today Physical Exam Vital signs: Vital Signs 07/23/18 12:00 07/23/18 13:00 07/23/18 14:00 Temperature Pulse Rate 64 82 64 Respiratory Rate Blood Pressure Pulse Oximetry 07/23/18 15:00 07/23/18 16:00 07/23/18 17:00 Temperature 98.7 F Pulse Rate 66 66 70 Respiratory Rate 18 Blood Pressure 181/86 H Pulse Oximetry 93 L 07/23/18 18:00 07/23/18 19:00 07/23/18 19:52 Temperature 98.5 F Pulse Rate 74 65 Respiratory Rate 18 Blood Pressure 183/75 H Pulse Oximetry 91 L 91 L 07/23/18 20:00 07/23/18 21:00 07/23/18 22:00 Temperature Pulse Rate 68 66 51 L Respiratory Rate Blood Pressure Pulse Oximetry 07/23/18 23:00 07/24/18 00:00 07/24/18 01:00 Temperature Pulse Rate 59 L 50 L 60 Respiratory Rate 18 Blood Pressure 154/60 H Pulse Oximetry 91 L 07/24/18 02:00 07/24/18 03:00 07/24/18 04:00 Temperature 98.3 F Pulse Rate 60 63 60 Respiratory Rate 18 Blood Pressure 151/78 H Pulse Oximetry 96 07/24/18 05:00 07/24/18 06:00 07/24/18 07:00 Temperature Pulse Rate 55 L 52 L 54 L Respiratory Rate Blood Pressure Pulse Oximetry 07/24/18 08:00 07/24/18 08:57 Temperature 98.8 F Pulse Rate 65 Respiratory Rate 16 Blood Pressure 142/69 H Pulse Oximetry 92 L 93 L Intake & Output 07/23/18 07/24/18 07/24/18 18:59 06:59 18:59 Intake Total 960 / 960 480 / 480 Output Total 1000 / 1000 600 / 600 Balance -40 / -40 -120 / -120 Weight 72.4 kg Intake: Oral 960 / 960 480 / 480 Output: Urine 1000 / 1000 600 / 600 Other: Date of Last Bowel Movement 07/22/18 07/22/18 07/22/18 Narrative: GENERAL: NAD SKIN: Warm and dry. HEAD: Atraumatic. Normocephalic. EYES: Pupils equal and round. No scleral icterus. No injection or drainage. ENT: No nasal bleeding or discharge. Mucous membranes pink and moist. NECK: Trachea midline. No JVD. CARDIOVASCULAR: Irregular regular rate and rhythm. RESPIRATORY: No accessory muscle use. Clear to auscultation. Breath sounds equal bilaterally. GASTROINTESTINAL: Abdomen soft, non-tender, nondistended. Hepatic and splenic margins not palpable. MUSCULOSKELETAL: Extremities without clubbing, cyanosis, or edema. No obvious deformities. NEUROLOGICAL: Awake and alert. No obvious cranial nerve deficits. Motor grossly within normal limits. Five out of 5 muscle strength in the arms and legs. Normal speech. PSYCHIATRIC: Appropriate mood and affect; insight and judgment normal. - Urinary Catheter Management Indwelling Urethral Catheter Cath placed during this visit: yes, but has since been removed by the nurse Reason for continuing: Decision to DC catheter Insertion date: 07/16/18 Insertion time: 04:00 Removal date: 07/17/18 Removal time: 12:00 Results - Labs CBC & Chem 7: 07/24/18 04:45 07/24/18 04:45 Laboratory Results - last 24 hr 07/24/18 07/24/18 07/24/18 04:45 04:45 04:45 WBC 12.5 H RBC 3.00 L Hgb 9.2 L Hct 26.3 L MCV 87.7 MCH 30.6 MCHC 34.9 RDW 13.5 Plt Count 327 MPV 7.9 Prelim Diff (Auto) Slide review pending Neut % (Auto) 59.5 Lymph % (Auto) 23.8 [place] % (Auto) 13.1 H Eos % (Auto) 3.0 Baso % (Auto) 0.6 Neut # (Auto) 7.4 Lymph # (Auto) 3.0 [place] # (Auto) 1.6 H Eos # (Auto) 0.4 Baso # (Auto) 0.1 WBC Differential Manual diff final Seg Neuts % (Manual) 54 Band Neuts % (Manual) 6 Lymphocytes % (Manual) 22 Monocytes % (Manual) 15 H Eosinophils % (Manual) 1 Metamyelocytes % (Man) 1 Myelocytes % (Man) 1 H Abs Neuts (Manual) 7.8 H Differential Comment . Platelet Estimate Normal Platelet Morphology Normal PT 15.1 H INR 1.5 Sodium 147 H Potassium 3.4 L Chloride 111 H Carbon Dioxide 27.2 Anion Gap 9 BUN 7 Creatinine 0.79 Estimated GFR 70 L Random Glucose 96 Calcium 7.9 L Total Bilirubin 0.3 AST 75 H ALT 64 H Alkaline Phosphatase 135 H Total Protein 5.6 L Albumin 2.5 L - Procedures None Assessment and Plan - Plan 82-year-old female with Severe sepsis-resolved Septic shock-resolved UTI Currently on Augmentin times 10 days (end date 07/30/18). Add Lactinex Appreciate input from ID, who signed off New onset atrial fibrillation with RVR s/p Cardizem drip, and currently on Cardizem 30 mg 4 times daily On Lovenox bridge and Coumadin, discontinue Lovenox when INR greater than 2.0 . 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
[2018-07-24] MEDS ORDERED: Potassium Chloride 25 MEQ Effervescent Tablet PO ONE (12:30)
[2018-07-24] MEDS: Lactobacillus Acidophilus/L. Spores Tablet PO SCH ×2 (14:52→22:07)
[2018-07-24] MEDS: Melatonin 5 MG Tablet PO SCH (22:08)
[2018-07-25] MEDS: Levothyroxine 50 MCG Tablet PO SCH (06:22)
[2018-07-25 08:41] LABS: Baso # (Auto) 0.1 th/mm3 (0.0-0.2); Baso % (Auto) 0.6 % (0.0-2.0); Eos # (Auto) 0.3 th/mm3 (0.0-0.4); Eos % (Auto) 2.4 % (0.0-4.0); Hematocrit 28.1 % (35.0-46.0); Hemoglobin 9.6 gm/dL (11.6-15.3); Lymph # (Auto) 2.8 th/mm3 (1.0-4.8); Lymph % (Auto) 23.4 % (9.0-44.0); Mean Corpuscular HGB Conc 34.2 % (32.0-36.0); Mean Corpuscular Hemoglobin 30.3 pg (27.0-34.0); Mean Corpuscular Volume 88.7 fL (80.0-100.0); Mono # (Auto) 1.3 th/mm3 (0.0-0.9); Mono % (Auto) 11.2 % (0.0-8.0); Neut # (Auto) 7.5 th/mm3 (1.8-7.7); Neut % (Auto) 62.4 % (16.0-70.0); Platelet Count 370 th/mm3 (150-450); Red Blood Count 3.17 mil/mm3 (4.00-5.30); Red Cell Distribution Width 13.6 % (11.6-17.2); White Blood Count 12.1 th/mm3 (4.0-11.0)
[2018-07-25] MEDS: amLODIPine 5 MG Tablet PO SCH (08:44)
[2018-07-25] MEDS: Enoxaparin Inj 80 MG/0.8 ML Syringe SQ SCH (08:44)
[2018-07-25] MEDS: Amoxicillin/Clavulanate 875/125 MG Tablet PO SCH (08:44)
[2018-07-25] MEDS: Lactobacillus Acidophilus/L. Spores Tablet PO SCH (08:45)
[2018-07-25] MEDS: Acetaminophen 325 MG Tablet PO PRN (08:45)
[2018-07-25] MEDS: dilTIAZem 30 MG Tablet PO SCH ×2 (08:46→14:11)
[2018-07-25] MEDS: Senna/Docusate Sodium 8.6/50 MG Tablet PO SCH (08:46)
[2018-07-25] MEDS: Polyethylene Glycol 3350 17 GM Packet PO SCH (08:46)
[2018-07-25 08:49] LABS: INR 1.6 Ratio; Prothrombin Time 16.2 sec (9.8-11.6)
[2018-07-25 09:08] LABS: Albumin 2.6 g/dL (3.4-5.0); Anion Gap 10 meq/L (5-15); Aspartate Aminotransferase 50 U/L (15-37); Blood Urea Nitrogen 8 mg/dL (7-18); Calcium 8.2 mg/dL (8.5-10.1); Carbon Dioxide 25.4 meq/L (21.0-32.0); Chloride 110 meq/L (98-107); Glomerular Filtration Rate 59 mL/min (>89); Glucose,Random 88 mg/dL (74-106); Potassium 3.4 meq/L (3.5-5.1); Sodium 145 meq/L (136-145)
[2018-07-25 09:09] LABS: Alanine Aminotransferase 52 U/L (10-53)
[2018-07-25 09:11] LABS: Alkaline Phosphatase 130 U/L (45-117); Total Protein 5.9 g/dL (6.4-8.2)
[2018-07-25 09:47] LABS: Eosinophils 3 % (0-4); Lymphocytes 22 % (9-44); Monocytes 7 % (0-8); Myelocytes 2 % (0-0); Tallied Nucleated RBC 1 (0-0)
[2018-07-25 09:48] LABS: Platelet Estimate Normal (Normal)
--- NOTE | 2018-07-25 14:50 | P.DCO ---
Home Health Nursing Order: Medical education and Signs/symptoms of disease process Instructions: on lovenox/coumadin bridge, needs INR check daily until INR therapeutic(2-3) starting from 07/26/18. Case Management Consult Case Management Consult-Home Health: Yes I have seen patient Ines Selby on 07/25/18. My clinical findings support the need for the requested home health care services because: Atrial fib /pulmonary embolism. I certify that my clinical findings support that this patient is homebound because:
--- NOTE | 2018-07-25 14:55 | P.DS ---
DS: Providers Date of admission: 07/16/18 03:32 Primary care physician: Teresa Álvarez MD Consults: 07/16/18 07:07 Consult to Gastroenterology Routine Consulting Provider: Akbar Tamayo Reason for Consultation: Severe LLQ pain and tenderness, sepsis Notified:: Service Spoke with:: Melanie Date Notified:: 07/16/18 Time Notified:: 07:17 Ordering Provider: [facility] 07/17/18 10:12 Consult to Urology Routine Consulting Provider: Arnaldo Sharma Reason for Consultation: Hematuria, probable bladder mass Notified:: Service Spoke with:: ALLYSON Date Notified:: 07/17/18 Time Notified:: 10:19 [facility]/18[facility] 07:02 Consult to Cardiology Routine Consulting Provider: Eder Cook Does the patient have a Winder Hand who follows them?: No Preferred Offbearer Sewer Pipe:: Nenita Medina Reason for Consultation: New onset Afib with RVR Notified:: Physician Spoke with:: Date Notified:: 07/18/18 Time Notified:: 10:20 [facility] 07/18/18 10:07 Consult to Cardiology Routine Consulting Provider: Eder Cook Does the patient have a Winder Hand who follows them?: No Preferred Offbearer Sewer Pipe:: Coal Screener Physician Reason for Consultation: New onset Afib w/ RVR Notified:: Physician Spoke with:: Date Notified:: 07/18/18 Time Notified:: 10:20 [facility] 07/19/18 10:32 Consult to Infectious Diseases Routine Consulting Provider: Shahana Nava Reason for Consultation: sepsis, UTI Notified:: Service Spoke with:: LIZBETH Date Notified:: 07/19/18 Time Notified:: 10:37 Ordering Provider: BABAK 07/20/18 13:47 Consult to Hospitalist Routine Consulting Provider: Saman Barnes Reason for Consultation: Consult and transfer to hospitalist service for medical management. Critical care will be signing off, please reconsult if needed Notified:: Service Spoke with:: arden Date Notified:: 07/20/18 Time Notified:: 13:59 Comments:: waiting cardiac catheterization technologist back/ra Ordering Provider: BABAK Brief History from admission: 82yF with 1 day history of new-onset abdominal pain and altered mentation. also found to be febrile in the ER. elevated wbc. + u/a. CT abd/pelvis with dilated biliary tree, but no overt evidence of obstruction, no gallbladder thickening. no pericolecystic fluid. elevated Cr. developed hypotension and tachycardia in the [facility] requiring 3L ivf and then norepinephrine to keep map > 65 mmHg. transferred emergently to [facility] from for further management. I evaluated her immediately upon arrival to the ICU. she complains of suprapubic pain which is "crampy" in nature. denies n/v/c/d. abdominal pain is mostly suprapubic, nonradiating. denies flank pain. denies fevers and chills. denies cp, sob. never had anything similar to this. remainder ROS negative. FHx: noncontributory to her acute illness. DS: Summary ISSUES ADDRESSED DURING THIS HOSPITALIZATION: 1.Severe sepsis with Septic shock due to UTI. Initially on IV abx,clinically improved, shock resolved.She was transitioned to Augmentin times 10 days (end date 07/30/18). 2.New onset atrial fibrillation with RVR- cardiology consulted.patient was initially on Cardizem drip, and currently on Cardizem 30 mg 4 times daily. Patient declined NOAC, hence was started on Lovenox bridge and Coumadin, INR remains subtherapeutic, 1.6 on discharge.She was discharged on Lovenox/Coumadin , Lovenox should be discontinued when INR is greater than 2.0. 3.Questionable transitional cell appearing mass near the renal pelvis, with hematuria Abdominal pain MRCP shows moderately distended gallbladder with diffusely distended extrahepatic bile ducts and pancreatic duct extending to the ampulla.Patient's family is is requesting to do ERCP/EUS outpatient urology recommend outpatient Urology followup with plans for in-office cystoscopy and further evaluation after discharge 4. Hypokalemia--was repleted 5. Fecal impaction--Resolved Time Spent with Patient Total time spent providing and/or coordinating discharge services: Quality: VTE Deep Vein Thrombosis/Pulmonary Embolism Present on Admission: No Results Procedures completed during hospitalization: None Labs on day of discharge: Labs from last 24 hours 07/25/18 07/25/18 07/25/18 07:42 07:42 07:42 WBC 12.1 H RBC 3.17 L Hgb 9.6 L Hct 28.1 L MCV 88.7 MCH 30.3 MCHC 34.2 RDW 13.6 Plt Count 370 MPV 8.0 Prelim Diff (Auto) Slide review pending Neut % (Auto) 62.4 Lymph % (Auto) 23.4 Jones % (Auto) 11.2 H Eos % (Auto) 2.4 Baso % (Auto) 0.6 Neut # (Auto) 7.5 Lymph # (Auto) 2.8 Jones # (Auto) 1.3 H Eos # (Auto) 0.3 Baso # (Auto) 0.1 WBC Differential Manual diff final Seg Neuts % (Manual) 66 Lymphocytes % (Manual) 22 Monocytes % (Manual) 7 Eosinophils % (Manual) 3 Myelocytes % (Man) 2 H Abs Neuts (Manual) 8.2 H Nucleated RBCs/100 WBC 1 H Differential Comment . Platelet Estimate Normal Platelet Morphology Enlarged H Basophilic Stippling Faint H PT 16.2 H INR 1.6 Sodium 145 Potassium 3.4 L Chloride 110 H Carbon Dioxide 25.4 Anion Gap 10 BUN 8 Creatinine 0.91 Estimated GFR 59 L Random Glucose 88 Calcium 8.2 L Total Bilirubin 0.3 AST 50 H ALT 52 Alkaline Phosphatase 130 H Total Protein 5.9 L Albumin 2.6 L Impressions ITS Impressions Abdomen/Bladder Ultrasound 07/16/18 00:00 CONCLUSION: 1. Increased echogenicity to the kidneys bilaterally consistent with medical renal disease. No hydronephrosis is seen. 2. 1.3 cm cyst at the mid left kidney. Cholangiopancreatography MRI 07/16/18 00:00 CONCLUSION: 1. Moderately distended gallbladder with diffusely distended extrahepatic bile ducts and pancreatic duct extending to the ampulla. No definitive focal intraductal abnormality is demonstrated. Differential considerations include an occult pancreatic head lesion versus ampullary dysfunction/mass. Consider ERCP with endoscopic ultrasound for further evaluation as clinically warranted. Abdomen/Pelvis CT 07/16/18 00:18 CONCLUSION: 1. Biliary tree dilatation otherwise unremarkable CT scan of the abdomen and pelvis. Right hemidiaphragm is markedly elevated. Moderately distended colon without evidence of wall thickening or obstruction. 2. Some increased density to the left renal collecting system and right posterior bladder that could be evidence of transitional cell carcinoma. Correlate for hematuria. And outpt. Urology workup recommended Head CT 07/16/18 00:18 CONCLUSION: 1. Unremarkable study. No evidence of hemorrhage or edema. Some motion in the central portion of the exam without obvious mass or mass effect . Chest X-Ray 07/17/18 00:00 CONCLUSION: Elevation of the right hemidiaphragm with some accompanying atelectasis or consolidation at the right base. There also is some prominence of the right hilar region. Discharge Plan Discharge Disposition Patient Disposition: /Home Health Service Discharge Order Discharge Orders: Discharge Order (Routine); Ordered 07/25/18 Ordered By: Toshia Peña Discharge Details Anticipated Discharge Date: 07/25/18 Physicians Team Primary Care Provider: Teresa Álvarez Attending Provider: Toshia Peña Other Providers: Akbar Tamayo ; Arnaldo Sharma ; Eder Cook ; Shahana Nava Rxs /Orders / Referrals /Forms Prescriptions: New warfarin [Coumadin] 5 mg Tablet 5 mg PO DAILY@1600 Qty: 30 RF: 0 amoxicillin-pot clavulanate 875-125 mg Tablet 1 tab PO Q12HR Qty: 12 RF: 0 enoxaparin [Lovenox] 80 mg/0.8 mL Syringe 70 mg subcut Q12HR Qty: 8 RF: 0 Continue atorvastatin 10 mg Tablet 10 mg PO DAILY RF: 0 metoprolol succinate [Toprol XL] 100 mg Tablet Extended Release 24 Hr 100 mg PO HS RF: 0 quetiapine [Seroquel] 200 mg Tablet 200 mg PO HS RF: 0 cyanocobalamin (vitamin B-12) [Vitamin B-12] 1,000 mcg Tablet 1,000 mcg PO DAILY RF: 0 amlodipine 5 mg Tablet 5 mg PO DAILY RF: 0 aspirin [Aspir-81] 81 mg Tablet,Delayed Release (Dr/Ec) 81 mg PO DAILY RF: 0 levothyroxine [Synthroid] 50 mcg Tablet 50 mcg PO DAILY RF: 0 candesartan 16 mg Tablet 16 mg PO DAILY RF: 0 cholecalciferol (vitamin D3) [Vitamin D3] 2,000 unit Capsule 2,000 unit PO DAILY RF: 0 Referrals: Teresa Álvarez MD [Primary Care Provider] - See Instructions Discharge Instructions Patient Printed Instructions: Warfarin (By mouth), Amoxicillin (By mouth), Enoxaparin (By injection), ERCP (Endoscopic Retrograde Cholangiopancreatography ) (DC) Status ED Status: Left Department Discharge Information Discharge Date/Time: 07/25/18 15:32
--- NOTE | 2018-07-25 15:10 | P.PNIM ---
Subjective Interval history: feeling well. asking to go home today. INR subtherapeutic,currently being bridged with Lovenox. Physical Exam Vital signs: Last Vital Signs Temp 98.0 F 07/25/18 11:00 Pulse 66 07/25/18 14:00 Resp 18 07/25/18 11:00 BP 157/79 H 07/25/18 11:00 Pulse Ox 92 L 07/25/18 11:00 Intake & Output 07/23/18 07/24/18 07/25/18 07/26/18 06:59 06:59 06:59 06:59 Intake Total 1280 / 1280 1440 / 1440 1420 / 1420 Output Total 1600 / 1600 1200 / 1200 Balance 1280 / 1280 -160 / -160 220 / 220 Weight 76.1 kg 72.4 kg 68.9 kg Narrative: GENERAL: elderly lady in no acute distress. CARDIOVASCULAR: Regular rate and rhythm without murmurs, gallops, or rubs. RESPIRATORY: Clear to auscultation. Breath sounds equal bilaterally. No wheezes , rales, or rhonchi. GASTROINTESTINAL: Abdomen soft, non-tender, nondistended. Normal active bowel sounds MUSCULOSKELETAL: Extremities without clubbing, cyanosis, or edema. NEURO: Alert & Oriented x4 to person, place, time, situation. Moves all ext x4 Urinary Catheter Management Indwelling Urethral Catheter: Cath placed during this visit: yes, but has since been removed by the nurse Insertion date: 07/16/18 Insertion time: 04:00 Removal date: 07/17/18 Removal time: 12:00 Results Labs CBC & Chem 7: 07/25/18 07:42 07/25/18 07:42 Procedures Procedures: None Assessment and Plan Plan Patient doing well clinically. Being bridged with Lovenox/Coumadin for Atrial fib. INR is subtherapeutic. W Will discharge with Lovenox/Coumadin bridge. Home health to be set up and patient can have INR check daily starting tomorrow morning until therapeutic. Lovenox should be discontinued once INR is therapeutic. A prescription for Coumadin written as well. Prescription for Augmentin until 07/30/18. Patient hopes to follow up with PCP this Wednesday. Progress Note: Quality VTE Deep Vein Thrombosis/Pulmonary Embolism Present on Admission: No
[2018-07-25 15:20] VITALS: PULSE 64
[2018-07-25 15:21] VITALS: BP 154/71; RESP 20; TEMP 98.1; O2SAT 93
== END 2018-07-25 15:32 | disposition home health service (06) | DRG 871 ==
LOC: PHED 22:29 → PHEDA 07-16 03:32 → HIMC 07-16 05:00 → HCIS 07-20 17:08
PROVIDERS: ADMIT Hospitalist; ATTEND Hospitalist
CPT/HCPCS: 36600; 70450; 71010; 71045; 74177; 74181; 76377; 76775; 80053; 80162; 81001; 82272; 82550; 82552; 82805; 82948; 82962; 83605; 83690; 83735; 84100; 84132; 84443; 84484; 85025; 85610; 85730; 86301; 86850; 86900; 86901; 87040; 87077; 87086; 87186; 87328; 87329; 87493; 87506; 87641; 90761; 90765; 90775; 93005; 93306; 94150; 94640; 94650; 96361; 96365; 96375; 97110; 97163; 97530; 99285; C9113; J0610; J1160; J1644; J1650; J1940; J2060; J2270; J2405; J2543; J3370; J3475; J3480; J7030; J7050; Q9967

== ENCOUNTER 2018-09-10 18:28 | Observation (INO) ==
--- NOTE | 2018-09-10 20:19 | ED ---
HPI General Chief Complaint: Chest Pain Stated Complaint: chest pain Time Seen by Provider: 09/10/18 19:43 Source: patient Mode of arrival: ambulatory Limitations: no limitations History of Present Illness HPI narrative: Patient is an 83-year-old female, past medical history significant for admission in June for urosepsis and atrial fibrillation, now on Coumadin, who presents with complaint of left-sided chest pain intermittently today that worsens with movement, palpation, inspiration. She is not sure if it changes with exertion. She is not sure if she is having dyspnea or not. No nausea nor vomiting. No recent cough nor congestion. No leg swelling. MD complaint: Reports chest pain STEMI Alert: No Onset (ago): hour(s) Duration: intermittent Onset: during rest Pain location: Reports left chest Severity: moderate Quality: Reports tightness and sharp Pain radiation: Reports none Relieving factors: nothing Exacerbating factors: inspiration and movement Treatments prior to arrival chest pain: Reports none Related Data Home Medications Medication Instructions Recorded Confirmed amlodipine 5 mg PO DAILY 07/16/18 07/16/18 aspirin [Aspir-81] 81 mg PO DAILY 07/16/18 07/16/18 atorvastatin 10 mg PO DAILY 07/16/18 07/16/18 candesartan 16 mg PO DAILY 07/16/18 07/16/18 cholecalciferol (vitamin D3) 2,000 unit PO DAILY 07/16/18 07/16/18 [Vitamin D3] cyanocobalamin (vitamin B-12) 1,000 mcg PO DAILY 07/16/18 07/16/18 [Vitamin B-12] levothyroxine [Synthroid] 50 mcg PO DAILY 07/16/18 07/16/18 metoprolol succinate [Toprol XL] 100 mg PO HS 07/16/18 07/16/18 quetiapine [Seroquel] 200 mg PO HS 07/16/18 07/16/18 Previous Rx's Medication Instructions Recorded warfarin [Coumadin] 5 mg PO DAILY@1600 #30 tab 07/25/18 Allergies Allergy/AdvReac Type Severity Reaction Status Date / Time diphenhydramine Allergy Severe THROAT Verified 09/10/18 18:45 CLOSES valproic acid Allergy Intermediate VERY Verified 09/10/18 18:45 DISORIENTED Review of Systems ROS: all other systems reviewed are negative [facility] Medical History Medical History High cholesterol (Acute) History of hysterectomy (Acute) Hypertension (Acute) Hypothyroidism (Acute) Renal impairment (Acute) Surgical History Surgical History History of appendectomy (Acute) History of tonsillectomy (Acute) Family History Family History Father Colon cancer Social History Social History Substance History: No History of Abuse Second Hand Smoke Exposure: No Smoking Status: Former smoker How Often Do You Have a Drink Containing Alcohol: Monthly or less Recent Travel in [facility] within the Last 8 Weeks: No Recent Out of Country Travel within the Last 8 Weeks: No Immunization History Tetanus Immunization: <5 Years Exam Narrative Exam Narrative: GENERAL: Well-appearing, elderly female in no acute distress though will intermittently cement fittings maker her left side of her chest SKIN: Focused skin assessment warm/dry. No rashes. HEAD: Atraumatic. Normocephalic. EYES: Pupils equal and round. No scleral icterus. No injection or drainage. ENT: No nasal bleeding or discharge. Mucous membranes pink and moist. Sparkly eye shadow on eyelids. NECK: Trachea midline. No JVD. CARDIOVASCULAR: Regular rate and rhythm. Intact and equal peripheral pulses. RESPIRATORY: No accessory muscle use. Clear to auscultation. Breath sounds equal bilaterally. GASTROINTESTINAL: Abdomen soft, non-tender, nondistended. Hepatic and splenic margins not palpable. MUSCULOSKELETAL: No obvious deformities. No clubbing. No cyanosis. No edema. NEUROLOGICAL: Awake and alert. No obvious cranial nerve deficits. Motor grossly within normal limits. Normal sensation. Normal speech. PSYCHIATRIC: Appropriate mood and affect; insight and judgment normal. Course Initial Documented Vital Signs Temperature 99.3 F 09/10/18 18:38 Pulse Rate 84 09/10/18 18:38 Respiratory Rate 16 09/10/18 18:38 Blood Pressure 187/84 H 09/10/18 18:38 Pulse Oximetry 95 09/10/18 18:38 Last Documented Vital Signs Temperature 99.3 F 09/10/18 18:38 Pulse Rate 71 09/10/18 21:50 Respiratory Rate 16 09/10/18 21:50 Blood Pressure 154/74 H 09/10/18 21:50 Pulse Oximetry 99 09/10/18 21:50 Medical Decision Making MDM Narrative Medical decision making narrative: Patient is an 83-year-old female who presents with complaint of chest pain. She is hemodynamically stable. EKG does not show acute ischemic changes. Initial troponin is unremarkable and d- dimer is within normal limits. She has been admitted to the chest pain center under Dr. Duong for ACS rule out. Of note her urine does appear infected she has been started on Keflex. Medical Screen Exam Complete: Yes Emergency Medical Condition: Yes Differential Diagnosis Differential Diagnosis: Differential diagnosis includes but is not limited to acute coronary syndrome, pulmonary embolism, pneumonia, precordial catch syndrome, musculoskeletal pain. Medical Records Medical records reviewed: Yes I reviewed the patient's medical records. Lab Data Lab results reviewed: Yes I reviewed the patient's lab results. Result diagrams: 09/10/18 20:00 09/10/18 20:00 Lab Results 09/10/18 09/10/18 09/10/18 Range/Units 20:00 20:00 20:00 CBC w Diff Auto diff final WBC 7.5 (4.0-11.0) th/mm3 RBC 3.73 L (4.00-5.30) mil/mm3 Hgb 10.4 L (11.6-15.3) gm/dL Hct 31.7 L (35.0-46.0) % MCV 84.9 (80.0-100.0) fL MCH 27.8 (27.0-34.0) pg MCHC 32.7 (32.0-36.0) % RDW 13.7 (11.6-17.2) % Plt Count 296 (150-450) th/mm3 MPV 8.0 (7.0-11.0) fL Neut % (Auto) 61.0 (16.0-70.0) % Lymph % (Auto) 25.3 (9.0-44.0) % [place] % (Auto) 8.2 H (0.0-8.0) % Eos % (Auto) 4.7 H (0.0-4.0) % Baso % (Auto) 0.8 (0.0-2.0) % Neut # (Auto) 4.5 (1.8-7.7) th/mm3 Lymph # (Auto) 1.9 (1.0-4.8) th/mm3 [place] # (Auto) 0.6 (0.0-0.9) th/mm3 Eos # (Auto) 0.4 (0.0-0.4) th/mm3 Baso # (Auto) 0.1 (0.0-0.2) th/mm3 WBC Differential . Differential Comment . PT 25.4 H (9.8-11.6) sec INR 2.5 Ratio APTT 43.1 H (23.4-31.7) sec D-Dimer Quant (PE/DVT) 0.44 (0.00-0.50) mg/L FEU Sodium (136-145) meq/L Potassium (3.5-5.1) meq/L Chloride (98-107) meq/L Carbon Dioxide (21.0-32.0) meq/L Anion Gap (5-15) meq/L BUN (7-18) mg/dL Creatinine (0.50-1.00) mg/dL Estimated GFR (>89) mL/min Random Glucose (74-106) mg/dL Calcium (8.5-10.1) mg/dL Total Bilirubin (0.2-1.0) mg/dL AST (15-37) U/L ALT (10-53) U/L Alkaline Phosphatase (45-117) U/L Troponin I (0.02-0.05) ng/mL Total Protein (6.4-8.2) g/dL Albumin (3.4-5.0) g/dL Urine Color (Yellw/Straw) Urine Clarity (Clear) Urine pH (5.0-8.5) Ur Specific [place] (1.002-1.035) Urine Protein (Neg-Trace) mg/dL Urine Glucose (UA) (Negative) mg/dL Urine Ketones (Negative) mg/dL Urine Occult Blood (Negative) Urine Nitrate (Negative) Urine Bilirubin (Negative) Urine Urobilinogen (Less than 2) mg/dL Ur Leukocyte Esterase (Negative) Urine RBC (0-3) /hpf Urine WBC (0-5) /hpf Urine WBC Clumps (None) Urine Bacteria (None) /hpf Micro UA Comment Ur Microscopic Review Urine Culture Comments 09/10/18 09/10/18 Range/Units 20:00 21:20 CBC w Diff WBC (4.0-11.0) th/mm3 RBC (4.00-5.30) mil/mm3 Hgb (11.6-15.3) gm/dL Hct (35.0-46.0) % MCV (80.0-100.0) fL MCH (27.0-34.0) pg MCHC (32.0-36.0) % RDW (11.6-17.2) % Plt Count (150-450) th/mm3 MPV (7.0-11.0) fL Neut % (Auto) (16.0-70.0) % Lymph % (Auto) (9.0-44.0) % [place] % (Auto) (0.0-8.0) % Eos % (Auto) (0.0-4.0) % Baso % (Auto) (0.0-2.0) % Neut # (Auto) (1.8-7.7) th/mm3 Lymph # (Auto) (1.0-4.8) th/mm3 [place] # (Auto) (0.0-0.9) th/mm3 Eos # (Auto) (0.0-0.4) th/mm3 Baso # (Auto) (0.0-0.2) th/mm3 WBC Differential Differential Comment PT (9.8-11.6) sec INR Ratio APTT (23.4-31.7) sec D-Dimer Quant (PE/DVT) (0.00-0.50) mg/L FEU Sodium 139 (136-145) meq/L Potassium 3.5 (3.5-5.1) meq/L Chloride 109 H (98-107) meq/L Carbon Dioxide 23.8 (21.0-32.0) meq/L Anion Gap 6 (5-15) meq/L BUN 15 (7-18) mg/dL Creatinine 0.90 (0.50-1.00) mg/dL Estimated GFR 60 L (>89) mL/min Random Glucose 96 (74-106) mg/dL Calcium 8.6 (8.5-10.1) mg/dL Total Bilirubin 0.3 (0.2-1.0) mg/dL AST 19 (15-37) U/L ALT 20 (10-53) U/L Alkaline Phosphatase 113 (45-117) U/L Troponin I Less than 0.02 L (0.02-0.05) ng/mL Total Protein 6.8 (6.4-8.2) g/dL Albumin 3.6 (3.4-5.0) g/dL Urine Color Yellow (Yellw/Straw) Urine Clarity Slightly cloudy (Clear) Urine pH 6.5 (5.0-8.5) Ur Specific [place] 1.010 (1.002-1.035) Urine Protein Trace (Neg-Trace) mg/dL Urine Glucose (UA) Negative (Negative) mg/dL Urine Ketones Negative (Negative) mg/dL Urine Occult Blood Large H (Negative) Urine Nitrate Negative (Negative) Urine Bilirubin Negative (Negative) Urine Urobilinogen 0.2 (Less than 2) mg/dL Ur Leukocyte Esterase Trace H (Negative) Urine RBC 51-189 H (0-3) /hpf Urine WBC 0-5 (0-5) /hpf Urine WBC Clumps Few H (None) Urine Bacteria Rare H (None) /hpf Micro UA Comment Culture indicated Ur Microscopic Review Microscopic reviewed Urine Culture Comments Culture indicated Imaging Data Attestation: I personally reviewed and interpreted this imaging study as follows : Radiologist's impression: Chest X-Ray 09/10/18 19:53 CONCLUSION: No acute findings. Stable elevated right hemidiaphragm. Tortuous aorta. Minimal basilar scarring. ECG Data EKG Prior to Arrival: No Attestation: I personally reviewed and interpreted this ECG as follows: (Sinus rhythm at a rate of [address] or T wave changes.) Discharge Plan Discharge Disposition Patient Disposition: ED Admit(ED Internal Use Only) Discharge Condition Condition: Stable Discharge Order Discharge Orders: ED Use Only Admit Order (Routine); Ordered 09/10/18 Ordered By: Sheyla Anderson Discharge Details Diagnosis: Chest pain, rule out acute myocardial infarction, Acute UTI Physicians Team ED Provider: Sheyla Anderson Primary Care Provider: Cortez Osborn Attending Provider: Amanda Duong Status ED Status: Admitted Observation Patient
[2018-09-10 20:31] LABS: Baso # (Auto) 0.1 th/mm3 (0.0-0.2); Baso % (Auto) 0.8 % (0.0-2.0); Eos # (Auto) 0.4 th/mm3 (0.0-0.4); Eos % (Auto) 4.7 % (0.0-4.0); Hematocrit 31.7 % (35.0-46.0); Hemoglobin 10.4 gm/dL (11.6-15.3); Lymph # (Auto) 1.9 th/mm3 (1.0-4.8); Lymph % (Auto) 25.3 % (9.0-44.0); Mean Corpuscular HGB Conc 32.7 % (32.0-36.0); Mean Corpuscular Hemoglobin 27.8 pg (27.0-34.0); Mean Corpuscular Volume 84.9 fL (80.0-100.0); Mono # (Auto) 0.6 th/mm3 (0.0-0.9); Mono % (Auto) 8.2 % (0.0-8.0); Neut # (Auto) 4.5 th/mm3 (1.8-7.7); Platelet Count 296 th/mm3 (150-450); Red Blood Count 3.73 mil/mm3 (4.00-5.30); Red Cell Distribution Width 13.7 % (11.6-17.2); White Blood Count 7.5 th/mm3 (4.0-11.0)
[2018-09-10] MEDS ORDERED: Ketorolac Inj 30 MG/ML (IVP) Vial IV.PUSH ONE (20:41)
[2018-09-10 20:42] LABS: Chloride 109 meq/L (98-107); Potassium 3.5 meq/L (3.5-5.1); Sodium 139 meq/L (136-145)
--- NOTE | 2018-09-10 20:44 | XR ---
EXAM DATE: 09/10/2018 8:38 PM EST AGE/SEX: 83 years / Female INDICATIONS: . Chest pain. CLINICAL DATA: This is the patient's initial encounter. Patient reports that signs and symptoms have been present for 1 day and indicates a pain score of 3/10. MEDICAL/SURGICAL HISTORY: Hypertension. A-Fib. None. COMPARISON: [facility], CHEST 1V SINGLE AP, 07/17/2018. . FINDINGS: PA and lateral views of the chest demonstrate the lungs to be symmetrically aerated without evidence of mass, infiltrate or effusion. Minimal basilar scarring. The cardiomediastinal contours are unremar kable. Osseous structures are intact. CONCLUSION: No acute findings. Stable elevated right hemidiaphragm. Tortuous aorta. Minimal basilar scarring. Electronically signed by: Zhang Ceballos MD Board Certified Radiologist 09/10/2018 8:43 PM EST
[2018-09-10 20:45] LABS: Calcium 8.6 mg/dL (8.5-10.1)
[2018-09-10 20:46] LABS: Albumin 3.6 g/dL (3.4-5.0); Anion Gap 6 meq/L (5-15); Blood Urea Nitrogen 15 mg/dL (7-18); Carbon Dioxide 23.8 meq/L (21.0-32.0); Glucose,Random 96 mg/dL (74-106)
[2018-09-10 20:49] LABS: Alanine Aminotransferase 20 U/L (10-53); Aspartate Aminotransferase 19 U/L (15-37); Glomerular Filtration Rate 60 mL/min (>89)
[2018-09-10 20:50] LABS: Activated Partial Thrombo Time 43.1 sec (23.4-31.7); INR 2.5 Ratio; Prothrombin Time 25.4 sec (9.8-11.6); Total Protein 6.8 g/dL (6.4-8.2)
[2018-09-10 20:52] LABS: Alkaline Phosphatase 113 U/L (45-117)
--- NOTE | 2018-09-10 21:29 | ECG ---
Date Performed: 09/10/2018 Time Performed: 18:34:11 PTAGE: 83 years EKG: Sinus rhythm NORMAL ECG No significant change from prior electrocardiogram. PREVIOUS TRACING : 07/18/2018 09.20 DOCTOR: José Luis Arriola Interpretating Date/Time 09/10/2018 21:27:32
[2018-09-10 21:44] LABS: Bilirubin,Urine Negative (Negative); Clarity,Urine Slightly Cloudy (Clear); Color,Urine Yellow (Yellw/Straw); Glucose,Urine (UA) Negative (Negative); Leukocyte Esterase,Urine Trace (Negative); Nitrite,Urine Negative (Negative); PH,Urine 6.5 (5.0-8.5); Urobilinogen,Urine 0.2 mg/dL (Less than 2)
[2018-09-10 21:51] LABS: Bacteria,Urine Rare /hpf; RBC,Urine 51-189 /hpf (0-3); WBC,Urine 0-5 /hpf (0-5)
[2018-09-10 23:18] LABS: Creatine Kinase 71 U/L (26-192)
[2018-09-11] MEDS ORDERED: Acetaminophen 325 MG Tablet PO PRN (01:34)
[2018-09-11] MEDS ORDERED: Bisacodyl 10 MG Supp RECTAL PRN (01:34)
[2018-09-11] MEDS: Ketorolac Inj 30 MG/ML (IVP) Vial IV.PUSH PRN ×2 (02:56→09:26)
[2018-09-11 02:58] LABS: Creatine Kinase 69 U/L (26-192)
[2018-09-11] MEDS ORDERED: Regadenoson Inj 0.4 MG/5 ML Syringe IV.PUSH ONE (07:49)
--- NOTE | 2018-09-11 07:59 | P.HPIM ---
History of Present Illness Primary Care Physician: Cortez Osborn MD Chief Complaint: chest pain History of Present Illness: 83-year-old female with known history of hypertension, hyperlipidemia, atrial fibrillation, hypothyroidism who presented to hospital because of chest pain. Patient states that she was in her normal state of health until yesterday morning when she woke up when she had a pain located in the left side of her chest which was worse with movement. Patient states that she held it the pain would go away. Patient was just recently admitted the hospital had sepsis and had a prolonged stay in the hospital. Diagnosed with atrial fibrillation and started on rate control and anticoagulation with Coumadin. The patient states that the pain was a 10/10 on a pain scale and was persistent throughout the whole day. Patient was concerned because her recent hospitalization she did not want to start developing sepsis again. Her family brought to the hospital for evaluation. Patient had workup done in emergency department which was relatively unremarkable. Upon review of the records patient did have a cardiology evaluation with Dr. Cook. She has followed up with him since discharge. She does have an appointment coming up to see him as well. Patient denies any previous stress test. It was recommended by the ER physician that the patient be observed and chest pain center for further evaluation and management. Patient denies any radiation of pain to the neck, back, shoulder, arm. Denies any nausea, vomiting, diaphoresis, shortness of breath, dizziness, lightheadedness. Patient indicates that she was given Toradol in the emergency department with resolution of her pain. She does indicate that the pain is worse whenever she moves. Denies any recent heavy lifting, straining Diagnosis (1) Chest pain, rule out acute myocardial infarction: (2) Acute UTI: Review of Systems Review of Systems: all other systems reviewed are negative Cardiovascular: Reports chest pain [facility] Medical History Medical History Atrial fibrillation (Acute) High cholesterol (Acute) History of hysterectomy (Acute) Hypertension (Acute) Hypothyroidism (Acute) Renal impairment (Acute) Surgical History Surgical History History of endoscopy (Acute) History of appendectomy (Acute) History of tonsillectomy (Acute) Family History Family History Father Colon cancer Mother Family history of stroke Social History Social History Substance History: No History of Abuse Second Hand Smoke Exposure: No Smoking Status: Never smoker How Often Do You Have a Drink Containing Alcohol: Never Recent Travel in [facility] within the Last 8 Weeks: No Recent Out of Country Travel within the Last 8 Weeks: No Immunization History Tetanus Immunization: <5 Years Medications and Allergies Allergies Allergy/AdvReac Type Severity Reaction Status Date / Time diphenhydramine Allergy Severe THROAT Verified 09/10/18 18:45 CLOSES valproic acid Allergy Intermediate VERY Verified 09/10/18 18:45 DISORIENTED Home Medications Medication Instructions Recorded Confirmed Type amlodipine 5 mg PO DAILY 07/16/18 07/16/18 History aspirin [Aspir-81] 81 mg PO DAILY 07/16/18 07/16/18 History atorvastatin 10 mg PO DAILY 07/16/18 09/10/18 History candesartan 16 mg PO DAILY 07/16/18 09/10/18 History cholecalciferol (vitamin D3) 2,000 unit PO DAILY 07/16/18 09/10/18 History [Vitamin D3] cyanocobalamin (vitamin B-12) 1,000 mcg PO DAILY 07/16/18 09/10/18 History [Vitamin B-12] levothyroxine [Synthroid] 50 mcg PO DAILY 07/16/18 09/10/18 History metoprolol succinate [Toprol XL] 100 mg PO HS 07/16/18 09/10/18 History quetiapine [Seroquel] 200 mg PO HS 07/16/18 09/10/18 History Active Medications: Active Medications Acetaminophen (Tylenol) 650 mg PO Q4H PRN PRN Reason: Temp > 100.4 Al Hydroxide/Mg Hydroxide (Milk Of Nakia Liq) 30 ml PO Q12H PRN PRN Reason: Mild Constipation Albuterol (Albuterol Neb (Prn)) 2.5 mg NEB UNSCH PRN PRN Reason: SHORTNESS OF BREATH/WHEEZING Albuterol (Duoneb Neb (Prn)) 1 ampul NEB UNSCH PRN PRN Reason: SHORTNESS OF BREATH/WHEEZING Bisacodyl (Dulcolax Supp) 10 mg RECTAL DAILY PRN PRN Reason: SEVERE CONSITIPATION Cephalexin Monohydrate (Keflex) 500 mg PO BID NANCY Stop: 09/15/18 21:59 Last Admin: 09/10/18 22:05 Dose: 500 mg Ketorolac Tromethamine (Toradol Inj) 15 mg IV.PUSH Q6H PRN PRN Reason: pain 1 to 10 Stop: 09/16/18 01:37 Last Admin: 09/11/18 02:56 Dose: 15 mg Lactulose (Lactulose Liq) 30 ml PO DAILY PRN PRN Reason: SEVERE CONSITIPATION Ondansetron HCl (Zofran Inj) 4 mg IV.PUSH Q6H PRN PRN Reason: NAUSEA OR VOMITING Sennosides (Senokot) 17.2 mg PO Q12H PRN PRN Reason: Moderate Constipation Sodium Chloride (Ns Flush) 2 ml IV.FLUSH BID NANCY Sodium Chloride (Ns Flush) 2 ml IV.FLUSH PRN PRN PRN Reason: FLUSH AFTER USING IV ACCESS Physical Exam Vital signs: Vital Signs 09/10/18 18:38 09/10/18 19:50 09/10/18 19:53 Temperature 99.3 F Pulse Rate 84 67 67 Respiratory Rate 16 18 16 Blood Pressure 187/84 H 163/75 H Pulse Oximetry 95 99 99 09/10/18 21:50 09/11/18 00:00 09/11/18 00:04 Temperature 97.9 F Pulse Rate 71 60 74 Respiratory Rate 16 16 16 Blood Pressure 154/74 H 129/67 158/77 H Pulse Oximetry 99 95 09/11/18 04:00 Temperature 98.0 F Pulse Rate 54 L Respiratory Rate 18 Blood Pressure 128/69 Pulse Oximetry 96 Intake & Output 09/10/18 09/11/18 09/11/18 18:59 06:59 18:59 Output Total 350 / 350 Balance -350 / -350 Weight 70.1 kg 59.6 kg Output: Urine 350 / 350 Other: # Voids 1 Date of Last Bowel Movement 09/09/18 Weight On Admission 59.6 kg Narrative: GENERAL: Well-developed, well-nourished, in no acute distress. alert and orientated HEENT: Head is normocephalic without any lesions or masses noted. Facial features are symmetric. Eyes: Pupils equal round reactive to light. Extraocular muscles are intact. Conjunctivae were clear. Oropharyngeal: Pharynx without any erythema edema. Tongue is midline without deviation. Buccal mucosa is moist without any masses or lesions NECK: Supple without any masses. Trachea midline no deviation. No JVD, no bruits are appreciated CARDIAC: Regular rhythm, regular rate. S1/S2 are heard. 2/6 ejection murmur, no gallops or rubs. Pain is reproducible on palpation of the left anterior chest LUNGS: Clear to auscultation bilaterally. No wheeze, rhonchi or rales. No use of accessory muscles on inspiration or expiration. ABDOMEN: Soft, nontender. Nondistended. Bowel sounds heard in all 4 quadrants. No organomegaly or masses. Negative rebound, negative guarding EXTREMITIES: No edema, pulses are equal bilaterally. No cyanosis or clubbing NEUROLOGY: Mood and affect appear appropriate. Cranial nerves II through XII grossly intact. Muscle strength 5/5 in upper and lower extremities bilaterally. Deep tendon reflexes are 2+ in upper and lower extremities bilaterally. Results Labs CBC & Chem 7: 09/10/18 20:00 09/10/18 20:00 Imaging Impressions Chest X-Ray 09/10/18 19:53 CONCLUSION: No acute findings. Stable elevated right hemidiaphragm. Tortuous aorta. Minimal basilar scarring. Caprini VTE Risk Assessment Caprini VTE Risk Assessment: Moderate/High Risk (score >= 2) Caprini Risk Assessment Model: Point Value = 1 Point Value = 2 Point Value = 3 Point Value = 5 Age 41-60 Minor surgery BMI > 25 kg/m2 Swollen legs Varicose veins or History of unexplained or recurrent spontaneous Oral contraceptives or hormone replacement Sepsis (< 1 month) Serious lung disease, including pneumonia (< 1 month) Abnormal pulmonary function Acute myocardial infarction Congestive heart failure (< 1 month) History of inflammatory bowel disease Medical patient at bed rest Age 61-74 Arthroscopic surgery Major open surgery (> 45 min) Laparoscopic surgery (> 45 min) Malignancy Confined to bed (> 72 hours) Immobilizing plaster cast Central venous access Age >= 75 History of VTE Family history of VTE Factor V Leiden Prothrombin [id number] Lupus anticoagulant Anticardiolipin antibodies Elevated serum homocysteine Heparin-induced thrombocytopenia Other congenital or acquired thrombophilia Stroke (< 1 month) Elective arthroplasty Hip, pelvis, or leg fracture Acute spinal cord injury (< 1 month) Prophylaxis Regimen: Total Risk Factor Score Risk Level Prophylaxis Regimen 0-1 Low Early ambulation 2 Moderate Order ONE of the following: *Sequential Compression Device (SCD) *Heparin 5000 units SQ BID 3-4 Higher Order ONE of the following medications: *Heparin 5000 units SQ TID *Enoxaparin/Lovenox 40 mg SQ daily (WT < 150 kg, CrCl > 30 mL/min) *Enoxaparin/Lovenox 30 mg SQ daily (WT < 150 kg, CrCl > 10-29 mL/min) *Enoxaparin/Lovenox 30 mg SQ BID (WT < 150 kg, CrCl > 30 mL/min) AND/OR *Sequential Compression Device (SCD) 5 or more Highest Order ONE of the following medications: *Heparin 5000 units SQ TID (Preferred with Epidurals) *Enoxaparin/Lovenox 40 mg SQ daily (WT < 150 kg, CrCl > 30 mL/min) *Enoxaparin/Lovenox 30 mg SQ daily (WT < 150 kg, CrCl > 10-29 mL/min) *Enoxaparin/Lovenox 30 mg SQ BID (WT < 150 kg, CrCl > 30 mL/min) AND *Sequential Compression Device (SCD) Assessment and Plan (1) Chest pain, rule out acute myocardial infarction: Code(s): R07.9 - Chest pain, unspecified Status: Acute (2) Acute UTI: Code(s): N39.0 - Urinary tract infection, site not specified Status: Acute Plan Chest pain, atypical Patient with increased risk factors include age, hypertension, hyperlipidemia Patient has been ruled out for acute coronary event with serial cardiac enzymes that are negative There are EKGs reviewed by myself and indicated sinus rhythm without any changes Myocardial perfusion study was performed and indicated normal examination, no ischemia. Low risk Given the patient pain is reproducible palpation, worse whenever she moves her left arm and relieved by Toradol. Possible etiology could be muscle skeletal in nature. Continue NSAID Continue monitor telemetry Continue aspirin, nitroglycerin as needed Abnormal urinalysis Large amount of blood, trace of leukocyte esterase. Previous cultures with E. coli Patient started on Keflex Hypertension, hyper lipidemia, atrial fibrillation Continue home medications Patient anticoagulated with Coumadin with INR 2.5 Hypothyroidism Continue replacement therapy DVT prevention Patient anticoagulated with Coumadin Discussed Condition With: Patient, nursing staff, Dr. Barnes Discharge Planning: Discharge home in stable condition Activity: Ad vanessa. Diet: Healthy heart diet Medication per medication reconciliation Follow-up with primary medical doctor in 1 week H&P: Quality VTE Deep Vein Thrombosis/Pulmonary Embolism Present on Admission: No
--- NOTE | 2018-09-11 08:48 | ECG ---
Date Performed: 09/10/2018 Time Performed: 22:54:57 PTAGE: 83 years EKG: Sinus rhythm NORMAL ECG No significant change from prior electrocardiogram. PREVIOUS TRACING : 09/10/2018 18.34 DOCTOR: José Luis Arriola Interpretating Date/Time 09/11/2018 08:47:29
[2018-09-11] MEDS ORDERED: Levothyroxine 50 MCG Tablet PO SCH (09:00)
--- NOTE | 2018-09-11 13:42 | NM ---
EXAM DATE: 09/11/2018 1:32 PM EST AGE/SEX: 83 years / Female INDICATIONS:Angina. . Left sided chest pain. CLINICAL DATA: This is the patient's initial encounter. Patient reports that signs and symptoms have been present for 3 days and indicates a pain score of 10/10. MEDICAL/SURGICAL HISTORY: Hypercholesterolemia. Hypertension. Hypothyroidism. A-fib, Renal d isease. Hysterectomy. Appendectomy. Tonsillectomy. COMPARISON: No prior exams available for comparison. DOSE: 8.5 mCi Tc 99m Myoview at rest 25.6 mCi [id number] at stress 0.4 mg Lexiscan STRESS SYMPTOMS: Tingling sensation, headache. EJECTION FRACTION: >70 % TECHNIQUE: The patient underwent pharmacologic stress with infusion of prescribed dose. Continuous ECG tracing was monitored during stress. Gated SPECT imaging was performed after stress and conventi onal SPECT imaging was performed at rest. The examination was performed on a SPECT/CT scanner, both attenuation and non-corrected datasets were reviewed. FINDINGS: Distribution: The maximum perfused segment at stress is in the septal wall. Perfusion Study: The pattern of perfusion at stress is within normal limits. Gated Study: There are intact wall motion and wall thickening without hypokinetic or dyskinetic segm ents. The ejection fraction is calculated at >70%. RISK CATEGORY: Low (<1% Annual Mortality Rate) CONCLUSION: 1. Negative examination. Electronically signed by: Zhang Ceballos MD Board Certified Radiologist 09/11/2018 1:40 PM EST
[2018-09-11 13:51] VITALS: BP 151/71; PULSE 57; RESP 20; TEMP 97.5; O2SAT 95
--- NOTE | 2018-09-11 14:07 | TR ---
Date Performed: 09/11/2018 Time Performed: 12:14:56 DOCTOR: Rainer Villela DRUG LIST: CLINICAL HISTORY: REASON FOR TEST: Chest pain WITH AFIB REASON FOR ENDING: OBSERVATION: CONCLUSION: Lexiscan stress test was performed under standard four minute protocol. Radionuclide was injected one minute prior to ending the test. No electrocardiographic abormalities were present to suggest ischemia. Nuclear imaging and interpretation are pending. COMMENTS:
== END 2018-09-11 15:38 | disposition home or self-care (01) ==
LOC: PHED 18:28 → PHEDA 18:28 → PH3 23:54
PROVIDERS: ADMIT Hospitalist; ATTEND Hospitalist
DX: Q25.46 Tortuous aortic arch; I48.91 Unspecified atrial fibrillation; N39.0 Urinary tract infection, site not specified; E78.5 Hyperlipidemia, unspecified; E03.9 Hypothyroidism, unspecified; I10 Essential (primary) hypertension; Z87.891 Personal history of nicotine dependence; Z79.01 Long term (current) use of anticoagulants; Z79.82 Long term (current) use of aspirin; Z79.899 Other long term (current) drug therapy; R07.89 Other chest pain
CPT/HCPCS: 71020; 71046; 78452; 80053; 81001; 82550; 84484; 85025; 85379; 85610; 85730; 87086; 90774; 93005; 93017; 96374; 96376; 99285; A9502; C8952; G0378; J1885; J2785; Q9969